=== PATIENT | female | born 1945 | race Caucasian/White ===

== ENCOUNTER 2017-04-07 15:29 | Inpatient (IN) | payer OTHER, MEDICARE ==
[2017-04-07] VITALS (8 sets, daily range): BP systolic 111–133; BP diastolic 49–72; PULSE 64–79; RESP 16–20; TEMP 98.6–99.9; O2SAT 95–98
[~2017-04-07] VITALS: Ht 162.6 cm; Wt 131.0 kg
[2017-04-07] MEDS: SODIUM CHLOR 0.9% 1000 ML INJ 1,000 ML IV SCH (00:15)
[~2017-04-07 15:29] MED LIST: ACET-929 PO; CITA20TA4 PO; DILT30TA PO; FENO54TA PO; HYDR25TA5 PO; LISI40TA PO; PERC5TAB12 PO
[2017-04-07 15:57] LABS: AUTOMATED NEUTROPHIL # 8.8 TH/MM3 (1.8-7.7); BASOPHIL # 0.1 TH/MM3 (0-0.2); BASOPHIL % 1.1 % (0.0-2.0); EOSINOPHIL # 0.3 TH/MM3 (0-0.4); EOSINOPHIL % 2.3 % (0.0-4.0); HEMATOCRIT 34.7 % (35.0-46.0); LYMPH % 13.8 % (9.0-44.0); LYMPHOCYTE # 1.7 TH/MM3 (1.0-4.8); MEAN CELL VOLUME 88.8 FL (80.0-100.0); MEAN CORPUSCULAR HEMOGLOBIN 29.9 PG (27.0-34.0); MEAN CORPUSCULAR HGB CONC 33.7 % (32.0-36.0); MONO % 10.9 % (0.0-8.0); NEUT % 71.9 % (16.0-70.0); PLATELET COUNT 224 TH/MM3 (150-450); RED BLOOD COUNT 3.91 MIL/MM3 (4.00-5.30); RED CELL DISTRIBUTION WIDTH 16.6 % (11.6-17.2); WHITE BLOOD COUNT 12.2 TH/MM3 (4.0-11.0)
[2017-04-07 16:01] LABS: HEMO FLAGS DIFF FINAL
[2017-04-07 16:05] LABS: CHLORIDE 104 MEQ/L (98-107); POTASSIUM 4.4 MEQ/L (3.5-5.1); SODIUM (NA) 137 MEQ/L (136-145)
[2017-04-07 16:08] LABS: ANION GAP 8 MEQ/L (5-15); BICARBONATE 24.9 MEQ/L (21.0-32.0)
[2017-04-07 16:09] LABS: BLOOD UREA NITROGEN 34 MG/DL (7-18)
[2017-04-07 16:12] LABS: GLOMERULAR FILTRATION RATE 37 ML/MIN (>89)
[2017-04-07] MEDS ORDERED: SODIUM CHLORID 0.9% 500 ML INJ 500 ML IV ONE (16:15)
[2017-04-07] MEDS ORDERED: MORPHINE SULFATE 4 MG/ML INJ IV PUSH ONE ×2 (16:15→18:30)
--- NOTE | 2017-04-07 16:16 | RADRPT ---
EXAM DATE/TIME: 04/07/2017 15:52 [facility] COMPARISON: No previous studies available for comparison. INDICATIONS : Chest pain. MEDICAL HISTORY : Cardiovascular disease. SURGICAL HISTORY : None. ENCOUNTER: Initial ACUITY: 4 - 6 days PAIN SCORE: 4/10 LOCATION: Right chest FINDINGS: The lungs are clear. The heart is minimally enlarged. The pulmonary vascularity is normal. There is n o evidence for infiltrate or failure. The portion of the bony skeleton visualized is unremarkable. CONCLUSION: Compensated cardiomegaly otherwise negative Jett Valle MD FACR on April 07, 2017 at 16:13 Board Certified Radiologist. This report was verified electronically.
[2017-04-07 16:17] LABS: CREATINE KINASE 25 U/L (26-192)
--- NOTE | 2017-04-07 16:17 | PD ---
HPI Chief Complaint: Chest Pain Time Seen by Provider: 15:53 Travel History International Travel<30 days: No Contact w/Intl Traveler<30days: No Traveled to known affect area: No History of Present Illness HPI This is a 71-year-old female who was recently diagnosed with large B-cell lymphoma who has her first appointment with Dr. Brown next week who presents to the emergency department with 5 days of right sided chest pain and right upper quadrant pain that radiates to the back. She feels a sharp stabbing pain that goes straight through her right side. She says it's worse with movement and worse when she lays down. She denies any associated fevers, chills, or vomiting. The pain has been constant. She says her lymphoma was biopsy confirmed. She is supposed to have a CT of her chest tomorrow. PFSH Past Medical History Arthritis: Yes (RA, OSTEOARTHRITIS) Atrial Fibrillation: Yes Autoimmune Disease: Yes (MS DIAGNOSIS 1979) Depression: Yes Cancer: Yes (SWEAT GLAND RIGHT EYELID) Cardiovascular Problems: Yes (AFIB) High Cholesterol: Yes Chemotherapy: No Chest Pain: No Diabetes: No Diminished Hearing: No Endocrine: No Gastrointestinal Disorders: No Glaucoma: No Genitourinary: No Hepatitis: No Hiatal Hernia: No Hypertension: Yes Musculoskeletal: Yes (MS) Neurologic: No Psychiatric: No Reproductive: No Respiratory: No Integumentary: No Immunizations Current: Yes Radiation Therapy: No Thyroid Disease: No Influenza Vaccination: No ?: Not Menopausal: Yes Ovarian Cysts: Yes (SURGERY X 5) Past Surgical History Abdominal Surgery: Yes AICD: No Appendectomy: Yes Ear Surgery: No Eye Surgery: Yes Gynecologic Surgery: Yes (cysts on ovaries and utereus) Hysterectomy: Yes Joint Replacement: No Oral Surgery: Yes (teeth removal) Pacemaker: No Thoracic Surgery: No Tonsillectomy: Yes (AND ADENOIDS) Other Surgery: Yes (BLADDER SLING, RIGHT BREAST MILK DUCT REMOVED) Social History Alcohol Use: No Tobacco Use: No (FORMER) Substance Use: No Allergies-Medications (Allergen,Severity, Reaction): Coded Allergies: No Known Allergies (Verified , 04/07/17) Reported Meds & Prescriptions Reported Meds & Active Scripts Active Hydroxyzine HCl 25 Mg Tab 1-2 Tab PO QID PRN Oxycodone (Oxycodone HCl) 5 Mg Cap 1-2 Tab PO Q4HR Percocet (Oxycodone-Acetaminophen) 5-325 mg Tab 2 Tab PO Q6H PRN Reported Acetaminophen Pm Gelcap (Acetaminophen/Diphenhydramine) 1 Each Tablet 2 Cap PO HS Lisinopril 40 Mg Tab 40 Mg PO HS Citalopram (Citalopram Hydrobromide) 20 Mg Tab 20 Mg PO DAILY Hydrochlorothiazide 25 Mg Tab 25 Mg PO DAILY Fenofibrate 54 Mg Tab 54 Mg PO BID Diltiazem (Diltiazem HCl) 30 Mg Tab 30 Mg PO BID Review of Systems Except as stated in HPI: all other systems reviewed are Neg Physical Exam Narrative GENERAL: Uncomfortable appearing SKIN: Focused skin assessment warm and dry. HEAD: Atraumatic. Normocephalic. EYES: Pupils equal and round. No injection or drainage. ENT: Moist mucous membranes NECK: Trachea midline. CARDIOVASCULAR: Regular rate and rhythm. No murmur appreciated. RESPIRATORY: Clear to auscultation. Breath sounds equal bilaterally. GASTROINTESTINAL: Abdomen soft, tender to palpation in the right upper quadrant and epigastrium with no rebound or guarding. MUSCULOSKELETAL: No obvious deformities. NEUROLOGICAL: Awake and alert. No obvious cranial nerve deficits. Moving all extremities. PSYCHIATRIC: Tearful Data Data Last Documented VS Vital Signs Date Time Temp Pulse Resp B/P Pulse Ox O2 Delivery O2 Flow Rate FiO2 04/07/17 17:56 65 16 133/62 96 Room Air 04/07/17 15:35 99.9 Orders Electrocardiogram (04/07/17 15:41) Complete Blood Count With Diff (04/07/17 15:41) Basic Metabolic Panel (Bmp) (04/07/17 15:41) Ckmb (Isoenzyme) Profile (04/07/17 15:41) Troponin I (04/07/17 15:41) Chest, Single Ap (04/07/17 15:41) Iv Access Insert/Monitor (04/07/17 15:41) Ecg Monitoring (04/07/17 15:41) Oxygen Administration (04/07/17 15:41) Oximetry (04/07/17 15:41) Ct Pulmonary Angiogram (04/07/17 ) Ct Abd/Pel W Iv Contrast(Rout) (04/07/17 ) Hepatic Functional Panel (04/07/17 16:02) Morphine Inj (Morphine Inj) (04/07/17 16:15) Sodium Chlorid 0.9% 500 Ml Inj (Ns 500 M (04/07/17 16:15) Ed Poc Ultrasound (04/07/17 ) Sodium Chlor 0.9% 1000 Ml Inj (Ns 1000 M (04/07/17 17:30) Iodixanol 320 Inj (Rad Ct) (Visipaque 32 (04/07/17 17:23) Urinalysis - C+S If Indicated (04/07/17 18:28) Morphine Inj (Morphine Inj) (04/07/17 18:30) Hydroxyzine Hcl (Atarax) (04/07/17 18:45) Lipase (04/07/17 15:50) Admit Order (Ed Use Only) (04/07/17 19:16) Labs Laboratory Tests Test 04/07/17 04/07/17 15:50 18:30 White Blood Count 12.2 TH/MM3 Red Blood Count 3.91 MIL/MM3 Hemoglobin 11.7 GM/DL Hematocrit 34.7 % Mean Corpuscular Volume 88.8 FL Mean Corpuscular Hemoglobin 29.9 PG Mean Corpuscular Hemoglobin 33.7 % Concent Red Cell Distribution Width 16.6 % Platelet Count 224 TH/MM3 Mean Platelet Volume 8.2 FL Neutrophils (%) (Auto) 71.9 % Lymphocytes (%) (Auto) 13.8 % Monocytes (%) (Auto) 10.9 % Eosinophils (%) (Auto) 2.3 % Basophils (%) (Auto) 1.1 % Neutrophils # (Auto) 8.8 TH/MM3 Lymphocytes # (Auto) 1.7 TH/MM3 Monocytes # (Auto) 1.3 TH/MM3 Eosinophils # (Auto) 0.3 TH/MM3 Basophils # (Auto) 0.1 TH/MM3 CBC Comment DIFF FINAL Differential Comment Sodium Level 137 MEQ/L Potassium Level 4.4 MEQ/L Chloride Level 104 MEQ/L Carbon Dioxide Level 24.9 MEQ/L Anion Gap 8 MEQ/L Blood Urea Nitrogen 34 MG/DL Creatinine 1.40 MG/DL Estimat Glomerular Filtration 37 ML/MIN Rate Random Glucose 107 MG/DL Calcium Level 9.0 MG/DL Total Bilirubin 0.5 MG/DL Direct Bilirubin 0.1 MG/DL Indirect Bilirubin 0.4 MG/DL Aspartate Amino Transf 28 U/L (AST/SGOT) Alanine Aminotransferase 19 U/L (ALT/SGPT) Alkaline Phosphatase 96 U/L Total Creatine Kinase 25 U/L Troponin I LESS THAN 0.02 NG/ML Total Protein 6.8 GM/DL Albumin 3.2 GM/DL Lipase 110 U/L Urine Color YELLOW Urine Turbidity CLEAR Urine pH 6.0 Urine Specific [place] 1.035 Urine Protein NEG mg/dL Urine Glucose (UA) NEG mg/dL Urine Ketones NEG mg/dL Urine Occult Blood MOD Urine Nitrite NEG Urine Bilirubin NEG Urine Leukocyte Esterase NEG Urine RBC 0-3 /hpf Urine WBC 3-5 /hpf Urine Squamous Epithelial 6-8 /hpf Cells Microscopic Urinalysis Comment CULT NOT INDICATED MDM Medical Decision Making Medical Screen Exam Complete: Yes Emergency Medical Condition: Yes Interpretation(s) temperature 99.9, no tachycardia, normotensive Mild leukocytosis 71% neutrophils Renal insufficiency LFTs are normal Last 24 hours Impressions Chest X-Ray 04/07/17 1541 Signed Impressions: Service Date/Time: Friday, April 07, 2017 15:52 - CONCLUSION: Compensated cardiomegaly otherwise negative Jett Valle MD FACR CT Angiography 04/07/17 0000 Signed Impressions: Service Date/Time: Friday, April 07, 2017 16:48 - CONCLUSION: 1. No evidence of pulmonary emboli. 2. Large solid mass in the sonu hepatis which cannot be clearly from the pancreatic head and is characteristic of either malignant lymphadenopathy or pancreatic carcinoma. 3. Mediastinal and hilar soft tissue traversing of neoplastic process and lymphadenopathy. 4. Right-sided subdiaphragmatic 18 mm nodule characteristic of an enlarged lymph node. 5. Right lower lobe pulmonary nodules suspicious for early pulmonary metastases. Navneet Muñoz MD Abdomen/Pelvis CT 04/07/17 0000 Signed Impressions: Service Date/Time: Friday, April 07, 2017 16:48 - CONCLUSION: Malignant lymphadenopathy which has slightly progressed since prior study. Splenomegaly No acute abnormality noted. Navneet Muñoz MD Differential Diagnosis Lymphoma, cholecystitis, metastatic disease, cancer pain, pneumonia, pulmonary embolism Narrative Course This is a 71-year-old female with a diagnosis of large B-cell lymphoma who presents to the emergency department with increasing pain in her right upper quadrant and right chest. She was placed on a monitor and an IV was established. Labs demonstrate a mild leukocytosis. CT abdomen and pelvis demonstrates slightly progressed lymphoma with a large mass in the sonu hepatis which I suspect is causing her pain. Patient received 2 doses of pain but is very uncomfortable. I think she would benefit from observation and IV hydration with pain control. I'm not sure was causing her low-grade temperature and her leukocytosis. Her elevated white blood cell count may be in the setting of dehydration. It's also reasonable just to watch her and make sure she doesn't develop an infection. Procedures Procedure Narrative US guided IV was placed, 20 guage in the left antecubital fossa Diagnosis Primary Impression: Abdominal mass Qualified Code: R19.01 - Right upper quadrant abdominal mass Patient Instructions: General Instructions Additional Instructions: If you develop severe or worsening abdominal pain, fever>100.4, persistent vomiting or inability to eat or drink return to the emergency department immediately. Follow up with your primary care physician in 1-2 days for a check-up. Med/Other Pt SpecificInfo: Prescription(s) given Scripts Hydroxyzine HCl 25 Mg Tab1-2 Tab PO QID PRN (ITCHING) #15 TAB Ref 0 Prov:Luh Dunlap MD 04/07/17 Oxycodone 5 Mg Cap1-2 Tab PO Q4HR #20 CAP Ref 0 Prov:Luh Dunlap MD 04/07/17 Luh Dunlap MD Apr 07, 2017 16:17
[2017-04-07 16:54] LABS: INDIRECT BILIRUBIN 0.4 MG/DL (0.0-0.8); TOTAL BILIRUBIN ADULT 0.5 MG/DL (0.2-1.0)
[2017-04-07] MEDS ORDERED: IODIXANOL 320 MG/ML 10 ML VIAL (for Rad CT) IV ONE (17:23)
[2017-04-07] MEDS ORDERED: SODIUM CHLOR 0.9% 1000 ML INJ 1,000 ML IV ONE (17:30)
--- NOTE | 2017-04-07 18:00 | RADRPT ---
EXAM DATE/TIME: 04/07/2017 16:48 [facility] COMPARISON: No previous studies available for comparison. INDICATIONS : Right chest pain. Evaluate for embolism. IV CONTRAST: 50 cc Visipaque (iodixanol) IV ; Cumulative dose for multiple exams. RADIATION DOSE: 24.18 CTDIvol (mGy) MEDICAL HISTORY : Hypertension. Recent diagnosis of large B cell lymphoma SURGICAL HISTORY : Appendectomy. Hysterectomy.Bladder sling ENCOUNTER: Initial ACUITY: 4 - 6 days PAIN SCALE: 6/10 LOCATION: Right chest TECHNIQUE: Volumetric scanning of the chest was performed using a pulmonary embolism protocol MIP images were re constructed. Using automated exposure control and adjustment of the mA and/or kV according to patien t size, radiation dose was kept as low as reasonably achievable to obtain optimal diagnostic quality images. DICOM format image data is available electronically for review and comparison. Follow-up recommendations for incidentally detected pulmonary nodules are based at a minimum on nodul e size and patient risk factors according to Fleischner Society Guidelines. FINDINGS: PULMONARY ARTERIES: No filling defects are seen in the pulmonary arteries through the segmental level. LUNGS: 2 pulmonary nodules are identified in the right lower lobe within the posterior costophrenic sulcus. The nodules measure 1.5 and 1.3 cm in size. There is no evidence of consolidating airspace disease. PLEURAE: There is no pleural thickening or pleural effusion. MEDIASTINUM: Abnormal bandlike soft tissue is identified along the posterior wall of the left atrium extending int o the right hilum and azygos esophageal groove. It cannot be clearly from the esophagus. Mi ld adenopathy is noted in the left hilar region. MUSCULOSKELETAL: Within normal limits for patient age. MISCELLANEOUS: A large soft tissue mass is identified within the sonu hepatis measuring 7.4 x 7.3 cm in size. It ab uts and cannot be completely from the pancreatic head. Additional nodular soft tissue densi ties are seen along the celiac axis and in the right side diaphragmatic region characteristic of maura opathy. CONCLUSION: 1. No evidence of pulmonary emboli. 2. Large solid mass in the sonu hepatis which cannot be clearly from the pancreatic head a nd is characteristic of either malignant lymphadenopathy or pancreatic carcinoma. 3. Mediastinal and hilar soft tissue traversing of neoplastic process and lymphadenopathy. 4. Right-sided subdiaphragmatic 18 mm nodule characteristic of an enlarged lymph node. 5. Right lower lobe pulmonary nodules suspicious for early pulmonary metastases. Navneet Muñoz MD on April 07, 2017 at 17:45 Board Certified Radiologist. This report was verified electronically.
--- NOTE | 2017-04-07 18:13 | RADRPT ---
EXAM DATE/TIME: 04/07/2017 16:48 [facility] COMPARISON: CT ABDOMEN & PELVIS W CONTRAST, February 23, 2017, 13:56. INDICATIONS : Right upper quadrant pain. IV CONTRAST: 50 cc Visipaque (iodixanol) IV ; Cumulative dose for multiple exams. ORAL CONTRAST: No oral contrast ingested. RADIATION DOSE: 22.02 CTDIvol (mGy) MEDICAL HISTORY : Hypertension. Recent diagnosis of large B cell lymphoma SURGICAL HISTORY : Appendectomy. Hysterectomy.Bladder sling ENCOUNTER: Initial ACUITY: 4 - 6 days PAIN SCALE: 5/10 LOCATION: Right upper quadrant TECHNIQUE: Volumetric scanning of the abdomen and pelvis was performed. Using automated exposure control and adjustment of the mA and/or kV according to patient size, radiation dose was kept as low as reasonably achievable to obtain optimal diagnostic quality images. DICOM format image data is av ailable electronically for review and comparison. FINDINGS: Large felicitas mass in the sonu hepatis and associated celiac, mesenteric and retroperitoneal lymphaden opathy are again noted and measure slightly larger. The sonu hepatis mass has increased in diameter from 8 cm to 8.7 cm. The liver is stable without evidence of space-occupying lesions. The spleen remains moderately enlarged. The kidneys and intestinal tract are unremarkable. There is no evidence of hydronephrosis. CONCLUSION: Malignant lymphadenopathy which has slightly progressed since prior study. Splenomegaly No acute abnormality noted. Navneet Muñoz MD on April 07, 2017 at 18:04 Board Certified Radiologist. This report was verified electronically.
[2017-04-07] MEDS ORDERED: HYDR-3133 PO (18:28)
[2017-04-07] MEDS ORDERED: OXYC1CAP PO (18:28)
[2017-04-07 18:39] LABS: GLUCOSE,URINE NEG (NEG); KETONE, URINE NEG (NEG); NITRITE,URINE NEG (NEG)
[2017-04-07] MEDS ORDERED: hydrOXYzine HCL 25 MG TAB PO ONE (18:45)
[2017-04-07 18:55] LABS: BLOOD, URINE MOD (NEG); URINE COLOR YELLOW (YELLW/STRAW)
[2017-04-07 18:58] LABS: COMMENT (UR) CULT NOT INDICATED; CULTURE IF INDICATED CULT NOT INDICATED; RBC, URINE 0-3 /hpf (0-3)
[2017-04-07] MEDS ORDERED: SODIUM CHLORIDE 0.9% FLUSH 10 ML FLUSH IV FLUSH PRN (20:00)
[2017-04-07] MEDS ORDERED: NALOXONE HCL 0.4 MG/ML AMP IV PRN (20:00)
[2017-04-07] MEDS: SODIUM CHLORIDE 0.9% FLUSH 10 ML FLUSH IV FLUSH SCH (21:00)
[2017-04-08] VITALS: BP 115/53; PULSE 60; RESP 20; TEMP 98.1; O2SAT 96
[2017-04-08 04:00] VITALS: BP 114/57; PULSE 63; RESP 20; TEMP 97; O2SAT 96
[2017-04-08 06:01] LABS: HEMATOCRIT 33.4 % (35.0-46.0); MEAN CELL VOLUME 90.2 FL (80.0-100.0); MEAN CORPUSCULAR HEMOGLOBIN 29.5 PG (27.0-34.0); MEAN CORPUSCULAR HGB CONC 32.6 % (32.0-36.0); PLATELET COUNT 188 TH/MM3 (150-450); RED BLOOD COUNT 3.71 MIL/MM3 (4.00-5.30); RED CELL DISTRIBUTION WIDTH 17.1 % (11.6-17.2); WHITE BLOOD COUNT 8.5 TH/MM3 (4.0-11.0)
[2017-04-08 06:14] LABS: POTASSIUM 4.2 MEQ/L (3.5-5.1)
[2017-04-08 06:20] LABS: BICARBONATE 26.5 MEQ/L (21.0-32.0)
[2017-04-08 06:23] LABS: HEMO FLAGS AUTO DIFF
[2017-04-08] MEDS: SODIUM CHLORIDE 0.9% FLUSH 10 ML FLUSH IV FLUSH SCH ×2 (07:33→21:16)
[2017-04-08 07:35] LABS: EOSINOPHILS 3 % (0-4); NEUTROPHIL # MANUAL DIFF 5.4 TH/MM3 (1.8-7.7); PLATELET ESTIMATE SMEAR NORMAL (NORMAL); PLATELET MORPHOLOGY NORMAL (NORMAL); POLYS (SEG NEUTROPHILS) 64 % (16-70); SCAN/DIFF FINAL DIFF MANUAL; WBC DIFF SAMPLE 100
[2017-04-08] MEDS: SODIUM CHLOR 0.9% 1000 ML INJ 1,000 ML IV SCH (07:58)
[2017-04-08 08:00] VITALS: BP 100/38; PULSE 60; RESP 18; TEMP 98.4; O2SAT 96
[2017-04-08] MEDS ORDERED: oxyCODONE/ACETAMINOPHEN 5 MG/325 MG TAB PO PRN (08:00)
[2017-04-08] MEDS ORDERED: MORPHINE SULFATE 4 MG/ML INJ IV PRN (08:00)
[2017-04-08] MEDS ORDERED: NALOXONE HCL 0.4 MG/ML AMP IV PRN (08:00)
[2017-04-08] MEDS: oxyCODONE/ACETAMINOPHEN 10 MG/325 MG TAB PO PRN ×2 (08:01→21:15)
--- NOTE | 2017-04-08 11:09 | HHI.HP ---
[facility] Service [facility] Primary Care Physician Davonte Rodas MD Admission Diagnosis lymphoma, pain Diagnoses: (1) Intractable pain Diagnosis: Principal (2) Large B-cell lymphoma (3) Right-sided chest wall pain Diagnosis: Principal (4) Mesenteric lymphadenopathy (5) Lymphadenopathy, retroperitoneal Travel History International Travel<30 Days: No Contact w/Intl Traveler <30 Da: No Traveled to Known Affected Are: No History of Present Illness This is a pleasant 71 year-old female who was recently diagnosed with large B cell lymphoma and has a large felicitas mass in the sonu hepatis with associated celiac mesenteric and retroperitoneal lymphadenopathy. She underwent biopsy of the sonu hepatis node mass on 03/12/17 which was positive for large B-cell lymphoma. She has an appointment to establish with Dr. Brown next Friday. Beginning one week ago she has had intermittent severe right sided chest pain which she describes as pulling in nature. It is exacerbated by movement or bending over. She has been taking oxycodone at home for the pain however it was uncontrolled and she was in tears yesterday due to the pain and so she presented to the ER. She received 4 mg of morphine IV which much controlled pain. This morning she took a Percocet and pain is currently 5 out of 10. The patient requests to see Dr. Brown. The patient complains of night sweats. She denies fevers or chills. Denies constipation. Denies shortness of breath. In the emergency department a CTA of the chest was negative for pulmonary embolism. Troponin was not elevated. EKG showed normal sinus rhythm. Abdominal CT scan showed enlargement of the sonu hepatis node mass from 8-8.7 cm. the patient had a cardiac catheterization in 2014 which showed no obstructive coronary artery disease. She is followed by Dr. De Guzman for paroxysmal atrial fibrillation; per the patient she had one episode of atrial fibrillation 5 years ago while hospitalized and has had no recurrence. She takes aspirin daily. Review of Systems Constitutional: COMPLAINS OF: Night Sweats, DENIES: Fatigue, Fever, Chills Eyes: DENIES: Eye pain, Vision loss Ears, nose, mouth, throat: DENIES: Hoarseness, Odynophagia Respiratory: DENIES: Cough, Shortness of breath Cardiovascular: COMPLAINS OF: Chest pain, DENIES: Palpitations, Dyspnea on Exertion, Lower Extremity Edema Gastrointestinal: DENIES: Abdominal pain, Constipation Genitourinary: DENIES: Hematuria, Dysuria Musculoskeletal: DENIES: Muscle aches, Stiffness Integumentary: DENIES: Pruritus, Rash Hematologic/lymphatic: DENIES: Lymphadenopathy Neurologic: DENIES: Abnormal gait, Headache Psychiatric: DENIES: Anxiety, Confusion Past Family Social History Past Medical History Atrial fibrillation Depression Hyperlipidemia Morbid obesity Large B-cell lymphoma with retroperitoneal, mesenteric lymphadenopathy and a large felicitas mass of the sonu hepatis History of multiple sclerosis not currently treated Reported Medications Allergies Coded Allergies Type Severity Reaction Last Updated Verified No Known Allergies 04/07/17 Yes Active Scripts Medications Dose Route/Sig Days Date Category Hydroxyzine HCl 25 Mg Tab 1-2 Tab PO QID PRN 04/07/17 Rx Oxycodone (Oxycodone HCl) 5 Mg Cap 1-2 Tab PO Q4HR 04/07/17 Rx Acetaminophen Pm Gelcap (Acetaminophen/Diphenhydramine) 1 Each Tablet 2 Cap PO HS 03/13/17 Reported Lisinopril 40 Mg Tab 40 Mg PO HS 03/12/17 Reported Citalopram (Citalopram Hydrobromide) 20 Mg Tab 20 Mg PO DAILY 03/12/17 Reported Hydrochlorothiazide 25 Mg Tab 25 Mg PO DAILY 03/12/17 Reported Fenofibrate 54 Mg Tab 54 Mg PO BID 03/12/17 Reported Diltiazem (Diltiazem HCl) 30 Mg Tab 30 Mg PO BID 03/12/17 Reported Percocet (Oxycodone-Acetaminophen) 5-325 mg Tab 2 Tab PO Q6H PRN 02/23/17 Rx Allergies: Coded Allergies: No Known Allergies (Verified , 04/07/17) Family History Negative for lymphoma Social History No alcohol tobacco or drug use. Lives with her . Physical Exam Vital Signs Vital Signs Date Time Temp Pulse Resp B/P Pulse Ox O2 Delivery O2 Flow Rate FiO2 04/08/17 08:00 98.4 60 18 100/38 96 04/08/17 04:00 97.0 63 20 114/57 96 04/08/17 00:00 98.1 60 20 115/53 96 04/07/17 23:00 68 04/07/17 20:50 98.8 64 20 121/72 96 04/07/17 20:21 79 18 111/53 98 Room Air 04/07/17 19:32 18 04/07/17 19:25 98.6 66 18 124/49 95 Room Air 04/07/17 19:19 95 Room Air 04/07/17 17:56 65 16 133/62 96 Room Air 04/07/17 17:23 72 18 133/62 97 Room Air 04/07/17 16:39 18 04/07/17 15:46 75 18 114/58 97 Room Air 04/07/17 15:43 96 Room Air 04/07/17 15:43 76 04/07/17 15:35 99.9 76 18 113/53 97 Physical Exam GENERAL: Well-nourished, well-developed pleasant morbidly obese female patient. SKIN: Warm and dry. HEAD: Normocephalic. EYES: No scleral icterus. No injection or drainage. NECK: Supple, trachea midline. No JVD or lymphadenopathy. CARDIOVASCULAR: Regular rate and rhythm without murmurs, gallops, or rubs. Tender to palpation over the right parasternal chest. RESPIRATORY: Breath sounds equal and clear to auscultation bilaterally. No accessory muscle use. GASTROINTESTINAL: Bowel sounds normoactive. Abdomen soft, non-tender, nondistended. EXTREMITIES: No cyanosis, or edema. NEUROLOGICAL: Awake, alert, and oriented x 3. Non-focal. Lymph: No axillary, inguinal or neck lymphadenopathy. Laboratory Laboratory Tests Test 04/07/17 04/07/17 04/08/17 15:50 18:30 05:20 White Blood Count 12.2 8.5 Red Blood Count 3.91 3.71 Hemoglobin 11.7 10.9 Hematocrit 34.7 33.4 Mean Corpuscular Volume 88.8 90.2 Mean Corpuscular Hemoglobin 29.9 29.5 Mean Corpuscular Hemoglobin 33.7 32.6 Concent Red Cell Distribution Width 16.6 17.1 Platelet Count 224 188 Mean Platelet Volume 8.2 8.1 Neutrophils (%) (Auto) 71.9 Lymphocytes (%) (Auto) 13.8 Monocytes (%) (Auto) 10.9 Eosinophils (%) (Auto) 2.3 Basophils (%) (Auto) 1.1 Neutrophils # (Auto) 8.8 Lymphocytes # (Auto) 1.7 Monocytes # (Auto) 1.3 Eosinophils # (Auto) 0.3 Basophils # (Auto) 0.1 CBC Comment DIFF FINAL AUTO DIFF Differential Comment FINAL DIFF MANUAL Sodium Level 137 141 Potassium Level 4.4 4.2 Chloride Level 104 107 Carbon Dioxide Level 24.9 26.5 Anion Gap 8 8 Blood Urea Nitrogen 34 26 Creatinine 1.40 0.77 Estimat Glomerular Filtration 37 74 Rate Random Glucose 107 78 Calcium Level 9.0 8.6 Total Bilirubin 0.5 Direct Bilirubin 0.1 Indirect Bilirubin 0.4 Aspartate Amino Transf 28 (AST/SGOT) Alanine Aminotransferase 19 (ALT/SGPT) Alkaline Phosphatase 96 Total Creatine Kinase 25 Troponin I LESS THAN 0.02 Total Protein 6.8 Albumin 3.2 Lipase 110 Urine Color YELLOW Urine Turbidity CLEAR Urine pH 6.0 Urine Specific [place] 1.035 Urine Protein NEG Urine Glucose (UA) NEG Urine Ketones NEG Urine Occult Blood MOD Urine Nitrite NEG Urine Bilirubin NEG Urine Leukocyte Esterase NEG Urine RBC 0-3 Urine WBC 3-5 Urine Squamous Epithelial 6-8 Cells Microscopic Urinalysis Comment CULT NOT INDICATED Differential Total Cells 100 Counted Neutrophils % (Manual) 64 Lymphocytes % 19 Monocytes % 14 Eosinophils % 3 Neutrophils # (Manual) 5.4 Platelet Estimate NORMAL Platelet Morphology Comment NORMAL Result Diagram: 04/08/17 0520 04/08/17 0520 Imaging Last Impressions Chest X-Ray 04/07/17 1541 Signed Impressions: Service Date/Time: Friday, April 07, 2017 15:52 - CONCLUSION: Compensated cardiomegaly otherwise negative Jett Valle MD FACR CT Angiography 04/07/17 0000 Signed Impressions: Service Date/Time: Friday, April 07, 2017 16:48 - CONCLUSION: 1. No evidence of pulmonary emboli. 2. Large solid mass in the sonu hepatis which cannot be clearly from the pancreatic head and is characteristic of either malignant lymphadenopathy or pancreatic carcinoma. 3. Mediastinal and hilar soft tissue traversing of neoplastic process and lymphadenopathy. 4. Right-sided subdiaphragmatic 18 mm nodule characteristic of an enlarged lymph node. 5. Right lower lobe pulmonary nodules suspicious for early pulmonary metastases. Navneet Muñoz MD Abdomen/Pelvis CT 04/07/17 0000 Signed Impressions: Service Date/Time: Friday, April 07, 2017 16:48 - CONCLUSION: Malignant lymphadenopathy which has slightly progressed since prior study. Splenomegaly No acute abnormality noted. Navneet Muñoz MD Assessment and Plan Assessment and Plan -Intractable right sided chest pain possibly secondary to enlarging felicitas mass of the sonu hepatis secondary to large B-cell lymphoma - pain was uncontrolled by oxycodone 10 mg at home. Pain is now improved. Continue morphine IV with Percocet for breakthrough pain. Consult hematology per patient request. -Mild leukocytosis, resolved. No evidence of infection. -Hypertension. Hold lisinopril as blood pressure is normotensive. Continue hydrochlorothiazide and diltiazem. -Paroxysmal atrial fibrillation, currently sinus rhythm. Resume diltiazem and resume aspirin. -Morbid obesity -Hyperlipidemia continue fenofibrate. -DVT prophylaxis - SCDs. Janette Healy MD Apr 08, 2017 11:09
[2017-04-08 12:00] VITALS: BP 108/65; PULSE 87; RESP 18; TEMP 97.9; O2SAT 97
[2017-04-08] MEDS: DILTIAZEM HCL 30 MG TAB PO SCH ×2 (12:00→21:15)
[2017-04-08] MEDS: CITALOPRAM HYDROBROMIDE 20 MG TAB PO SCH (12:20)
[2017-04-08] MEDS: ASPIRIN EC 81 MG TABEC PO SCH (12:21)
[2017-04-08] MEDS: MORPHINE SULFATE 4 MG/ML INJ IV PRN ×2 (12:21→22:22)
--- NOTE | 2017-04-08 15:47 | EKG ---
Date Performed: 04/07/2017 Time Performed: 15:37:45 PTAGE: 71 years EKG: Sinus rhythm NONSPECIFIC ST & T-WAVE ABNORMALITY BORDERLINE ECG INTERPRETATION BASED ON A DEFAULT AGE OF 40 YEARS PREVIOUS TRACING : 06/29/2015 07.30 DOCTOR: Dia Alonso Interpretating Date/Time 04/08/2017 15:42:18
[2017-04-08 16:00] VITALS: BP 123/57; PULSE 77; RESP 18; TEMP 98.7; O2SAT 95
[2017-04-08 20:00] VITALS: BP 120/62; PULSE 94; PULSE 96; RESP 20; TEMP 100.4; O2SAT 94
[2017-04-08] MEDS: FENOFIBRATE 48 MG TAB PO SCH (21:15)
--- NOTE | 2017-04-08 22:19 | MB ---
cc: JANETTE PÉREZ MD, RUBY ANNE E. M.D. DATE OF CONSULTATION 04/08/[address] Janette Pérez CHIEF COMPLAINT Dr. Pérez requests a consultation for Mrs. Solares regarding newly diagnosed large cell lymphoma. HISTORY OF PRESENT ILLNESS Mrs. Solares is a well-known patient to Dr. Rodas with history of atrial fibrillation, depression, hyperlipidemia, morbid obesity and multiple sclerosis not currently treated. She presented with weight loss of over 35 pounds several months ago. She noted some increasing night sweats. She had severe abdominal pain that prompted her to be evaluated in the emergency room on 02/23/2017. The CT scan of the abdomen and pelvis shows adenopathy sonu hepatis with enlargement of the spleen, nodularity right base possible lymph node in the right hilum. These findings are concerning for lymphoma on March 12, 2017. CT-guided biopsy of the abdominal mass was performed. The final pathology showed a large cell lymphoma from the needle biopsy B-cell phenotype. The lymphoma was BCL1, CD 10, CD 23 negative. It is CD 20 reactive. Neoplasm was suggestive of center origin. Ms. Solares has an appointment pending at [facility] with me on April 14. Unfortunately, her symptoms progress. She came into the emergency room with what was described as chest pain. It is actually in her upper abdomen. She says it is worse with movement and worse when she lays down, sharp, stabbing close to her right side. She was admitted for pain control. Her initial labs show mild renal insufficiency which corrected during her admission. Liver function was normal. Albumin is decreased. CBC is significant for mild normocytic anemia, platelet count and white blood cell count is normal. Hematology/Oncology is consulted for treatment of her lymphoma. So far, her pain symptoms are alleviated but they still persist. PAST MEDICAL HISTORY 1. Obesity, 2. Atrial fibrillation, 3. Depression, 4. Hyperlipidemia, 5. History of multiple sclerosis 6. Large cell lymphoma. FAMILY HISTORY Significant for brother with Hodgkin's disease in his 60s. SOCIAL HISTORY She denies any tobacco, alcohol or illicit drug use. She is , lives with her . PHYSICAL EXAMINATION VITAL SIGNS: Temperature 98.7, heart rate 77, respiratory rate 18, blood pressure 123/57, saturation 95%. GENERAL: Ms. Solares is a well-developed, well-nourished morbidly obese pleasant woman in no acute distress. HEENT: Pupils are round, reactive to light and accommodation. Oropharynx is clear. NECK: Supple. LUNGS: Clear to auscultation. CARDIOVASCULAR: Rate-controlled rhythm. ABDOMEN: Large and benign. LOWER EXTREMITIES: No edema. No adenopathy appreciated. SKIN: Significant for erythematous umbilicated pustules/papules. They are distributed over chest, abdomen, both thighs and arms. IMAGING STUDIES CT angiogram from 04/07/2017 shows no evidence of pulmonary emboli. There is a large solid mass in the sonu hepatis not from a pancreatic head mass. There is mediastinal hilar soft tissue traversing. There is a right-sided sub-diaphragmatic 18 mm nodule characteristic of an enlarged lymph node. There is right lower lobe pulmonary nodule. CT scan of the abdomen and pelvis showed malignant lymphadenopathy. Sonu hepatis mass is increased in size from 8 cm to 8.7 cm as compared to the scan in January of approximately six weeks ago. ASSESSMENT/PLAN Mrs. Solares is a 71-year-old woman with multiple medical problems. She us newly diagnosed with the non-Hodgkin's lymphoma, large cell type. Her lymphoma is CD 20 positive. She is pending a consultation with oncologist on outpatient basis. She was admitted for abdominal pain associated with her lymphoma. I had a lengthy discussion with and Mrs. Solares her diagnosis of lymphoma. We discussed that lymphoma has different diseases. She has a large cell type which requires systemic therapy. She has evidence of progression in comparing the CT scan from February 23 to current. Furthermore, she has progression of symptoms with worsening abdominal pain. We discussed treatment for lymphoma to include systemic chemotherapy. We are trying to decide the risk and benefit of proceeding with chemotherapy on an inpatient basis. She has significant amount of symptoms and shortness of breath associated with it. On the other hand, she would like to be able to go home. We discussed completing a staging evaluation with bone marrow biopsy. I will obtain an echo to determine her baseline ejection fraction. She tells me that a cardiac catheterization by Dr. Karimi shows no coronary artery disease. No specific therapy is required for the rash. It looks like milluscum. They appear to be resolving on their own. She has intermittent fevers. She has sweats. For this reason, chemotherapy treatment would the ideal. We discussed administration of chemotherapy through a port which she was desirable of. We will refer her to interventional radiology for port placement after her bone marrow biopsy. We will assess in the morning to see if she is able to go home safely on pain medication. We discussed a trial of Decadron to go home. The advantage of going home and coming back for her chemotherapy as outpatient establishment of her treatment and establishing her subsequent cycles of chemotherapy. Furthermore, we would be able to stage her appropriately with a baseline CT PET scan evaluation that cannot be done in the hospital. Her questions were answered to her satisfaction. manager flight is consulted to assist in coordinating the above. MD ANDIE Wayne/ /6:34 PM /9:49 PM
[2017-04-09] VITALS (10 sets, daily range): BP systolic 105–151; BP diastolic 46–71; PULSE 85–89; RESP 16–20; TEMP 97.1–98.7; O2SAT 92–97
[2017-04-09 06:21] LABS: APTT (PATIENT) 22.7 SEC (24.3-30.1)
[2017-04-09] MEDS: DILTIAZEM HCL 30 MG TAB PO SCH (09:00)
[2017-04-09] MEDS ORDERED: HYDROCHLOROTHIAZIDE 25 MG TAB PO SCH (09:00)
[2017-04-09] MEDS: ASPIRIN EC 81 MG TABEC PO SCH (09:00)
[2017-04-09] MEDS: FENOFIBRATE 48 MG TAB PO SCH (09:05)
[2017-04-09] MEDS: CITALOPRAM HYDROBROMIDE 20 MG TAB PO SCH (09:05)
[2017-04-09] MEDS: oxyCODONE/ACETAMINOPHEN 10 MG/325 MG TAB PO PRN ×2 (09:05→16:18)
[2017-04-09] MEDS: SODIUM CHLORIDE 0.9% FLUSH 10 ML FLUSH IV FLUSH SCH (09:05)
[2017-04-09] MEDS ORDERED: MIDAZOLAM HCL 2 MG/2 ML VIAL IV ONE (11:30)
[2017-04-09] MEDS ORDERED: VANCOMYCIN INJ 1,000 MG in SODIUM CHLOR 0.9% 250 ML INJ 250 ML IV SCH (12:15)
[2017-04-09] MEDS ORDERED: ceFAZolin 2 GM PREMIX 50 ML IV SCH (12:15)
[2017-04-09] MEDS ORDERED: LIDOCAINE 1%/EPINEPHrine 1:100,000 SOLN 30 ML VIAL OTHER ONE (12:28)
--- NOTE | 2017-04-09 12:34 | RADRPT ---
EXAM DATE/TIME: 04/09/2017 11:25 [facility] COMPARISON: No previous studies available for comparison. INDICATIONS : Bone marrow biopsy. Lymphoma. SEDATION TIME: 25 minutes BIOPSY SITE: Left ilium MEDICATION(S): 1.) 4 mg midazolam (Versed) IV 2.) 200 mcg fentanyl (Sublimaze) IV DEVICE(S): 1.) 11 gauge Bone marrow biopsy needle MEDICAL HISTORY : Cardiovascular disease. Lymphoma. Multiple sclerosis. Hypertension. SURGICAL HISTORY : Appendectomy. Hysterectomy. Bladder sling. ENCOUNTER: Initial ACUITY: 1 day PAIN SCORE: 0/10 LOCATION: Left ilium A total of one core specimen(s) were obtained and sent to the laboratory for pathologic evaluation. PROCEDURE: 1. CT guided bone core biopsy and marrow biopsy. 2. Conscious sedation with continuous EKG and oximetry monitoring. 3. EKG and oximetry remained stable throughout the procedure. Prior to the procedure informed consent was obtained. Any appropriate prior imaging studies were rev iewed. Using automated exposure control and adjustment of the mA and/or kV according to patient size , radiation dose was kept as low as reasonably achievable to obtain optimal diagnostic quality images . DICOM format image data is available electronically for review and comparison. The site was prepped in a sterile fashion. Full sterile technique was used, including cap, mask, vicente rile gloves and gown and a large sterile sheet. Hand hygiene and 2% chlorhexidine and/or betadine/al cohol prep was utilized per protocol for cutaneous antisepsis. The skin and subcutaneous tissues wer e infiltrated with local anesthetic solution. With CT guidance the previously identified target was localized. Biopsy was performed using the presc ribed needle as above. Following biopsy marrow aspiration was performed with repeat puncture. Adequa te hemostasis was obtained with compression at the puncture site. Follow-up CT scan reveals no hemorrhage. Conscious sedation was performed with the prescribed dosages and duration as above in the presence of an independent trained radiology nurse to assist in the monitoring of the patient. EKG and oximetry remained stable throughout the procedure. The patient tolerated the procedure well and there were no complications. The patient was sent to Radiology Outpatient Unit in stable condition. CONCLUSION: 1. Uncomplicated CT guided bone marrow aspirate. 2. Uncomplicated CT guided bone marrow biopsy. Ravindra Galvan MD on April 09, 2017 at 12:31 Board Certified Radiologist. This report was verified electronically.
[2017-04-09] MEDS ORDERED: LIDOCAINE 1%/EPINEPHrine 1:100,000 SOLN 30 ML VIAL I-DERMAL ONE (13:46)
[2017-04-09] MEDS ORDERED: MIDAZOLAM HCL 5 MG/5 ML VIAL IV ONE (13:50)
[2017-04-09] MEDS ORDERED: fentaNYL CITRATE 250 MCG/5 ML AMP IV ONE (13:50)
--- NOTE | 2017-04-09 14:13 | PD.RAD ---
Post Procedure Progress Note Pre Procedure Diagnosis: (1) Large B-cell lymphoma Post Procedure Diagnosis: (1) Large B-cell lymphoma Procedure Date: Apr 09, 2017 Supervising Radiologist: Ravindra Galvan Proceduralist/Assist: Des Torres RT(R) Anesthesia: Local, Conscious Sedation Plan of Activity Patient to Unit: PACU Patient Condition: Good See PACS Report for procedural detail/treatment Central Venous Access Device Procedure 1 Right Internal Jugular Infusaport Placement single lumen Vietnamese: 8 Ravindra Galvan MD Apr 09, 2017 14:13
[2017-04-09] MEDS ORDERED: SODIUM CHLORIDE 0.9% FLUSH 10 ML FLUSH IVF PRN (14:15)
--- NOTE | 2017-04-09 14:15 | PD.RAD ---
Post CT Procedure Prog Note Pre Procedure Diagnosis: (1) Large B-cell lymphoma Post Procedure Diagnosis: (1) Large B-cell lymphoma Procedure Date: Apr 09, 2017 Supervising Radiologist: Ravindra Galvan Anesthesia: Local, Conscious Sedation Plan of Activity Patient to Unit: PACU Patient Condition: Good See PACS Report for procedural detail/treatment Biopsy Side: Left Biopsy Procedure: Bone Marrow Site: iliac crest Specimen: Core Biopsy Additional Detail: and marrow aspirate Ravindra Galvan MD Apr 09, 2017 14:15
--- NOTE | 2017-04-09 16:10 | HHI.DCPOC ---
Discharge Care Plan Diagnosis: (1) Lymphadenopathy, retroperitoneal (2) Intractable pain Goals to Promote Your Health * To prevent worsening of your condition and complications * To maintain your health at the optimal level Directions to Meet Your Goals Take your medications as prescribed Follow your dietary instruction Follow activity as directed Keep your appointments as scheduled Take your immunizations and boosters as scheduled If your symptoms worsen call your PCP, if no PCP go to Urgent Care Center or Emergency Room Smoking is Dangerous to Your Health. Avoid second hand smoke Call the 24-hour hour crisis hotline for domestic abuse at Teena Pederson MD Apr 09, 2017 16:10
[2017-04-09] MEDS ORDERED: OXYC1TAB63 PO (16:11)
--- NOTE | 2017-04-09 16:17 | HHI.DS ---
cc: Brenda Brown MD Discharge Summary Admission Date Apr 08, 2017 at 10:51 Discharge Date: Apr 09, 2017 Admitting Diagnosis lymphoma, pain (1) Intractable pain ICD Code: R52 Diagnosis: Principal (2) Large B-cell lymphoma ICD Code: C85.10 (3) Right-sided chest wall pain ICD Code: R07.89 Diagnosis: Principal (4) Mesenteric lymphadenopathy ICD Code: R59.0 (5) Lymphadenopathy, retroperitoneal ICD Code: R59.0 Procedures Bone marrow Bx Port placement Brief History - From Admission This is a pleasant 71 year-old female who was recently diagnosed with large B cell lymphoma and has a large felicitas mass in the sonu hepatis with associated celiac mesenteric and retroperitoneal lymphadenopathy. She underwent biopsy of the sonu hepatis node mass on 03/12/17 which was positive for large B-cell lymphoma. She has an appointment to establish with Dr. Brown next Friday. Beginning one week ago she has had intermittent severe right sided chest pain which she describes as pulling in nature. It is exacerbated by movement or bending over. She has been taking oxycodone at home for the pain however it was uncontrolled and she was in tears yesterday due to the pain and so she presented to the ER. She received 4 mg of morphine IV which much controlled pain. This morning she took a Percocet and pain is currently 5 out of 10. The patient requests to see Dr. Brown. The patient complains of night sweats. She denies fevers or chills. Denies constipation. Denies shortness of breath. In the emergency department a CTA of the chest was negative for pulmonary embolism. Troponin was not elevated. EKG showed normal sinus rhythm. Abdominal CT scan showed enlargement of the sonu hepatis node mass from 8-8.7 cm. the patient had a cardiac catheterization in 2014 which showed no obstructive coronary artery disease. She is followed by Dr. De Guzman for paroxysmal atrial fibrillation; per the patient she had one episode of atrial fibrillation 5 years ago while hospitalized and has had no recurrence. She takes aspirin daily. CBC/BMP: 04/08/17 0520 04/08/17 0520 Significant Findings Laboratory Tests Test 04/07/17 04/07/17 04/08/17 04/09/17 15:50 18:30 05:20 05:27 White Blood Count 12.2 TH/MM3 (4.0-11.0) Red Blood Count 3.91 MIL/MM3 3.71 MIL/MM3 (4.00-5.30) (4.00-5.30) Hematocrit 34.7 % 33.4 % (35.0-46.0) (35.0-46.0) Neutrophils (%) (Auto) 71.9 % (16.0-70.0) Monocytes (%) (Auto) 10.9 % (0.0-8.0) Neutrophils # (Auto) 8.8 TH/MM3 (1.8-7.7) Monocytes # (Auto) 1.3 TH/MM3 (0-0.9) Blood Urea Nitrogen 34 MG/DL (7-18) 26 MG/DL (7-18) Creatinine 1.40 MG/DL (0.50-1.00) Estimat Glomerular Filtration 37 ML/MIN (>89) 74 ML/MIN (>89) Rate Random Glucose 107 MG/DL (74-106) Total Creatine Kinase 25 U/L (26-192) Troponin I LESS THAN 0.02 NG/ML (0.02-0.05) Albumin 3.2 GM/DL (3.4-5.0) Urine Occult Blood MOD (NEG) Urine Squamous Epithelial 6-8 /hpf (0-5) Cells Hemoglobin 10.9 GM/DL (11.6-15.3) Monocytes % 14 % (0-8) Activated Partial 22.7 SEC Thromboplast Time (24.3-30.1) Lactate Dehydrogenase 294 U/L (84-246) C-Reactive Protein 2.51 MG/DL (0.00-0.30) Imaging Last Impressions Bone Biopsy CT 04/09/17 0000 Signed Impressions: Service Date/Time: Sunday, April 09, 2017 11:25 - CONCLUSION: 1. Uncomplicated CT guided bone marrow aspirate. 2. Uncomplicated CT guided bone marrow biopsy. Ravindra Galvan MD Chest X-Ray 04/07/17 1541 Signed Impressions: Service Date/Time: Friday, April 07, 2017 15:52 - CONCLUSION: Compensated cardiomegaly otherwise negative Jett Valle MD FACR CT Angiography 04/07/17 0000 Signed Impressions: Service Date/Time: Friday, April 07, 2017 16:48 - CONCLUSION: 1. No evidence of pulmonary emboli. 2. Large solid mass in the sonu hepatis which cannot be clearly from the pancreatic head and is characteristic of either malignant lymphadenopathy or pancreatic carcinoma. 3. Mediastinal and hilar soft tissue traversing of neoplastic process and lymphadenopathy. 4. Right-sided subdiaphragmatic 18 mm nodule characteristic of an enlarged lymph node. 5. Right lower lobe pulmonary nodules suspicious for early pulmonary metastases. Navneet Muñoz MD Abdomen/Pelvis CT 04/07/17 0000 Signed Impressions: Service Date/Time: Friday, April 07, 2017 16:48 - CONCLUSION: Malignant lymphadenopathy which has slightly progressed since prior study. Splenomegaly No acute abnormality noted. Navneet Muñoz MD PE at Discharge Right sided port GENERAL: This is a well-nourished, well-developed patient, in no apparent distress. CARDIOVASCULAR: Regular rate and rhythm without murmurs, gallops, or rubs. RESPIRATORY: Clear to auscultation. Breath sounds equal bilaterally. No wheezes , rales, or rhonchi. GASTROINTESTINAL: Abdomen soft, non-tender, nondistended. Normal active bowel sounds MUSCULOSKELETAL: Extremities without clubbing, cyanosis, or edema. NEURO: Alert & Oriented x4 to person, place, time, situation. Moves all ext x4 Pt update on day of discharge patient seen in follow up for abdominal pain related to lymphoma Doing well after procedures dc plans discussed with patient Hospital Course Patient is a 71 female with Intractable right sided chest pain due top large B- cell lymphoma . The pain morphine IV with Percocet for breakthrough pain. Hematology was consulted and BM Bx asnd Port was completed. patient was discharged home for follow up as an out patient her paroxysmal atrial fibrillation, was controlled with diltiazem and aspirin continued Pt Condition on Discharge: Good Discharge Disposition: Discharge Home Discharge Time: <= 30 minutes Discharge Instructions DIET: Follow Instructions for: As Tolerated, No Restrictions Activities you can perform: Regular-No Restrictions Follow up Referrals: Oncology with [facility] New Medications: Oxycodone-Acetaminophen (Oxycodone-Acetaminophen) 5-325 mg Tab 1 TAB PO Q6H PRN PAIN 3-6 #30 TAB Continued Medications: Citalopram (Citalopram) 20 Mg Tab 20 MG PO DAILY Control Depression #30 Ref 0 TAB Diltiazem (Diltiazem) 30 Mg Tab 30 MG PO BID Angina #120 Ref 0 TAB Fenofibrate (Fenofibrate) 54 Mg Tab 54 MG PO BID #30 Ref 0 TAB Hydrochlorothiazide (Hydrochlorothiazide) 25 Mg Tab 25 MG PO DAILY #30 Ref 0 TAB Hydroxyzine HCl (Hydroxyzine HCl) 25 Mg Tab 1-2 TAB PO QID PRN ITCHING #15 Ref 0 TAB Lisinopril (Lisinopril) 40 Mg Tab 40 MG PO HS Blood Pressure Management #30 Ref 0 TAB Discontinued Medications: Acetaminophen/Diphenhydramine (Acetaminophen Pm Gelcap) 1 Each Tablet 2 CAP PO HS Oxycodone (Oxycodone) 5 Mg Cap 1-2 TAB PO Q4HR PAIN #20 Ref 0 CAP Oxycodone-Acetaminophen (Percocet) 5-325 mg Tab 2 TAB PO Q6H PRN PAIN SCALE 6 TO 10 #20 Ref 0 TAB Teena Pederson MD Apr 09, 2017 16:17
--- NOTE | 2017-04-09 18:02 | PD.ONC.PN ---
Subjective Subjective Remarks c/o R/S and back pain Objective Data Date Time Temp Pulse Resp B/P Pulse Ox O2 Delivery O2 Flow Rate FiO2 04/09/17 16:00 97.1 87 18 133/71 95 04/09/17 15:55 98.1 86 16 144/66 94 04/09/17 15:27 86 16 146/69 94 04/09/17 14:57 86 16 151/57 92 04/09/17 14:57 88 16 138/71 93 04/09/17 14:40 88 16 126/47 93 04/09/17 14:27 98.2 87 16 122/56 94 04/09/17 14:25 98.2 87 16 122/46 94 04/09/17 08:00 98.7 85 18 105/47 93 04/09/17 04:00 98.6 86 20 109/54 92 04/09/17 00:26 97.8 89 20 122/64 97 04/08/17 22:25 20 04/08/17 22:15 20 04/08/17 20:00 100.4 94 20 120/62 94 04/08/17 20:00 96 04/09/17 04/09/17 04/09/17 06:59 14:59 22:59 Intake Total 420 ml 500 ml Balance 420 ml 500 ml Result Diagram: 04/08/1751904/08/17 0520 Laboratory Results Laboratory Tests Test 04/09/17 05:27 Prothrombin Time 11.0 SEC Prothromb Time International 1.0 RATIO Ratio Activated Partial 22.7 SEC Thromboplast Time Lactate Dehydrogenase 294 U/L C-Reactive Protein 2.51 MG/DL Hepatitis A IgM Antibody NEGATIVE Hepatitis B Surface Antigen NEGATIVE Hepatitis B Core IgM Antibody NEGATIVE Hepatitis C Antibody NEGATIVE HIV (1&2) Antibody NEGATIVE Imaging Studies Last 24 hours Impressions Bone Biopsy CT 04/09/17 0000 Signed Impressions: Service Date/Time: Sunday, April 09, 2017 11:25 - CONCLUSION: 1. Uncomplicated CT guided bone marrow aspirate. 2. Uncomplicated CT guided bone marrow biopsy. Ravindra Galvan MD Administered Medications Medications (Trade) Dose Ordered Sig/Magalys Route PRN Reason Start Time Stop Time Status Last Admin Dose Admin Sodium Chloride (NS Flush) 2 ml BID IV FLUSH 04/07/17 21:00 8/9/17 09:05 Oxycodone/ Acetaminophen (Percocet 10-325 Mg) 1 tab Q6H PRN PO PAIN 7-10 04/08/17 08:00 04/09/17 16:18 Morphine Sulfate (Morphine Inj) 2 mg Q4H PRN IV BREAKTHROUGH PAIN 04/08/17 12:00 04/08/17 22:22 Aspirin (Ecotrin Ec) 81 mg DAILY PO 04/08/17 12:00 04/08/17 12:21 Citalopram Hydrobromide (CeleXA) 20 mg DAILY PO 04/08/17 12:00 04/09/17 09:05 Diltiazem HCl (Cardizem) 30 mg BID PO 04/08/17 12:00 04/08/17 21:15 Fenofibrate (Tricor) 48 mg BID PO 04/08/17 21:00 04/09/17 09:05 Objective Remarks GENERAL: Well-nourished, well-developed patient. SKIN: Warm and dry. HEAD: Normocephalic. EYES: No scleral icterus. No injection or drainage. NECK: Supple, trachea midline. No JVD or lymphadenopathy. LYMPHATIC: No adenopathy. CARDIOVASCULAR: Regular rate and rhythm without murmurs. RESPIRATORY: Breath sounds equal bilaterally. No accessory muscle use. GASTROINTESTINAL: Abdomen soft, non-tender, nondistended. EXTREMITIES: No cyanosis, or edema. MUSCULOSKELETAL: Adequate muscle tone. NEUROLOGICAL: No obvious focal deficit. Awake, alert, and oriented x3. PSYCHIATRIC: Appropriate mood and affect; insight and judgment normal. Assessment/Plan Problem List: (1) Large B-cell lymphoma Status: Acute Plan: d/w pt and regarding path = DLBC NHL she had ECHO, BM Bx and port today Per she is schedule for PET scan on friday at 10 am. Pt is schedule to see Dr Brown on friday bioanalyst for R-CHOP chemo Kimber incharge nurse at [facility] notified. Ok to d/c from oncology standpoint. Take allopurionol d/w RN. The exam, history, and the medical decision-making described in the above note were completed with the assistance of the mid-level provider. I reviewed and agree with the findings presented. I attest that I had a [id number] encounter with the patient on the same day, and personally performed and documented my assessment and findings in the medical record. Yoav Lyons MD Apr 09, 2017 18:02
--- NOTE | 2017-04-09 18:04 | ECHRPT ---
Indication: PRE CHEMO, HX ATRIAL FIB CONCLUSIONS Normal left ventricular size. Wall thickness is normal. The left ventricular systolic function is hyperdynamic with an estimated ejection fraction in the ra nge of 55- 60%. No regional wall motion abnormalities are present. Doppler parameters are consistent with impaired left ventricular relaxtion (grade 1 diastolic dysfun ction). The left atrial size is mildly dilated. The right atrial size is mildly dilated. Trace mitral valve regurgitation. Aortic valve sclerosis is present. Trace aortic valve regurgitation. There is trace tricuspid valve regurgitation. BP: 109 / 54 HR: 83 Rhythm: MEASUREMENTS (Male / Female) Normal Values Technical Quality: 2D ECHO LV Diastolic Diameter PLAX 5.0 cm 4.2 - 5.9 / 3.9 - 5.3 cm LV Systolic Diameter PLAX 3.4 cm IVS Diastolic Thickness 0.9 cm 0.6 - 1.0 / 0.6 - 0.9 cm LVPW Diastolic Thickness 0.9 cm 0.6 - 1.0 / 0.6 - 0.9 cm LV Relative Wall Thickness 0.3 LVOT Diameter 1.5 cm Aortic Root Diameter 2.4 cm LA Systolic Diameter LX 2.9 cm 3.0 - 4.0 / 2.7 - 3.8 cm DOPPLER AV Peak Velocity 197.0 cm/s AV Peak Gradient 15.5 mmHg AV Mean Gradient 9.0 mmHg AV Velocity Time Integral 38.9 cm LVOT Peak Velocity 100.0 cm/s LVOT Peak Gradient 4.0 mmHg LVOT Velocity Time Integral 19.2 cm LVOT Cardiac Index 1122.6 cm/minm AV Area Cont Eq vti 0.9 cm AV Area Cont Eq pk 0.9 cm Mitral E Point Velocity 53.8 cm/s Mitral A Point Velocity 75.0 cm/s Mitral E to A Ratio 0.7 LV E' Lateral Velocity 10.6 cm/s Mitral E to LV E' Lateral Ratio 5.1 LV E' Septal Velocity 6.8 cm/s Mitral E to LV E' Septal Ratio 7.9 TR Peak Velocity 178.0 cm/s TR Peak Gradient 12.7 mmHg PV Peak Velocity 110.0 cm/s PV Peak Gradient 4.8 mmHg FINDINGS LEFT VENTRICLE Normal left ventricular size. Wall thickness is normal. The left ventricular systolic function is hyperdynamic with an estimated ejection fraction in the ra nge of 55- 60%. No regional wall motion abnormalities are present. Doppler parameters are consistent with impaired left ventricular relaxtion (grade 1 diastolic dysfun ction). RIGHT VENTRICLE Normal right ventricular size and systolic function. LEFT ATRIUM The left atrial size is mildly dilated. RIGHT ATRIUM The right atrial size is mildly dilated. ATRIAL SEPTUM The interatrial septum not well visualized. AORTA The aortic root and proximal ascending aorta are normal in size on limited imaging. MITRAL VALVE Structurally normal mitral valve. Trace mitral valve regurgitation. AORTIC VALVE Aortic valve sclerosis is present. Trace aortic valve regurgitation. No aortic valve stenosis. TRICUSPID VALVE Structurally normal tricuspid valve. There is trace tricuspid valve regurgitation. Normal estimated pulmonary pressures. PULMONARY VALVE The pulmonary valve is not well visualized. VESSELS The inferior vena cava is normal in size. PERICARDIUM Possible pericardial fat pad. Markell Weaver MD, FACC (Electronically Signed) Final Date:09 April 2017 18:02
--- NOTE | 2017-04-10 14:05 | RADRPT ---
EXAM DATE/TIME: 04/09/2017 12:29 [place] COMPARISON: No previous studies available for comparison. INDICATIONS : Patient with large cell lymphoma in need of port placement for chemotherapy. MEDICAL HISTORY : Atrial fibrillation Depression Hyperlipidemia Morbid obesity Large B-cell lymphoma with retroperitoneal, mesenteric lymphadenopathy and a large felicitas mass of the sonu hepatis Multiple sclerosis SURGICAL HISTORY : Bone biopsy ENCOUNTER: Initial ACUITY: 1 week PAIN SCORE: 0/10 FLUORO TIME: 1.4 minutes IMAGE SERIES: 1 SEDATION TIME: 30 minutes ACCESS: Right internal jugular vein SEDATION: 1.) 3 mg midazolam (Versed) IV 2.) 150 mcg fentanyl (Sublimaze) IV Prophylactic antibiotics were administered with appropriate pre-procedure timing. Vancomycin within 2 hours of procedure, Ancef (or alternative) within 1 hour of procedure. DEVICE: 1. 8 [place]ian single lumen Angiodynamics Smart port PROCEDURE : 1. Continuous pulse oximetry and EKG monitoring. 2. Intravenous conscious sedation. 3. Ultrasound guidance for venous access. 4. Fluoroscopic guided implantable central venous port placement. The patient was placed supine. The neck was prepped in sterile fashion. Full sterile technique was u sed, including cap, mask, sterile gloves and gown, and a large sterile sheet. Hand hygiene and 2% ch lorhexidine Betadine was utilized per protocol for cutaneous antisepsis with appropriate dry time for site. The skin and subcutaneous tissues were infiltrated with local anesthetic solution. Under direct ultrasound guidance, central venous access was accomplished in the targeted vessel. The ultrasound images depicting access guidance were stored and saved to PACS for permanent record. A s ubcutaneous pocket was created using blunt dissection. The port was introduced to the pocket. The c atheter tubing was fed through a subcutaneous tunnel to the venotomy site. The catheter tubing was c ut to a suitable length and then was introduced through a valved Peel-Away sheath and positioned with catheter tubing tip at the cavo-atrial junction level. The pocket incision was closed with subcutic ular Vicryl suture. Steri-Strips were applied. The port was flushed and locked with heparin solutio n per protocol. Sterile dressing was applied to the site. The patient tolerated the procedure well. Conscious sedation was performed with the prescribed dosages and duration as above in the presence of an independent trained radiology nurse to assist in the monitoring of the patient. EKG and oximetry remained stable throughout the procedure. The patient tolerated the procedure well and there were no complications. The patient was sent to post anesthesia recovery in stable condition. CONCLUSION: Uncomplicated ultrasound and fluoroscopic guided implanted central venous port catheter placement as described in detail above. An 8 Maldivian Power port was placed. Ravindra Galvan MD on April 10, 2017 at 14:03 Board Certified Radiologist. This report was verified electronically.
== END 2017-04-09 17:30 | disposition home or self-care (01) | DRG 948 ==
LOC: PHED 15:29 → PHEDA 19:17 → PH3B 20:43 → MERGE 04-08 10:51 → OBSVTOIN 04-08 10:51
PROVIDERS: ADMIT Family Medicine; ATTEND Hospitalist
PROC: 07DR3ZX Extraction of Iliac Bone Marrow, Percutaneous Approach, Diagnostic (ICD-10-PCS; principal; 2017-04-09)
DX: G89.3 Neoplasm related pain (acute) (chronic) (principal); C48.1 Malignant neoplasm of specified parts of peritoneum; C25.9 Malignant neoplasm of pancreas, unspecified; C83.33 Diffuse large B-cell lymphoma, intra-abdominal lymph nodes; I48.0 Paroxysmal atrial fibrillation; G35 Multiple sclerosis; E78.5 Hyperlipidemia, unspecified; I10 Essential (primary) hypertension; N28.9 Disorder of kidney and ureter, unspecified; Z68.42 Body mass index [BMI] 45.0-49.9, adult; E66.01 Morbid (severe) obesity due to excess calories; R59.1 Generalized enlarged lymph nodes; R07.89 Other chest pain; Z79.82 Long term (current) use of aspirin
CPT/HCPCS: 38221; 71010; 71275; 74177; 77012; 80048; 80074; 80076; 81001; 82550; 83615; 83690; 84484; 85007; 85025; 85027; 85610; 85730; 86140; 86703; 88184; 88185; 88237; 88264; 88280; 88305; 88311; 88313; 88377; 93005; 93306; 96361; 96365; 96375; 96376; 99152; G0364; G0378; G8987-GP; G8988-GP; J0690; J1642; J2250; J2270; J3010; J3370; J7030; J7040; J7050; Q9967

== ENCOUNTER 2017-04-15 12:01 | Inpatient (IN) | payer OTHER, MEDICARE ==
[~2017-04-15] VITALS: Ht 163.8 cm; Wt 137.2 kg
[2017-04-15] VITALS (7 sets, daily range): BP systolic 103–122; BP diastolic 52–57; PULSE 60–75; RESP 23–26; TEMP 98.1–98.2; O2SAT 99–100
[~2017-04-15 12:01] MED LIST changes: -ACET-929 PO; +HYDR-3133 PO; +OXYC1TAB63 PO; -PERC5TAB12 PO
[2017-04-15] MEDS ORDERED: TERBUTALINE INJ 1 MG/ML AMP SQ PRN (13:45)
[2017-04-15] MEDS ORDERED: NOREPINEPHRINE-DEXTROSE DRIP 250 ML IV SCH (13:45)
[2017-04-15] MEDS ORDERED: SENNOSIDES 8.6 MG TAB PO PRN (14:15)
[2017-04-15] MEDS ORDERED: BISACODYL 10 MG SUPP RECTAL PRN (14:15)
[2017-04-15] MEDS ORDERED: SODIUM CHLORIDE 0.9% FLUSH 10 ML FLUSH IV FLUSH PRN ×2 (14:15→14:45)
[2017-04-15] MEDS ORDERED: MAGNESIUM HYDROXIDE SUSP 30 ML CUP PO PRN (14:15)
[2017-04-15] MEDS ORDERED: ACETAMINOPHEN 325 MG TAB PO PRN (14:15)
[2017-04-15] MEDS ORDERED: ONDANSETRON HCL 4 MG/2 ML VIAL IVP PRN (14:15)
[2017-04-15] MEDS ORDERED: LACTULOSE SYRUP 20 GM/30 ML CUP PO PRN (14:15)
[2017-04-15] MEDS ORDERED: NALOXONE HCL 0.4 MG/ML AMP IV PRN (14:15)
--- NOTE | 2017-04-15 14:38 | PD.CONS ---
[facility] Service Critical Care Medicine Consult Requested By Dr. Brown Reason for Consult Hypotension status post Rituximab Primary Care Physician Unknown History of Present Illness 71-year-old female. Date of admission 04/15/2017. Date of consultation 04/15/2017. Past medical history includes not hospitalist for stage IV/large cell B cell, depression, elevated BMI, MS diagnosed in 1979, hypertension, dyslipidemia, atrial fibrillation currently normal sinus rhythm, multiple pulmonary nodules. Recent echocardiogram 04/09/17 revealed EF of 55-60% . Grade 1 diastolic dysfunction. Bilateral atrial enlargement. Cardiac catheterization 2014 revealed LAD 40% stenosis otherwise negative. Patient was recently admitted 04/09/17 with lymph node pain and/or sonu hepatis. This was treated with oxycodone as an outpatient. She had a port placed 04/10 . Yesterday, patient refused first infusion/chemotherapy for large B-cell lymphoma. Today, patient was receiving Rituximab when approximately 17 cc in 2 infusion patient became acutely hypotensive/asymptomatic in 80s. Infusion was started patient received 2 L normal saline. Laboratories revealed hemoglobin 8.9, platelets of 87, creatinine 1.2 and elevated LDH 291. CRP around 2. Troponin 0.02. Albumin 2.2. Denies any chest pain, shortness of breath, abdominal pain, recent sick contacts. Review of Systems Constitutional: COMPLAINS OF: Fatigue, DENIES: Fever, Weight gain, Weight loss Endocrine: DENIES: Polydipsia, Polyuria Eyes: DENIES: Blurred vision, Vision loss Ears, nose, mouth, throat: DENIES: Hearing loss Respiratory: COMPLAINS OF: Shortness of breath, DENIES: Sputum production Cardiovascular: DENIES: Chest pain, Palpitations Gastrointestinal: COMPLAINS OF: Abdominal pain, DENIES: Diarrhea, Nausea, Vomiting Genitourinary: DENIES: Urinary frequency Musculoskeletal: DENIES: Joint pain, Back pain Integumentary: COMPLAINS OF: Abnormal pigmentation, DENIES: Pruritus, Rash Hematologic/lymphatic: DENIES: Bruising Immunologic/allergic: DENIES: Eczema Neurologic: DENIES: Abnormal gait, Headache Psychiatric: COMPLAINS OF: Depression, DENIES: Anxiety, Confusion Past Family Social History Allergies: Coded Allergies: No Known Allergies (Verified , 04/09/17) Past Medical History Large B-cell lymphoma/NHL stage IV MS BMI greater than 50 Hypertension Dyslipidemia History of atrial fibrillation fibrillation currently normal sinus rhythm Multiple pulmonary nodules/lymph nodules Depression Past Surgical History Ovarian cyst 5 T&A Hysterectomy Bilateral carpal tunnel release Bladder sling Fifth toe neuroma Dentures Reported Medications Fenofibrate 54 mg by mouth twice a day Senna/docusate sodium 1 tablet by mouth twice a day Citalopram 20 mg by mouth daily Lisinopril 40 mg by mouth daily Diltiazem 30 mg by mouth twice a day Hydrochlorothiazide 25 mg by mouth daily Acetaminophen/oxycodone 5/25 one tablet every 6 hours when necessary pain Active Ordered Medications Reviewed in EMR Family History Brother and half sister with non-Hodgkin's lymphoma. Brother at age 60. Social History Quit tobacco 42 years ago. Rare alcohol social use. Denies IV drug use. Physical Exam Physical Exam GENERAL: SKIN: Warm and dry. HEAD: Atraumatic. Normocephalic. EYES: Pupils equal and round. No scleral icterus. No injection or drainage. ENT: No nasal bleeding or discharge. Mucous membranes pink and moist. NECK: Trachea midline. No JVD. CARDIOVASCULAR: Regular rate and rhythm. RESPIRATORY: No accessory muscle use. Clear to auscultation. Breath sounds equal bilaterally. GASTROINTESTINAL: Abdomen soft, non-tender, nondistended. Hepatic and splenic margins not palpable. MUSCULOSKELETAL: Extremities without clubbing, cyanosis, or edema. No obvious deformities. NEUROLOGICAL: Awake and alert. No obvious cranial nerve deficits. Motor grossly within normal limits. Five out of 5 muscle strength in the arms and legs. Normal speech. PSYCHIATRIC: Appropriate mood and affect; insight and judgment normal. Assessment and Plan Assessment and Plan Neuro/Psych: Depression NOS History of MS diagnosed in 1979 Continues citalopram 20 mg by mouth daily/home medication. Acetaminophen for fever [place]/morphine for pain management CV: Asymptomatic hypotension History dyslipidemia A straight atrial fibrillation currently normal sinus rhythm Straight hypertension Echocardiogram 04/09/17 revealed EF 55-60%. Grade 1 diastolic dysfunction. Bilateral atrial enlargement. Heart catheterization 2014 revealed essentially normal EF. LAD proximal to 45% stenosis otherwise unremarkable. Holding antihypertensive including lisinopril 40 mg by mouth daily, diltiazem 30 mg by mouth twice a day and hydrochlorothiazide 25 mg by mouth daily light of hypotension Holding fenofibrate 54 mill grams by mouth twice a day in light of dyslipidemia Patient did receive Rituxan which can cause hypotension. Received 2 L normal saline in route. Supportive care with vasopressors/norepinephrine to maintain MAP greater than 65. Initial troponin 0.02. EKG revealsST elevation Resp: History of right lower lobe pulmonary nodules Nasal cannula to maintain saturations greater than equal to 92% IS while awake Follow-up on chest x-ray GI: Hypoalbuminemia Advance diet as tolerated Pantoprazole for GI prophylaxis Senna/docusate sodium twice a day for bowel regimen : Perez catheter currently not indicated Endo: Sliding-scale insulin if indicated to maintain euglycemia Check TSH/cortisol in light of hypotension Renal: Acute kidney injury Creatinine currently 1.2. Accurate I's and O's Monitor urine output Currently NS @ 200 cc an hour. Follow BMP in a.m. Heme: Large B-cell lymphoma Normocytic anemia Thrombocytopenia Status post Rituxan today. Follow up on uric acid rule out tumor lysis syndrome ID: Monitor for infection Blood cultures 2, UA, influenza all pending FEN: Replace electrolytes as clinically indicated MSK: BMI greater than 50 Weight loss encouraged PT evaluate and treat Access - Utilize right Port-A-Cath/peripheral IVs Prophylaxis - GI - pantoprazole - DVT - SCD/heparin subcutaneous Level III consult Code Status Full code Discussed Condition With Patient. ISC RN. Care plan discussed and all questions answered. Discussed with Dr. Brown on the phone. Fredis Anguiano MD Apr 15, 2017 14:38
[2017-04-15] MEDS ORDERED: MISCELLANEOUS NURSING INFORMATION XX SCH (14:45)
[2017-04-15] MEDS ORDERED: CHLORHEXIDINE GLUCONATE 2 % 1 PACK (2 CLOTHS) TOP PRN (14:45)
[2017-04-15] MEDS ORDERED: ONDANSETRON HCL 4 MG/2 ML VIAL IV PRN (14:45)
[2017-04-15] MEDS ORDERED: MORPHINE SULFATE 4 MG/ML INJ IV PRN (14:45)
[2017-04-15] MEDS ORDERED: RESP: IPRATROPIUM 0.5 MG/2.5 ML NEB INH PRN (14:45)
[2017-04-15] MEDS: SODIUM CHLOR 0.9% 1000 ML INJ 1,000 ML IV SCH ×3 (15:30→23:42)
[2017-04-15] MEDS: HEPARIN SODIUM - SQ 10,000 UNITS/ML VIAL SQ SCH (15:31)
[2017-04-15 16:15] LABS: BLOOD, URINE MOD (NEG); COMMENT (UR) CULT NOT INDICATED; CULTURE IF INDICATED CULT NOT INDICATED; GLUCOSE,URINE NEG (NEG); HYALINE CAST, URINE 36 /lpf (RARE); KETONE, URINE NEG (NEG); MUCUS URINE FEW /lpf (OCC); NITRITE,URINE NEG (NEG); PH, URINE 5.5 (5.0-8.5); SQUAMOUS EPITHELIAL CELL URINE 3 /hpf (0-5); URINE COLOR YELLOW (YELLW/STRAW)
--- NOTE | 2017-04-15 16:16 | HHI.HP ---
[facility] Admission Diagnosis Diagnoses: Chief Complaint: low blood pressure, sent from [facility] Travel History International Travel<30 Days: No Contact w/Intl Traveler <30 Da: No Traveled to Known Affected Are: No History of Present Illness This a pleasant 71-year-old white female who was recently diagnosed with large B -cell lymphoma has a large felicitas mass in the sonu hepatis with associated celiac, mesenteric and retroperitoneal lymphadenopathy. Patient's oncologist is Dr. Brown. Patient presented to the emergency room as a direct admit for hypotension. She was started on CHOP chemotherapy on 04/14/2017. Today she was in the process of receiving Rituxan, she had approximately 17 cc's of infusion when her blood pressure dropped to 90s over 30s. Her initial blood pressure was 132/64. She received 500 cc normal saline bolus. Patient was emergently transferred to the main hospital with consultation to critical care services for hemodynamic instability. Patient is now being seen in room 1301. She is currently on levophed drip at 2 mics. She is currently on normal saline at 200 hour. Patient was asymptomatic. Patient has significant past medical history of hypertension, dyslipidemia, A. fib, pulmonary nodules, MS not on any treatment. She's had prior echocardiogram on 04/09/2017 with EF of 55-60%, grade 1 diastolic dysfunction. She denies any shortness of breath, no dizziness. She does have residual pain under the left breast, she had a recent admission on 04/09/2017 with lymph node pain and/or sonu hepatis. At this time, patient is resting comfortably. She has no complaints. No recent fever, no chills. Indicates she has been somewhat weak since diagnosis and has been using a cane. Dr. Brown requested admission to hospitalist services for hypotension, possible tumor lysis syndrome, and chemotherapy related toxicity. Patient is admitted for further evaluation and treatment. Review of Systems Constitutional: COMPLAINS OF: Fatigue, DENIES: Diaphoretic episodes, Fever, Weight gain, Weight loss, Chills, Dizziness, Change in appetite, Night Sweats Endocrine: DENIES: Abnorml menstrual pattern, Heat/cold intolerance, Polydipsia , Polyuria, Polyphagia Eyes: DENIES: Blurred vision, Diplopia, Eye inflammation, Eye pain, Vision loss , Photosensitivity, Double Vision Ears, nose, mouth, throat: DENIES: Tinnitus, Hearing loss, Vertigo, Nasal discharge, Oral lesions, Throat pain, Hoarseness, Ear Pain, Running Nose, Epistaxis, Sinus Pain, Toothache, Odynophagia Respiratory: DENIES: Apneas, Cough, Snoring, Wheezing, Hemoptysis, Sputum production, Shortness of breath Cardiovascular: COMPLAINS OF: Chest pain (under left breast ), DENIES: Palpitations, Syncope, Dyspnea on Exertion, PND, Lower Extremity Edema, Orthopnea, Claudication Gastrointestinal: COMPLAINS OF: Constipation, DENIES: Abdominal pain, Black stools, Bloody stools, Diarrhea, Nausea, Vomiting, Difficulty Swallowing, Anorexia Genitourinary: DENIES: Abnormal vaginal bleeding, Dysmenorrhea, Dyspareunia, Sexual dysfunction, Urinary frequency, Urinary incontinence, Urgency, Hematuria , Dysuria, Nocturia, Vaginal discharge Musculoskeletal: DENIES: Joint pain, Muscle aches, Stiffness, Joint Swelling, Back pain, Neck pain Integumentary: DENIES: Abnormal pigmentation, Pruritus, Rash, Nail changes, Breast masses, Breast skin changes, Nipple discharge Hematologic/lymphatic: DENIES: Bruising, Lymphadenopathy Immunologic/allergic: DENIES: Eczema, Urticaria Neurologic: DENIES: Abnormal gait, Headache, Localized weakness, Paresthesias, Seizures, Speech Problems, Tremor, Poor Balance Psychiatric: COMPLAINS OF: Depression, DENIES: Anxiety, Confusion, Mood changes, Hallucinations, Agitation, Suicidal Ideation, Homicidal Ideation, Delusions Past Family Social History Past Medical History Large B-cell lymphoma/NHL stage IV MS, treats with vitamins, has not seen a neurologist in many years. BMI greater than 50 Hypertension Dyslipidemia History of atrial fibrillation fibrillation currently normal sinus rhythm Multiple pulmonary nodules/lymph nodules Depression Past Surgical History Ovarian cyst 5 T&A Hysterectomy Bilateral carpal tunnel release Bladder sling Fifth toe neuroma Dentures Reported Medications Reported Meds & Active Scripts Active Oxycodone-Acetaminophen 5-325 mg Tab 1 Tab PO Q6H PRN Hydroxyzine HCl 25 Mg Tab 1-2 Tab PO QID PRN Reported Lisinopril 40 Mg Tab 40 Mg PO HS Citalopram (Citalopram Hydrobromide) 20 Mg Tab 20 Mg PO DAILY Hydrochlorothiazide 25 Mg Tab 25 Mg PO DAILY Fenofibrate 54 Mg Tab 54 Mg PO BID Diltiazem (Diltiazem HCl) 30 Mg Tab 30 Mg PO BID Allergies: Coded Allergies: No Known Allergies (Verified , 04/09/17) Active Ordered Medications Inpatient Medications Acetaminophen (Tylenol) 650 mg Q4H PRN PO TEMP > 100.4; Start 04/15/17 at 14:15 Acetaminophen/ Hydrocodone Bitart ([place] 5-325 Mg) 1 tab Q4H PRN PO PAIN SCALE 1 TO 5; Start 04/15/17 at 14:45 Bisacodyl (Dulcolax Supp) 10 mg DAILY PRN RECTAL SEVERE CONSITIPATION; Start at 14:15 Chlorhexidine Gluconate (Chlorhexidine 2% Cloth) 3 pack UNSCH PRN TOP HYGIENIC CARE; Start 04/15/17 at 14:45 Citalopram Hydrobromide (CeleXA) 20 mg DAILY PO ; Start 04/16/17 at 09:00 Fenofibrate 48 mg 48 mg BID PO ; Start 04/15/17 at 21:00 Heparin Sodium (Porcine) (Heparin Inj) 5,000 units Q12H SQ Last administered on 04/15/17t 15:31; Start 04/15/17 at 15:00 Ipratropium Cascade (Atrovent Neb) 0.5 mg Q2HR NEB PRN INH WHEEZING; Start at 14:45 Lactulose 30 ml 30 ml DAILY PRN PO SEVERE CONSITIPATION; Start 04/15/17 at 14: 15 Magnesium Hydroxide (Milk Of Magnesia Liq) 30 ml Q12H PRN PO MILD - MODERATE CONSTIPATION; Start 04/15/17 at 14:15 Miscellaneous Information 1 [id number] XX ; Start 04/15/17 at 14:45 Morphine Sulfate (Morphine Inj) 2 mg Q2H PRN IV PAIN SCALE 6 TO 10; Start 04/15 at 14:45 Naloxone HCl (Narcan Inj) 0.4 mg UNSCH PRN IV SEE LABEL COMMENTS; Start at 14:15 Norepinephrine Bitartrate (Levophed-Dextrose Drip) 250 ml @ 0 mls/hr TITRATE IV ; Start 04/15/17 at 13:45 Ondansetron HCl (Zofran Inj) 4 mg Q6H PRN IVP NAUSEA OR VOMITING; Start at 14:15 Oxycodone/ Acetaminophen (Percocet 5-325 Mg) 1 tab Q6H PRN PO PAIN 3-6; Start 04/15/17 at 14:00 Pantoprazole Sodium (Protonix) 40 mg DAILY PO ; Start 04/16/17 at 09:00 Senna/Docusate Sodium (Daniela-Colace) 1 tab BID PO ; Start 04/15/17 at 21:00 Sennosides (Senokot) 17.2 mg Q12H PRN PO MODERATE - SEVERE CONSTIPATION; Start 04/15/17 at 14:15 Sodium Chloride (NS 1000 ml Inj) 1,000 ml @ 200 mls/hr Q5H IV Last administered on 04/15/17t 15:30; Start 04/15/17 at 14:00 Sodium Chloride (NS Flush) 2 ml BID IV FLUSH ; Start 04/15/17 at 21:00 Terbutaline Sulfate (Brethine Inj) 1 mg UNSCH PRN SQ For Extravasation; Start 04/15/17 at 13:45 Family History Brother and half sister with non-Hodgkin's lymphoma. Brother at age 60. Social History Lives with Quit tobacco 42 years ago. Rare alcohol social use. Denies IV drug use. Uses cane for ambulation Physical Exam Vital Signs Vital Signs Date Time Temp Pulse Resp B/P Pulse Ox O2 Delivery O2 Flow Rate FiO2 04/15/17 14:00 70 04/15/17 13:20 63 04/15/17 13:20 Room Air Physical Exam GENERAL: This is a well-nourished, obese female, in no apparent distress. SKIN: No rashes, ecchymoses or lesions. Cool and dry. HEAD: Atraumatic. Normocephalic. No temporal or scalp tenderness. EYES: Pupils equal round and reactive. Extraocular motions intact. No scleral icterus. No injection or drainage. ENT: Nose without bleeding, purulent drainage or septal hematoma. Throat without erythema, tonsillar hypertrophy or exudate. Uvula midline. Airway patent. NECK: Trachea midline. No JVD or lymphadenopathy. Supple, nontender, no meningeal signs. CARDIOVASCULAR: Irregular rate and rhythm without murmurs, gallops, or rubs. RESPIRATORY: Clear to auscultation. Breath sounds equal bilaterally. No wheezes , rales, or rhonchi. Tender to palpation under the left breast. No erythema noted. GASTROINTESTINAL: Abdomen soft, non-tender, nondistended. No hepato-splenomegaly , or palpable masses. No guarding. MUSCULOSKELETAL: Extremities without clubbing, cyanosis, or edema. No joint tenderness, effusion, or edema noted. No calf tenderness. Negative Homans sign bilaterally. NEUROLOGICAL: Awake, alert oriented 3. No focal deficit. Laboratory Date/Time Procedure Status Source Growth 04/15/17 14:58 Influenza Types A,B Antigen (TOLU) Received Nasal Washing Pending Assessment and Plan Problem List: (1) Large B-cell lymphoma (2) Hypotension due to medication (3) Anemia (4) Thrombocytopenia (5) Lymphadenopathy, retroperitoneal (6) Right-sided chest wall pain (7) Atrial fibrillation (8) Hx of multiple sclerosis Assessment and Plan Admit to Dr. Maravilla 71-year-old female with recent diagnosis of large B-cell lymphoma, has been started on CHOP. Today, patient received Rituxan, became hypotensive, asymptomatic. Hypotension Possible chemotherapy-related toxicity Possible tumor lysis syndrome Critical care has been consulted, patient currently Levophed drip to keep MAP greater than 65 Continue normal saline at 200 hour Oncology is also following patient Laboratory workup currently pending, uric acid and lactic acid -Hold antihypertensive agent Patient to remain in the intensive care unit for now Right chest wall pain secondary to lymphadenopathy Continue with pain management History hypertension, currently hypotensive Hold antihypertensive agents Anemia, normocytic -Monitor CBC Thrombocytopenia Monitor CBC Monitor for bleeding A. fib, stable -Hold Cardizem at this time due to low blood pressure History of MS, patient currently takes vitamins to treat Has not seen a neurologist in many years Endorses some weakness since diagnosis of lymphoma Physical therapy for evaluation and treatment when blood pressure is stable Heparin for DVT prophylaxis Repeat labs in the morning Condition guarded Plan of care has been discussed with the patient, attending and registered nurse. Further management of the patient will be dependent on the hospital course This patient was seen by myself and Dr. Maravilla, this H&P is written on his behalf Physician Certification 2 Midnight Certification Type: Admission for Inpatient Services Order for Inpatient Services The services are ordered in accordance with Medicare regulations or non- Medicare payer requirements, as applicable. In the case of services not specified as inpatient-only, they are appropriately provided as inpatient services in accordance with the 2-midnight benchmark. Estimated LOS (days): 2 2 days is the estimated time the patient will need to remain in the hospital, assuming treatment plan goals are met and no additional complications. Post-Hospital Plan: Not yet determined Problem Qualifiers (1) Anemia: Qualified Code: D64.9 - Anemia, unspecified type (2) Atrial fibrillation: Qualified Code: I48.91 - Atrial fibrillation, unspecified type Catarina Vaz Apr 15, 2017 16:15
[2017-04-15 16:29] LABS: URIC ACID 8.5 MG/DL (2.6-6.0)
[2017-04-15 17:48] LABS: LACTIC ACID GHOST NOT REPORTABLE
--- NOTE | 2017-04-15 20:29 | MB ---
cc: GIOVANNA HAYES,MELISSA Borja M.D. DATE OF CONSULTATION 04/15/17 DATE OF [address] Rafa Hayes CHIEF COMPLAINT Dr. Hayes requested consultation for Mrs. Solares with newly diagnosed large cell lymphoma, stage IV. HISTORY OF PRESENT ILLNESS Mrs. Solares is a 71-year-old woman well-known patient to Dr. Rodas with history of atrial fibrillation, depression, hyperlipidemia, morbid obesity, multiple sclerosis not currently treated. She presented with weight loss, night sweats and abdominal pain. She was diagnosed with stage IV B-cell large cell lymphoma. Staging evaluation including CT PET scan shows disease on both sides of the diaphragm. Bone marrow biopsy from 04/09/2017 shows bone marrow involvement. She was treated with CHOP chemotherapy on Friday. She tolerated treatment well. She presented to the oncology clinic for day two rituxan, CD20 antibody complementary therapy for her B-cell lymphoma. Her initial blood pressure was 138 systolic in clinic. She received 15 cc of rituximab which is a monoclonal antibody to CD20. Her blood pressure dropped to systolic of 88. Her rituxan was stopped promptly. She was given a bolus of normal saline 500 cc without any response. She denies any chest pain. She was feeling well, reclined in her recliner. She denies any abdominal pain. She tolerated first dose chemotherapy well. She denies any urinary complaints. LABORATORY DATA Laboratory evaluation shows a white blood cell count of 10.3, hemoglobin 8.8, platelet count 87,000, BUN is 38, creatinine 1.2, LDH was 281. These parameters were unlikely representing acute tumor lysis syndrome. In light of her persistent hypotension she was transferred to the ICU emergently via [facility]. Admitting physician was coordinated through Dr. Maravilla. Dr. Hayes was called regarding the patient. Mrs. Solares reports a previous history of hypertensive episode after CAT scan. Her hypotension, however, resolved promptly. She denies taking blood pressure medication by mistake. She was fairly asymptomatic with the hypotension, however, is a dramatic change compared to her pre-treatment blood pressure. She denies any fevers, chills or night sweats. She actually feels better after her chemotherapy. She received her prednisone 110 milligrams and took it last night. Hematology/Oncology is consulted for her non-Hodgkin's lymphoma. PAST MEDICAL HISTORY Obesity, atrial fibrillation, depression, hyperlipidemia, multiple sclerosis, large cell lymphoma. FAMILY HISTORY Brother had Hodgkin's disease in his 60s. SOCIAL HISTORY Denies any tobacco, alcohol or illicit drug use. She is , lives with her . PHYSICAL EXAMINATION VITAL SIGNS: Temperature 98.2, heart rate 75, respiratory rate 23, blood pressure 103/52, saturation 100%. She was started on Levophed. HEENT: Her pupils are round, reactive to light and accommodation. Oropharynx is clear. NECK: Supple. LUNGS: Clear. CARDIOVASCULAR: Exam reveals s rate-controlled rhythm. ABDOMEN: Abdomen is large and benign. No organomegaly is appreciated, large abdomen. EXTREMITIES: Large lower extremity. Good pulses. NEUROLOGICAL: Exam is nonfocal. LABORATORY DATA As described above, hemoglobin 8.8, platelet count 87,000, BUN of 38, creatinine 1.2. ASSESSMENT/PLAN Mrs. Solares is a 71-year-old woman with multiple medical problems described above. She is diagnosed with stage IV non-Hodgkin's lymphoma large cell type. She had abrupt decrease in her blood pressure temporally related to starting rituximab therapy. Lengthy discussion with Mrs. Solares, the risk and benefit of her chemotherapy regimen. She is showing no signs of tumor lysis syndrome. I am concerned however about her hypotension. She has a lot of disease in the abdomen as well as in the mediastinum. She has bone marrow involvement. We discussed evaluation of her hypotension. In the meantime I plan to continue her chemotherapy regimen with her prednisone 110 milligrams for the next 4 days. The abrupt decrease in her hemoglobin from 10.9 to 8.8 and the decrease in blood pressure was concerning for bleeding. She however denies any symptoms. She is obese and therefore did not elicit any physical examination of that. I plan to repeat H&H in the evening, if are lower would suggest a bleeding event as the etiology of her hypotension. She seems to have not responded to IV fluid bolus. The hypotensive episode that she developed after CAT scan resolved spontaneously. This episode is not resolving at all. We will monitor for tumor lysis. She was supposed to be on allopurinol. Her uric acid is elevated at 8.5. We will continue her allopurinol. GI prophylaxis is offered. She reports not taking any blood pressure medication. She will need to continue on her chemotherapy regimen with the prednisone. We will resume the prednisone pending on the repeat H&H this evening. Her questions were answered to her satisfaction. ICU support coordinated by Dr. Hayes. She is admitted to Dr. Maravilla. MD ANDIE Wayne/[place] /7:47 PM /8:05 PM
[2017-04-15] MEDS: FENOFIBRATE 48 MG TAB PO SCH (20:41)
[2017-04-15] MEDS: DOCUSATE SODIUM 50 MG/SENNA 8.6 MG TAB PO SCH (20:41)
[2017-04-15] MEDS: SODIUM CHLORIDE 0.9% FLUSH 10 ML FLUSH IV FLUSH SCH (20:41)
[2017-04-15] MEDS ORDERED: SODIUM CHLORIDE 0.9% FLUSH 10 ML FLUSH IV FLUSH SCH (21:00)
[2017-04-15] MEDS: ACETAMINOPHEN/HYDROcodone 325 MG/5 MG TAB PO PRN (21:40)
[2017-04-15 22:49] LABS: AUTOMATED NEUTROPHIL # 13.6 TH/MM3 (1.8-7.7); BASOPHIL % 0.2 % (0.0-2.0); HEMATOCRIT 27.3 % (35.0-46.0); HEMO FLAGS DIFF FINAL; LYMPH % 3.2 % (9.0-44.0); LYMPHOCYTE # 0.5 TH/MM3 (1.0-4.8); MEAN CELL VOLUME 90.3 FL (80.0-100.0); MEAN CORPUSCULAR HEMOGLOBIN 30.2 PG (27.0-34.0); MEAN CORPUSCULAR HGB CONC 33.5 % (32.0-36.0); MONO % 7.5 % (0.0-8.0); NEUT % 89.1 % (16.0-70.0); PLATELET COUNT 108 TH/MM3 (150-450); RED BLOOD COUNT 3.02 MIL/MM3 (4.00-5.30); WHITE BLOOD COUNT 15.3 TH/MM3 (4.0-11.0)
[2017-04-15 23:01] LABS: APTT (PATIENT) 23.8 SEC (24.3-30.1); PROTHROMBIN TIME - PATIENT 11.3 SEC (9.8-11.6)
[2017-04-15] MEDS ORDERED: PILL SPLITTER OTHER PRN (23:45)
[2017-04-16] VITALS (13 sets, daily range): BP systolic 97–118; BP diastolic 52–79; PULSE 58–74; RESP 15–25; TEMP 97.9–98.5; O2SAT 93–99
--- NOTE | 2017-04-16 00:32 | EKG ---
Date Performed: 04/15/2017 Time Performed: 16:46:02 PTAGE: 71 years EKG: Sinus rhythm WITH FREQUENT SUPRAVENTRICULAR PREMATURE COMPLEXES NONSPECIFIC T-WAVE ABNORMALITY PROLONGED QT INTER VIOLA ABNORMAL ECG NO PREVIOUS TRACING DOCTOR: Andrea Mendes Interpretating Date/Time 04/16/2017 00:30:54
[2017-04-16] MEDS: HEPARIN SODIUM - SQ 10,000 UNITS/ML VIAL SQ SCH ×2 (02:02→15:52)
[2017-04-16] MEDS: CHLORHEXIDINE GLUCONATE 2 % 1 PACK (2 CLOTHS) TOP SCH (04:02)
[2017-04-16 04:46] LABS: AUTOMATED NEUTROPHIL # 12.8 TH/MM3 (1.8-7.7); BASOPHIL % 0.1 % (0.0-2.0); HEMATOCRIT 28.5 % (35.0-46.0); HEMO FLAGS DIFF FINAL; LYMPH % 3.7 % (9.0-44.0); LYMPHOCYTE # 0.5 TH/MM3 (1.0-4.8); MEAN CELL VOLUME 90.7 FL (80.0-100.0); MEAN CORPUSCULAR HEMOGLOBIN 30.9 PG (27.0-34.0); MONO % 7.4 % (0.0-8.0); NEUT % 88.8 % (16.0-70.0); PLATELET COUNT 117 TH/MM3 (150-450); RED BLOOD COUNT 3.14 MIL/MM3 (4.00-5.30); RED CELL DISTRIBUTION WIDTH 17.5 % (11.6-17.2); WHITE BLOOD COUNT 14.5 TH/MM3 (4.0-11.0)
[2017-04-16 05:06] LABS: APTT (PATIENT) 23.6 SEC (24.3-30.1); PROTHROMBIN TIME - PATIENT 11.1 SEC (9.8-11.6)
[2017-04-16] MEDS: SODIUM CHLOR 0.9% 1000 ML INJ 1,000 ML IV SCH ×3 (05:13→18:32)
--- NOTE | 2017-04-16 05:13 | RADRPT ---
EXAM DATE/TIME: 04/16/2017 03:04 [facility] COMPARISON: No previous studies available for comparison. INDICATIONS : Shortness of breath. MEDICAL HISTORY : None. SURGICAL HISTORY : Infusaport. ENCOUNTER: Initial ACUITY: 2 days PAIN SCORE: Non-responsive. LOCATION: Bilateral chest FINDINGS: [id number] catheter tip projects over the distal superior vena cava. No evidence of pneumothorax. The heart is mildly enlarged. No focal areas of consolidation seen. Both hemidiaphragms well deli neated. CONCLUSION: No consolidative infiltrates seen. No evidence pneumothorax. Patricio Herrera MD on April 16, 2017 at 5:11 Board Certified Radiologist. This report was verified electronically.
[2017-04-16 05:15] LABS: ANION GAP 5 MEQ/L (5-15); AST (GOT) 19 U/L (15-37); BICARBONATE 25.5 MEQ/L (21.0-32.0); BLOOD UREA NITROGEN 33 MG/DL (7-18); CHLORIDE 106 MEQ/L (98-107); GLOMERULAR FILTRATION RATE 67 ML/MIN (>89); MAGNESIUM 2.6 MG/DL (1.5-2.5); POTASSIUM 4.3 MEQ/L (3.5-5.1); SODIUM (NA) 136 MEQ/L (136-145)
[2017-04-16 05:16] LABS: ALT (GPT) 19 U/L (10-53)
[2017-04-16 05:20] LABS: ALKALINE PHOSPHATASE 94 U/L (45-117); TOTAL BILIRUBIN ADULT 0.5 MG/DL (0.2-1.0)
[2017-04-16 05:21] LABS: CREATINE KINASE 13 U/L (26-192)
[2017-04-16] MEDS: ACETAMINOPHEN/HYDROcodone 325 MG/5 MG TAB PO PRN ×2 (07:09→18:32)
[2017-04-16] MEDS: SODIUM CHLORIDE 0.9% FLUSH 10 ML FLUSH IV FLUSH SCH ×2 (08:06→20:00)
[2017-04-16] MEDS: DOCUSATE SODIUM 50 MG/SENNA 8.6 MG TAB PO SCH ×2 (09:00→20:00)
[2017-04-16] MEDS: predniSONE 20 MG TAB PO SCH (09:56)
[2017-04-16] MEDS: FENOFIBRATE 48 MG TAB PO SCH ×2 (09:56→20:00)
[2017-04-16] MEDS: CITALOPRAM HYDROBROMIDE 20 MG TAB PO SCH (09:56)
[2017-04-16] MEDS: PANTOPRAZOLE SOD 40 MG DELAYED RELEASE TAB PO SCH (09:56)
[2017-04-16] MEDS: oxyCODONE/ACETAMINOPHEN 5 MG/325 MG TAB PO PRN ×2 (09:56→22:24)
--- NOTE | 2017-04-16 11:30 | HHI.PR ---
Subjective Remarks Remains with asymptomatic hypotension, blood pressure drops when she is out of bed On levofed at 2 mics Normal saline at 200 hour No tachycardia No chest pain or Shortness of breath Has mild to moderate pain between shoulder blades Appetite fair Anxious to go home Objective Objective Results - Vital Signs Date Time Temp Pulse Resp B/P Pulse Ox O2 Delivery O2 Flow Rate FiO2 04/16/17 10:21 95 21 04/16/17 06:00 58 04/16/17 04:00 97.9 67 15 103/52 94 04/16/17 04:00 67 04/16/17 02:00 60 04/16/17 00:00 98.0 62 18 118/56 93 04/16/17 00:00 62 04/15/17 22:00 66 04/15/17 20:21 99 21 04/15/17 20:00 98.1 68 26 122/57 99 04/15/17 20:00 68 04/15/17 19:00 96 Room Air 04/15/17 18:00 61 04/15/17 16:00 75 04/15/17 16:00 98.2 60 23 103/52 100 04/15/17 14:00 70 04/15/17 13:20 63 04/15/17 13:20 Room Air I/O 04/15/17 04/15/17 04/15/17 04/16/17 04/16/17 04/16/17 07:00 15:00 23:00 07:00 15:00 23:00 Intake Total 2029 ml 1770 ml Balance 2029 ml 1770 ml Intake Oral 480 ml IV Total 1549 ml 1770 ml # Voids 4 5 # Bowel Movements 0 0 0 Result Diagram: 04/16/17 0415 04/16/17 0415 Other Results Laboratory Tests Test 04/15/17 04/15/17 04/15/17 04/16/17 14:58 20:05 22:21 04:15 Urine Color YELLOW Urine Turbidity CLOUDY Urine pH 5.5 Urine Specific [place] 1.027 Urine Protein NEG Urine Glucose (UA) NEG Urine Ketones NEG Urine Occult Blood MOD Urine Nitrite NEG Urine Bilirubin NEG Urine Urobilinogen 2.0 Urine Leukocyte Esterase TRACE Urine RBC 2 Urine WBC 4 Urine Squamous Epithelial 3 Cells Urine Amorphous Sediment RARE Urine Hyaline Casts 36 Urine Mucus FEW Microscopic Urinalysis Comment CULT NOT INDICATED Urine Eosinophils NONE SEEN Urine Random Creatinine 173.0 Urine Random Sodium 20 Nasal Screen MRSA (PCR) MRSA NOT DETECTED Lactic Acid Level 2.2 1.9 1.7 Uric Acid 8.5 Thyroid Stimulating Hormone 0.357 3rd Gen Random Cortisol 38.1 9.9 White Blood Count 15.3 14.5 Red Blood Count 3.02 3.14 Hemoglobin 9.1 9.7 Hematocrit 27.3 28.5 Mean Corpuscular Volume 90.3 90.7 Mean Corpuscular Hemoglobin 30.2 30.9 Mean Corpuscular Hemoglobin 33.5 34.0 Concent Red Cell Distribution Width 17.0 17.5 Platelet Count 108 117 Mean Platelet Volume 8.5 8.1 Neutrophils (%) (Auto) 89.1 88.8 Lymphocytes (%) (Auto) 3.2 3.7 Monocytes (%) (Auto) 7.5 7.4 Eosinophils (%) (Auto) 0.0 0.0 Basophils (%) (Auto) 0.2 0.1 Neutrophils # (Auto) 13.6 12.8 Lymphocytes # (Auto) 0.5 0.5 Monocytes # (Auto) 1.1 1.1 Eosinophils # (Auto) 0.0 0.0 Basophils # (Auto) 0.0 0.0 CBC Comment DIFF FINAL DIFF FINAL Differential Comment Prothrombin Time 11.3 11.1 Prothromb Time International 1.0 1.0 Ratio Activated Partial 23.8 23.6 Thromboplast Time Fibrinogen 392 Sodium Level 136 Potassium Level 4.3 Chloride Level 106 Carbon Dioxide Level 25.5 Anion Gap 5 Blood Urea Nitrogen 33 Creatinine 0.84 Estimat Glomerular Filtration 67 Rate Random Glucose 146 Calcium Level 8.1 Phosphorus Level 3.1 Magnesium Level 2.6 Total Bilirubin 0.5 Aspartate Amino Transf 19 (AST/SGOT) Alanine Aminotransferase 19 (ALT/SGPT) Alkaline Phosphatase 94 Total Creatine Kinase 13 Troponin I LESS THAN 0.02 Total Protein 5.4 Albumin 2.3 Date/Time Procedure Status Source Growth 04/15/17 19:22 Aerobic Blood Culture - Preliminary Resulted Blood Peripheral NO GROWTH IN 1 DAY 04/15/17 19:22 Anaerobic Blood Culture - Preliminary Resulted Blood Peripheral NO GROWTH IN 1 DAY 04/15/17 14:58 Influenza Types A,B Antigen (TOLU) - Final Complete Nasal Washing NEGATIVE FOR FLU A AND B ANTIGEN.... ROS General: Weakness, Other (pain between shoulder blades), No: Fatigue HEENT: No: Sore Throat, Dysphagia Cardiac: No: Chest Pain, Edema, Palpitations Pulmonary: No: Cough, SOB, Wheezing GI: No: Abdominal Pain, BM, Diarrhea, N/V /REGULATOR PIN INSERTER: No: Dysuria, Urgency Neuro/MS: No: Lightheaded, Confusion Psych: Anxiety, No: Depression Skin: No: Itching, Rash Physical Exam Physical Exam GENERAL: This is a well-nourished, obese female, in no apparent distress. SKIN: No rashes, ecchymoses or lesions. Cool and dry. HEAD: Atraumatic. Normocephalic. No temporal or scalp tenderness. EYES: Pupils equal round and reactive. Extraocular motions intact. No scleral icterus. No injection or drainage. ENT: Nose without bleeding, purulent drainage or septal hematoma. Throat without erythema, tonsillar hypertrophy or exudate. Uvula midline. Airway patent. NECK: Trachea midline. No JVD or lymphadenopathy. Supple, nontender, no meningeal signs. CARDIOVASCULAR: Irregular rate and rhythm without murmurs, gallops, or rubs. RESPIRATORY: Clear to auscultation. Breath sounds equal bilaterally. No wheezes , rales, or rhonchi. Tender to palpation under the left breast. No erythema noted. GASTROINTESTINAL: Abdomen soft, non-tender, nondistended. No hepato-splenomegaly , or palpable masses. No guarding. MUSCULOSKELETAL: Extremities without clubbing, cyanosis, or edema. No joint tenderness, effusion, or edema noted. No calf tenderness. Negative Homans sign bilaterally. NEUROLOGICAL: Awake, alert oriented 3. No focal deficit. A/P Diagnosis: (1) Large B-cell lymphoma (2) Hypotension due to medication (3) Anemia (4) Thrombocytopenia (5) Lymphadenopathy, retroperitoneal (6) Right-sided chest wall pain (7) Atrial fibrillation (8) Hx of multiple sclerosis Assessment and Plan 71-year-old female with recent diagnosis of large B-cell lymphoma, has been started on CHOP. Today, patient received Rituxan, became hypotensive, asymptomatic. Hypotension Possible chemotherapy-related toxicity Possible tumor lysis syndrome Appreciate CCM input, patient remains on Levophed drip to keep MAP greater than 65 -Decrease normal saline 75 an hour Oncology is also following patient -Hold antihypertensive agent -Unclear as to the etiology for patient's low blood pressure, random cortisol level low and of normal. Possible adrenal insufficiency. -Echocardiogram pending Large B-cell lymphoma Dr. Dr. Brown following Patient has been started on prednisone 110 mg by mouth daily Right chest wall pain secondary to lymphadenopathy Continue with pain management History hypertension, currently hypotensive Hold antihypertensive agents Anemia, normocytic -Monitor CBC Thrombocytopenia Monitor CBC Monitor for bleeding A. fib, stable -Hold Cardizem at this time due to low blood pressure History of MS, patient currently takes vitamins to treat Has not seen a neurologist in many years Endorses some weakness since diagnosis of lymphoma Physical therapy for evaluation and treatment when blood pressure is stable Heparin for DVT prophylaxis Condition guarded Labs in the morning D/W RN D/W Dr. Maravilla D/W pt This patient was seen by myself and Dr. Maravilla, this note is written on his behalf Problem Qualifiers (1) Anemia: Qualified Code: D64.9 - Anemia, unspecified type (2) Atrial fibrillation: Qualified Code: I48.91 - Atrial fibrillation, unspecified type Catarina Vaz Apr 16, 2017 11:30
--- NOTE | 2017-04-16 12:26 | HHI.CCPN ---
Subjective Remarks/Hospital Course 71-year-old female. Date of admission 04/15/2017. Date of consultation 04/15/2017. Past medical history includes not hospitalist for stage IV/large cell B cell, depression, elevated BMI, MS diagnosed in 1979, hypertension, dyslipidemia, atrial fibrillation currently normal sinus rhythm, multiple pulmonary nodules. Recent echocardiogram 04/09/17 revealed EF of 55-60% . Grade 1 diastolic dysfunction. Bilateral atrial enlargement. Cardiac catheterization 2014 revealed LAD 40% stenosis otherwise negative. Patient was recently admitted 04/09/17 with lymph node pain and/or sonu hepatis. This was treated with oxycodone as an outpatient. She had a port placed 04/10 . Yesterday, patient refused first infusion/chemotherapy for large B-cell lymphoma. Today, patient was receiving Rituximab when approximately 17 cc in 2 infusion patient became acutely hypotensive/asymptomatic in 80s. Infusion was started patient received 2 L normal saline. Laboratories revealed hemoglobin 8.9, platelets of 87, creatinine 1.2 and elevated LDH 291. CRP around 2. Troponin 0.02. Albumin 2.2. 04/16: Breathing comfortably. Well perfused. Objective Vital Signs Date Time Temp Pulse Resp B/P Pulse Ox O2 Delivery O2 Flow Rate FiO2 04/16/17 12:00 98.5 62 20 118/55 98 04/16/17 10:21 21 04/16/17 07:00 Room Air Intake and Output 04/15/17 04/15/17 04/16/17 08:00 16:00 00:00 Intake Total 2029 ml Balance 2029 ml Result Diagram: 04/16/17 0415 04/16/17 0415 Other Results Microbiology Date/Time Procedure Status Source Growth 04/15/17 14:58 Influenza Types A,B Antigen (TOLU) - Final Complete Nasal Washing NEGATIVE FOR FLU A AND B ANTIGEN.... Objective Remarks GENERAL: SKIN: Warm and dry. HEAD: Atraumatic. Normocephalic. EYES: Pupils equal and round. No scleral icterus. No injection or drainage. ENT: No nasal bleeding or discharge. Mucous membranes pink and moist. NECK: Trachea midline. No JVD. CARDIOVASCULAR: Regular rate and rhythm. RESPIRATORY: No accessory muscle use. Clear to auscultation. Breath sounds equal bilaterally. GASTROINTESTINAL: Abdomen soft, non-tender, nondistended. Hepatic and splenic margins not palpable. MUSCULOSKELETAL: Extremities without clubbing, cyanosis, or edema. No obvious deformities. NEUROLOGICAL: Awake and alert. No obvious cranial nerve deficits. Motor grossly within normal limits. Five out of 5 muscle strength in the arms and legs. Normal speech. PSYCHIATRIC: Appropriate mood and affect; insight and judgment normal. A/P Assessment and Plan Neuro/Psych: Depression NOS History of MS diagnosed in 1979 Continues citalopram 20 mg by mouth daily/home medication. Acetaminophen for fever [place]/morphine for pain management CV: Asymptomatic hypotension History dyslipidemia A straight atrial fibrillation currently normal sinus rhythm Straight hypertension Echocardiogram 04/09/17 revealed EF 55-60%. Grade 1 diastolic dysfunction. Bilateral atrial enlargement. Heart catheterization 2014 revealed essentially normal EF. LAD proximal to 45% stenosis otherwise unremarkable. Holding antihypertensive including lisinopril 40 mg by mouth daily, diltiazem 30 mg by mouth twice a day and hydrochlorothiazide 25 mg by mouth daily light of hypotension Holding fenofibrate 54 mill grams by mouth twice a day in light of dyslipidemia Patient did receive Rituxan which can cause hypotension. Received 2 L normal saline in route. Supportive care with vasopressors/norepinephrine to maintain MAP greater than 65. Initial troponin 0.02. EKG reveals ST elevation Resp: History of right lower lobe pulmonary nodules Nasal cannula to maintain saturations greater than equal to 92% IS while awake Follow-up on chest x-ray GI: Hypoalbuminemia Advance diet as tolerated Pantoprazole for GI prophylaxis Senna/docusate sodium twice a day for bowel regimen : Perez catheter currently not indicated Endo: Sliding-scale insulin if indicated to maintain euglycemia Check TSH/cortisol in light of hypotension Renal: Acute kidney injury Creatinine currently 1.2. Accurate I's and O's Monitor urine output Currently NS @ 200 cc an hour. Follow BMP in a.m. Heme: Large B-cell lymphoma Normocytic anemia Thrombocytopenia Status post Rituxan today. Follow up on uric acid rule out tumor lysis syndrome ID: Monitor for infection Blood cultures 2, UA, influenza all pending FEN: Replace electrolytes as clinically indicated MSK: BMI greater than 50 Weight loss encouraged PT evaluate and treat Access - Utilize right Port-A-Cath/peripheral IVs Prophylaxis - GI - pantoprazole - DVT - SCD/heparin subcutaneous Overall impression: Stable respiratory and hemodynamic function. Scooter Galvan MD Apr 16, 2017 12:26
--- NOTE | 2017-04-16 16:46 | PD.ONC.PN ---
Subjective Subjective Remarks Afebrile overnight Patient sitting up in chair at bedside in no distress Asking to go home Per RN, her vasopressors have been off since 12 PM. Objective Data Date Time Temp Pulse Resp B/P Pulse Ox O2 Delivery O2 Flow Rate FiO2 04/16/17 16:00 98.1 68 24 97/53 96 04/16/17 16:00 68 04/16/17 14:00 67 04/16/17 12:00 98.5 62 20 118/55 98 04/16/17 12:00 62 04/16/17 10:21 95 21 04/16/17 10:00 74 04/16/17 08:00 64 04/16/17 08:00 98.3 64 20 99/58 99 04/16/17 07:00 99 Room Air 04/16/17 06:00 58 04/16/17 04:00 97.9 67 15 103/52 94 04/16/17 04:00 67 04/16/17 02:00 60 04/16/17 00:00 98.0 62 18 118/56 93 04/16/17 00:00 62 04/15/17 22:00 66 04/15/17 20:21 99 21 04/15/17 20:00 98.1 68 26 122/57 99 04/15/17 20:00 68 04/15/17 19:00 96 Room Air 04/15/17 18:00 61 04/16/17 04/16/17 04/16/17 07:00 15:00 23:00 Intake Total 1770 ml 2094 ml Balance 1770 ml 2094 ml Result Diagram: 04/16/17 0415 04/16/17 0415 Laboratory Results Laboratory Tests Test 04/15/17 04/15/17 04/16/17 20:05 22:21 04:15 Lactic Acid Level 1.9 mmol/L 1.7 mmol/L White Blood Count 15.3 TH/MM3 14.5 TH/MM3 Red Blood Count 3.02 MIL/MM3 3.14 MIL/MM3 Hemoglobin 9.1 GM/DL 9.7 GM/DL Hematocrit 27.3 % 28.5 % Mean Corpuscular Volume 90.3 FL 90.7 FL Mean Corpuscular Hemoglobin 30.2 PG 30.9 PG Mean Corpuscular Hemoglobin 33.5 % 34.0 % Concent Red Cell Distribution Width 17.0 % 17.5 % Platelet Count 108 TH/MM3 117 TH/MM3 Mean Platelet Volume 8.5 FL 8.1 FL Neutrophils (%) (Auto) 89.1 % 88.8 % Lymphocytes (%) (Auto) 3.2 % 3.7 % Monocytes (%) (Auto) 7.5 % 7.4 % Eosinophils (%) (Auto) 0.0 % 0.0 % Basophils (%) (Auto) 0.2 % 0.1 % Neutrophils # (Auto) 13.6 TH/MM3 12.8 TH/MM3 Lymphocytes # (Auto) 0.5 TH/MM3 0.5 TH/MM3 Monocytes # (Auto) 1.1 TH/MM3 1.1 TH/MM3 Eosinophils # (Auto) 0.0 TH/MM3 0.0 TH/MM3 Basophils # (Auto) 0.0 TH/MM3 0.0 TH/MM3 CBC Comment DIFF FINAL DIFF FINAL Differential Comment Prothrombin Time 11.3 SEC 11.1 SEC Prothromb Time International 1.0 RATIO 1.0 RATIO Ratio Activated Partial 23.8 SEC 23.6 SEC Thromboplast Time Fibrinogen 392 mg/dL Sodium Level 136 MEQ/L Potassium Level 4.3 MEQ/L Chloride Level 106 MEQ/L Carbon Dioxide Level 25.5 MEQ/L Anion Gap 5 MEQ/L Blood Urea Nitrogen 33 MG/DL Creatinine 0.84 MG/DL Estimat Glomerular Filtration 67 ML/MIN Rate Random Glucose 146 MG/DL Calcium Level 8.1 MG/DL Phosphorus Level 3.1 MG/DL Magnesium Level 2.6 MG/DL Total Bilirubin 0.5 MG/DL Aspartate Amino Transf 19 U/L (AST/SGOT) Alanine Aminotransferase 19 U/L (ALT/SGPT) Alkaline Phosphatase 94 U/L Total Creatine Kinase 13 U/L Troponin I LESS THAN 0.02 NG/ML Total Protein 5.4 GM/DL Albumin 2.3 GM/DL Random Cortisol 9.9 MCG/DL Culture Results Microbiology Date/Time Procedure Status Source Growth 04/15/17 14:58 Influenza Types A,B Antigen (TOLU) - Final Complete Nasal Washing NEGATIVE FOR FLU A AND B ANTIGEN.... 04/15/17 19:15 Aerobic Blood Culture - Preliminary Resulted Blood Peripheral NO GROWTH IN 1 DAY 04/15/17 19:15 Anaerobic Blood Culture - Preliminary Resulted Blood Peripheral NO GROWTH IN 1 DAY 04/15/17 19:22 Aerobic Blood Culture - Preliminary Resulted Blood Peripheral NO GROWTH IN 1 DAY 04/15/17 19:22 Anaerobic Blood Culture - Preliminary Resulted Blood Peripheral NO GROWTH IN 1 DAY Imaging Studies Last 24 hours Impressions Chest X-Ray 04/16/17 0000 Signed Impressions: Service Date/Time: Sunday, April 16, 2017 03:04 - CONCLUSION: No consolidative infiltrates seen. No evidence pneumothorax. Patricio Herrera MD Administered Medications Medications (Trade) Dose Ordered Sig/Magalys Route PRN Reason Start Time Stop Time Status Last Admin Dose Admin Citalopram Hydrobromide (CeleXA) 20 mg DAILY PO 04/16/17 09:00 04/16/17 09:56 Oxycodone/ Acetaminophen (Percocet 5-325 Mg) 1 tab Q6H PRN PO PAIN 3-6 04/15/17 14:00 04/16/17 09:56 Fenofibrate (Tricor) 48 mg BID PO 04/15/17 21:00 04/16/17 09:56 Sodium Chloride (NS Flush) 2 ml BID IV FLUSH 04/15/17 21:00 04/16/17 08:06 Heparin Sodium (Porcine) (Heparin Inj) 5,000 units Q12H SQ 04/15/17 15:00 04/16/17 15:52 Senna/Docusate Sodium (Daniela-Colace) 1 tab BID PO 04/15/17 21:00 04/16/17 09:00 Magnesium Hydroxide (Milk Of Magnesia Liq) 30 ml Q12H PRN PO MILD - MODERATE CONSTIPATION 04/15/17 14:15 04/15/17 20:41 Lactulose 30 ml 30 ml DAILY PRN PO SEVERE CONSITIPATION 04/15/17 14:15 04/16/17 09:56 Sodium Chloride (NS 1000 ml Inj) 1,000 ml @ 75 mls/hr [id number] IV 04/15/17 14:00 04/16/17 09:56 Acetaminophen/ Hydrocodone Bitart ([place] 5-325 Mg) 1 tab Q4H PRN PO PAIN SCALE 1 TO 5 04/15/17 14:45 04/16/17 07:09 Pantoprazole Sodium (Protonix) 40 mg DAILY PO 04/16/17 09:00 04/16/17 09:56 Chlorhexidine Gluconate (Chlorhexidine 2% Cloth) 3 pack Taper DAILY@04 TOP 04/16/17 04:00 04/12/18 03:59 04/16/17 04:02 Prednisone (Deltasone) 110 mg DAILY PO 04/16/17 09:00 04/20/17 08:59 04/16/17 09:56 Objective Remarks GENERAL: Overweight older female sitting up in chair at bedside in no distress SKIN: Warm and dry. HEAD: Atraumatic. Normocephalic. EYES: Pupils equal and round. No scleral icterus. No injection or drainage. CARDIOVASCULAR: Regular rate and rhythm. RESPIRATORY: Clear anteriorly. Breathing unlabored. GASTROINTESTINAL: Abdomen soft, non-tender, nondistended. MUSCULOSKELETAL: Extremities without clubbing, cyanosis, or edema. No obvious deformities. NEUROLOGICAL: Moving all extremities. No obvious focal deficit. Assessment/Plan Problem List: (1) Hypotension due to medication Status: Acute Plan: -- Per RN, vasopressors have been off since 12 PM (2) Large B-cell lymphoma Status: Acute Plan: -- The patient was receiving Rituxan in the clinic on 04/15/17 and developed hypotension. -- She was admitted for closer observation Assessment 71-year-old woman with history of B-cell lymphoma admitted for hypotension from the chemotherapy infusion clinic Plan 1. If blood pressure remains stable overnight, and off vasopressors she can be transferred to the stepdown unit. 2. Continue allopurinol for prevention of tumor lysis syndrome 3. Monitor uric acid, electrolytes. Attending Statement The exam, history, and the medical decision-making described in the above note were completed with the assistance of the mid-level provider. I reviewed and agree with the findings presented. I attest that I had a [id number] encounter with the patient on the same day, and personally performed and documented my assessment and findings in the medical record. Pt seen and examined. Hgb stable, hypotension not due to bleeding. Hard to believe the degree of hypotension with 17cc Rituxan, most of that volume was in the tubing. Pt had no complaints when BP was checked per infusion protocol and infusion stopped due to hypotension. No other symptoms to suggest hypersensitivity reaction to Rituxan, no fevers, no rash. Pt feels well and described other event like this but her BP recovered. ECHO ordered. Stable hemodynamically. No sign of tumor lysis. Continue [facility] chemotherapy, complete prednisone. Liset Jara Apr 16, 2017 16:46 Brenda Brown MD Apr 16, 2017 16:51
[2017-04-16] MEDS: ALLOPURINOL 300 MG TAB PO SCH (18:32)
[2017-04-17] VITALS (13 sets, daily range): BP systolic 108–163; BP diastolic 53–71; PULSE 55–77; RESP 11–20; TEMP 97.6–98.3; O2SAT 93–98
[2017-04-17] MEDS: HEPARIN SODIUM - SQ 10,000 UNITS/ML VIAL SQ SCH ×2 (02:04→13:59)
[2017-04-17] MEDS: CHLORHEXIDINE GLUCONATE 2 % 1 PACK (2 CLOTHS) TOP SCH (03:45)
[2017-04-17 04:00] LABS: AUTOMATED NEUTROPHIL # 5.3 TH/MM3 (1.8-7.7); BASOPHIL % 0.1 % (0.0-2.0); EOSINOPHIL % 0.1 % (0.0-4.0); HEMATOCRIT 24.9 % (35.0-46.0); LYMPH % 5.7 % (9.0-44.0); LYMPHOCYTE # 0.3 TH/MM3 (1.0-4.8); MEAN CELL VOLUME 90.7 FL (80.0-100.0); MEAN CORPUSCULAR HEMOGLOBIN 30.5 PG (27.0-34.0); MEAN CORPUSCULAR HGB CONC 33.7 % (32.0-36.0); MONO % 3.2 % (0.0-8.0); NEUT % 90.9 % (16.0-70.0); PLATELET COUNT 99 TH/MM3 (150-450); RED BLOOD COUNT 2.74 MIL/MM3 (4.00-5.30); WHITE BLOOD COUNT 5.9 TH/MM3 (4.0-11.0)
[2017-04-17 04:04] LABS: HEMO FLAGS AUTO DIFF
[2017-04-17 04:15] LABS: BICARBONATE 27.1 MEQ/L (21.0-32.0); POTASSIUM 4.5 MEQ/L (3.5-5.1)
[2017-04-17 04:46] LABS: PLATELET ESTIMATE SMEAR LOW (NORMAL); PLATELET MORPHOLOGY NORMAL (NORMAL); SCAN/DIFF AUTO DIFF CONFIRMED
[2017-04-17] MEDS: MIDODRINE 5 MG TAB PO SCH ×4 (06:19→15:45)
[2017-04-17] MEDS: SODIUM CHLORIDE 0.9% FLUSH 10 ML FLUSH IV FLUSH SCH ×2 (07:30→20:02)
--- NOTE | 2017-04-17 07:30 | HHI.CCPN ---
Subjective Remarks/Hospital Course 71-year-old female. Date of admission 04/15/2017. Date of consultation 04/15/2017. Past medical history includes not hospitalist for stage IV/large cell B cell, depression, elevated BMI, MS diagnosed in 1979, hypertension, dyslipidemia, atrial fibrillation currently normal sinus rhythm, multiple pulmonary nodules. Recent echocardiogram 04/09/17 revealed EF of 55-60% . Grade 1 diastolic dysfunction. Bilateral atrial enlargement. Cardiac catheterization 2014 revealed LAD 40% stenosis otherwise negative. Patient was recently admitted 04/09/17 with lymph node pain and/or sonu hepatis. This was treated with oxycodone as an outpatient. She had a port placed 04/10 . Yesterday, patient refused first infusion/chemotherapy for large B-cell lymphoma. Today, patient was receiving Rituximab when approximately 17 cc in 2 infusion patient became acutely hypotensive/asymptomatic in 80s. Infusion was started patient received 2 L normal saline. Laboratories revealed hemoglobin 8.9, platelets of 87, creatinine 1.2 and elevated LDH 291. CRP around 2. Troponin 0.02. Albumin 2.2. 04/16: Breathing comfortably. Well perfused. 04/17: Warm, well perfused. Breathing comfortably. Transfer to . Objective Vital Signs Date Time Temp Pulse Resp B/P Pulse Ox O2 Delivery O2 Flow Rate FiO2 04/17/17 06:00 56 04/17/17 04:00 97.9 13 108/55 96 04/16/17 19:00 Room Air 04/16/17 10:21 21 Intake and Output 04/16/17 04/16/17 04/17/17 08:00 16:00 00:00 Intake Total 1770 ml 2094 ml 1079 ml Balance 1770 ml 2094 ml 1079 ml Result Diagram: 04/17/17 0340 04/17/17 0340 Other Results Microbiology Date/Time Procedure Status Source Growth 04/15/17 14:58 Influenza Types A,B Antigen (TOLU) - Final Complete Nasal Washing NEGATIVE FOR FLU A AND B ANTIGEN.... Objective Remarks GENERAL: SKIN: Warm and dry. HEAD: Atraumatic. Normocephalic. EYES: Pupils equal and round. No scleral icterus. No injection or drainage. ENT: No nasal bleeding or discharge. Mucous membranes pink and moist. NECK: Trachea midline. Airway widely patent. CARDIOVASCULAR: Regular rate and rhythm. No JVD RESPIRATORY: No accessory muscle use. Clear to auscultation. Breath sounds equal bilaterally. GASTROINTESTINAL: Abdomen soft, non-tender, nondistended. Hepatic and splenic margins not palpable. MUSCULOSKELETAL: Extremities without clubbing, cyanosis, or edema. No obvious deformities. NEUROLOGICAL: Awake and alert. No obvious cranial nerve deficits. Motor grossly within normal limits. Five out of 5 muscle strength in the arms and legs. Normal speech. PSYCHIATRIC: Appropriate mood and affect; insight and judgment normal. A/P Assessment and Plan Neuro/Psych: Depression NOS History of MS diagnosed in 1979 Continues citalopram 20 mg by mouth daily/home medication. Acetaminophen for fever [place]/morphine for pain management CV: Asymptomatic hypotension History dyslipidemia A straight atrial fibrillation currently normal sinus rhythm Straight hypertension Echocardiogram 04/09/17 revealed EF 55-60%. Grade 1 diastolic dysfunction. Bilateral atrial enlargement. Heart catheterization 2014 revealed essentially normal EF. LAD proximal to 45% stenosis otherwise unremarkable. Holding antihypertensive including lisinopril 40 mg by mouth daily, diltiazem 30 mg by mouth twice a day and hydrochlorothiazide 25 mg by mouth daily light of hypotension Holding fenofibrate 54 mill grams by mouth twice a day in light of dyslipidemia Patient did receive Rituxan which can cause hypotension. Received 2 L normal saline in route. Supportive care with vasopressors/norepinephrine to maintain MAP greater than 65. Initial troponin 0.02. EKG reveals ST elevation Resp: History of right lower lobe pulmonary nodules Nasal cannula to maintain saturations greater than equal to 92% IS while awake Follow-up on chest x-ray GI: Hypoalbuminemia Advance diet as tolerated Pantoprazole for GI prophylaxis Senna/docusate sodium twice a day for bowel regimen : Perez catheter currently not indicated Endo: Sliding-scale insulin if indicated to maintain euglycemia Check TSH/cortisol in light of hypotension Renal: Acute kidney injury Creatinine currently 1.2. Accurate I's and O's Monitor urine output Currently NS @ 200 cc an hour. Follow BMP in a.m. Heme: Large B-cell lymphoma Normocytic anemia Thrombocytopenia Status post Rituxan 2 days ago Follow up on uric acid rule out tumor lysis syndrome ID: Monitor for infection Blood cultures 2, UA, influenza all pending FEN: Replace electrolytes as clinically indicated MSK: BMI greater than 50 Weight loss encouraged PT evaluate and treat Access - Utilize right Port-A-Cath/peripheral IVs Prophylaxis - GI - pantoprazole - DVT - SCD/heparin subcutaneous Overall impression: Stable respiratory and hemodynamic function. Scooter Galvan MD Apr 17, 2017 07:30
[2017-04-17] MEDS: SODIUM CHLOR 0.9% 1000 ML INJ 1,000 ML IV SCH ×2 (08:25→21:56)
[2017-04-17] MEDS: PANTOPRAZOLE SOD 40 MG DELAYED RELEASE TAB PO SCH (09:30)
[2017-04-17] MEDS: DOCUSATE SODIUM 50 MG/SENNA 8.6 MG TAB PO SCH ×2 (09:30→20:02)
[2017-04-17] MEDS: CITALOPRAM HYDROBROMIDE 20 MG TAB PO SCH (09:30)
[2017-04-17] MEDS: FENOFIBRATE 48 MG TAB PO SCH ×2 (09:30→20:02)
[2017-04-17] MEDS: ALLOPURINOL 300 MG TAB PO SCH (09:30)
[2017-04-17] MEDS: predniSONE 20 MG TAB PO SCH (09:30)
[2017-04-17] MEDS: oxyCODONE/ACETAMINOPHEN 5 MG/325 MG TAB PO PRN ×2 (10:00→17:11)
--- NOTE | 2017-04-17 10:22 | HHI.PR ---
Subjective Remarks Alert Denies any acute pain or distress Resting in the bed but thinks indicated up in chair, Encourage by mouth fluids (Poppy Lynn) Objective Objective Results - Vital Signs Date Time Temp Pulse Resp B/P Pulse Ox O2 Delivery O2 Flow Rate FiO2 04/17/17 07:00 95 Room Air 04/17/17 06:00 56 04/17/17 04:00 56 04/17/17 04:00 97.9 56 13 108/55 96 04/17/17 02:00 62 04/17/17 00:00 97.6 62 15 109/53 93 04/17/17 00:00 62 04/16/17 22:00 70 04/16/17 20:00 64 04/16/17 20:00 98.1 64 25 109/79 95 04/16/17 19:32 18 04/16/17 19:00 96 Room Air 04/16/17 18:00 72 04/16/17 16:00 98.1 68 24 97/53 96 04/16/17 16:00 68 04/16/17 14:00 67 04/16/17 12:00 98.5 62 20 118/55 98 04/16/17 12:00 62 04/16/17 10:21 95 21 I/O 04/16/17 04/16/17 04/16/17 04/17/17 04/17/17 04/17/17 06:59 14:59 22:59 06:59 14:59 22:59 Intake Total 1770 ml 2094 ml 1079 ml 815 ml Balance 1770 ml 2094 ml 1079 ml 815 ml Intake Oral 480 ml 480 ml 240 ml IV Total 1770 ml 1614 ml 599 ml 575 ml # Voids 5 4 7 2 # Bowel Movements 0 0 2 0 (Poppy Lynn) Result Diagram: 04/17/17 0340 04/17/17 0340 ROS General: Fatigue, Weakness, Other (10 point ROS done positives noted) Neuro/MS: Other (no syncope no acute confusion this morning) (Poppy Lynn) Physical Exam Physical Exam PHYSICAL EXAMINATION GENERAL: This is a obese female who appears to be in no acute distress. She is alert and awake, answers questions appropriately HEAD: Normocephalic Facial features appear symmetric., Pale OROPHARYNGEAL: Oropharynx clear NECK: Supple. Trachea midline without deviation. CARDIAC: Regular rhythm, regular rate, S1 and S2 are heard. LUNGS: Mild diminished to auscultation bilaterally. No active wheeze, or rhonchi present ABDOMEN: Obese, Soft, nontender, Bowel sounds active EXTREMITIES: no edema. Extremities pale, warm NEUROLOGICAL: Patient mood and affect appropriate. No focal deficit SKIN:Warm and moist (Poppy Lynn) A/P Assessment and Plan (1) Large B-cell lymphoma (2) Hypotension due to medication (3) Anemia (4) Thrombocytopenia (5) Lymphadenopathy, retroperitoneal (6) Right-sided chest wall pain (7) Atrial fibrillation (8) Hx of multiple sclerosis Vital signs reviewed, currently BP maintained at 108/55, afebrile, heart rate 56 Labs reviewed, WBC count 5.9 marked decrease from yesterday's leukocytosis. Blood cultures no growth Anemia secondary to her chronic disease currently 8.4 Hypotension NS 75 an hour, denies any acute pain, dizziness, headaches , nausea or vomiting Oncology consult appreciate expert opinion in input, BP trends more controlled, encourage diet and by mouth fluids, states that she is drinking plenty Large B-cell lymphoma Dr. Brown following and monitoring her medical management prednisone 110 mg by mouth daily Right chest wall pain secondary to lymphadenopathy Denies any pain this morning, continue her medical management Thrombocytopenia No active bleeding noted, A. fib, stable, slow ventricular response Into new to monitor telemetry or continuous ECG monitoring Bradycardia, continue to hold Cardizem for now Weakness and debility, will continue physical therapy, patient getting up in chair this a.m. Encourage patient to give her time slowly between transition of bed to chair Heparin for DVT prophylaxis Discharge planning, monitored, possible transition out of the intensive care setting today or tomorrow D/W RN D/W Dr. Maravilla, seen on his behalf Discussed with patient (Poppy Lynn) Assessment and Plan seen, examined by myself, Dr Maravilla, today Discussed with patient, no longer on pressors, she will to go home, we'll wait for oncologist to come back tomorrow, possibly discharge home tomorrow Discussed with mid level provider The exam, history, and the medical decision-making described in the above note were completed with the assistance of the mid-level provider. I reviewed the findings presented. I attest that I had a [id number] encounter with the patient on the same day, and personally performed and documented my assessment and findings in the medical record. (Neyda Maravilla MD) Poppy Lynn Apr 17, 2017 10:22 Neyda Maravilla MD Apr 17, 2017 19:19
[2017-04-17] MEDS: ACETAMINOPHEN/HYDROcodone 325 MG/5 MG TAB PO PRN ×2 (13:59→20:02)
--- NOTE | 2017-04-17 15:11 | PD.ONC.PN ---
Subjective Subjective Remarks Patient sitting up on side of bed eating lunch Complaining of boredom being in the hospital Denies dizziness Objective Data Date Time Temp Pulse Resp B/P Pulse Ox O2 Delivery O2 Flow Rate FiO2 04/17/17 14:00 64 04/17/17 12:00 98.1 63 14 114/56 98 04/17/17 12:00 63 04/17/17 10:00 71 04/17/17 08:00 55 04/17/17 08:00 98.2 55 11 132/56 94 04/17/17 07:00 95 Room Air 04/17/17 06:00 56 04/17/17 04:00 56 04/17/17 04:00 97.9 56 13 108/55 96 04/17/17 02:00 62 04/17/17 00:00 97.6 62 15 109/53 93 04/17/17 00:00 62 04/16/17 22:00 70 04/16/17 20:00 64 04/16/17 20:00 98.1 64 25 109/79 95 04/16/17 19:32 18 04/16/17 19:00 96 Room Air 04/16/17 18:00 72 04/16/17 16:00 98.1 68 24 97/53 96 04/16/17 16:00 68 04/17/17 04/17/17 04/17/17 07:00 15:00 23:00 Intake Total 815 ml 723 ml Balance 815 ml 723 ml Result Diagram: 04/17/17 0340 04/17/17 0340 Laboratory Results Laboratory Tests Test 04/17/17 03:40 White Blood Count 5.9 TH/MM3 Red Blood Count 2.74 MIL/MM3 Hemoglobin 8.4 GM/DL Hematocrit 24.9 % Mean Corpuscular Volume 90.7 FL Mean Corpuscular Hemoglobin 30.5 PG Mean Corpuscular Hemoglobin 33.7 % Concent Red Cell Distribution Width 17.0 % Platelet Count 99 TH/MM3 Mean Platelet Volume 8.4 FL Neutrophils (%) (Auto) 90.9 % Lymphocytes (%) (Auto) 5.7 % Monocytes (%) (Auto) 3.2 % Eosinophils (%) (Auto) 0.1 % Basophils (%) (Auto) 0.1 % Neutrophils # (Auto) 5.3 TH/MM3 Lymphocytes # (Auto) 0.3 TH/MM3 Monocytes # (Auto) 0.2 TH/MM3 Eosinophils # (Auto) 0.0 TH/MM3 Basophils # (Auto) 0.0 TH/MM3 CBC Comment AUTO DIFF Differential Comment AUTO DIFF CONFIRMED Platelet Estimate LOW Platelet Morphology Comment NORMAL Red Cell Morphology Comment NORMAL Sodium Level 140 MEQ/L Potassium Level 4.5 MEQ/L Chloride Level 108 MEQ/L Carbon Dioxide Level 27.1 MEQ/L Anion Gap 5 MEQ/L Blood Urea Nitrogen 23 MG/DL Creatinine 0.66 MG/DL Estimat Glomerular Filtration 89 ML/MIN Rate Random Glucose 131 MG/DL Calcium Level 8.2 MG/DL Culture Results Microbiology Date/Time Procedure Status Source Growth 04/15/17 14:58 Influenza Types A,B Antigen (TOLU) - Final Complete Nasal Washing NEGATIVE FOR FLU A AND B ANTIGEN.... 04/15/17 19:15 Aerobic Blood Culture - Preliminary Resulted Blood Peripheral NO GROWTH IN 2 DAYS 04/15/17 19:15 Anaerobic Blood Culture - Preliminary Resulted Blood Peripheral NO GROWTH IN 2 DAYS 04/15/17 19:22 Aerobic Blood Culture - Preliminary Resulted Blood Peripheral NO GROWTH IN 2 DAYS 04/15/17 19:22 Anaerobic Blood Culture - Preliminary Resulted Blood Peripheral NO GROWTH IN 2 DAYS Administered Medications Medications (Trade) Dose Ordered Sig/Magalys Route PRN Reason Start Time Stop Time Status Last Admin Dose Admin Citalopram Hydrobromide (CeleXA) 20 mg DAILY PO 04/16/17 09:00 04/17/17 09:30 Oxycodone/ Acetaminophen (Percocet 5-325 Mg) 1 tab Q6H PRN PO PAIN 3-6 04/15/17 14:00 04/17/17 10:00 Fenofibrate (Tricor) 48 mg BID PO 04/15/17 21:00 04/17/17 09:30 Sodium Chloride (NS Flush) 2 ml BID IV FLUSH 04/15/17 21:00 04/17/17 07:30 Ondansetron HCl (Zofran Inj) 4 mg Q6H PRN IVP NAUSEA OR VOMITING 04/15/17 14:15 04/17/17 10:23 Heparin Sodium (Porcine) (Heparin Inj) 5,000 units Q12H SQ 04/15/17 15:00 04/17/17 13:59 Senna/Docusate Sodium (Daniela-Colace) 1 tab BID PO 04/15/17 21:00 04/17/17 09:30 Magnesium Hydroxide (Milk Of Magnvickie Liq) 30 ml Q12H PRN PO MILD - MODERATE CONSTIPATION 04/15/17 14:15 04/15/17 20:41 Lactulose 30 ml 30 ml DAILY PRN PO SEVERE CONSITIPATION 04/15/17 14:15 04/16/17 09:56 Sodium Chloride (NS 1000 ml Inj) 1,000 ml @ 75 mls/hr [id number] IV 04/15/17 14:00 04/17/17 08:25 Acetaminophen/ Hydrocodone Bitart ([place] 5-325 Mg) 1 tab Q4H PRN PO PAIN SCALE 1 TO 5 04/15/17 14:45 04/17/17 13:59 Pantoprazole Sodium (Protonix) 40 mg DAILY PO 04/16/17 09:00 04/17/17 09:30 Chlorhexidine Gluconate (Chlorhexidine 2% Cloth) 3 pack Taper DAILY@04 TOP 04/16/17 04:00 04/12/18 03:59 04/17/17 03:45 Prednisone (Deltasone) 110 mg DAILY PO 04/16/17 09:00 04/20/17 08:59 04/17/17 09:30 Allopurinol (Zyloprim) 300 mg DAILY PO 04/16/17 17:00 04/17/17 09:30 Midodrine (Proamatine) 5 mg TID@07,12,17 PO 04/17/17 07:00 04/17/17 11:36 Objective Remarks GENERAL: Overweight older female sitting up in chair at bedside in no distress SKIN: Warm and dry. HEAD: Atraumatic. Normocephalic. EYES: Pupils equal and round. No scleral icterus. No injection or drainage. CARDIOVASCULAR: Regular rate and rhythm. RESPIRATORY: Clear anteriorly. Breathing unlabored. GASTROINTESTINAL: Abdomen soft, non-tender, nondistended. MUSCULOSKELETAL: Extremities without clubbing, cyanosis, or edema. No obvious deformities. NEUROLOGICAL: Moving all extremities. No obvious focal deficit. Assessment/Plan Problem List: (1) Hypotension due to medication Status: Acute Plan: --Vasopressors off over 24 hours (2) Large B-cell lymphoma Status: Acute Plan: -- The patient was receiving Rituxan in the clinic on 04/15/17 and developed hypotension. -- She was admitted for closer observation Assessment 71-year-old woman with history of B-cell lymphoma admitted for hypotension from the chemotherapy infusion clinic Plan 1. Transfer out of ICU today 2. Continue allopurinol 3. Monitor blood pressure Attending Statement Patient feels better Wants to go home Patient is off of the pressers Home soon Liset Jara Apr 17, 2017 15:11 Yoav Lyons MD Apr 18, 2017 07:11
--- NOTE | 2017-04-17 16:01 | ECHRPT ---
Indication: HYPOTENSION POST ANTHRACYCLINE CONCLUSIONS Normal left ventricular size. Wall thickness is normal. The left ventricular systolic function is normal with an estimated ejection fraction in the range of 55-60%. Ssrbckab-sm-xwimox mitral valve regurgitation. There is trace tricuspid valve regurgitation. There is estimated mild pulmonary hypertension present ( 49 mmHg). BP: 103 / 52 HR: 67 Rhythm: Sinus MEASUREMENTS (Male / Female) Normal Values Technical Quality:Good 2D ECHO LV Diastolic Diameter PLAX 5.5 cm 4.2 - 5.9 / 3.9 - 5.3 cm LV Systolic Diameter PLAX 4.1 cm IVS Diastolic Thickness 1.2 cm 0.6 - 1.0 / 0.6 - 0.9 cm LVPW Diastolic Thickness 1.0 cm 0.6 - 1.0 / 0.6 - 0.9 cm LV Relative Wall Thickness 0.4 RV Internal Dim ED PLAX 2.3 cm LA Systolic Diameter LX 3.9 cm 3.0 - 4.0 / 2.7 - 3.8 cm M-MODE Aortic Root Diameter MM 3.2 cm AV Cusp Separation MM 1.7 cm DOPPLER MR Peak Velocity 532.0 cm/s MR Peak Gradient 113.2 mmHg Mitral E Point Velocity 68.1 cm/s Mitral A Point Velocity 72.6 cm/s Mitral E to A Ratio 0.9 TR Peak Velocity 312.0 cm/s TR Peak Gradient 38.9 mmHg FINDINGS LEFT VENTRICLE Normal left ventricular size. Wall thickness is normal. The left ventricular systolic function is normal with an estimated ejection fraction in the range of 55-60%. RIGHT VENTRICLE Normal right ventricular size and systolic function. LEFT ATRIUM The left atrial size is normal. RIGHT ATRIUM The right atrial size is normal. ATRIAL SEPTUM Normal atrial septal thickness without atrial level shunting by limited color doppler interrogation. AORTA The aortic root and proximal ascending aorta are normal in size on limited imaging. MITRAL VALVE Aasmscil-xj-wguaxf mitral valve regurgitation. AORTIC VALVE Trileaflet aortic valve. No aortic valve stenosis or regurgitation. TRICUSPID VALVE There is trace tricuspid valve regurgitation. There is estimated mild pulmonary hypertension present ( 49 mmHg). PULMONARY VALVE The pulmonary valve is not well visualized. VESSELS The inferior vena cava is normal in size. PERICARDIUM No pericardial effusion. Alberto Roldan MD (Electronically Signed) Final Date:17 April 2017 16:00
[2017-04-18] VITALS (8 sets, daily range): BP systolic 127–155; BP diastolic 59–67; PULSE 54–71; RESP 16–20; TEMP 96.6–98.9; O2SAT 95–100
[2017-04-18] MEDS: oxyCODONE/ACETAMINOPHEN 5 MG/325 MG TAB PO PRN ×3 (03:16→15:55)
[2017-04-18] MEDS: HEPARIN SODIUM - SQ 10,000 UNITS/ML VIAL SQ SCH ×2 (03:17→15:57)
[2017-04-18] MEDS: CHLORHEXIDINE GLUCONATE 2 % 1 PACK (2 CLOTHS) TOP SCH (03:21)
[2017-04-18] MEDS: predniSONE 20 MG TAB PO SCH (09:33)
[2017-04-18] MEDS: CITALOPRAM HYDROBROMIDE 20 MG TAB PO SCH (09:34)
[2017-04-18] MEDS: DOCUSATE SODIUM 50 MG/SENNA 8.6 MG TAB PO SCH (09:35)
[2017-04-18] MEDS: PANTOPRAZOLE SOD 40 MG DELAYED RELEASE TAB PO SCH (09:36)
[2017-04-18] MEDS: SODIUM CHLORIDE 0.9% FLUSH 10 ML FLUSH IV FLUSH SCH (09:36)
[2017-04-18] MEDS: ALLOPURINOL 300 MG TAB PO SCH (09:36)
--- NOTE | 2017-04-18 09:37 | PD.ONC.PN ---
Subjective Subjective Remarks Afebrile overnight. No overnight events. Objective Data Date Time Temp Pulse Resp B/P Pulse Ox O2 Delivery O2 Flow Rate FiO2 04/18/17 04:16 16 04/18/17 02:53 96.6 60 17 136/66 100 04/18/17 02:00 56 04/18/17 00:00 98.3 54 20 140/64 100 04/18/17 00:00 54 04/17/17 22:00 56 04/17/17 21:00 153/69 04/17/17 20:00 62 04/17/17 20:00 97.9 66 20 163/71 98 04/17/17 19:00 98 Room Air 04/17/17 18:00 63 04/17/17 16:00 77 04/17/17 16:00 98.3 58 14 117/55 98 04/17/17 14:00 64 04/17/17 12:00 98.1 63 14 114/56 98 04/17/17 12:00 63 04/17/17 10:00 71 04/18/17 04/18/17 04/18/17 07:00 15:00 23:00 Intake Total 320 ml Balance 320 ml Result Diagram: 04/17/17 0340 04/17/17 0340 Culture Results Microbiology Date/Time Procedure Status Source Growth 04/15/17 14:58 Influenza Types A,B Antigen (TOLU) - Final Complete Nasal Washing NEGATIVE FOR FLU A AND B ANTIGEN.... 04/15/17 19:15 Aerobic Blood Culture - Preliminary Resulted Blood Peripheral NO GROWTH IN 2 DAYS 04/15/17 19:15 Anaerobic Blood Culture - Preliminary Resulted Blood Peripheral NO GROWTH IN 2 DAYS 04/15/17 19:22 Aerobic Blood Culture - Preliminary Resulted Blood Peripheral NO GROWTH IN 2 DAYS 04/15/17 19:22 Anaerobic Blood Culture - Preliminary Resulted Blood Peripheral NO GROWTH IN 2 DAYS Administered Medications Medications (Trade) Dose Ordered Sig/Magalys Route PRN Reason Start Time Stop Time Status Last Admin Dose Admin Citalopram Hydrobromide (CeleXA) 20 mg DAILY PO 04/16/17 09:00 04/17/17 09:30 Oxycodone/ Acetaminophen (Percocet 5-325 Mg) 1 tab Q6H PRN PO PAIN 3-6 04/15/17 14:00 04/18/17 03:16 Fenofibrate (Tricor) 48 mg BID PO 04/15/17 21:00 04/17/17 20:02 Sodium Chloride (NS Flush) 2 ml BID IV FLUSH 04/15/17 21:00 04/17/17 20:02 Ondansetron HCl (Zofran Inj) 4 mg Q6H PRN IVP NAUSEA OR VOMITING 04/15/17 14:15 04/17/17 10:23 Heparin Sodium (Porcine) (Heparin Inj) 5,000 units Q12H SQ 04/15/17 15:00 04/18/17 03:17 Senna/Docusate Sodium (Daniela-Colace) 1 tab BID PO 04/15/17 21:00 04/17/17 20:02 Magnesium Hydroxide (Milk Of Magnvickie Liq) 30 ml Q12H PRN PO MILD - MODERATE CONSTIPATION 04/15/17 14:15 04/15/17 20:41 Lactulose 30 ml 30 ml DAILY PRN PO SEVERE CONSITIPATION 04/15/17 14:15 04/16/17 09:56 Sodium Chloride (NS 1000 ml Inj) 1,000 ml @ 75 mls/hr [id number] IV 04/15/17 14:00 04/17/17 21:56 Acetaminophen/ Hydrocodone Bitart ([place] 5-325 Mg) 1 tab Q4H PRN PO PAIN SCALE 1 TO 5 04/15/17 14:45 04/17/17 20:02 Pantoprazole Sodium (Protonix) 40 mg DAILY PO 04/16/17 09:00 04/17/17 09:30 Chlorhexidine Gluconate (Chlorhexidine 2% Cloth) 3 pack Taper DAILY@04 TOP 04/16/17 04:00 04/12/18 03:59 04/17/17 03:45 Prednisone (Deltasone) 110 mg DAILY PO 04/16/17 09:00 04/20/17 08:59 04/17/17 09:30 Allopurinol (Zyloprim) 300 mg DAILY PO 04/16/17 17:00 04/17/17 09:30 Midodrine (Proamatine) 5 mg TID@07,12,17 PO 04/17/17 07:00 04/17/17 15:45 Objective Remarks GENERAL: Elderly female, upright in room in [facility]. SKIN: Warm and dry. HEAD: Atraumatic. Normocephalic. EYES: No injection or drainage. CARDIOVASCULAR: Regular rate and rhythm. RESPIRATORY: anterior castelan clear. GASTROINTESTINAL: Abdomen soft, non-tender, nondistended. NEUROLOGICAL: awake and alert. Assessment/Plan Problem List: (1) Large B-cell lymphoma Status: Acute Plan: 04/18: clear for discharge. follow up in clinic. -- The patient was receiving Rituxan in the clinic on 04/15/17 and developed hypotension. -- She was admitted for closer observation (2) Hypotension due to medication Status: Acute Plan: --Vasopressors off over 24 hours Assessment 71-year-old woman with history of B-cell lymphoma admitted for hypotension from the chemotherapy infusion clinic Attending Statement feels better BP is up Ok to d/c The exam, history, and the medical decision-making described in the above note were completed with the assistance of the mid-level provider. I reviewed and agree with the findings presented. I attest that I had a [id number] encounter with the patient on the same day, and personally performed and documented my assessment and findings in the medical record. Yesenia Woods Apr 18, 2017 09:37 Yoav Lyons MD Apr 18, 2017 09:58
[2017-04-18] MEDS: MIDODRINE 5 MG TAB PO SCH ×3 (12:14→16:53)
[2017-04-18] MEDS: FENOFIBRATE 48 MG TAB PO SCH (12:14)
[2017-04-18] MEDS ORDERED: ALLO300 PO (15:53)
[2017-04-18] MEDS ORDERED: MIDO5TAB PO (15:53)
--- NOTE | 2017-04-18 16:10 | HHI.PR ---
Subjective Remarks Alert Denies any acute pain or distress up in chair and in rm, Encourage by mouth fluids (Poppy Lynn) Objective Objective Results - Vital Signs Date Time Temp Pulse Resp B/P Pulse Ox O2 Delivery O2 Flow Rate FiO2 04/18/17 12:16 16 04/18/17 12:12 71 04/18/17 12:00 98.9 69 18 127/59 95 04/18/17 09:35 Room Air 04/18/17 08:59 64 04/18/17 08:00 97.7 65 16 155/67 99 04/18/17 02:53 96.6 60 17 136/66 100 04/18/17 02:00 56 04/18/17 00:00 98.3 54 20 140/64 100 04/18/17 00:00 54 04/17/17 22:00 56 04/17/17 21:00 153/69 04/17/17 20:00 62 04/17/17 20:00 97.9 66 20 163/71 98 04/17/17 19:00 98 Room Air 04/17/17 18:00 63 I/O 04/17/17 04/17/17 04/17/17 04/18/17 04/18/17 04/18/17 06:59 14:59 22:59 06:59 14:59 22:59 Intake Total 815 ml 723 ml 590 ml 320 ml Balance 815 ml 723 ml 590 ml 320 ml Intake Oral 240 ml 240 ml IV Total 575 ml 483 ml 590 ml 320 ml # Voids 2 6 1 1 # Bowel Movements 0 0 (Poppy Lynn) Result Diagram: 04/17/17 0340 04/17/17 0340 ROS General: Other (10 point ROS done,.) (Poppy Lynn) Physical Exam Physical Exam PHYSICAL EXAMINATION GENERAL: This is a obese female who appears to be in no acute distress. She is alert and awake, HEAD: Normocephalic without any lesion or mass noted. Facial features appear symmetric. OROPHARYNGEAL: Oropharynx without erythema or edema. NECK: Supple. No nuchal rigidity or lymphadenopathy. Trachea midline without deviation. CARDIAC: Regular rhythm, regular rate, S1 and S2 are heard. LUNGS: Clear to auscultation bilaterally. ABDOMEN: obese, Soft, nontender, no organomegaly or masses. Bowel sounds are heard in all four quadrants. No rebound. No guarding. EXTREMITIES: no edema. Pulses equal bilateral. NEUROLOGICAL: Patient mood and affect appropriate. No focal deficit SKIN:Warm and moist (Poppy Lynn) A/P Assessment and Plan (1) Large B-cell lymphoma (2) Hypotension due to medication (3) Anemia (4) Thrombocytopenia (5) Lymphadenopathy, retroperitoneal (6) Right-sided chest wall pain (7) Atrial fibrillation (8) Hx of multiple sclerosis Vital signs reviewed, normal trends Labs reviewed, Blood cultures no growth Anemia, leukocytosis resolved. Hypotension NS 75 an hour, denies any acute pain, dizziness, headaches , nausea or vomiting Oncology consult appreciate expert opinion in input, BP trends more controlled, encourage diet and by mouth fluids Pt. now on Zyloprim Large B-cell lymphoma Dr. Brown following and monitoring her medical management prednisone 110 mg by mouth daily Right chest wall pain secondary to lymphadenopathy Denies any pain this morning, continue her medical management Thrombocytopenia No active bleeding noted, A. fib, stable, slow ventricular response Into new to monitor telemetry or continuous ECG monitoring Bradycardia, continue to hold Cardizem for now Maintained on Midodrine Weakness and debility, will continue physical therapy, patient getting up in chair this a.m., and up in rm. Encouraged safety Heparin for DVT prophylaxis Discharge planning, stable, ok for dc per oncology D/W RN D/W Dr. Maravilla, seen on his behalf Discussed with patient (Poppy Lynn) Assessment and Plan Above reviewed and agreed by myself, Dr Maravilla, today Discharge home on midodrine milligrams 3 times a day Follow-up with endocrinology to rule out adrenal insufficiency Discussed with mid level provider 40 minutes (Neyda Maravilla MD) Poppy Lynn Apr 18, 2017 16:10 Neyda Maravilla MD Apr 18, 2017 18:43
--- NOTE | 2017-05-21 10:10 | HHI.DS ---
Discharge Summary Admission Date Apr 15, 2017 at 13:25 Discharge Date: Apr 18, 2017 Admitting Diagnosis (1) Large B-cell lymphoma ICD Codes: C85.10 - Unspecified B-cell lymphoma, unspecified site Status: Acute (2) Hypotension due to medication ICD Codes: I95.2 - Hypotension due to drugs Status: Acute (3) Anemia ICD Codes: D64.9 - Anemia, unspecified Status: Acute (4) Thrombocytopenia ICD Codes: D69.6 - Thrombocytopenia, unspecified Status: Acute (5) Lymphadenopathy, retroperitoneal ICD Codes: R59.0 - Localized enlarged lymph nodes Status: Acute (6) Right-sided chest wall pain ICD Codes: R07.89 - Other chest pain Status: Acute (7) Atrial fibrillation ICD Codes: I48.91 - Unspecified atrial fibrillation Status: Acute (8) Hx of multiple sclerosis ICD Codes: Z86.69 - Personal history of other diseases of the nervous system and sense organs Status: Acute Brief History This a pleasant 71-year-old white female who was recently diagnosed with large B -cell lymphoma has a large felicitas mass in the sonu hepatis with associated celiac, mesenteric and retroperitoneal lymphadenopathy. Patient's oncologist is Dr. Brown. Patient presented to the emergency room as a direct admit for hypotension. She was started on CHOP chemotherapy on 04/14/2017. Today she was in the process of receiving Rituxan, she had approximately 17 cc's of infusion when her blood pressure dropped to 90s over 30s. Her initial blood pressure was 132/64. She received 500 cc normal saline bolus. Patient was emergently transferred to the main hospital with consultation to critical care services for hemodynamic instability. Patient is now being seen in room 1301. She is currently on levophed drip at 2 mics. She is currently on normal saline at 200 hour. Patient was asymptomatic. Patient has significant past medical history of hypertension, dyslipidemia, A. fib, pulmonary nodules, MS not on any treatment. She's had prior echocardiogram on 04/09/2017 with EF of 55-60%, grade 1 diastolic dysfunction. She denies any shortness of breath, no dizziness. She does have residual pain under the left breast, she had a recent admission on 04/09/2017 with lymph node pain and/or sonu hepatis. At this time, patient is resting comfortably. She has no complaints. No recent fever, no chills. Indicates she has been somewhat weak since diagnosis and has been using a cane. Dr. Brown requested admission to hospitalist services for hypotension, possible tumor lysis syndrome, and chemotherapy related toxicity. Patient is admitted for further evaluation and treatment. Imaging Last Impressions Chest X-Ray 04/16/17 0000 Signed Impressions: Service Date/Time: Friday, April 16, 2017 03:04 - CONCLUSION: No consolidative infiltrates seen. No evidence pneumothorax. Patricio Herrera MD Hospital Course This a pleasant 71-year-old white female who was recently diagnosed with large B -cell lymphoma has a large felicitas mass in the sonu hepatis with associated celiac, mesenteric and retroperitoneal lymphadenopathy. Patient's oncologist is Dr. Brown. Patient presented to the emergency room as a direct admit for hypotension. She was started on CHOP chemotherapy on 04/14/2017. Today she was in the process of receiving Rituxan, she had approximately 17 cc's of infusion when her blood pressure dropped to 90s over 30s. Her initial blood pressure was 132/64. She received 500 cc normal saline bolus. Patient was emergently transferred to the main hospital with consultation to critical care services for hemodynamic instability. Patient is now being seen in room 1301. She is currently on levophed drip at 2 mics. She is currently on normal saline at 200 hour. Patient was asymptomatic. Patient has significant past medical history of hypertension, dyslipidemia, A. fib, pulmonary nodules, MS not on any treatment. She's had prior echocardiogram on 04/09/2017 with EF of 55-60%, grade 1 diastolic dysfunction. She denies any shortness of breath, no dizziness. She does have residual pain under the left breast, she had a recent admission on 04/09/2017 with lymph node pain and/or sonu hepatis. At this time, patient is resting comfortably. She has no complaints. No recent fever, no chills. Indicates she has been somewhat weak since diagnosis and has been using a cane. Dr. Brown requested admission to hospitalist services for hypotension, possible tumor lysis syndrome, and chemotherapy related toxicity. Patient was admitted for further evaluation and treatment. (1) Large B-cell lymphoma (2) Hypotension due to medication (3) Anemia (4) Thrombocytopenia (5) Lymphadenopathy, retroperitoneal (6) Right-sided chest wall pain (7) Atrial fibrillation (8) Hx of multiple sclerosis During the course of the hospitalization, the following took place: 71-year-old female with recent diagnosis of large B-cell lymphoma, has been started on CHOP. Today, patient received Rituxan, became hypotensive, asymptomatic. Hypotension Possible chemotherapy-related toxicity Possible tumor lysis syndrome Appreciate CCM input, patient required Levophed drip to keep MAP greater than 65 -Was fluid resuscitated Oncology was also following patient -Held antihypertensive agent -Unclear as to the etiology for patient's low blood pressure, random cortisol level low end of normal. Possible adrenal insufficiency. -Echocardiogram ok -started on Midodrine -Blood pressure stabilized, she was weaned off vasopressors. Large B-cell lymphoma DrRod Brown following Patient was started on prednisone 110 mg by mouth daily Right chest wall pain secondary to lymphadenopathy Continued with pain management History hypertension, was hypotensive Held antihypertensive agents Anemia, normocytic -Monitor CBC -remained stable Thrombocytopenia Monitored CBC Monitored for bleeding A. fib, stable -Held Cardizem at this time due to low blood pressure History of MS, patient currently takes vitamins to treat Has not seen a neurologist in many years Endorses some weakness since diagnosis of lymphoma Physical therapy for evaluation and treatment when blood pressure was stable Heparin for DVT prophylaxis Patient was initially admitted to ICU, boxing inspector was consulted. Her blood pressure stabilized, was on vasopressors. Started on midodrine. Physical therapy was consulted to assist with mobility Patient was cleared for discharge by oncology Patient was discharged home in stable condition Pt Condition on Discharge: Stable Discharge Disposition: Discharge Home Discharge Instructions DIET: Follow Instructions for: Heart Healthy Diet Activities you can perform: Regular-No Restrictions Continued Medications: Citalopram (Citalopram) 20 Mg Tab 20 MG PO DAILY for Control Depression, #30 TAB 0 Refills Discontinued Medications: Diltiazem (Diltiazem) 30 Mg Tab 30 MG PO BID for Angina, #120 TAB 0 Refills Hydrochlorothiazide (Hydrochlorothiazide) 25 Mg Tab 25 MG PO DAILY, #30 TAB 0 Refills Hydroxyzine HCl (Hydroxyzine HCl) 25 Mg Tab 1-2 TAB PO QID PRN for ITCHING, #15 TAB 0 Refills Lisinopril (Lisinopril) 40 Mg Tab 40 MG PO HS for Blood Pressure Management, #30 TAB 0 Refills Oxycodone-Acetaminophen (Oxycodone-Acetaminophen) 5-325 mg Tab 1 TAB PO Q6H PRN for PAIN 3-6, #30 TAB Catarina Vaz May 21, 2017 10:10
== END 2017-04-18 17:25 | disposition home or self-care (01) | DRG 312 ==
LOC: N03A 13:25 → HOCB 04-18 02:28
PROVIDERS: ADMIT Specialist; ATTEND Specialist
DX: I95.2 Hypotension due to drugs (principal); N17.9 Acute kidney failure, unspecified; C83.30 Diffuse large B-cell lymphoma, unspecified site; D69.6 Thrombocytopenia, unspecified; I50.30 Unspecified diastolic (congestive) heart failure; Z68.43 Body mass index [BMI] 50.0-59.9, adult; G35 Multiple sclerosis; I48.91 Unspecified atrial fibrillation; F32.9 Major depressive disorder, single episode, unspecified; I10 Essential (primary) hypertension; E78.5 Hyperlipidemia, unspecified; T45.1X5A Adverse effect of antineoplastic and immunosuppressive drugs, initial encounter; D64.9 Anemia, unspecified; R91.8 Other nonspecific abnormal finding of lung field; Z79.899 Other long term (current) drug therapy; Z87.891 Personal history of nicotine dependence; Y92.530 Ambulatory surgery center as the place of occurrence of the external cause; R59.1 Generalized enlarged lymph nodes; Z90.710 Acquired absence of both cervix and uterus; Z80.7 Family history of other malignant neoplasms of lymphoid, hematopoietic and related tissues; E66.01 Morbid (severe) obesity due to excess calories
CPT/HCPCS: 71010; 80048; 80053; 81001; 82533; 82550; 82570; 83605; 83615; 83735; 84100; 84300; 84443; 84484; 84550; 85025; 85384; 85610; 85730; 87040; 87205; 87641; 87804; 93005; 93306; 94150; 96367; 96375; 96411; 96413; 96415; 99215; G0463; J1100; J1626; J1642; J1644; J2405; J7030; J7040; J7050; J7512; J9000; J9070; J9310; J9370; Q0163

== ENCOUNTER 2017-04-25 13:16 | Inpatient (IN) | payer OTHER, MEDICARE ==
[2017-04-25] VITALS (9 sets, daily range): BP systolic 105–131; BP diastolic 52–60; PULSE 80–93; RESP 16–22; TEMP 98.3–100.8; O2SAT 95–100
[~2017-04-25] VITALS: Ht 162.6 cm; Wt 128.9 kg
[~2017-04-25 13:16] MED LIST changes: +ALLO300 PO; -DILT30TA PO; -HYDR-3133 PO; -HYDR25TA5 PO; -LISI40TA PO; +MIDO5TAB PO; -OXYC1TAB63 PO
[2017-04-25] MEDS ORDERED: IOHEXOL 350 MG/ML 10 ML VIAL (for RAD DIAG) IVCONTRAST ONE (13:17)
[2017-04-25] MEDS ORDERED: MORPHINE SULFATE 4 MG/ML INJ IV PUSH ONE (14:30)
[2017-04-25] MEDS ORDERED: ONDANSETRON HCL 4 MG/2 ML VIAL IV PUSH ONE (14:30)
--- NOTE | 2017-04-25 14:49 | PD ---
HPI Chief Complaint: Chest Pain Time Seen by Provider: 14:20 Travel History International Travel<30 days: No Contact w/Intl Traveler<30days: No Traveled to known affect area: No History of Present Illness HPI 71-year-old female that presents to the ED for evaluation of chest pain. Per patient she's had this left sided chest pain since today. She denies any history of heart disease other than A. fib but she does have significant history including lymphoma with metastases to the lungs as well as to the abdomen. Patient last received chemotherapy 2 weeks ago. Patient had blood work done here in the that show atrophy needed. She denies any fevers chills or sweats. She was seen by ambulance and was given nitroglycerin and aspirin with some resolution of her pain. She follows with Dr. De Guzman for cardiology. She denies any shortness of breath. She states that her chest pain currently is 4 out of 10. No fevers chills or sweats. She states that he feels sharp and does not radiate. She usually takes an aspirin but she did not took one today until she was given by ambulance. She denies any abdominal pain. No urinary or bowel movement issues. Patient follows with Dr. Brown for oncology. PFSH Past Medical History Arthritis: Yes (RA, OSTEOARTHRITIS) Atrial Fibrillation: Yes Autoimmune Disease: Yes (MS DIAGNOSIS 1979) Anxiety: No Depression: Yes Heart Rhythm Problems: Yes Cancer: Yes (SWEAT GLAND RIGHT EYELID) Cardiovascular Problems: Yes (AFIB) High Cholesterol: Yes Chemotherapy: No Chest Pain: Yes (on admit) Congestive Heart Failure: No Diabetes: No Diminished Hearing: No Endocrine: No Gastrointestinal Disorders: No Glaucoma: No Genitourinary: No Hepatitis: No Hiatal Hernia: No Hypertension: Yes Immune Disorder: Yes (RA) Musculoskeletal: Yes (MS) Neurologic: No Psychiatric: No Reproductive: No Respiratory: No Integumentary: No Immunizations Current: Yes Radiation Therapy: No Thyroid Disease: No ?: Menopausal: Yes Ovarian Cysts: Yes (SURGERY X 5) Past Surgical History Abdominal Surgery: Yes AICD: No Appendectomy: Yes Cardiac Surgery: No Ear Surgery: No Endocrine Surgery: No Eye Surgery: Yes Gynecologic Surgery: Yes (cysts on ovaries and utereus) Hysterectomy: Yes Joint Replacement: No Oral Surgery: Yes (teeth removal) Pacemaker: No Thoracic Surgery: No Tonsillectomy: Yes (AND ADENOIDS) Other Surgery: Yes (BLADDER SLING, RIGHT BREAST MILK DUCT REMOVED) Social History Alcohol Use: No Tobacco Use: No (FORMER) Substance Use: No Allergies-Medications (Allergen,Severity, Reaction): Coded Allergies: No Known Allergies (Verified , 04/09/17) Reported Meds & Prescriptions Reported Meds & Active Scripts Active Reported Levothyroxine (Levothyroxine Sodium) 300 Mcg Tab 300 Mcg PO DAILY Lisinopril 40 Mg Tab 40 Mg PO DAILY Diltiazem (Diltiazem HCl) 30 Mg Tab 30 Mg PO BID Citalopram (Citalopram Hydrobromide) 20 Mg Tab 20 Mg PO DAILY Review of Systems Except as stated in HPI: all other systems reviewed are Neg Physical Exam Narrative GENERAL: SKIN: Warm and dry. HEAD: Atraumatic. Normocephalic. EYES: Pupils equal and round. No scleral icterus. No injection or drainage. ENT: No nasal bleeding or discharge. Mucous membranes pink and moist. Tongue is midline. No uvula deviation. NECK: Trachea midline. No JVD. CARDIOVASCULAR: Regular rate and rhythm. No murmurs, S3, S4. Chest pain not reproducible with touch. RESPIRATORY: No accessory muscle use. Clear to auscultation. Breath sounds equal bilaterally. GASTROINTESTINAL: Abdomen soft, non-tender, nondistended. Hepatic and splenic margins not palpable. MUSCULOSKELETAL: Extremities without clubbing, cyanosis, or edema. No obvious deformities. Full range of motion of the upper and lower extremities with no deformities. 2+ pulses bilaterally. NEUROLOGICAL: Awake and alert. No obvious cranial nerve deficits. Motor grossly within normal limits. Five out of 5 muscle strength in the arms and legs. Normal speech. PSYCHIATRIC: Appropriate mood and affect; insight and judgment normal. Data Data Last Documented VS Vital Signs Date Time Temp Pulse Resp B/P (MAP) Pulse Ox O2 Delivery O2 Flow Rate FiO2 04/25/17 15:34 93 20 100 Room Air 2.00 04/25/17 15:34 98.3 128/59 (82) Orders Orders Electrocardiogram (04/25/17 14:26) Complete Blood Count With Diff (04/25/17 14:26) Comprehensive Metabolic Panel (04/25/17 14:26) Ckmb (Isoenzyme) Profile (04/25/17 14:26) Troponin I (04/25/17 14:26) Prothrombin Time / Inr (Pt) (04/25/17 14:26) Act Partial Throm Time (Ptt) (04/25/17 14:26) Lipase (04/25/17 14:26) Magnesium (Mg) (04/25/17 14:26) Chest, Single Ap (04/25/17 14:26) Iv Access Insert/Monitor (04/25/17 14:26) Ecg Monitoring (04/25/17 14:26) Oximetry (04/25/17 14:26) Ct Pulmonary Angiogram (04/25/17 ) Morphine Inj (Morphine Inj) (04/25/17 14:30) Ondansetron Inj (Zofran Inj) (04/25/17 14:30) Isolation 08,20 (04/25/17 16:01) Equip, Isolation Cart (04/25/17 16:01) Red Blood Cells (Rbc) (04/25/17 16:36) Blood Product Administration .UPON TRANSFUSION (04/25/17 16:36) Sodium Chlor 0.9% 250 Ml Inj (Ns 250 Ml (04/25/17 16:45) Iohexol 350 Inj (Omnipaque 350 Inj) (04/25/17 13:17) Admit Order (Ed Use Only) (04/25/17 17:58) Labs Laboratory Tests Test 04/25/17 15:00 White Blood Count 1.4 TH/MM3 Red Blood Count 2.63 MIL/MM3 Hemoglobin 7.8 GM/DL Hematocrit 23.2 % Mean Corpuscular Volume 88.2 FL Mean Corpuscular Hemoglobin 29.7 PG Mean Corpuscular Hemoglobin Concent 33.7 % Red Cell Distribution Width 16.2 % Platelet Count 218 TH/MM3 Mean Platelet Volume 7.7 FL Neutrophils (%) (Auto) 38.3 % Lymphocytes (%) (Auto) 15.2 % Monocytes (%) (Auto) 43.3 % Eosinophils (%) (Auto) 0.6 % Basophils (%) (Auto) 2.6 % Neutrophils # (Auto) 0.5 TH/MM3 Lymphocytes # (Auto) 0.2 TH/MM3 Monocytes # (Auto) 0.6 TH/MM3 Eosinophils # (Auto) 0.0 TH/MM3 Basophils # (Auto) 0.0 TH/MM3 CBC Comment AUTO DIFF Differential Total Cells Counted 100 Neutrophils % (Manual) 28 % Band Neutrophils % 5 % Lymphocytes % 55 % Monocytes % 1 % Eosinophils % 1 % Neutrophils # (Manual) 0.5 TH/MM3 Metamyelocytes 1 % Myelocytes 1 % Promyelocytes 4 % Nucleated Red Blood Cells 3 /100 WBC Differential Comment FINAL DIFF MANUAL Blastocytes 4 % Platelet Morphology Comment ENLARGED Prothrombin Time 11.8 SEC Prothromb Time International Ratio 1.1 RATIO Activated Partial Thromboplast Time 34.6 SEC Blood Urea Nitrogen 9 MG/DL Creatinine 0.71 MG/DL Random Glucose 73 MG/DL Total Protein 6.1 GM/DL Albumin 2.5 GM/DL Calcium Level 8.5 MG/DL Magnesium Level 1.9 MG/DL Alkaline Phosphatase 63 U/L Aspartate Amino Transf (AST/SGOT) 14 U/L Alanine Aminotransferase (ALT/SGPT) 15 U/L Total Bilirubin 0.7 MG/DL Sodium Level 137 MEQ/L Potassium Level 3.3 MEQ/L Chloride Level 103 MEQ/L Carbon Dioxide Level 24.6 MEQ/L Anion Gap 9 MEQ/L Estimat Glomerular Filtration Rate 81 ML/MIN Total Creatine Kinase 42 U/L Troponin I LESS THAN 0.02 NG/ML Lipase 60 U/L MDM Medical Decision Making Medical Screen Exam Complete: Yes Emergency Medical Condition: Yes Medical Record Reviewed: Yes Interpretation(s) CBC & BMP Diagram 04/25/17 15:00 Total Protein 6.1 L, Albumin 2.5 L, Calcium Level 8.5, Magnesium Level 1.9, Alkaline Phosphatase 63, Aspartate Amino Transf (AST/SGOT) 14 L, Alanine Aminotransferase (ALT/SGPT) 15, Total Bilirubin 0.7 EKG shows sinus rhythm with no sign of acute ischemia or arrhythmia read by me and attending. Last Impressions Chest X-Ray 04/25/17 1426 Signed Impressions: Service Date/Time: Tuesday, April 25, 2017 14:33 - CONCLUSION: 1. Mild cardiomegaly. Patricio Motta Jr., MD CT Angiography 04/25/17 0000 Signed Impressions: Service Date/Time: Tuesday, April 25, 2017 16:23 - CONCLUSION: 1. No PE is identified. 2. Abnormal diffuse and somewhat patchy groundglass attenuation bilaterally. Etiology is nonspecific. Some considerations include edema, infectious, or inflammatory processes. 3. The right lower lobe pulmonary nodules and sonu hepatis mass have decreased in size, as above. 4. Mild splenic. Ravindra Seymour MD Differential Diagnosis Chest pain versus a typical chest pain versus PE versus ACS versus normal exam Narrative Course 71-year-old female that presents to the ED for evaluation of chest pain. Patient was properly examined and was found to have signs and symptoms of unclear etiology. Definite concerning for ACS. Patient had improvement of symptoms after aspirin and nitroglycerin. She denies any history of heart disease other than A. fib. She does have non-Hodgkin's lymphoma and takes chemotherapy. She does have metastases to the lung. She denies ever having pain like this before. Definite concerning for ACS versus PE versus chronic pain. This time I recommend labs and imaging. She is irregular with this plan. Patient was given aspirin nitroglycerin by even back. She will be given morphine. Labs and imaging were done and showed no sign of acute disease. Patient still has some chest discomfort. Case was discussed with Dr. Brown who was made aware of the neutropenia as well as the anemia and she recommends 1 dose of normal RBCs as well as for patient to continue taking her Levaquin. Patient will be admitted to the hospital for chest pain rule out. Case discussed with Dr. Salazar who agrees to admission. Diagnosis Primary Impression: Chest pain in adult Additional Impressions: Neutropenia Qualified Codes: D70.9 - Neutropenia, unspecified Anemia Qualified Codes: D64.9 - Anemia, unspecified Admitting Information Admitting Physician Requests: Guy Bolivar Apr 25, 2017 14:49
[2017-04-25 15:10] LABS: BASOPHIL % 2.6 % (0.0-2.0); EOSINOPHIL % 0.6 % (0.0-4.0); HEMATOCRIT 23.2 % (35.0-46.0); LYMPH % 15.2 % (9.0-44.0); LYMPHOCYTE # 0.2 TH/MM3 (1.0-4.8); MEAN CELL VOLUME 88.2 FL (80.0-100.0); MEAN CORPUSCULAR HEMOGLOBIN 29.7 PG (27.0-34.0); MEAN CORPUSCULAR HGB CONC 33.7 % (32.0-36.0); MONO % 43.3 % (0.0-8.0); NEUT % 38.3 % (16.0-70.0); PLATELET COUNT 218 TH/MM3 (150-450); RED BLOOD COUNT 2.63 MIL/MM3 (4.00-5.30); RED CELL DISTRIBUTION WIDTH 16.2 % (11.6-17.2); WHITE BLOOD COUNT 1.4 TH/MM3 (4.0-11.0)
--- NOTE | 2017-04-25 15:10 | RADRPT ---
EXAM DATE/TIME: 04/25/2017 14:33 [facility] COMPARISON: CHEST SINGLE AP, April 16, 2017, 3:04. INDICATIONS : Short of breath. MEDICAL HISTORY : atrial fibrillation, Non Hogekin's lymphoma getting chemotherapy SURGICAL HISTORY : None. ENCOUNTER: Initial ACUITY: 1 day PAIN SCORE: 0/10 LOCATION: Bilateral chest FINDINGS: A single view of the chest demonstrates the lungs to be symmetrically aerated without evidence of mas s, infiltrate or effusion. Mild cardiomegaly. Power port overlies the right chest. Osseous structure s are intact. CONCLUSION: 1. Mild cardiomegaly. Patricio Motta Jr., MD on April 25, 2017 at 15:08 Board Certified Radiologist. This report was verified electronically.
[2017-04-25 15:17] LABS: HEMO FLAGS AUTO DIFF
[2017-04-25 15:28] LABS: APTT (PATIENT) 34.6 SEC (24.3-30.1); INTERNATIONAL NORMALIZED RATIO 1.1 RATIO; PROTHROMBIN TIME - PATIENT 11.8 SEC (9.8-11.6)
[2017-04-25 15:34] LABS: ALT (GPT) 15 U/L (10-53); ANION GAP 9 MEQ/L (5-15); AST (GOT) 14 U/L (15-37); BICARBONATE 24.6 MEQ/L (21.0-32.0); BLOOD UREA NITROGEN 9 MG/DL (7-18); CHLORIDE 103 MEQ/L (98-107); GLOMERULAR FILTRATION RATE 81 ML/MIN (>89); MAGNESIUM 1.9 MG/DL (1.5-2.5); POTASSIUM 3.3 MEQ/L (3.5-5.1); SODIUM (NA) 137 MEQ/L (136-145)
[2017-04-25 15:38] LABS: ALKALINE PHOSPHATASE 63 U/L (45-117); TOTAL BILIRUBIN ADULT 0.7 MG/DL (0.2-1.0)
[2017-04-25 15:44] LABS: CREATINE KINASE 42 U/L (26-192)
[2017-04-25] MEDS ORDERED: LISI40TA PO (15:46)
[2017-04-25] MEDS ORDERED: DILT30TA PO (15:46)
[2017-04-25] MEDS ORDERED: LEVO-171 PO (15:46)
[2017-04-25 16:13] LABS: BANDS 5 % (0-6); BLASTS 4 % (0-0); CORRECTED NUCLEATED RBC 3 /100 WBC (0-0); EOSINOPHILS 1 % (0-4); METAMYELOCYTES 1 % (0-1); MYELOCYTES 1 % (0-0); NEUTROPHIL # MANUAL DIFF 0.5 TH/MM3 (1.8-7.7); POLYS (SEG NEUTROPHILS) 28 % (16-70); PROMYELOCYTES 4 % (0-0); SCAN/DIFF FINAL DIFF MANUAL; WBC DIFF SAMPLE 100
[2017-04-25 16:14] LABS: PLATELET MORPHOLOGY ENLARGED (NORMAL)
[2017-04-25 16:20] LABS: AUTOMATED NEUTROPHIL # 0.5 TH/MM3 (1.8-7.7)
[2017-04-25] MEDS ORDERED: SODIUM CHLOR 0.9% 250 ML INJ 250 ML IV ONE (16:45)
--- NOTE | 2017-04-25 17:13 | RADRPT ---
EXAM DATE/TIME: 04/25/2017 16:23 [facility] COMPARISON: CT PULMONARY ANGIOGRAM, April 07, 2017, 16:48. INDICATIONS : Patient with chest pain, evaluate for embolus. IV CONTRAST: 50 cc Omnipaque 350 (iohexol) IV RADIATION DOSE: 24.31 CTDIvol (mGy) MEDICAL HISTORY : Cardiovascular disease. Hypertension. A-fib, MS, non-Hodgkins Lymphoma SURGICAL HISTORY : Appendectomy. Hysterectomy. ENCOUNTER: Initial ACUITY: 1 day PAIN SCALE: 5/10 LOCATION: Bilateral chest TECHNIQUE: Volumetric scanning of the chest was performed using a pulmonary embolism protocol MIP images were re constructed. Using automated exposure control and adjustment of the mA and/or kV according to patien t size, radiation dose was kept as low as reasonably achievable to obtain optimal diagnostic quality images. DICOM format image data is available electronically for review and comparison. Follow-up recommendations for detected pulmonary nodules are based at a minimum on nodule size and pa tient risk factors according to Fleischner Society Guidelines. FINDINGS: PULMONARY ARTERIES: No filling defects are seen in the pulmonary arteries through the segmental level. LUNGS: There is relatively diffuse and mild patchy groundglass opacity bilaterally. The 2 nodules in the rig ht lower lobe have decreased in size currently measuring 9 mm and 11 mm compared to 11 mm and 13 mm p reviously, respectively. No new nodule is seen. No pneumothorax. PLEURAE: There is no pleural thickening or pleural effusion. MEDIASTINUM: Heart and great vessels demonstrate no acute finding. There is coronary artery calcification. The rig ht chest wall Nsblas-t-Cbry is present. Left hilar lymphadenopathy is stable. No other lymphadenopath y is present. MUSCULOSKELETAL: There are degenerative changes of the thoracic spine. MISCELLANEOUS: The sonu hepatis region mass has decreased in size measuring approximately 3.7 x 2.7 cm currently co mpared to 7.5 x 4.5 cm previously. Spleen measures 14.1 cm in length. CONCLUSION: 1. No PE is identified. 2. Abnormal diffuse and somewhat patchy groundglass attenuation bilaterally. Etiology is nonspecific. Some considerations include edema, infectious, or inflammatory processes. 3. The right lower lobe pulmonary nodules and sonu hepatis mass have decreased in size, as above. 4. Mild splenic. Ravindra Seymour MD on April 25, 2017 at 17:05 Board Certified Radiologist. This report was verified electronically.
--- NOTE | 2017-04-25 18:56 | HHI.HP ---
HPI Service [facility] Primary Care Physician Davonte Rodas MD Admission Diagnosis chest pain, r/o ACS, neuthrophenia Diagnoses: Chief Complaint: Chest pain Travel History International Travel<30 Days: No Contact w/Intl Traveler <30 Da: No Traveled to Known Affected Are: No History of Present Illness Written by Tim Nolen PA-C, acting as scribe for Dr. Earlene Steele on 04/25/17 at 18:30. Mrs. 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 Mrs. Solares reported waking in her normal state of health and developed substernal chest pain that radiated "down my spine" at approximately 11:00 am. An unknown period of time passed before she called EMS. She was given nitroglycerine and an aspirin and her chest pain (which was reported to be 10/10 ) decreased. She was subsequently transported to [facility] for further evaluation and management of her condition. Upon interview, Mrs. Solares reported having substernal chest pain and rated it 2 /10. She reported she was short of breath upon exertion, but this has been of long standing duration. She denied nausea, vomiting, sweating, pain radiating to her neck or left shoulder/arm, or unusual weakness/fatigue. A 10 point ROS was conducted and, except as noted above was negative. Review of Systems Except as stated in HPI: all other systems reviewed are Neg Past Family Social History Past Medical History Atrial fibrillation (followed by Dr. De Guzman) b-cell lymphoma with retroperitoneal, mesenteric lymphadenopathy and a mass involving the sonu hepatis (followed by Dr. 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 Reported Medications Reported Meds & Active Scripts Active Reported Levothyroxine (Levothyroxine Sodium) 300 Mcg Tab 300 Mcg PO DAILY Lisinopril 40 Mg Tab 40 Mg PO DAILY Diltiazem (Diltiazem HCl) 30 Mg Tab 30 Mg PO BID Citalopram (Citalopram Hydrobromide) 20 Mg Tab 20 Mg PO DAILY Allergies: Coded Allergies: No Known Allergies (Verified , 04/09/17) Active Ordered Medications Current Medications Medications (Trade) Dose Ordered Sig/Magalys Route Start Time Stop Time Status Last Admin Sodium Chloride 250 ml @ 15 mls/hr ONCE ONCE IV 04/25/17 16:45 04/26/17 09:24 Family History Mother: Lung cancer Father: of heart attack Social History Denied alcohol use Nicotine use was denied. Illicit/recreational drug use was denied. Physical Exam Vital Signs Vital Signs Date Time Temp Pulse Resp B/P (MAP) Pulse Ox O2 Delivery O2 Flow Rate FiO2 04/25/17 18:23 99.7 92 16 116/56 100 04/25/17 15:34 93 20 100 Room Air 2.00 04/25/17 15:34 98.3 93 20 128/59 (82) 100 Room Air 2.00 04/25/17 15:15 98.3 86 20 128/59 (82) 100 2.00 04/25/17 13:49 99.7 93 22 129/56 (80) 100 Physical Exam GENERAL: This is a morbidly obese, well-developed patient, in no apparent distress. SKIN: No rashes, ecchymoses or lesions. Cool and dry. Port placed in upper right chest. HEAD: Atraumatic. Normocephalic. EYES: Pupils equal round and reactive. Extraocular motions intact. No scleral icterus. No injection or drainage. ENT: Nose without bleeding or purulent drainage. Airway patent. NECK: Trachea midline. No lymphadenopathy. CARDIOVASCULAR: Regular rate and rhythm without murmurs, gallops, or rubs. RESPIRATORY: Clear to auscultation. Breath sounds equal bilaterally. No wheezes , rales, or rhonchi. GASTROINTESTINAL: Abdomen soft/obese, non-tender, nondistended. No hepato- splenomegaly, or guarding. Bowel sounds could not be heard. MUSCULOSKELETAL: Extremities without clubbing, cyanosis, or edema. No joint tenderness, effusion, or edema noted. NEUROLOGICAL: Awake and alert. Cranial nerves II through XII intact. Motor and sensory grossly within normal limits. Five out of 5 muscle strength in all muscle groups. Speech was clear and fluent. Laboratory Laboratory Tests Test 04/25/17 15:00 White Blood Count 1.4 Red Blood Count 2.63 Hemoglobin 7.8 Hematocrit 23.2 Mean Corpuscular Volume 88.2 Mean Corpuscular Hemoglobin 29.7 Mean Corpuscular Hemoglobin Concent 33.7 Red Cell Distribution Width 16.2 Platelet Count 218 Mean Platelet Volume 7.7 Neutrophils (%) (Auto) 38.3 Lymphocytes (%) (Auto) 15.2 Monocytes (%) (Auto) 43.3 Eosinophils (%) (Auto) 0.6 Basophils (%) (Auto) 2.6 Neutrophils # (Auto) 0.5 Lymphocytes # (Auto) 0.2 Monocytes # (Auto) 0.6 Eosinophils # (Auto) 0.0 Basophils # (Auto) 0.0 CBC Comment AUTO DIFF Differential Total Cells Counted 100 Neutrophils % (Manual) 28 Band Neutrophils % 5 Lymphocytes % 55 Monocytes % 1 Eosinophils % 1 Neutrophils # (Manual) 0.5 Metamyelocytes 1 Myelocytes 1 Promyelocytes 4 Nucleated Red Blood Cells 3 Differential Comment FINAL DIFF MANUAL Blastocytes 4 Platelet Morphology Comment ENLARGED Prothrombin Time 11.8 Prothromb Time International Ratio 1.1 Activated Partial Thromboplast Time 34.6 Blood Urea Nitrogen 9 Creatinine 0.71 Random Glucose 73 Total Protein 6.1 Albumin 2.5 Calcium Level 8.5 Magnesium Level 1.9 Alkaline Phosphatase 63 Aspartate Amino Transf (AST/SGOT) 14 Alanine Aminotransferase (ALT/SGPT) 15 Total Bilirubin 0.7 Sodium Level 137 Potassium Level 3.3 Chloride Level 103 Carbon Dioxide Level 24.6 Anion Gap 9 Estimat Glomerular Filtration Rate 81 Total Creatine Kinase 42 Troponin I LESS THAN 0.02 Lipase 60 Result Diagram: 04/25/17 1500 04/25/17 1500 Imaging Last Impressions Chest X-Ray 04/25/17 1426 Signed Impressions: Service Date/Time: Tuesday, April 25, 2017 14:33 - CONCLUSION: 1. Mild cardiomegaly. Patricio Motta Jr., MD CT Angiography 04/25/17 0000 Signed Impressions: Service Date/Time: Tuesday, April 25, 2017 16:23 - CONCLUSION: 1. No PE is identified. 2. Abnormal diffuse and somewhat patchy groundglass attenuation bilaterally. Etiology is nonspecific. Some considerations include edema, infectious, or inflammatory processes. 3. The right lower lobe pulmonary nodules and sonu hepatis mass have decreased in size, as above. 4. Mild splenic. Ravindra Seymour MD Caprini VTE Risk Assessment Caprinalthea VTE Risk Assessment: Mod/High Risk (score >= 2) Caprini Risk Assessment Model Point Value = 1 Point Value = 2 Point Value = 3 Point Value = 5 Age 41-60 Minor surgery BMI > 25 kg/m2 Swollen legs Varicose veins or History of unexplained or recurrent spontaneous Oral contraceptives or hormone replacement Sepsis (< 1 month) Serious lung disease, including pneumonia (< 1 month) Abnormal pulmonary function Acute myocardial infarction Congestive heart failure (< 1 month) History of inflammatory bowel disease Medical patient at bed rest Age 61-74 Arthroscopic surgery Major open surgery (> 45 min) Laparoscopic surgery (> 45 min) Malignancy Confined to bed (> 72 hours) Immobilizing plaster cast Central venous access Age >= 75 History of VTE Family history of VTE Factor V Leiden Prothrombin [id number] Lupus anticoagulant Anticardiolipin antibodies Elevated serum homocysteine Heparin-induced thrombocytopenia Other congenital or acquired thrombophilia Stroke (< 1 month) Elective arthroplasty Hip, pelvis, or leg fracture Acute spinal cord injury (< 1 month) Prophylaxis Regimen Total Risk Factor Score Risk Level Prophylaxis Regimen 0-1 Low Early ambulation 2 Moderate Order ONE of the following: *Sequential Compression Device (SCD) *Heparin 5000 units SQ BID 3-4 Higher Order ONE of the following medications: *Heparin 5000 units SQ TID *Enoxaparin/Lovenox 40 mg SQ daily (WT < 150 kg, CrCl > 30 mL/min) *Enoxaparin/Lovenox 30 mg SQ daily (WT < 150 kg, CrCl > 10-29 mL/min) *Enoxaparin/Lovenox 30 mg SQ BID (WT < 150 kg, CrCl > 30 mL/min) AND/OR *Sequential Compression Device (SCD) 5 or more Highest Order ONE of the following medications: *Heparin 5000 units SQ TID (Preferred with Epidurals) *Enoxaparin/Lovenox 40 mg SQ daily (WT < 150 kg, CrCl > 30 mL/min) *Enoxaparin/Lovenox 30 mg SQ daily (WT < 150 kg, CrCl > 10-29 mL/min) *Enoxaparin/Lovenox 30 mg SQ BID (WT < 150 kg, CrCl > 30 mL/min) AND *Sequential Compression Device (SCD) Assessment and Plan Assessment and Plan Mrs. 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 Mrs. Solares reported waking in her normal state of health and developed substernal chest pain that radiated "down my spine" at approximately 11:00 am. An unknown period of time passed before she called EMS. She was given nitroglycerine and an aspirin and her chest pain (which was reported to be 10/10 ) decreased. Chest pain -serial troponin enzymes -telemetry. -nitroglycerine and morphine for chest pain -labs in am -lipid panel -hemoglobin A1c Neutropenia isolation precautions, Monitor CBC, no Neupogen at this point Consul Dr. Brown Normocytic normochromic Anemia mostly due to recent chemotherapy -Transfuse 1 unit of prbc's per Dr. Brown Diet: Healthy heart DVT prophylaxis: Lovenox 30 mg sc daily/ SCD's. Discussed Condition With Pt and Ed staff. This note was transcribed by scribe [Tim Nolen. ]. I, Dr. Jacek Steele personally performed the history, physical exam, and medical decision making; and confirmed the accuracy of the information in the transcribed note. Patient seen and examined she has mid lower retrosternal pain radiating to the "down my spine", atypical, neutropenia and anemia, Dr. Brown has been consulted, she recommended 1 pack of RBC, no Neupogen but continue monitoring CBC, will continue cycling cardiac enzymes, nitroglycerin EKG with increased chest pain rule out ACS Authenticated by Dr. Jacek Steele on 04/25/17 at 18:35. Tim Nolen Jr. Apr 25, 2017 18:56 Jacek Steele MD Apr 25, 2017 19:16
[2017-04-25] MEDS ORDERED: NITROGLYCERIN 0.4 MG SL 25 TABS/BTL SL PRN (19:15)
[2017-04-25] MEDS ORDERED: SODIUM CHLORIDE 0.9% FLUSH 10 ML FLUSH IV FLUSH PRN (19:15)
[2017-04-25] MEDS: MORPHINE SULFATE 4 MG/ML INJ IV PRN (21:25)
[2017-04-25] MEDS: ENOXAPARIN SODIUM 30 MG/0.3 ML SYRINGE SQ SCH (21:46)
[2017-04-26] VITALS (10 sets, daily range): BP systolic 108–134; BP diastolic 49–71; PULSE 70–93; RESP 18–20; TEMP 97.2–102; O2SAT 88–100
[2017-04-26 00:15] LABS: HEMATOCRIT 24.7 % (35.0-46.0); MEAN CELL VOLUME 87.3 FL (80.0-100.0); MEAN CORPUSCULAR HEMOGLOBIN 29.6 PG (27.0-34.0); MEAN CORPUSCULAR HGB CONC 33.9 % (32.0-36.0); PLATELET COUNT 246 TH/MM3 (150-450); RED BLOOD COUNT 2.83 MIL/MM3 (4.00-5.30); RED CELL DISTRIBUTION WIDTH 15.9 % (11.6-17.2); WHITE BLOOD COUNT 2.7 TH/MM3 (4.0-11.0)
[2017-04-26 00:33] LABS: HEMO FLAGS AUTO DIFF
[2017-04-26] MEDS: CEFEPIME INJ 2,000 MG in SODIUM CHLORIDE 0.9% INJ 100 ML IV SCH ×4 (01:11→23:54)
[2017-04-26] MEDS: SODIUM CHLORIDE 0.9% FLUSH 10 ML FLUSH IV FLUSH SCH ×3 (01:11→20:00)
[2017-04-26 01:22] LABS: BANDS 20 % (0-6); BASOPHILS 1 % (0-2); BLASTS 1 % (0-0); CORRECTED NUCLEATED RBC 2 /100 WBC (0-0); METAMYELOCYTES 3 % (0-1); MYELOCYTES 1 % (0-0); NEUTROPHIL # MANUAL DIFF 1.3 TH/MM3 (1.8-7.7); POLYS (SEG NEUTROPHILS) 23 % (16-70); WBC DIFF SAMPLE 100
[2017-04-26 01:25] LABS: DOHLE BODIES PRESENT (NONE SEEN); PLATELET ESTIMATE SMEAR NORMAL (NORMAL); PLATELET MORPHOLOGY NORMAL (NORMAL); TOXIC GRANULATION 2+ (NORMAL)
[2017-04-26 01:26] LABS: OVALOCYTES 1+ (NORMAL); TOXIC VACUOLATION PRESENT (NONE SEEN)
[2017-04-26 01:28] LABS: SCAN/DIFF FINAL DIFF MANUAL
[2017-04-26 03:35] LABS: BLOOD, URINE MOD (NEG); GLUCOSE,URINE NEG (NEG); KETONE, URINE TRACE mg/dL (NEG); MUCUS URINE MOD /lpf (OCC); NITRITE,URINE NEG (NEG); PH, URINE 5.5 (5.0-8.5); SQUAMOUS EPITHELIAL CELL URINE 5 /hpf (0-5); URINE COLOR YELLOW (YELLW/STRAW)
[2017-04-26 06:05] LABS: HEMATOCRIT 25.6 % (35.0-46.0); MEAN CELL VOLUME 87.4 FL (80.0-100.0); MEAN CORPUSCULAR HEMOGLOBIN 30.4 PG (27.0-34.0); MEAN CORPUSCULAR HGB CONC 34.8 % (32.0-36.0); PLATELET COUNT 270 TH/MM3 (150-450); RED BLOOD COUNT 2.93 MIL/MM3 (4.00-5.30); RED CELL DISTRIBUTION WIDTH 16.2 % (11.6-17.2); WHITE BLOOD COUNT 4.2 TH/MM3 (4.0-11.0)
[2017-04-26 06:43] LABS: HEMO FLAGS AUTO DIFF
[2017-04-26 07:20] LABS: HDL CHOLESTEROL 17.5 MG/DL (40.0-60.0)
[2017-04-26 08:17] LABS: BANDS 22 % (0-6); BASOPHILS 2 % (0-2); BLASTS 1 % (0-0); CORRECTED NUCLEATED RBC 2 /100 WBC (0-0); METAMYELOCYTES 1 % (0-1); MYELOCYTES 1 % (0-0); NEUTROPHIL # MANUAL DIFF 2.9 TH/MM3 (1.8-7.7); POLYS (SEG NEUTROPHILS) 45 % (16-70); WBC DIFF SAMPLE 100
[2017-04-26 08:18] LABS: PLATELET ESTIMATE SMEAR NORMAL (NORMAL); PLATELET MORPHOLOGY NORMAL (NORMAL); POLYCHROMASIA 2.2 % (0.0-1.9); SCAN/DIFF FINAL DIFF MANUAL
[2017-04-26 08:19] LABS: DOHLE BODIES PRESENT (NONE SEEN); TOXIC GRANULATION 1+ (NORMAL)
[2017-04-26] MEDS: PANTOPRAZOLE SOD 40 MG DELAYED RELEASE TAB PO SCH (08:27)
[2017-04-26 12:34] LABS: BICARBONATE 22.7 MEQ/L (21.0-32.0); POTASSIUM 3.3 MEQ/L (3.5-5.1)
--- NOTE | 2017-04-26 13:32 | HHI.PR ---
Subjective Remarks Patient developed fever overnight 100.8, started on cefepime No nausea or vomiting no abdominal pain no diarrhea no cough or phlegm production Blood pressure started to drop possible sepsis Objective Vitals Vital Signs Date Time Temp Pulse Resp B/P (MAP) Pulse Ox O2 Delivery O2 Flow Rate FiO2 04/26/17 13:00 92 04/26/17 12:00 98.8 93 20 113/56 (75) 88 04/26/17 08:00 76 04/26/17 08:00 97.2 77 18 134/71 (92) 100 04/26/17 04:03 70 04/26/17 04:00 98.3 87 18 108/55 (72) 96 04/26/17 02:10 84 04/26/17 00:00 100.8 87 18 112/49 (70) 98 04/25/17 22:22 100.8 83 16 105/52 (69) 95 04/25/17 21:50 84 20 126/60 (82) 99 Nasal Cannula 2.00 04/25/17 20:15 99.3 80 20 131/58 (82) 98 Nasal Cannula 2.00 04/25/17 18:50 99.8 92 16 123/58 98 04/25/17 18:42 100.0 87 18 122/60 100 04/25/17 18:23 99.7 92 16 116/56 100 04/25/17 15:34 93 20 100 Room Air 2.00 04/25/17 15:34 98.3 93 20 128/59 (82) 100 Room Air 2.00 04/25/17 15:15 98.3 86 20 128/59 (82) 100 2.00 04/25/17 13:49 99.7 93 22 129/56 (80) 100 I/O 04/25/17 04/25/17 04/25/17 04/26/17 04/26/17 04/26/17 07:00 15:00 23:00 07:00 15:00 23:00 Intake Total 250 ml 100 ml Output Total 100 ml 550 ml Balance 250 ml -100 ml -450 ml Intake IV Total 100 ml Packed Cells 250 ml Output Urine Total 100 ml 550 ml Result Diagram: 04/26/17 0500 04/26/17 1150 Imaging Last Impressions Chest X-Ray 04/25/17 1426 Signed Impressions: Service Date/Time: Tuesday, April 25, 2017 14:33 - CONCLUSION: 1. Mild cardiomegaly. Patricio Motta Jr., MD CT Angiography 04/25/17 0000 Signed Impressions: Service Date/Time: Tuesday, April 25, 2017 16:23 - CONCLUSION: 1. No PE is identified. 2. Abnormal diffuse and somewhat patchy groundglass attenuation bilaterally. Etiology is nonspecific. Some considerations include edema, infectious, or inflammatory processes. 3. The right lower lobe pulmonary nodules and sonu hepatis mass have decreased in size, as above. 4. Mild splenic. Ravindra Seymour MD Objective Remarks GENERAL: This is a well-nourished, well-developed patient, in no apparent distress. SKIN: No rashes, warm and dry HEAD: Atraumatic. Normocephalic. EYES: Pupils equal round and reactive. Extraocular motions intact. No scleral icterus. ENT: Nose without bleeding, or drainage, Airway patent. NECK: Trachea midline. Supple CARDIOVASCULAR: Regular rate and rhythm without murmurs, gallops, or rubs. RESPIRATORY: Fair air entry bilaterally. No wheezes, rales, or rhonchi. GASTROINTESTINAL: Abdomen soft, non-tender, nondistended. Positive bowel sounds MUSCULOSKELETAL: Extremities without clubbing, cyanosis, or edema. Pedal pulses appreciated NEUROLOGICAL: Awake and alert. Moves all extremity. Normal speech.no focal neurological deficit A/P Assessment and Plan 04/26: Patient does look fever overnight with blood pressure trending down I suspicious of gaining of sepsis, started on cefepime, oncology eval pending, hypokalemia. Replace, cardiac enzyme negative unlikely ACS FLP showed HDL 17.5 , will need to start statin when patient improved A/P: Mrs. 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 Mrs. Solares reported waking in her normal state of health and developed substernal chest pain that radiated "down my spine" at approximately 11:00 am. An unknown period of time passed before she called EMS. She was given nitroglycerine and an aspirin and her chest pain (which was reported to be 10/10 ) decreased. Chest pain rule out ACS -serial troponin enzymes negative -telemetry. -nitroglycerine and morphine for chest pain -lipid panel reviewed by me low HDL 17.5, recommend starting statin when patient improved Neutropenic fever rule out sepsis with dropping blood pressure isolation precautions, Monitor CBC, no Neupogen at this point per oncology Consul Dr. Brown Cefepime started, monitor closely Normocytic normochromic Anemia mostly due to recent chemotherapy -Transfuse 1 unit of prbc's per Dr. Brown Diet: Healthy heart DVT prophylaxis: Lovenox 30 mg sc daily/ SCD's. Jacek Steele MD Apr 26, 2017 13:32
[2017-04-26] MEDS: ACETAMINOPHEN 500 MG CPLT PO PRN (17:24)
--- NOTE | 2017-04-26 18:23 | EKG ---
Date Performed: 04/25/2017 Time Performed: 21:36:34 PTAGE: 71 years EKG: Sinus rhythm NONSPECIFIC ST & T-WAVE ABNORMALITY ABNORMAL RHYTHM ECG PREVIOUS TRACING : 04/25/2017 15.05 Compared to prior tracing no significant change DOCTOR: Markell Weaver Interpretating Date/Time 04/26/2017 18:22:20
--- NOTE | 2017-04-26 18:29 | MB ---
cc: DIANA COLÓN MD DATE OF CONSULTATION 04/26/17 REASON FOR CONSULTATION 1. Large cell lymphoma 2. Recent neutropenia 3. Fever 4. Bone and chest discomfort. PATIENT PROFILE The patient is a 71-year-old female. She is . She has two children, both sons. She was born in [place], [place]. She has lived in [place] for 15 years. She stopped smoking more than 45 years ago and spoked only briefly. Alcohol intake is rare. She is retired. She had worked as an [employer]. HISTORY OF PRESENT ILLNESS The patient is a 71-year-old female who had a recent weight loss of 35 pounds with night sweats and abdominal pain. She was found to have intra-abdominal adenopathy. She had a CT-guided biopsy of an abdominal mass and this showed a large cell lymphoma. The patient was treated with R-CHOP chemotherapy receiving Cytoxan, vincristine, Adriamycin on 04/14 and Rituxan on 04/15. She has received only one injection of Neupogen which was administered yesterday. The following day, she developed pain in the chest and pain running down through the bones of the back. This brought her to the emergency room. She is now admitted. She also is febrile. She had severe neutropenia. On 04/23, she had a hemoglobin of 8.4, white count of 0.4, platelet count of 137,000, total neutrophil count was zero. On 04/26, today, hemoglobin 8.9, white count 4200 and platelets 270,000. The total neutrophil count is 2900. She has been started on cefepime. The pain that she had has resolved. PAST SURGICAL HISTORY 1. Cancer of the eyelid 1987 2. Bladder lift or sling 3. REYNA-BSO 4. Port placement 5. Removal of milk ducts right breast 6. Carpal tunnel syndrome surgery. PAST MEDICAL HISTORY 1. Atrial fibrillation 2. Morbid obesity. 3. Depression 4. Hyperlipidemia 5. Multiple sclerosis 6. 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 ALLERGIES No known allergies. FAMILY HISTORY Significant for brother with Hodgkin's disease. REVIEW OF SYSTEMS No change in vision or hearing. She has had some sharp pain in the chest area and pain running down the back over the past 24 hours. She has exertional shortness of breath which is not new. She has had mild abdominal discomfort. She had a slight amount of blood in her stool if she bears down hard when she is constipated. No dysuria or frequency. She had bone pain during the past 24 hours. PHYSICAL EXAMINATION VITAL SIGNS: Temperature is 102, respiratory rate 18, pulse 76, blood pressure 119/70, O2 sat 95%. obese and in no distress HEENT: Head is normocephalic. Sclerae and conjunctivae are normal. Oropharynx unremarkable. LYMPH: There is no cervical, supraclavicular, axillary or inguinal adenopathy. BREASTS: Without masses. She has a Power Port over the right chest. HEART: Regular rhythm. LUNGS: Clear. ABDOMEN: Without hepatosplenomegaly or masses. EXTREMITIES: Trace edema MUSCULOSKELETAL: No bone pain. NEUROLOGIC: No weakness. LABORATORY FINDINGS Currently hemoglobin 8.9, white count 4200, platelets 270,000 with total neutrophil count 2900. Lytes, BUN and creatinine notable for a potassium 3.3. Blood cultures have been drawn and are pending. ASSESSMENT AND PLAN 1. Large cell lymphoma status post R-CHOP. She will require additional treatment when she has recovered. 2. She had pain running down the bones of her back and pain in her chest area. I suspect that this is due to the single injection of the Neupogen as it occurred 24 hours later and her presentation of severe pain running down the back is suggestive of pain from Neupogen but not diagnostic. At this point, her counts are recovering and she does not need continued Neupogen. Her chemotherapy consisting of Cytoxan Adriamycin, vincristine and prednisone was administered on 04/14, 12 days ago, and I believe that she is turning the corner. 3. Fever, would recommend continuing the cefepime. Blood cultures have been drawn. Recommend continued daily CBC and platelet counts. 4. Dr Brown will be back Friday MD FAITH Hicks/ /5:53 PM /6:11 PM MTDD
--- NOTE | 2017-04-26 18:36 | EKG ---
Date Performed: 04/25/2017 Time Performed: 15:05:39 PTAGE: 71 years EKG: Sinus rhythm NONSPECIFIC ST & T-WAVE ABNORMALITY BORDERLINE ECG PREVIOUS TRACING : 04/15/2017 16.46 Compared to the previous tracing rate faster DOCTOR: Markell Weaver Interpretating Date/Time 04/26/2017 18:35:38
[2017-04-26] MEDS: ENOXAPARIN SODIUM 30 MG/0.3 ML SYRINGE SQ SCH (20:00)
[2017-04-27] VITALS (14 sets, daily range): BP systolic 91–119; BP diastolic 44–61; PULSE 76–94; RESP 16–20; TEMP 97.4–103; O2SAT 90–95
[2017-04-27] MEDS: MORPHINE SULFATE 4 MG/ML INJ IV PRN (03:22)
[2017-04-27] MEDS: LEVOTHYROXINE SODIUM 150 MCG TAB PO SCH (05:00)
[2017-04-27 06:18] LABS: AUTOMATED NEUTROPHIL # 5.9 TH/MM3 (1.8-7.7); BASOPHIL # 0.1 TH/MM3 (0-0.2); BASOPHIL % 0.7 % (0.0-2.0); EOSINOPHIL % 0.3 % (0.0-4.0); LYMPHOCYTE # 0.2 TH/MM3 (1.0-4.8); MEAN CORPUSCULAR HEMOGLOBIN 30.5 PG (27.0-34.0); MONO % 18.9 % (0.0-8.0); NEUT % 77.1 % (16.0-70.0); PLATELET COUNT 327 TH/MM3 (150-450); RED BLOOD COUNT 2.76 MIL/MM3 (4.00-5.30); RED CELL DISTRIBUTION WIDTH 16.6 % (11.6-17.2); WHITE BLOOD COUNT 7.7 TH/MM3 (4.0-11.0)
[2017-04-27 06:19] LABS: HEMO FLAGS AUTO DIFF
[2017-04-27 07:12] LABS: BANDS 33 % (0-6); BASOPHILS 1 % (0-2); CORRECTED NUCLEATED RBC 2 /100 WBC (0-0); METAMYELOCYTES 3 % (0-1); MYELOCYTES 2 % (0-0); NEUTROPHIL # MANUAL DIFF 5.8 TH/MM3 (1.8-7.7); POLYS (SEG NEUTROPHILS) 37 % (16-70); WBC DIFF SAMPLE 100
[2017-04-27 07:13] LABS: DOHLE BODIES PRESENT (NONE SEEN); TOXIC GRANULATION 1+ (NORMAL)
[2017-04-27 07:15] LABS: SCAN/DIFF FINAL DIFF MANUAL
[2017-04-27 07:40] LABS: BICARBONATE 23.9 MEQ/L (21.0-32.0)
[2017-04-27 07:48] LABS: POTASSIUM 2.9 MEQ/L (3.5-5.1)
[2017-04-27] MEDS: CEFEPIME INJ 2,000 MG in SODIUM CHLORIDE 0.9% INJ 100 ML IV SCH ×2 (09:13→19:30)
[2017-04-27] MEDS: PANTOPRAZOLE SOD 40 MG DELAYED RELEASE TAB PO SCH (09:13)
[2017-04-27] MEDS: CITALOPRAM HYDROBROMIDE 20 MG TAB PO SCH (09:13)
[2017-04-27] MEDS: SODIUM CHLORIDE 0.9% FLUSH 10 ML FLUSH IV FLUSH SCH ×2 (09:23→19:32)
--- NOTE | 2017-04-27 13:57 | HHI.PR ---
Subjective Remarks Patient resting in bed comfortably She does feel the fever and chills The only source of infection is the bone marrow biopsy cellulitis No chest pain no diarrhea no dysuria no nausea or vomiting Discussed with , she will be seeing the patient later Objective Vitals Vital Signs Date Time Temp Pulse Resp B/P (MAP) Pulse Ox O2 Delivery O2 Flow Rate FiO2 04/27/17 13:48 99.5 04/27/17 08:08 79 04/27/17 08:00 111/56 (74) 04/27/17 07:55 100.5 85 17 91/44 (60) 95 04/27/17 05:40 99.5 04/27/17 05:20 100.4 04/27/17 04:00 87 04/27/17 00:00 79 04/27/17 00:00 97.4 85 18 96/61 (73) 93 04/26/17 20:00 79 04/26/17 20:00 97.8 77 20 121/51 (74) 99 04/26/17 16:00 102.0 76 18 119/69 (86) 95 04/26/17 15:21 74 I/O 04/26/17 04/26/17 04/26/17 04/27/17 04/27/17 04/27/17 06:59 14:59 22:59 06:59 14:59 22:59 Intake Total 340 ml 320 ml 120 ml 100 ml Output Total 100 ml 550 ml 400 ml 650 ml Balance -100 ml -210 ml -80 ml -530 ml 100 ml Intake Oral 240 ml 320 ml 20 ml IV Total 100 ml 100 ml 100 ml Output Urine Total 100 ml 550 ml 400 ml 650 ml # Voids 1 Result Diagram: 04/27/17 0455 04/27/17 0455 Objective Remarks GENERAL: This is a well-nourished, well-developed patient, in no apparent distress. SKIN: No rashes, warm and dry HEAD: Atraumatic. Normocephalic. EYES: Pupils equal round and reactive. Extraocular motions intact. No scleral icterus. ENT: Nose without bleeding, or drainage, Airway patent. NECK: Trachea midline. Supple CARDIOVASCULAR: Regular rate and rhythm without murmurs, gallops, or rubs. RESPIRATORY: Fair air entry bilaterally. No wheezes, rales, or rhonchi. GASTROINTESTINAL: Abdomen soft, non-tender, nondistended. Positive bowel sounds MUSCULOSKELETAL: Extremities without clubbing, cyanosis, or edema. Pedal pulses appreciated NEUROLOGICAL: Awake and alert. Moves all extremity. Normal speech.no focal neurological deficit A/P Assessment and Plan 04/26: Patient does look fever overnight with blood pressure trending down I suspicious of gaining of sepsis, started on cefepime, oncology eval pending, hypokalemia. Replace, cardiac enzyme negative unlikely ACS.FLP showed HDL 17.5 , will need to start statin when patient improved 04/27: Still running fever 101, with blood pressure trending down suspicious for sepsis, discussed with I&D, will add Vanco, check lactic acid A/P: Mrs. 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 Mrs. Solares reported waking in her normal state of health and developed substernal chest pain that radiated "down my spine" at approximately 11:00 am. An unknown period of time passed before she called EMS. She was given nitroglycerine and an aspirin and her chest pain (which was reported to be 10/10 ) decreased. Chest pain rule out ACS -serial troponin enzymes negative -telemetry. -nitroglycerine and morphine for chest pain -lipid panel reviewed by me low HDL 17.5, recommend starting statin when patient improved Neutropenic fever rule out sepsis with dropping blood pressure isolation precautions, Monitor CBC, no Neupogen at this point per oncology Consul Dr. Brown Cefepime started, monitor closely Normocytic normochromic Anemia mostly due to recent chemotherapy -Transfuse 1 unit of prbc's per Dr. Brown Diet: Healthy heart DVT prophylaxis: Lovenox 30 mg sc daily/ SCD's. Jacek Steele MD Apr 27, 2017 13:57
[2017-04-27] MEDS ORDERED: POTASSIUM CHLOR 20 MEQ PREMIX 100 ML IV ONE (14:00)
[2017-04-27] MEDS ORDERED: VANCOMYCIN INJ 1,750 MG in SODIUM CHLORID 0.9% 500 ML INJ 500 ML IV ONE (14:00)
[2017-04-27] MEDS ORDERED: Vancomycin Consult Pharmacy 1 EA OTHER SCH (14:00)
[2017-04-27] MEDS: POTASSIUM CHLORIDE 10 MEQ CONTROLLED RELEASE TAB PO SCH ×2 (14:47→19:37)
[2017-04-27] MEDS: ACETAMINOPHEN 500 MG CPLT PO PRN (15:47)
[2017-04-27] MEDS ORDERED: VANCOMYCIN INJ 2,000 MG in SODIUM CHLORID 0.9% 500 ML INJ 500 ML IV SCH (16:00)
--- NOTE | 2017-04-27 17:01 | PD.ONC.PN ---
Subjective Subjective Remarks Pt spiked a temp of 103.1 this afternoon She reports that the pain is much improved No other acute complaints Objective Data Date Time Temp Pulse Resp B/P (MAP) Pulse Ox O2 Delivery O2 Flow Rate FiO2 04/27/17 16:32 101.2 04/27/17 15:56 88 04/27/17 15:30 103.0 90 20 105/51 (69) 90 04/27/17 13:48 99.5 04/27/17 12:29 94 04/27/17 11:30 101.2 94 20 94/58 (70) 90 04/27/17 08:08 79 04/27/17 08:00 111/56 (74) 04/27/17 07:55 100.5 85 17 91/44 (60) 95 04/27/17 05:40 99.5 04/27/17 05:20 100.4 04/27/17 04:00 87 04/27/17 00:00 79 04/27/17 00:00 97.4 85 18 96/61 (73) 93 04/26/17 20:00 79 04/26/17 20:00 97.8 77 20 121/51 (74) 99 04/27/17 04/27/17 04/27/17 07:00 15:00 23:00 Intake Total 120 ml 100 ml 100 ml Output Total 650 ml Balance -530 ml 100 ml 100 ml Result Diagram: 04/27/17 0455 04/27/17 0455 Laboratory Results Laboratory Tests Test 04/27/17 04:55 04/27/17 14:30 White Blood Count 7.7 TH/MM3 Red Blood Count 2.76 MIL/MM3 Hemoglobin 8.4 GM/DL Hematocrit 24.0 % Mean Corpuscular Volume 87.0 FL Mean Corpuscular Hemoglobin 30.5 PG Mean Corpuscular Hemoglobin Concent 35.0 % Red Cell Distribution Width 16.6 % Platelet Count 327 TH/MM3 Mean Platelet Volume 8.2 FL Neutrophils (%) (Auto) 77.1 % Lymphocytes (%) (Auto) 3.0 % Monocytes (%) (Auto) 18.9 % Eosinophils (%) (Auto) 0.3 % Basophils (%) (Auto) 0.7 % Neutrophils # (Auto) 5.9 TH/MM3 Lymphocytes # (Auto) 0.2 TH/MM3 Monocytes # (Auto) 1.5 TH/MM3 Eosinophils # (Auto) 0.0 TH/MM3 Basophils # (Auto) 0.1 TH/MM3 CBC Comment AUTO DIFF Differential Total Cells Counted 100 Neutrophils % (Manual) 37 % Band Neutrophils % 33 % Lymphocytes % 4 % Monocytes % 20 % Basophils % 1 % Neutrophils # (Manual) 5.8 TH/MM3 Metamyelocytes 3 % Myelocytes 2 % Nucleated Red Blood Cells 2 /100 WBC Differential Comment FINAL DIFF MANUAL Toxic Granulation 1+ Dohle Bodies PRESENT Polychromasia 2.0 % Ovalocytes Blood Urea Nitrogen 7 MG/DL Creatinine 0.62 MG/DL Random Glucose 116 MG/DL Calcium Level 8.2 MG/DL Sodium Level 138 MEQ/L Potassium Level 2.9 MEQ/L Chloride Level 104 MEQ/L Carbon Dioxide Level 23.9 MEQ/L Anion Gap 10 MEQ/L Estimat Glomerular Filtration Rate 95 ML/MIN Lactic Acid Level 2.7 mmol/L Culture Results Microbiology Date/Time Source Procedure Growth Status 04/25/17 23:40 Blood Peripheral Aerobic Blood Culture - Preliminary NO GROWTH IN 1 DAY Resulted 04/25/17 23:40 Blood Peripheral Anaerobic Blood Culture - Preliminary NO GROWTH IN 1 DAY Resulted 04/25/17 23:35 Blood Peripheral Aerobic Blood Culture - Preliminary NO GROWTH IN 1 DAY Resulted 04/25/17 23:35 Blood Peripheral Anaerobic Blood Culture - Preliminary NO GROWTH IN 1 DAY Resulted 04/26/17 03:00 Urine Clean Catch Urine Culture - Preliminary NO GROWTH IN 24 HOURS. Resulted 04/26/17 09:30 Wound Back Gram Stain - Final Resulted 04/26/17 09:30 Wound Back Wound Culture - Preliminary HEAVY GROWTH NORMAL SKIN DARIO AT 24HRS Resulted Administered Medications Medications (Trade) Dose Ordered Sig/Magalys Route PRN Reason Start Time Stop Time Status Last Admin Dose Admin Sodium Chloride (NS Flush) 2 ml BID IV FLUSH 04/25/17 21:00 04/27/17 09:23 Acetaminophen (Tylenol) 500 mg Q4H PRN PO HEADACHE/fever > 100.4 04/25/17 19:15 04/27/17 15:47 Morphine Sulfate (Morphine Inj) 2 mg Q5M PRN IV PAIN SCALE 6 TO 10 04/25/17 19:15 04/27/17 03:22 Pantoprazole Sodium (Protonix) 40 mg DAILY PO 04/26/17 09:00 04/27/17 09:13 Enoxaparin Sodium (Lovenox Inj) 30 mg Q24H SQ 04/25/17 21:00 04/26/17 20:00 Cefepime HCl 2000 mg/Sodium Chloride 100 ml @ 200 mls/hr Q8H IV 04/26/17 00:00 04/27/17 09:13 Citalopram Hydrobromide (CeleXA) 20 mg DAILY PO 04/27/17 09:00 04/27/17 09:13 Levothyroxine Sodium (Synthroid) 300 mcg DAILY@0600 PO 04/27/17 06:00 04/27/17 05:00 Potassium Chloride (KCl) 40 meq Q4H PO 04/27/17 14:00 04/27/17 18:01 04/27/17 14:47 Vancomycin HCl 2000 mg/Sodium Chloride 520 ml @ 257.5 mls/ hr Q24H IV 04/27/17 16:00 04/27/17 16:47 Objective Remarks GENERAL: Obese older female, resting in bed in no acute distress. SKIN: Warm and dry. L lower back with approx 1cm wound with granulation tissue. It does not appear infected. HEAD: Normocephalic. EYES: No injection or drainage. NECK: Supple, trachea midline. CARDIOVASCULAR: Regular rate and rhythm without murmurs. RESPIRATORY: Clear posteriorly. Breathing unlabored at rest. GASTROINTESTINAL: Abdomen obese. Non-tender. EXTREMITIES: No cyanosis, or edema. MUSCULOSKELETAL: Adequate muscle tone. NEUROLOGICAL: No obvious focal deficit. Awake, alert, and oriented x3. Assessment/Plan Plan 1. The pt continues to have high fevers, but would anticipate as such until antibiotics have been on board for 48 hours; blood cultures so far are negative. 2. Continue Cefepime and Vancomycin. 3. She has a small 1cm wound at her lower L back reportedly where the bone marrow biopsy was. It is pink with granulation tissue, and this is not likely a source of infection. Attending Statement The exam, history, and the medical decision-making described in the above note were completed with the assistance of the mid-level provider. I reviewed and agree with the findings presented. I attest that I had a [id number] encounter with the patient on the same day, and personally performed and documented my assessment and findings in the medical record. in spite of temperature she looks well. will continue antibiotics and am optimistic the fever will resolve over next 24 hours given normal white count. no need for further Neupogen. Liset Jara Apr 27, 2017 17:01 Jamil Mccormack MD Apr 27, 2017 17:05
[2017-04-27] MEDS: ENOXAPARIN SODIUM 30 MG/0.3 ML SYRINGE SQ SCH (19:36)
--- NOTE | 2017-04-27 21:30 | PD.ID.CON ---
History of Present Illness Service Infectious disease Consult Requested By Reason for Consult Evaluation and management of neutropenic fever Primary Care Physician Davonte Rodas MD Diagnoses: History of Present Illness Ms. Solares is a 71-year-old female with past medical history significant for diagnosis of large cell lymphoma diagnosed after she had weight loss of 35 pounds associated with night sweats and abdominal pain. She was found to have intra-abdominal adenopathy and a CT-guided biopsy of the abdominal mass showed a large cell lymphoma. The patient was treated with R- CHOP chemotherapy per review of Dr. Mccormack's note. She received a combination of Cytoxan, vincristine, Adriamycin on April 14 and Rituxan on April 15. She received only one injection of Neupogen which was administered the day prior to admission. The following day she developed pain in the chest as though someone was putting a large heavy weight on her chest. She also had pain running down the bones of the back. This is what brought her to the emergency room and patient got admitted. On admission she was febrile and had severe neutropenia. Due to neutropenic fever patient was admitted. Patient was started on empiric cefepime. She reports that she has been fairly okay but her fevers persist as high as 103 Fahrenheit this morning. Patient underwent workup for sepsis and all cultures are negative so far. Patient reports that she has seen her primary care physician for a ulcer at the site of her bone marrow biopsy which continued to drain so she had put the dressing over it. Patient reports that she hasn't been on any antibiotics but has been applying Neosporin ointment as prescribed to her by her primary care physician. ID consulted for management of neutropenic fever. Review of Systems Constitutional: COMPLAINS OF: Fever, DENIES: Diaphoretic episodes, Fatigue, Weight gain, Weight loss, Chills, Dizziness, Change in appetite, Night Sweats Endocrine: DENIES: Abnorml menstrual pattern, Heat/cold intolerance, Polydipsia , Polyuria, Polyphagia Eyes: DENIES: Blurred vision, Diplopia, Eye inflammation, Eye pain, Vision loss , Photosensitivity, Double Vision Ears, nose, mouth, throat: DENIES: Tinnitus, Hearing loss, Vertigo, Nasal discharge, Oral lesions, Throat pain, Hoarseness, Ear Pain, Running Nose, Epistaxis, Sinus Pain, Toothache, Odynophagia Respiratory: DENIES: Apneas, Cough, Snoring, Wheezing, Hemoptysis, Sputum production, Shortness of breath Cardiovascular: COMPLAINS OF: Chest pain (after Neupogen injection.) Gastrointestinal: DENIES: Abdominal pain, Black stools, Bloody stools, Constipation, Diarrhea, Nausea, Vomiting, Difficulty Swallowing, Anorexia Genitourinary: DENIES: Abnormal vaginal bleeding, Dysmenorrhea, Dyspareunia, Sexual dysfunction, Urinary frequency, Urinary incontinence, Urgency, Hematuria , Dysuria, Nocturia, Vaginal discharge Musculoskeletal: DENIES: Joint pain, Muscle aches, Stiffness, Joint Swelling, Back pain, Neck pain Integumentary: DENIES: Abnormal pigmentation, Pruritus, Rash, Nail changes, Breast masses, Breast skin changes, Nipple discharge Hematologic/lymphatic: DENIES: Bruising, Lymphadenopathy Immunologic/allergic: COMPLAINS OF: Urticaria (reports a diffuse rash associated with severe itching after Neupogen injection.), DENIES: Eczema Neurologic: DENIES: Abnormal gait, Headache, Localized weakness, Paresthesias, Seizures, Speech Problems, Tremor, Poor Balance Psychiatric: DENIES: Anxiety, Confusion, Mood changes, Depression, Hallucinations, Agitation, Suicidal Ideation, Homicidal Ideation, Delusions Except as stated in HPI: all other systems reviewed are Neg Past Family Social History Allergies: Coded Allergies: No Known Allergies (Verified , 04/09/17) Past Medical History Atrial fibrillation (followed by Dr. De Guzman) b-cell lymphoma with retroperitoneal, mesenteric lymphadenopathy and a mass involving the sonu hepatis (followed by Dr. 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 Reported Medications Reported Meds & Active Scripts Active Reported Levothyroxine (Levothyroxine Sodium) 300 Mcg Tab 300 Mcg PO DAILY Lisinopril 40 Mg Tab 40 Mg PO DAILY Diltiazem (Diltiazem HCl) 30 Mg Tab 30 Mg PO BID Citalopram (Citalopram Hydrobromide) 20 Mg Tab 20 Mg PO DAILY Active Ordered Medications Current Medications Medications (Trade) Dose Ordered Sig/Magalys Route Start Time Stop Time Status Last Admin (NS Flush) 2 ml BID IV FLUSH 04/25/17 21:00 04/27/17 19:32 (NS Flush) 2 ml UNSCH PRN IV FLUSH 04/25/17 19:15 (Nitrostat Sl) 0.4 mg Q5M PRN SL 04/25/17 19:15 (Tylenol) 500 mg Q4H PRN PO 04/25/17 19:15 04/27/17 15:47 (Morphine Inj) 2 mg Q5M PRN IV 04/25/17 19:15 04/27/17 03:22 (Protonix) 40 mg DAILY PO 04/26/17 09:00 04/27/17 09:13 (Lovenox Inj) 30 mg Q24H SQ 04/25/17 21:00 04/27/17 19:36 Cefepime HCl 2000 mg/Sodium Chloride 100 ml @ 200 mls/hr Q8H IV 04/26/17 00:00 04/27/17 19:30 (CeleXA) 20 mg DAILY PO 04/27/17 09:00 04/27/17 09:13 (Synthroid) 300 mcg DAILY@0600 PO 04/27/17 06:00 04/27/17 05:00 Pharmacy Profile Note 0 ml @ 0 mls/hr UNSCH OTHER 04/27/17 14:00 Vancomycin HCl 2000 mg/Sodium Chloride 520 ml @ 257.5 mls/ hr Q24H IV 04/27/17 16:00 04/27/17 16:47 Miscellaneous Information SPECIFIC LAB TO BE ... ONCE ONCE .XX 04/30/17 15:45 04/30/17 15:46 Family History Mother: Lung cancer Father: of heart attack Brother had Hodgkins lymphoma Social History She is . She has two children, both sons. She was born in [place], [place]. She has lived in [place] for 15 years. She stopped smoking more than 45 years ago and smoked very briefly. Alcohol intake is rare. She is retired. 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 Illicit/recreational drug use was denied. Physical Exam Vital Signs Vital Signs Date Time Temp Pulse Resp B/P (MAP) Pulse Ox O2 Delivery O2 Flow Rate FiO2 04/27/17 16:32 101.2 04/27/17 15:56 88 04/27/17 15:30 103.0 90 20 105/51 (69) 90 04/27/17 13:48 99.5 04/27/17 12:29 94 04/27/17 11:30 101.2 94 20 94/58 (70) 90 04/27/17 08:08 79 04/27/17 08:00 111/56 (74) 04/27/17 07:55 100.5 85 17 91/44 (60) 95 04/27/17 05:40 99.5 04/27/17 05:20 100.4 04/27/17 04:00 87 04/27/17 00:00 79 04/27/17 00:00 97.4 85 18 96/61 (73) 93 Physical Exam GENERAL: Morbidly obese, well-developed patient, in no apparent distress. SKIN: No rashes, ecchymoses or lesions. Cool and dry. HEAD: Atraumatic. Normocephalic. No temporal or scalp tenderness. EYES: Pupils equal round and reactive. Extraocular motions intact. No scleral icterus. No injection or drainage. ENT: Nose without bleeding, purulent drainage or septal hematoma. Throat without erythema, tonsillar hypertrophy or exudate. Uvula midline. Airway patent. NECK: Trachea midline. No JVD or lymphadenopathy. Supple, nontender, no meningeal signs. CARDIOVASCULAR: Regular rate and rhythm without murmurs, gallops, or rubs. RESPIRATORY: Clear to auscultation. Breath sounds equal bilaterally. No wheezes , rales, or rhonchi. GASTROINTESTINAL: Abdomen soft, non-tender, nondistended. No hepato-splenomegaly , or palpable masses. No guarding. MUSCULOSKELETAL: Extremities without clubbing, cyanosis, or edema. No joint tenderness, effusion, or edema noted. No calf tenderness. Negative Homans sign bilaterally. NEUROLOGICAL: Awake and alert. Grossly non focal Psych: cooperative IV line sites with no e.o infection. Laboratory Laboratory Tests Test 04/27/17 04:55 04/27/17 14:30 White Blood Count 7.7 Red Blood Count 2.76 Hemoglobin 8.4 Hematocrit 24.0 Mean Corpuscular Volume 87.0 Mean Corpuscular Hemoglobin 30.5 Mean Corpuscular Hemoglobin Concent 35.0 Red Cell Distribution Width 16.6 Platelet Count 327 Mean Platelet Volume 8.2 Neutrophils (%) (Auto) 77.1 Lymphocytes (%) (Auto) 3.0 Monocytes (%) (Auto) 18.9 Eosinophils (%) (Auto) 0.3 Basophils (%) (Auto) 0.7 Neutrophils # (Auto) 5.9 Lymphocytes # (Auto) 0.2 Monocytes # (Auto) 1.5 Eosinophils # (Auto) 0.0 Basophils # (Auto) 0.1 CBC Comment AUTO DIFF Differential Total Cells Counted 100 Neutrophils % (Manual) 37 Band Neutrophils % 33 Lymphocytes % 4 Monocytes % 20 Basophils % 1 Neutrophils # (Manual) 5.8 Metamyelocytes 3 Myelocytes 2 Nucleated Red Blood Cells 2 Differential Comment FINAL DIFF MANUAL Toxic Granulation 1+ Dohle Bodies PRESENT Polychromasia 2.0 Ovalocytes Blood Urea Nitrogen 7 Creatinine 0.62 Random Glucose 116 Calcium Level 8.2 Sodium Level 138 Potassium Level 2.9 Chloride Level 104 Carbon Dioxide Level 23.9 Anion Gap 10 Estimat Glomerular Filtration Rate 95 Lactic Acid Level 2.7 Date/Time Source Procedure Growth Status 04/25/17 23:40 Blood Peripheral Aerobic Blood Culture - Preliminary NO GROWTH IN 1 DAY Resulted 04/25/17 23:40 Blood Peripheral Anaerobic Blood Culture - Preliminary NO GROWTH IN 1 DAY Resulted 04/26/17 03:00 Urine Clean Catch Urine Culture - Preliminary NO GROWTH IN 24 HOURS. Resulted 04/26/17 09:30 Wound Back Gram Stain - Final Resulted 04/26/17 09:30 Wound Back Wound Culture - Preliminary HEAVY GROWTH NORMAL SKIN DARIO AT 24HRS Resulted Result Diagram: 04/27/17 0455 04/27/17 0455 Imaging Last Impressions Chest X-Ray 04/25/17 1426 Signed Impressions: Service Date/Time: Tuesday, April 25, 2017 14:33 - CONCLUSION: 1. Mild cardiomegaly. Patricio Motta Jr., MD CT Angiography 04/25/17 0000 Signed Impressions: Service Date/Time: Tuesday, April 25, 2017 16:23 - CONCLUSION: 1. No PE is identified. 2. Abnormal diffuse and somewhat patchy groundglass attenuation bilaterally. Etiology is nonspecific. Some considerations include edema, infectious, or inflammatory processes. 3. The right lower lobe pulmonary nodules and sonu hepatis mass have decreased in size, as above. 4. Mild splenic. Ravindra Seymour MD Assessment and Plan Assessment and Plan Neutropenic fever on presentation. Neutropenia resolved. Fevers persist. Persistent fevers: sources: BM biopsy site cellulitis. ? Drug fever at this point. Large cell Lymphoma: s/p R-CHOP Immune compromised. ? Pneumonia atypical present on admission. ? Neupogen allergy: rash, chest pain and fevers on presentation. Recs Continue cefepime IV (will ask Hemonc team if ok to stop Cefepime) as temps 103 suspicious of drug fever. Clinically patient doing well. If looks ok will likely stop all IV antibiotics and consider a short 5 day course of oral doxy on discharge or no antibiotics depending on follow up visit to assess wound. D.w patient she is eager to go home. Follow cultures Follow clinically. d/w pt and RN Idalmis Cabrera MD Apr 27, 2017 21:30
[2017-04-28] VITALS (8 sets, daily range): BP systolic 104–140; BP diastolic 52–62; PULSE 76–93; RESP 17–24; TEMP 97.6–101.6; O2SAT 91–97
[2017-04-28] MEDS: CEFEPIME INJ 2,000 MG in SODIUM CHLORIDE 0.9% INJ 100 ML IV SCH ×2 (00:20→08:18)
[2017-04-28] MEDS: MORPHINE SULFATE 4 MG/ML INJ IV PRN (00:27)
[2017-04-28] MEDS: LEVOTHYROXINE SODIUM 150 MCG TAB PO SCH (05:07)
[2017-04-28] MEDS: ACETAMINOPHEN 500 MG CPLT PO PRN ×2 (06:06→15:57)
[2017-04-28 06:09] LABS: HEMATOCRIT 24.1 % (35.0-46.0); MEAN CELL VOLUME 87.2 FL (80.0-100.0); MEAN CORPUSCULAR HEMOGLOBIN 30.1 PG (27.0-34.0); MEAN CORPUSCULAR HGB CONC 34.5 % (32.0-36.0); PLATELET COUNT 354 TH/MM3 (150-450); RED BLOOD COUNT 2.76 MIL/MM3 (4.00-5.30); RED CELL DISTRIBUTION WIDTH 16.5 % (11.6-17.2); WHITE BLOOD COUNT 6.8 TH/MM3 (4.0-11.0)
[2017-04-28 06:13] LABS: HEMO FLAGS AUTO DIFF
[2017-04-28] MEDS: PANTOPRAZOLE SOD 40 MG DELAYED RELEASE TAB PO SCH (08:18)
[2017-04-28] MEDS: CITALOPRAM HYDROBROMIDE 20 MG TAB PO SCH (08:18)
[2017-04-28] MEDS: SODIUM CHLORIDE 0.9% FLUSH 10 ML FLUSH IV FLUSH SCH ×2 (08:19→19:41)
[2017-04-28 09:28] LABS: BANDS 32 % (0-6); BLASTS 1 % (0-0); METAMYELOCYTES 1 % (0-1); MYELOCYTES 4 % (0-0); POLYS (SEG NEUTROPHILS) 36 % (16-70); WBC DIFF SAMPLE 100
[2017-04-28 09:29] LABS: PLATELET ESTIMATE SMEAR NORMAL (NORMAL); PLATELET MORPHOLOGY NORMAL (NORMAL); SCAN/DIFF FINAL DIFF MANUAL; TOXIC GRANULATION 2+ (NORMAL)
[2017-04-28] MEDS ORDERED: BISACODYL 10 MG SUPP RECTAL PRN (11:45)
--- NOTE | 2017-04-28 12:10 | HHI.PR ---
Subjective Remarks Patient still running fever she had 100.4 and 100.7 this morning She reported feeling the fever, no other sign of infection no cough no dysuria no diarrhea ID graciously saw the patient only source of infection could be the one marrow biopsy cellulitis, versus drug induced fever Objective Vitals Vital Signs Date Time Temp Pulse Resp B/P (MAP) Pulse Ox O2 Delivery O2 Flow Rate FiO2 04/28/17 08:01 91 Nasal Cannula 2.00 04/28/17 08:00 97.6 77 20 114/54 (74) 91 04/28/17 06:05 100.7 04/28/17 04:00 93 04/28/17 04:00 100.4 93 17 111/54 (73) 93 04/28/17 00:00 99.5 90 18 104/52 (69) 93 04/28/17 00:00 82 04/27/17 20:00 98.9 80 16 119/56 (77) 94 04/27/17 20:00 94 Nasal Cannula 2.00 04/27/17 20:00 76 04/27/17 16:32 101.2 04/27/17 15:56 88 04/27/17 15:30 103.0 90 20 105/51 (69) 90 04/27/17 13:48 99.5 04/27/17 12:29 94 I/O 04/27/17 04/27/17 04/27/17 04/28/17 04/28/17 04/28/17 07:00 15:00 23:00 07:00 15:00 23:00 Intake Total 120 ml 100 ml 620 ml 480 ml Output Total 650 ml 100 ml 1200 ml Balance -530 ml 100 ml 520 ml -720 ml Intake Oral 20 ml 480 ml IV Total 100 ml 100 ml 620 ml Output Urine Total 650 ml 100 ml 1200 ml Result Diagram: 04/28/17 0500 04/27/17 4093 Objective Remarks GENERAL: This is a well-nourished, well-developed patient, in no apparent distress. SKIN: No rashes, warm and dry HEAD: Atraumatic. Normocephalic. EYES: Pupils equal round and reactive. Extraocular motions intact. No scleral icterus. ENT: Nose without bleeding, or drainage, Airway patent. NECK: Trachea midline. Supple CARDIOVASCULAR: Regular rate and rhythm without murmurs, gallops, or rubs. RESPIRATORY: Fair air entry bilaterally. No wheezes, rales, or rhonchi. GASTROINTESTINAL: Abdomen soft, non-tender, nondistended. Positive bowel sounds MUSCULOSKELETAL: Extremities without clubbing, cyanosis, or edema. Pedal pulses appreciated NEUROLOGICAL: Awake and alert. Moves all extremity. Normal speech.no focal neurological deficit A/P Assessment and Plan 04/26: Patient does look fever overnight with blood pressure trending down I suspicious of gaining of sepsis, started on cefepime, oncology eval pending, hypokalemia. Replace, cardiac enzyme negative unlikely ACS.FLP showed HDL 17.5 , will need to start statin when patient improved 04/27: Still running fever 101, with blood pressure trending down suspicious for sepsis, discussed with I&D, will add Vanco, check lactic acid 04/28: Patient still running fever she had 100.4 and 100.7 this morning ID graciously saw the patient only source of infection could be the one marrow biopsy cellulitis, versus drug induced fever D/o , her recommendation as to discharge patient tomorrow and no more fever overnight with 7 days of doxycycline A/P: Mrs. 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 Mrs. Solares reported waking in her normal state of health and developed substernal chest pain that radiated "down my spine" at approximately 11:00 am. An unknown period of time passed before she called EMS. She was given nitroglycerine and an aspirin and her chest pain (which was reported to be 10/10 ) decreased. Chest pain rule out ACS -serial troponin enzymes negative -telemetry. -nitroglycerine and morphine for chest pain -lipid panel reviewed by me low HDL 17.5, recommend starting statin when patient improved Neutropenic fever rule out sepsis with dropping blood pressure isolation precautions, Monitor CBC, no Neupogen at this point per oncology Consul Dr. Brown Cefepime started, monitor closely Normocytic normochromic Anemia mostly due to recent chemotherapy -Transfuse 1 unit of prbc's per Dr. Brown Diet: Healthy heart DVT prophylaxis: Lovenox 30 mg sc daily/ SCD's. Jacek Steele MD Apr 28, 2017 12:10
[2017-04-28] MEDS: DOXYCYCLINE HYCLATE 100 MG CAP PO SCH ×2 (12:38→19:41)
[2017-04-28 14:38] LABS: BICARBONATE 24.3 MEQ/L (21.0-32.0); POTASSIUM 3.3 MEQ/L (3.5-5.1)
[2017-04-28] MEDS: MAGNESIUM HYDROXIDE SUSP 30 ML CUP PO PRN (15:56)
[2017-04-28] MEDS: DOCUSATE SODIUM 50 MG/SENNA 8.6 MG TAB PO PRN (15:57)
--- NOTE | 2017-04-28 16:06 | PD.WCN.NOT ---
Wound Consult Description: Received consult for bone marrow biopsy site ulcer with wound from Doctor Idalmis Cabrera Communicated with: RN Arredondo and call placed to Doctor Ivette attending physician for orders Recommendation: Please cleanse wound to L lower back with normal saline only and apply jan thick coverage of Santyl ointment just over wound bed and cover with dry cover dressing and change daily Additional Information: Patient seen on for evaluation of Bone marrow biopsy site to lower back. Patient positioned self to L side for wound assessment. Removed bordered gauze dressing in place to reveal wound to L lower back. Wound bed presents with ~70% yellow slough and ~30% pink tissue. Wound bed appears moist with scant serous drainage that is without odor. Periwound presents with mild erythema, but is without induration.Wound is not painful to patient.Cleansed wound with normal saline and applied skin prep to periwound before applying bordered gauze dressing. Patient tolerated wound assessment and dressing change well Patricia José [facility] Apr 28, 2017 16:06
--- NOTE | 2017-04-28 18:15 | PD.ONC.PN ---
Subjective Subjective Remarks I feel well but all of the sudden I will sweat! CP resolved. Objective Data Date Time Temp Pulse Resp B/P (MAP) Pulse Ox O2 Delivery O2 Flow Rate FiO2 04/28/17 16:00 101.6 82 24 140/62 (88) 94 04/28/17 12:00 98.3 81 20 108/54 (72) 97 04/28/17 08:01 91 Nasal Cannula 2.00 04/28/17 08:00 97.6 77 20 114/54 (74) 91 04/28/17 06:05 100.7 04/28/17 04:00 93 04/28/17 04:00 100.4 93 17 111/54 (73) 93 04/28/17 00:00 99.5 90 18 104/52 (69) 93 04/28/17 00:00 82 04/27/17 20:00 98.9 80 16 119/56 (77) 94 04/27/17 20:00 94 Nasal Cannula 2.00 04/27/17 20:00 76 04/28/17 04/28/17 04/28/17 07:00 15:00 23:00 Intake Total 480 ml 240 ml Output Total 1200 ml 600 ml Balance -720 ml -360 ml Result Diagram: 04/28/17 0500 04/28/17 1250 Laboratory Results Laboratory Tests Test 04/28/17 05:00 04/28/17 12:50 White Blood Count 6.8 TH/MM3 Red Blood Count 2.76 MIL/MM3 Hemoglobin 8.3 GM/DL Hematocrit 24.1 % Mean Corpuscular Volume 87.2 FL Mean Corpuscular Hemoglobin 30.1 PG Mean Corpuscular Hemoglobin Concent 34.5 % Red Cell Distribution Width 16.5 % Platelet Count 354 TH/MM3 Mean Platelet Volume 8.0 FL CBC Comment AUTO DIFF Differential Total Cells Counted 100 Neutrophils % (Manual) 36 % Band Neutrophils % 32 % Lymphocytes % 5 % Monocytes % 21 % Neutrophils # (Manual) 5.0 TH/MM3 Metamyelocytes 1 % Myelocytes 4 % Differential Comment FINAL DIFF MANUAL Blastocytes 1 % Toxic Granulation 2+ Platelet Estimate NORMAL Platelet Morphology Comment NORMAL Blood Urea Nitrogen 7 MG/DL Creatinine 0.45 MG/DL Random Glucose 119 MG/DL Calcium Level 8.0 MG/DL Sodium Level 139 MEQ/L Potassium Level 3.3 MEQ/L Chloride Level 107 MEQ/L Carbon Dioxide Level 24.3 MEQ/L Anion Gap 8 MEQ/L Estimat Glomerular Filtration Rate 138 ML/MIN Culture Results Microbiology Date/Time Source Procedure Growth Status 04/25/17 23:40 Blood Peripheral Aerobic Blood Culture - Preliminary NO GROWTH IN 2 DAYS Resulted 04/25/17 23:40 Blood Peripheral Anaerobic Blood Culture - Preliminary NO GROWTH IN 2 DAYS Resulted 04/25/17 23:35 Blood Peripheral Aerobic Blood Culture - Preliminary NO GROWTH IN 2 DAYS Resulted 04/25/17 23:35 Blood Peripheral Anaerobic Blood Culture - Preliminary NO GROWTH IN 2 DAYS Resulted 04/26/17 03:00 Urine Clean Catch Urine Culture - Final NO GROWTH IN 48 HOURS. Complete 04/26/17 09:30 Wound Back Gram Stain - Final Complete 04/26/17 09:30 Wound Back Wound Culture - Final HEAVY GROWTH NORMAL SKIN DARIO... Complete Administered Medications Medications (Trade) Dose Ordered Sig/Magalys Route PRN Reason Start Time Stop Time Status Last Admin Dose Admin Sodium Chloride (NS Flush) 2 ml BID IV FLUSH 04/25/17 21:00 04/28/17 08:19 Acetaminophen (Tylenol) 500 mg Q4H PRN PO HEADACHE/fever > 100.4 04/25/17 19:15 04/28/17 15:57 Morphine Sulfate (Morphine Inj) 2 mg Q5M PRN IV PAIN SCALE 6 TO 10 04/25/17 19:15 04/28/17 00:27 Pantoprazole Sodium (Protonix) 40 mg DAILY PO 04/26/17 09:00 04/28/17 08:18 Enoxaparin Sodium (Lovenox Inj) 30 mg Q24H SQ 04/25/17 21:00 04/27/17 19:36 Citalopram Hydrobromide (CeleXA) 20 mg DAILY PO 04/27/17 09:00 04/28/17 08:18 Levothyroxine Sodium (Synthroid) 300 mcg DAILY@0600 PO 04/27/17 06:00 04/28/17 05:07 Doxycycline Hyclate (Vibramycin) 100 mg BID PO 04/28/17 11:00 04/28/17 12:38 Magnesium Hydroxide (Milk Of Magnesia Liq) 30 ml Q6H PRN PO CONSTIPATION 04/28/17 11:45 04/28/17 15:56 Senna/Docusate Sodium (Daniela-Colace) 2 tab BID PRN PO CONSTIPATION 04/28/17 11:45 04/28/17 15:57 Objective Remarks GENERAL: Obese older female, resting in bed in no acute distress. SKIN: Warm and dry. L lower back with approx 1cm wound dressing in place, second round scab. HEAD: Normocephalic. EYES: No injection or drainage. NECK: Supple, trachea midline. CARDIOVASCULAR: Regular rate and rhythm without murmurs. RESPIRATORY: Clear posteriorly. Breathing unlabored at rest. GASTROINTESTINAL: Abdomen obese. Non-tender. EXTREMITIES: No cyanosis, or edema. MUSCULOSKELETAL: Adequate muscle tone. NEUROLOGICAL: No obvious focal deficit. Awake, alert, and oriented x3. Assessment/Plan Problem List: (1) Large B-cell lymphoma ICD Codes: C85.10 - Unspecified B-cell lymphoma, unspecified site Status: Acute Plan: Stage IV NHL, s/p CHOP, Rituxan was complicated by hypotension. Developed neutropenia, started on Neupogen complicated by Chest Pain. Now with fevers. ID following, no apparent source of fever except for being recently neutropenic. Abd pain from NHL improved. Follow fever curve. OK to DC Neupogen. Assessment 71 y/o woman with Stage IV NHL, BM involvement s/p C1 CHOP now with fevers. Plan 1. Cont follow BC and evaluate for possible source 2. Abx per ID 3. Would improving and dressed. 4. Stop GCSF. Brenda Brown MD Apr 28, 2017 18:15
[2017-04-28] MEDS: ENOXAPARIN SODIUM 30 MG/0.3 ML SYRINGE SQ SCH (19:41)
[2017-04-29] VITALS (10 sets, daily range): BP systolic 97–135; BP diastolic 46–63; PULSE 69–95; RESP 18–20; TEMP 97.2–102.5; O2SAT 91–95
[2017-04-29] MEDS: ACETAMINOPHEN 500 MG CPLT PO PRN ×3 (04:02→20:03)
[2017-04-29] MEDS: LEVOTHYROXINE SODIUM 150 MCG TAB PO SCH (05:45)
[2017-04-29 07:07] LABS: REVIEW FLAG FINAL
[2017-04-29 07:18] LABS: AUTOMATED NEUTROPHIL # 5.6 TH/MM3 (1.8-7.7); BASOPHIL # 0.1 TH/MM3 (0-0.2); EOSINOPHIL % 0.1 % (0.0-4.0); LYMPH % 3.5 % (9.0-44.0); LYMPHOCYTE # 0.3 TH/MM3 (1.0-4.8); MEAN CORPUSCULAR HEMOGLOBIN 30.1 PG (27.0-34.0); MEAN CORPUSCULAR HGB CONC 34.6 % (32.0-36.0); MONO % 18.2 % (0.0-8.0); NEUT % 77.2 % (16.0-70.0); PLATELET COUNT 358 TH/MM3 (150-450); RED BLOOD COUNT 2.76 MIL/MM3 (4.00-5.30); RED CELL DISTRIBUTION WIDTH 16.6 % (11.6-17.2); WHITE BLOOD COUNT 7.3 TH/MM3 (4.0-11.0)
[2017-04-29 07:37] LABS: BICARBONATE 26.3 MEQ/L (21.0-32.0); POTASSIUM 3.3 MEQ/L (3.5-5.1)
[2017-04-29 07:57] LABS: HEMO FLAGS AUTO DIFF
[2017-04-29 09:07] LABS: BANDS 13 % (0-6); METAMYELOCYTES 1 % (0-1); MYELOCYTES 3 % (0-0); NEUTROPHIL # MANUAL DIFF 6.1 TH/MM3 (1.8-7.7); PLATELET ESTIMATE SMEAR NORMAL (NORMAL); PLATELET MORPHOLOGY NORMAL (NORMAL); POLYS (SEG NEUTROPHILS) 66 % (16-70); SCAN/DIFF FINAL DIFF MANUAL; WBC DIFF SAMPLE 100
[2017-04-29 09:09] LABS: TOXIC GRANULATION 2+ (NORMAL)
[2017-04-29] MEDS: DOXYCYCLINE HYCLATE 100 MG CAP PO SCH ×2 (09:35→20:03)
[2017-04-29] MEDS: PANTOPRAZOLE SOD 40 MG DELAYED RELEASE TAB PO SCH (09:35)
[2017-04-29] MEDS: CITALOPRAM HYDROBROMIDE 20 MG TAB PO SCH (09:35)
[2017-04-29] MEDS: SODIUM CHLORIDE 0.9% FLUSH 10 ML FLUSH IV FLUSH SCH ×2 (09:37→20:03)
[2017-04-29] MEDS: MAGNESIUM HYDROXIDE SUSP 30 ML CUP PO PRN (09:40)
[2017-04-29] MEDS: DOCUSATE SODIUM 50 MG/SENNA 8.6 MG TAB PO PRN (09:41)
--- NOTE | 2017-04-29 11:11 | RADRPT ---
EXAM DATE/TIME: 04/29/2017 10:26 [facility] COMPARISON: No previous studies available for comparison. INDICATIONS : Bilateral leg swelling. MEDICAL HISTORY : Hypercholesterolemia. Hypertension. Atrial fibrillation. Arthritis. Non-hodgki n's lymphoma. chemotherapy. measles. SURGICAL HISTORY : Tonsillectomy.Appendectomy. Orthopedic surgery. Bladder sling. Breast surgery. Ovarian cyst removal. Toe surgery. ENCOUNTER: Initial ACUITY: 1 day PAIN SCORE: 0/10 LOCATION: Bilateral leg. TECHNIQUE: Venous ultrasound of the left and right leg was performed from the inguinal ligament t o the proximal calf. Real-time, color Doppler and spectral tracing, compression and augmentation cait hniques were used. FINDINGS: RIGHT LEG: There is normal compressibility of the deep venous system from the inguinal region to the proximal calf. No echogenic clot is seen in the lumen of the common femoral, femoral, popliteal, and posterior tibial veins. There is a normal response of the venous system to proximal and distal augmentation and respiration. Iliac vein open and patent with a 3.4 cm Ruiz's cyst posterior to the right knee in the popliteal fossa. LEFT LEG: There is normal compressibility of the deep venous system from the inguinal region to t he proximal calf. No echogenic clot is seen in the lumen of the common femoral, femoral, popliteal, and posterior tibial veins. There is a normal response of the venous system to proximal and distal a ugmentation and respiration. Iliac vein open and patent CONCLUSION: No evidence of DVT. Right popliteal fossa Ruiz's cyst. Al Peña MD on April 29, 2017 at 11:07 Board Certified Radiologist. This report was verified electronically.
--- NOTE | 2017-04-29 11:28 | HHI.PR ---
Subjective Remarks patient again had a fever of 102.3 at 4 AM this morning, also her oxygenation dropped to the 80s she denied chest pain, but she isn't short of breath, I will check lower extremity ultrasound rule out DVT will check d-dimer, rule out underlying PE which can cause fever. No nausea or vomiting Objective Vitals Vital Signs Date Time Temp Pulse Resp B/P (MAP) Pulse Ox O2 Delivery O2 Flow Rate FiO2 04/29/17 08:00 97.2 69 18 97/46 (63) 91 04/29/17 05:34 99.1 04/29/17 04:12 102.5 91 18 119/51 (73) 95 04/29/17 00:07 99.4 81 18 134/54 (80) 95 04/29/17 00:00 87 04/28/17 20:54 98.7 76 18 107/53 (71) 95 04/28/17 20:00 76 04/28/17 20:00 95 Nasal Cannula 2.00 04/28/17 16:00 101.6 82 24 140/62 (88) 94 04/28/17 12:00 98.3 81 20 108/54 (72) 97 I/O 04/28/17 04/28/17 04/28/17 04/29/17 04/29/17 04/29/17 06:59 14:59 22:59 06:59 14:59 22:59 Intake Total 480 ml 240 ml Output Total 1200 ml 200 ml 400 ml 1250 ml Balance -720 ml -200 ml -160 ml -1250 ml Intake Oral 480 ml 240 ml Output Urine Total 1200 ml 200 ml 400 ml 1250 ml # Voids 1 1 # Bowel Movements 0 Result Diagram: 04/29/1735 04/29/17 0535 Objective Remarks GENERAL: This is a well-nourished, well-developed patient, in no apparent distress. SKIN: No rashes, warm and dry HEAD: Atraumatic. Normocephalic. EYES: Pupils equal round and reactive. Extraocular motions intact. No scleral icterus. ENT: Nose without bleeding, or drainage, Airway patent. NECK: Trachea midline. Supple CARDIOVASCULAR: Regular rate and rhythm without murmurs, gallops, or rubs. RESPIRATORY: Fair air entry bilaterally. No wheezes, rales, or rhonchi. GASTROINTESTINAL: Abdomen soft, non-tender, nondistended. Positive bowel sounds MUSCULOSKELETAL: Extremities without clubbing, cyanosis, or edema. Pedal pulses appreciated NEUROLOGICAL: Awake and alert. Moves all extremity. Normal speech.no focal neurological deficit A/P Assessment and Plan 04/26: Patient does look fever overnight with blood pressure trending down I suspicious of gaining of sepsis, started on cefepime, oncology eval pending, hypokalemia. Replace, cardiac enzyme negative unlikely ACS.FLP showed HDL 17.5 , will need to start statin when patient improved 04/27: Still running fever 101, with blood pressure trending down suspicious for sepsis, discussed with I&D, will add Vanco, check lactic acid 04/28: Patient still running fever she had 100.4 and 100.7 this morning ID graciously saw the patient only source of infection could be the one marrow biopsy cellulitis, versus drug induced fever 04/29: Recurrent fever 102.3 at 4 AM, with hypoxia need to rule out underlying PE , check d-dimer, check lower extremity ultrasound, if negative then most likely drug fever Patient had a big bowel movement this morning, discussed with A/P: Mrs. 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 Mrs. Solares reported waking in her normal state of health and developed substernal chest pain that radiated "down my spine" at approximately 11:00 am. An unknown period of time passed before she called EMS. She was given nitroglycerine and an aspirin and her chest pain (which was reported to be 10/10 ) decreased. Chest pain rule out ACS -serial troponin enzymes negative -telemetry. -nitroglycerine and morphine for chest pain -lipid panel reviewed by me low HDL 17.5, recommend starting statin when patient improved Neutropenic fever rule out sepsis with dropping blood pressure isolation precautions, Monitor CBC, no Neupogen at this point per oncology Consul Dr. Brown Cefepime started, monitor closely Normocytic normochromic Anemia mostly due to recent chemotherapy -Transfuse 1 unit of prbc's per Dr. Brown Diet: Healthy heart DVT prophylaxis: Lovenox 30 mg sc daily/ SCD's. Jacek Steele MD Apr 29, 2017 11:28
--- NOTE | 2017-04-29 12:54 | HHI.IDPN ---
Subjective Subjective Remarks Ms. Solares is a 71-year-old female with past medical history significant for diagnosis of large cell lymphoma diagnosed after she had weight loss of 35 pounds associated with night sweats and abdominal pain. She was found to have intra-abdominal adenopathy and a CT-guided biopsy of the abdominal mass showed a large cell lymphoma. The patient was treated with R- CHOP chemotherapy per review of Dr. Mccormack's note. She received a combination of Cytoxan, vincristine, Adriamycin on April 14 and Rituxan on April 15. She received only one injection of Neupogen which was administered the day prior to admission. The following day she developed pain in the chest as though someone was putting a large heavy weight on her chest. She also had pain running down the bones of the back. This is what brought her to the emergency room and patient got admitted. On admission she was febrile and had severe neutropenia. Due to neutropenic fever patient was admitted. Patient was started on empiric cefepime. She reports that she has been fairly okay but her fevers persist as high as 103 Fahrenheit this morning. Patient underwent workup for sepsis and all cultures are negative so far. Patient reports that she has seen her primary care physician for a ulcer at the site of her bone marrow biopsy which continued to drain so she had put the dressing over it. Patient reports that she hasn't been on any antibiotics but has been applying Neosporin ointment as prescribed to her by her primary care physician. ID consulted for management of neutropenic fever. Overnight events reviewed with RN No rash No diarrhea RN reports Port is functioning for IV but cannot draw blood. RN also reports SOB with sats in 80s earlier today. Patient reports she smoked significantly in past. Fevers 102 F overnight. Antibiotics Doxy Lines Line sites with no e/o infection Past Medical History reviewed Allergies: Coded Allergies: No Known Allergies (Verified , 04/09/17) Objective . Vital Signs Date Time Temp Pulse Resp B/P (MAP) Pulse Ox O2 Delivery O2 Flow Rate FiO2 04/29/17 08:00 97.2 69 18 97/46 (63) 91 04/29/17 05:34 99.1 04/29/17 04:12 102.5 91 18 119/51 (73) 95 04/29/17 00:07 99.4 81 18 134/54 (80) 95 04/29/17 00:00 87 04/28/17 20:54 98.7 76 18 107/53 (71) 95 04/28/17 20:00 76 04/28/17 20:00 95 Nasal Cannula 2.00 04/28/17 16:00 101.6 82 24 140/62 (88) 94 04/29/17 04/29/17 04/30/17 14:59 22:59 06:59 Output Total 1250 ml Balance -1250 ml Output Urine Total 1250 ml . Laboratory Tests Test 04/28/17 05:00 04/29/17 05:35 White Blood Count 6.8 TH/MM3 7.3 TH/MM3 Red Blood Count 2.76 MIL/MM3 2.76 MIL/MM3 Hemoglobin 8.3 GM/DL 8.3 GM/DL Hematocrit 24.1 % 24.0 % Mean Corpuscular Volume 87.2 FL 87.0 FL Mean Corpuscular Hemoglobin 30.1 PG 30.1 PG Mean Corpuscular Hemoglobin Concent 34.5 % 34.6 % Red Cell Distribution Width 16.5 % 16.6 % Platelet Count 354 TH/MM3 358 TH/MM3 Mean Platelet Volume 8.0 FL 7.9 FL CBC Comment AUTO DIFF AUTO DIFF Differential Total Cells Counted 100 100 Neutrophils % (Manual) 36 % 66 % Band Neutrophils % 32 % 13 % Lymphocytes % 5 % 2 % Monocytes % 21 % 15 % Neutrophils # (Manual) 5.0 TH/MM3 6.1 TH/MM3 Metamyelocytes 1 % 1 % Myelocytes 4 % 3 % Differential Comment FINAL DIFF MANUAL FINAL DIFF MANUAL Blastocytes 1 % Toxic Granulation 2+ 2+ Platelet Estimate NORMAL NORMAL Platelet Morphology Comment NORMAL NORMAL Neutrophils (%) (Auto) 77.2 % Lymphocytes (%) (Auto) 3.5 % Monocytes (%) (Auto) 18.2 % Eosinophils (%) (Auto) 0.1 % Basophils (%) (Auto) 1.0 % Neutrophils # (Auto) 5.6 TH/MM3 Lymphocytes # (Auto) 0.3 TH/MM3 Monocytes # (Auto) 1.3 TH/MM3 Eosinophils # (Auto) 0.0 TH/MM3 Basophils # (Auto) 0.1 TH/MM3 Reticulocyte Count 5.0 % Absolute Reticulocyte Count 138.0 MIL/L Laboratory Tests Test 04/27/17 14:30 04/28/17 12:50 04/29/17 05:35 Lactic Acid Level 2.7 mmol/L Blood Urea Nitrogen 7 MG/DL 6 MG/DL Creatinine 0.45 MG/DL 0.52 MG/DL Random Glucose 119 MG/DL 95 MG/DL Calcium Level 8.0 MG/DL 8.4 MG/DL Sodium Level 139 MEQ/L 139 MEQ/L Potassium Level 3.3 MEQ/L 3.3 MEQ/L Chloride Level 107 MEQ/L 104 MEQ/L Carbon Dioxide Level 24.3 MEQ/L 26.3 MEQ/L Anion Gap 8 MEQ/L 9 MEQ/L Estimat Glomerular Filtration Rate 138 ML/MIN 117 ML/MIN Lactate Dehydrogenase 370 U/L Imaging Last Impressions Upper Extremity Ultrasound 04/29/17 0000 Signed Impressions: Service Date/Time: Saturday, April 29, 2017 13:12 - CONCLUSION: 1. No evidence of deep venous thrombosis. Bandar Vo MD Lower Extremity Ultrasound 04/29/17 0000 Signed Impressions: Service Date/Time: Saturday, April 29, 2017 10:26 - CONCLUSION: No evidence of DVT. Right popliteal fossa Ruiz's cyst. Al Peña MD Chest X-Ray 04/29/17 0000 Signed Impressions: Service Date/Time: Saturday, April 29, 2017 13:46 - CONCLUSION: Bilateral pulmonary infiltrates. Patricio Motta Jr., MD CT Angiography 04/25/17 0000 Signed Impressions: Service Date/Time: Tuesday, April 25, 2017 16:23 - CONCLUSION: 1. No PE is identified. 2. Abnormal diffuse and somewhat patchy groundglass attenuation bilaterally. Etiology is nonspecific. Some considerations include edema, infectious, or inflammatory processes. 3. The right lower lobe pulmonary nodules and sonu hepatis mass have decreased in size, as above. 4. Mild splenic. Raivndra Seymour MD Physical Exam GENERAL: Morbidly obese, well-developed patient, in no apparent distress. SKIN: No rashes, ecchymoses or lesions. Cool and dry. HEAD: Atraumatic. Normocephalic. No temporal or scalp tenderness. EYES: Pupils equal round and reactive. Extraocular motions intact. No scleral icterus. No injection or drainage. ENT: Nose without bleeding, purulent drainage or septal hematoma. Throat without erythema, tonsillar hypertrophy or exudate. Uvula midline. Airway patent. NECK: Trachea midline. Supple, nontender, no meningeal signs. CARDIOVASCULAR: RRR, No murmurs. RESPIRATORY: Decreased breath sounds bilaterally. Basilar crackles. GASTROINTESTINAL: Abdomen soft, non-tender, nondistended. MUSCULOSKELETAL: Extremities without clubbing, cyanosis, or edema. NEUROLOGICAL: Awake and alert. Grossly non focal Psych: cooperative IV line sites with no e.o infection. Assessment & Plan Remarks Neutropenic fever on presentation. Neutropenia resolved. Fevers persist. Persistent fevers: sources: BM biopsy site cellulitis. ? Drug fever at this point. Large cell Lymphoma: s/p R-CHOP Immune compromised. Pneumonia ? HCAP. Acute COPD exacerbation. ? Neupogen allergy: rash, chest pain and fevers on presentation. Recs Change in clinical condition. Short of breath, Sats decreased to 80s, Port blocked, persistent fevers. Doppler UE to r.o DVT of UE. CXR possible HCAP. Urine legionella Ag Urine Pneumococcal antigen Restart Cefepime IV (re:HCAP) Restart Vanco IV (Re: HCAP) Continue Doxy oral (Re: atypical PNA) d/w to start Nebulizations given patients history of smoking Follow cultures Follow clinically. d/w pt and RN d/w RN, , JENNIFER Jara. Addendum at 6:30 pm CXR reviewed and compared to prior: Significantly worsened bilateral infiltrates. d.w findings of CXR, US Doppler UE and ok to use Port TPA if necessary. Total time spent today in excess of 45 mins. Critical thinking and decision making. Idalmis Cabrera MD Apr 29, 2017 12:54
[2017-04-29] MEDS ORDERED: Vancomycin Consult Pharmacy 1 EA OTHER SCH (13:00)
--- NOTE | 2017-04-29 13:27 | PD.ONC.PN ---
Subjective Subjective Remarks Patient spiked fever of 102.5 overnight Patient has no acute complaints except chills Objective Data Date Time Temp Pulse Resp B/P (MAP) Pulse Ox O2 Delivery O2 Flow Rate FiO2 04/29/17 08:00 97.2 69 18 97/46 (63) 91 04/29/17 05:34 99.1 04/29/17 04:12 102.5 91 18 119/51 (73) 95 04/29/17 00:07 99.4 81 18 134/54 (80) 95 04/29/17 00:00 87 04/28/17 20:54 98.7 76 18 107/53 (71) 95 04/28/17 20:00 76 04/28/17 20:00 95 Nasal Cannula 2.00 04/28/17 16:00 101.6 82 24 140/62 (88) 94 04/29/17 04/29/17 04/29/17 06:59 14:59 22:59 Output Total 1250 ml Balance -1250 ml Result Diagram: 04/29/17 0535 04/29/17 0535 Laboratory Results Laboratory Tests Test 04/29/17 05:35 White Blood Count 7.3 TH/MM3 Red Blood Count 2.76 MIL/MM3 Hemoglobin 8.3 GM/DL Hematocrit 24.0 % Mean Corpuscular Volume 87.0 FL Mean Corpuscular Hemoglobin 30.1 PG Mean Corpuscular Hemoglobin Concent 34.6 % Red Cell Distribution Width 16.6 % Platelet Count 358 TH/MM3 Mean Platelet Volume 7.9 FL Neutrophils (%) (Auto) 77.2 % Lymphocytes (%) (Auto) 3.5 % Monocytes (%) (Auto) 18.2 % Eosinophils (%) (Auto) 0.1 % Basophils (%) (Auto) 1.0 % Neutrophils # (Auto) 5.6 TH/MM3 Lymphocytes # (Auto) 0.3 TH/MM3 Monocytes # (Auto) 1.3 TH/MM3 Eosinophils # (Auto) 0.0 TH/MM3 Basophils # (Auto) 0.1 TH/MM3 CBC Comment AUTO DIFF Differential Total Cells Counted 100 Neutrophils % (Manual) 66 % Band Neutrophils % 13 % Lymphocytes % 2 % Monocytes % 15 % Neutrophils # (Manual) 6.1 TH/MM3 Metamyelocytes 1 % Myelocytes 3 % Differential Comment FINAL DIFF MANUAL Toxic Granulation 2+ Platelet Estimate NORMAL Platelet Morphology Comment NORMAL Reticulocyte Count 5.0 % Absolute Reticulocyte Count 138.0 MIL/L Blood Urea Nitrogen 6 MG/DL Creatinine 0.52 MG/DL Random Glucose 95 MG/DL Calcium Level 8.4 MG/DL Lactate Dehydrogenase 370 U/L Sodium Level 139 MEQ/L Potassium Level 3.3 MEQ/L Chloride Level 104 MEQ/L Carbon Dioxide Level 26.3 MEQ/L Anion Gap 9 MEQ/L Estimat Glomerular Filtration Rate 117 ML/MIN Imaging Studies Last 24 hours Impressions Lower Extremity Ultrasound 04/29/17 0000 Signed Impressions: Service Date/Time: Saturday, April 29, 2017 10:26 - CONCLUSION: No evidence of DVT. Right popliteal fossa Ruiz's cyst. Al Peña MD Administered Medications Medications (Trade) Dose Ordered Sig/Magalys Route PRN Reason Start Time Stop Time Status Last Admin Dose Admin Sodium Chloride (NS Flush) 2 ml BID IV FLUSH 04/25/17 21:00 04/29/17 09:37 Acetaminophen (Tylenol) 500 mg Q4H PRN PO HEADACHE/fever > 100.4 04/25/17 19:15 04/29/17 04:02 Morphine Sulfate (Morphine Inj) 2 mg Q5M PRN IV PAIN SCALE 6 TO 10 04/25/17 19:15 04/28/17 00:27 Pantoprazole Sodium (Protonix) 40 mg DAILY PO 04/26/17 09:00 04/29/17 09:35 Enoxaparin Sodium (Lovenox Inj) 30 mg Q24H SQ 04/25/17 21:00 04/28/17 19:41 Citalopram Hydrobromide (CeleXA) 20 mg DAILY PO 04/27/17 09:00 04/29/17 09:35 Levothyroxine Sodium (Synthroid) 300 mcg DAILY@0600 PO 04/27/17 06:00 04/29/17 05:45 Doxycycline Hyclate (Vibramycin) 100 mg BID PO 04/28/17 11:00 04/29/17 09:35 Magnesium Hydroxide (Milk Of Magnesia Liq) 30 ml Q6H PRN PO CONSTIPATION 04/28/17 11:45 04/29/17 09:40 Senna/Docusate Sodium (Daniela-Colace) 2 tab BID PRN PO CONSTIPATION 04/28/17 11:45 04/29/17 09:41 Objective Remarks GENERAL: Obese older female, resting in bed in no acute distress. SKIN: Warm and dry. L lower back with approx 1cm wound dressing in place. Clean and dry. HEAD: Normocephalic. EYES: No injection or drainage. NECK: Supple, trachea midline. CARDIOVASCULAR: Regular rate and rhythm without murmurs. RESPIRATORY: Clear anteriorly. Breathing unlabored at rest. GASTROINTESTINAL: Abdomen obese. Non-tender. EXTREMITIES: No cyanosis, or edema. MUSCULOSKELETAL: Adequate muscle tone. NEUROLOGICAL: No obvious focal deficit. Awake, alert, and oriented x3. Assessment/Plan Problem List: (1) Large B-cell lymphoma ICD Codes: C85.10 - Unspecified B-cell lymphoma, unspecified site Status: Acute Plan: Stage IV NHL, s/p CHOP, Rituxan was complicated by hypotension. Now with fevers. Assessment 71 y/o woman with Stage IV NHL, BM involvement s/p C1 CHOP now with fevers. Plan 1. Blood cultures show no growth; however patient continues to have high fever 2. Obtain chest x-ray, new blood cultures per infectious disease 3. Would care has evaluated left lower back wound and provided recommendations 4. LDH slightly worsening. ?Tumor Fever if lymphoma progressing Discussed with Dr Deborah RN. Attending Statement The exam, history, and the medical decision-making described in the above note were completed with the assistance of the mid-level provider. I reviewed and agree with the findings presented. I attest that I had a [id number] encounter with the patient on the same day, and personally performed and documented my assessment and findings in the medical record. Pt seen and examined. No overt complaint but disappointed still having fevers. New cultures performed. Discussed w/ ID evaluation to r/o infectious cause. If negative, pt may need second cycle chemo in the hospital. Concerning LDH still elevated. Liset Jara Apr 29, 2017 13:27 Brenda Brown MD Apr 29, 2017 18:45
--- NOTE | 2017-04-29 13:52 | RADRPT ---
EXAM DATE/TIME: 04/29/2017 13:12 [facility] COMPARISON: No previous studies available for comparison. INDICATIONS : Right arm swelling. MEDICAL HISTORY : Hypercholesterolemia. Hypertension. Atrial fibrillation. Arthritis. Non-hodgkin's lymphoma. chemothe rapy. measles. SURGICAL HISTORY : Tonsillectomy. Appendectomy. Orthopedic surgery. Bladder sling. Breast surgery. Ovarian cyst remova l. Toe surgery. ENCOUNTER: Initial ACUITY: 1 day PAIN SCORE: 0/10 LOCATION: Right arm. FINDINGS: There is spontaneous flow documented in the brachial, basilic, cephalic, axillary, and subclavian vei ns. The vessels are compressible and augmentation response is documented. No filling defects are se en. The flow is phasic with respiration. Direction of flow in the jugular vein is caudal. CONCLUSION: 1. No evidence of deep venous thrombosis. Bandar Vo MD on April 29, 2017 at 13:50 Board Certified Radiologist. This report was verified electronically.
[2017-04-29] MEDS ORDERED: RESP: ALBUTEROL 2.5 MG/IPRATROPIUM 0.5 MG NEB (PRN) NEB (14:00)
--- NOTE | 2017-04-29 14:17 | RADRPT ---
EXAM DATE/TIME: 04/29/2017 13:46 [place] COMPARISON: CHEST SINGLE AP, April 25, 2017, 14:33. INDICATIONS : Pneumonia. MEDICAL HISTORY : Cardiovascular disease. Hypertension atrial fibrillation, non-Hodgekin's lymphoma SURGICAL HISTORY : None. ENCOUNTER: Initial ACUITY: 4 - 6 days PAIN SCORE: 0/10 LOCATION: Bilateral chest FINDINGS: A single portable frontal view of the chest shows patchy parenchymal infiltrates scattered throughout both lungs most pronounced within the lingula. No effusions. Heart is at the upper limits of normal in terms of size. Port-A-Cath overlies the right chest. Scoliotic curvature is mild. CONCLUSION: Bilateral pulmonary infiltrates. Patricio Motta Jr., MD on April 29, 2017 at 14:14 Board Certified Radiologist. This report was verified electronically.
[2017-04-29] MEDS: CEFEPIME INJ 2,000 MG in SODIUM CHLORIDE 0.9% INJ 100 ML IV SCH ×2 (14:33→22:54)
[2017-04-29] MEDS: VANCOMYCIN INJ 1,750 MG in SODIUM CHLORID 0.9% 500 ML INJ 500 ML IV SCH (15:55)
[2017-04-29] MEDS: RESP: ALBUTEROL 2.5 MG/IPRATROPIUM 0.5 MG NEB (SCH) NEB ×2 (16:05→20:16)
[2017-04-29] MEDS ORDERED: ALTEPLASE RECOMBINANT 2 MG VIAL INTRACATH ONE (18:30)
[2017-04-29] MEDS: ENOXAPARIN SODIUM 30 MG/0.3 ML SYRINGE SQ SCH (20:03)
[2017-04-30] VITALS (12 sets, daily range): BP systolic 103–136; BP diastolic 51–63; PULSE 77–93; RESP 18–20; TEMP 97.4–100.9; O2SAT 90–96
[2017-04-30] MEDS: VANCOMYCIN INJ 1,750 MG in SODIUM CHLORID 0.9% 500 ML INJ 500 ML IV SCH ×2 (03:41→15:00)
[2017-04-30] MEDS: LEVOTHYROXINE SODIUM 150 MCG TAB PO SCH (04:14)
[2017-04-30] MEDS: RESP: ALBUTEROL 2.5 MG/IPRATROPIUM 0.5 MG NEB (SCH) NEB ×4 (08:00→20:00)
[2017-04-30] MEDS: DOXYCYCLINE HYCLATE 100 MG CAP PO SCH ×2 (08:12→21:01)
[2017-04-30] MEDS: PANTOPRAZOLE SOD 40 MG DELAYED RELEASE TAB PO SCH (08:13)
[2017-04-30] MEDS: CITALOPRAM HYDROBROMIDE 20 MG TAB PO SCH (08:13)
[2017-04-30] MEDS: CEFEPIME INJ 2,000 MG in SODIUM CHLORIDE 0.9% INJ 100 ML IV SCH ×2 (08:14→17:27)
[2017-04-30] MEDS: SODIUM CHLORIDE 0.9% FLUSH 10 ML FLUSH IV FLUSH SCH ×2 (08:15→21:02)
[2017-04-30] MEDS ORDERED: Vancomycin Consult Pharmacy 1 EA OTHER SCH (08:30)
--- NOTE | 2017-04-30 08:53 | HHI.PR ---
Subjective Remarks Patient looked really tired and ill She vomited in front of me she was very nauseated, but then improved after vomited Chest x-ray revealed pneumonia yesterday patient back on iv antibiotic per ID Max fever 102.1 on 04/29 at 2000 Objective Vitals Vital Signs Date Time Temp Pulse Resp B/P (MAP) Pulse Ox O2 Delivery O2 Flow Rate FiO2 04/30/17 05:03 79 04/30/17 04:00 97.4 81 18 103/51 (68) 93 04/30/17 00:00 98.9 82 18 120/55 (76) 92 04/29/17 22:24 84 04/29/17 20:06 95 04/29/17 20:00 102.1 91 18 135/63 (87) 91 04/29/17 16:00 98.0 85 20 125/55 (78) 92 04/29/17 12:00 100.8 88 20 130/58 (82) 91 I/O 04/29/17 04/29/17 04/29/17 04/30/17 04/30/17 04/30/17 07:00 15:00 23:00 07:00 15:00 23:00 Intake Total 480 ml 240 ml Output Total 1250 ml Balance -770 ml 240 ml Intake Oral 480 ml 240 ml Output Urine Total 1250 ml # Voids 1 2 1 2 # Bowel Movements 2 1 1 Result Diagram: 04/29/17 0535 04/29/17 0535 Objective Remarks GENERAL: This is a well-nourished, well-developed patient, in no apparent distress. SKIN: No rashes, warm and dry HEAD: Atraumatic. Normocephalic. EYES: Pupils equal round and reactive. Extraocular motions intact. No scleral icterus. ENT: Nose without bleeding, or drainage, Airway patent. NECK: Trachea midline. Supple CARDIOVASCULAR: Regular rate and rhythm without murmurs, gallops, or rubs. RESPIRATORY: Fair air entry bilaterally. No wheezes, rales, or rhonchi. GASTROINTESTINAL: Abdomen soft, non-tender, nondistended. Positive bowel sounds MUSCULOSKELETAL: Extremities without clubbing, cyanosis, or edema. Pedal pulses appreciated NEUROLOGICAL: Awake and alert. Moves all extremity. Normal speech.no focal neurological deficit A/P Assessment and Plan 04/26: Patient does look fever overnight with blood pressure trending down I suspicious of gaining of sepsis, started on cefepime, oncology eval pending, hypokalemia. Replace, cardiac enzyme negative unlikely ACS.FLP showed HDL 17.5 , will need to start statin when patient improved 04/27: Still running fever 101, with blood pressure trending down suspicious for sepsis, discussed with I&D, will add Vanco, check lactic acid 04/28: Patient still running fever she had 100.4 and 100.7 this morning ID graciously saw the patient only source of infection could be the one marrow biopsy cellulitis, versus drug induced fever 04/29: Recurrent fever 102.3 at 4 AM, with hypoxia need to rule out underlying PE , check d-dimer, check lower extremity ultrasound, if negative then most likely drug fever Patient had a big bowel movement this morning, discussed with 04/30: This x-ray revealed bilateral pneumonia patient placed back on cefepime and vancomycin per ID, fever of 102.1 yesterday at night, continue monitoring closely, Zofran 4 nausea and vomiting A/P: Mrs. 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 Mrs. Solares reported waking in her normal state of health and developed substernal chest pain that radiated "down my spine" at approximately 11:00 am. An unknown period of time passed before she called EMS. She was given nitroglycerine and an aspirin and her chest pain (which was reported to be 10/10 ) decreased. Chest pain rule out ACS>> workup negative, low HDL 17.5, recommend starting statin when patient improved Bilateral pneumonia in immunocompromised patient on chemotherapy With fever and mild increase lactic acid, ID on board patient started back on cefepime and vancomycin Neutropenic fever with possible underlying sepsis due to above isolation precautions, Monitor CBC, no Neupogen at this point per oncology Appreciate oncology recommendation Normocytic normochromic Anemia mostly due to recent chemotherapy -Transfuse 1 unit of prbc's per Dr. Brown Diet: Healthy heart DVT prophylaxis: Lovenox 30 mg sc daily/ SCD's. Jacek Steele MD Apr 30, 2017 08:53
[2017-04-30] MEDS: ONDANSETRON HCL 4 MG/2 ML VIAL IV PUSH PRN ×2 (08:58→21:44)
[2017-04-30 09:29] LABS: AUTOMATED NEUTROPHIL # 6.7 TH/MM3 (1.8-7.7); BASOPHIL # 0.1 TH/MM3 (0-0.2); BASOPHIL % 1.2 % (0.0-2.0); EOSINOPHIL % 0.2 % (0.0-4.0); HEMATOCRIT 26.2 % (35.0-46.0); LYMPHOCYTE # 0.2 TH/MM3 (1.0-4.8); MEAN CELL VOLUME 87.1 FL (80.0-100.0); MEAN CORPUSCULAR HEMOGLOBIN 29.7 PG (27.0-34.0); MEAN CORPUSCULAR HGB CONC 34.1 % (32.0-36.0); MONO % 12.2 % (0.0-8.0); NEUT % 83.4 % (16.0-70.0); PLATELET COUNT 393 TH/MM3 (150-450); RED BLOOD COUNT 3.01 MIL/MM3 (4.00-5.30); RED CELL DISTRIBUTION WIDTH 16.9 % (11.6-17.2); WHITE BLOOD COUNT 8.1 TH/MM3 (4.0-11.0)
[2017-04-30 09:35] LABS: HEMO FLAGS AUTO DIFF
[2017-04-30 09:50] LABS: BICARBONATE 26.3 MEQ/L (21.0-32.0); MAGNESIUM 2.1 MG/DL (1.5-2.5); POTASSIUM 3.5 MEQ/L (3.5-5.1)
[2017-04-30] MEDS: ACETAMINOPHEN 500 MG CPLT PO PRN (10:21)
[2017-04-30 10:34] LABS: BANDS 6 % (0-6); METAMYELOCYTES 3 % (0-1); MYELOCYTES 2 % (0-0); NEUTROPHIL # MANUAL DIFF 7.8 TH/MM3 (1.8-7.7); POLYS (SEG NEUTROPHILS) 85 % (16-70); WBC DIFF SAMPLE 100
[2017-04-30 10:37] LABS: PLATELET ESTIMATE SMEAR NORMAL (NORMAL); PLATELET MORPHOLOGY NORMAL (NORMAL); SCAN/DIFF FINAL DIFF MANUAL; SPHEROCYTES 1+ (NORMAL)
--- NOTE | 2017-04-30 13:17 | PD.ONC.PN ---
Subjective Subjective Remarks Spiked another fever of 100.9 this am. Coughing up small amount of clear sputum. Objective Data Date Time Temp Pulse Resp B/P (MAP) Pulse Ox O2 Delivery O2 Flow Rate FiO2 04/30/17 09:00 92 4.00 04/30/17 08:00 100.9 89 20 136/63 (87) 92 04/30/17 05:03 79 04/30/17 04:00 97.4 81 18 103/51 (68) 93 04/30/17 00:00 98.9 82 18 120/55 (76) 92 04/29/17 22:24 84 04/29/17 20:06 95 04/29/17 20:00 102.1 91 18 135/63 (87) 91 04/29/17 16:00 98.0 85 20 125/55 (78) 92 Result Diagram: 04/30/17 0909 04/30/17 0909 Laboratory Results Laboratory Tests Test 04/30/17 09:09 White Blood Count 8.1 TH/MM3 Red Blood Count 3.01 MIL/MM3 Hemoglobin 8.9 GM/DL Hematocrit 26.2 % Mean Corpuscular Volume 87.1 FL Mean Corpuscular Hemoglobin 29.7 PG Mean Corpuscular Hemoglobin Concent 34.1 % Red Cell Distribution Width 16.9 % Platelet Count 393 TH/MM3 Mean Platelet Volume 7.4 FL Neutrophils (%) (Auto) 83.4 % Lymphocytes (%) (Auto) 3.0 % Monocytes (%) (Auto) 12.2 % Eosinophils (%) (Auto) 0.2 % Basophils (%) (Auto) 1.2 % Neutrophils # (Auto) 6.7 TH/MM3 Lymphocytes # (Auto) 0.2 TH/MM3 Monocytes # (Auto) 1.0 TH/MM3 Eosinophils # (Auto) 0.0 TH/MM3 Basophils # (Auto) 0.1 TH/MM3 CBC Comment AUTO DIFF Differential Total Cells Counted 100 Neutrophils % (Manual) 85 % Band Neutrophils % 6 % Lymphocytes % 2 % Monocytes % 2 % Neutrophils # (Manual) 7.8 TH/MM3 Metamyelocytes 3 % Myelocytes 2 % Differential Comment FINAL DIFF MANUAL Platelet Estimate NORMAL Platelet Morphology Comment NORMAL Polychromasia 2.0 % Spherocytes 1+ Blood Urea Nitrogen 8 MG/DL Creatinine 0.42 MG/DL Random Glucose 124 MG/DL Calcium Level 8.2 MG/DL Phosphorus Level 2.3 MG/DL Magnesium Level 2.1 MG/DL Sodium Level 139 MEQ/L Potassium Level 3.5 MEQ/L Chloride Level 104 MEQ/L Carbon Dioxide Level 26.3 MEQ/L Anion Gap 9 MEQ/L Estimat Glomerular Filtration Rate 149 ML/MIN Lactic Acid Level 2.2 mmol/L Culture Results Microbiology Date/Time Source Procedure Growth Status 04/29/17 16:25 Blood Peripheral Aerobic Blood Culture - Preliminary NO GROWTH IN 1 DAY Resulted 04/29/17 16:25 Blood Peripheral Anaerobic Blood Culture - Preliminary NO GROWTH IN 1 DAY Resulted 04/29/17 16:22 Blood Peripheral Aerobic Blood Culture - Preliminary NO GROWTH IN 1 DAY Resulted 04/29/17 16:22 Blood Peripheral Anaerobic Blood Culture - Preliminary NO GROWTH IN 1 DAY Resulted Administered Medications Medications (Trade) Dose Ordered Sig/Magalys Route PRN Reason Start Time Stop Time Status Last Admin Dose Admin Sodium Chloride (NS Flush) 2 ml BID IV FLUSH 04/25/17 21:00 04/30/17 08:15 Acetaminophen (Tylenol) 500 mg Q4H PRN PO HEADACHE/fever > 100.4 04/25/17 19:15 04/30/17 10:21 Morphine Sulfate (Morphine Inj) 2 mg Q5M PRN IV PAIN SCALE 6 TO 10 04/25/17 19:15 04/28/17 00:27 Pantoprazole Sodium (Protonix) 40 mg DAILY PO 04/26/17 09:00 04/30/17 08:13 Enoxaparin Sodium (Lovenox Inj) 30 mg Q24H SQ 04/25/17 21:00 04/29/17 20:03 Citalopram Hydrobromide (CeleXA) 20 mg DAILY PO 04/27/17 09:00 04/30/17 08:13 Levothyroxine Sodium (Synthroid) 300 mcg DAILY@0600 PO 04/27/17 06:00 04/30/17 04:14 Doxycycline Hyclate (Vibramycin) 100 mg BID PO 04/28/17 11:00 04/30/17 08:12 Magnesium Hydroxide (Milk Of Magnesia Liq) 30 ml Q6H PRN PO CONSTIPATION 04/28/17 11:45 04/29/17 09:40 Senna/Docusate Sodium (Daniela-Colace) 2 tab BID PRN PO CONSTIPATION 04/28/17 11:45 04/29/17 09:41 Albuterol/ Ipratropium (Duoneb Neb) 1 ampule QID NEB NEB 04/29/17 16:00 04/30/17 11:26 Vancomycin HCl 1750 mg/Sodium Chloride 517.5 ml @ 250 mls/hr Q12H IV 04/29/17 15:00 04/30/17 03:41 Cefepime HCl 2000 mg/Sodium Chloride 100 ml @ 200 mls/hr Q8H IV 04/30/17 08:00 04/30/17 08:14 Ondansetron HCl (Zofran Inj) 4 mg Q6HR PRN IV PUSH n/v 04/30/17 09:00 04/30/17 08:58 Objective Remarks GENERAL: Obese older female, resting in bed in no acute distress. SKIN: Warm and dry. L lower back with approx 1cm wound dressing in place. Clean and dry. HEAD: Normocephalic. EYES: No injection or drainage. NECK: Supple, trachea midline. CARDIOVASCULAR: Regular rate and rhythm without murmurs. RESPIRATORY: Clear anteriorly. Breathing unlabored at rest. GASTROINTESTINAL: Abdomen obese. Non-tender. EXTREMITIES: No cyanosis, or edema. MUSCULOSKELETAL: Adequate muscle tone. NEUROLOGICAL: No obvious focal deficit. Awake, alert, and oriented x3. Assessment/Plan Problem List: (1) Large B-cell lymphoma ICD Codes: C85.10 - Unspecified B-cell lymphoma, unspecified site Status: Acute Plan: Stage IV NHL, s/p CHOP, Rituxan was complicated by hypotension. Now with fevers. (2) Pneumonia ICD Codes: J18.9 - Pneumonia, unspecified organism Status: Acute Plan: -- CXR shows bilateral pulmonary infiltrates Assessment 71 y/o woman with Stage IV NHL, BM involvement s/p C1 CHOP now with fevers. Plan 1. CXR yesterday shows bilateral pulmonary infiltrates ?source of fevers 2. Continue IV Abx per ID 3. Blood cultures remain negative so far. 4. We may possibly give cycle #2 chemo while inpatient given worsening LDH. Attending Statement The exam, history, and the medical decision-making described in the above note were completed with the assistance of the mid-level provider. I reviewed and agree with the findings presented. I attest that I had a [id number] encounter with the patient on the same day, and personally performed and documented my assessment and findings in the medical record. Pt seen and examined. Still having fevers, feels symptom come on. Denies any abdominal symptoms. Abx per ID. Anticipate tx with chemo if cultures remain negative. Next cycle is due May 05. Liset Jara Apr 30, 2017 13:17 Brenda Brown MD Apr 30, 2017 20:39
[2017-04-30] MEDS ORDERED: PHARMACY ORDERED LAB ONE (15:45)
--- NOTE | 2017-04-30 18:44 | HHI.IDPN ---
Subjective Subjective Remarks Ms. Solares is a 71-year-old female with past medical history significant for diagnosis of large cell lymphoma diagnosed after she had weight loss of 35 pounds associated with night sweats and abdominal pain. She was found to have intra-abdominal adenopathy and a CT-guided biopsy of the abdominal mass showed a large cell lymphoma. The patient was treated with R- CHOP chemotherapy per review of Dr. Mccormack's note. She received a combination of Cytoxan, vincristine, Adriamycin on April 14 and Rituxan on April 15. She received only one injection of Neupogen which was administered the day prior to admission. The following day she developed pain in the chest as though someone was putting a large heavy weight on her chest. She also had pain running down the bones of the back. This is what brought her to the emergency room and patient got admitted. On admission she was febrile and had severe neutropenia. Due to neutropenic fever patient was admitted. Patient was started on empiric cefepime. She reports that she has been fairly okay but her fevers persist as high as 103 Fahrenheit this morning. Patient underwent workup for sepsis and all cultures are negative so far. Patient reports that she has seen her primary care physician for a ulcer at the site of her bone marrow biopsy which continued to drain so she had put the dressing over it. Patient reports that she hasn't been on any antibiotics but has been applying Neosporin ointment as prescribed to her by her primary care physician. ID consulted for management of neutropenic fever. Overnight events reviewed with RN No rash No diarrhea Fevers overnight. Defervesced. RN reports patient had 1 episode of vomiting. vanco IV bag still hanging: infusion not completed. vasquez RN. Antibiotics Doxy Cefepime IV Vanco IV Lines Line sites with no e/o infection Past Medical History reviewed Allergies: Coded Allergies: No Known Allergies (Verified , 04/09/17) Objective . Vital Signs Date Time Temp Pulse Resp B/P (MAP) Pulse Ox O2 Delivery O2 Flow Rate FiO2 04/30/17 17:49 92 Nasal Cannula 3.50 04/30/17 16:23 92 04/30/17 15:34 77 04/30/17 12:00 98.5 88 20 113/56 (75) 92 04/30/17 09:00 92 4.00 8/30/17 08:08 90 04/30/17 08:00 100.9 89 20 136/63 (87) 92 04/30/17 05:03 79 04/30/17 04:00 97.4 81 18 103/51 (68) 93 04/30/17 00:00 98.9 82 18 120/55 (76) 92 04/29/17 22:24 84 04/29/17 20:06 95 04/29/17 20:00 102.1 91 18 135/63 (87) 91 . Laboratory Tests Test 04/29/17 05:35 04/30/17 09:09 White Blood Count 7.3 TH/MM3 8.1 TH/MM3 Red Blood Count 2.76 MIL/MM3 3.01 MIL/MM3 Hemoglobin 8.3 GM/DL 8.9 GM/DL Hematocrit 24.0 % 26.2 % Mean Corpuscular Volume 87.0 FL 87.1 FL Mean Corpuscular Hemoglobin 30.1 PG 29.7 PG Mean Corpuscular Hemoglobin Concent 34.6 % 34.1 % Red Cell Distribution Width 16.6 % 16.9 % Platelet Count 358 TH/MM3 393 TH/MM3 Mean Platelet Volume 7.9 FL 7.4 FL Neutrophils (%) (Auto) 77.2 % 83.4 % Lymphocytes (%) (Auto) 3.5 % 3.0 % Monocytes (%) (Auto) 18.2 % 12.2 % Eosinophils (%) (Auto) 0.1 % 0.2 % Basophils (%) (Auto) 1.0 % 1.2 % Neutrophils # (Auto) 5.6 TH/MM3 6.7 TH/MM3 Lymphocytes # (Auto) 0.3 TH/MM3 0.2 TH/MM3 Monocytes # (Auto) 1.3 TH/MM3 1.0 TH/MM3 Eosinophils # (Auto) 0.0 TH/MM3 0.0 TH/MM3 Basophils # (Auto) 0.1 TH/MM3 0.1 TH/MM3 CBC Comment AUTO DIFF AUTO DIFF Differential Total Cells Counted 100 100 Neutrophils % (Manual) 66 % 85 % Band Neutrophils % 13 % 6 % Lymphocytes % 2 % 2 % Monocytes % 15 % 2 % Neutrophils # (Manual) 6.1 TH/MM3 7.8 TH/MM3 Metamyelocytes 1 % 3 % Myelocytes 3 % 2 % Differential Comment FINAL DIFF MANUAL FINAL DIFF MANUAL Toxic Granulation 2+ Platelet Estimate NORMAL NORMAL Platelet Morphology Comment NORMAL NORMAL Reticulocyte Count 5.0 % Absolute Reticulocyte Count 138.0 MIL/L Polychromasia 2.0 % Spherocytes 1+ Laboratory Tests Test 04/29/17 05:35 04/30/17 09:09 Blood Urea Nitrogen 6 MG/DL 8 MG/DL Creatinine 0.52 MG/DL 0.42 MG/DL Random Glucose 95 MG/DL 124 MG/DL Calcium Level 8.4 MG/DL 8.2 MG/DL Lactate Dehydrogenase 370 U/L Sodium Level 139 MEQ/L 139 MEQ/L Potassium Level 3.3 MEQ/L 3.5 MEQ/L Chloride Level 104 MEQ/L 104 MEQ/L Carbon Dioxide Level 26.3 MEQ/L 26.3 MEQ/L Anion Gap 9 MEQ/L 9 MEQ/L Estimat Glomerular Filtration Rate 117 ML/MIN 149 ML/MIN Phosphorus Level 2.3 MG/DL Magnesium Level 2.1 MG/DL Lactic Acid Level 2.2 mmol/L Microbiology Date/Time Source Procedure Growth Status 04/29/17 16:25 Blood Peripheral Aerobic Blood Culture - Preliminary NO GROWTH IN 1 DAY Resulted 04/29/17 16:25 Blood Peripheral Anaerobic Blood Culture - Preliminary NO GROWTH IN 1 DAY Resulted 04/29/17 16:22 Blood Peripheral Aerobic Blood Culture - Preliminary NO GROWTH IN 1 DAY Resulted 04/29/17 16:22 Blood Peripheral Anaerobic Blood Culture - Preliminary NO GROWTH IN 1 DAY Resulted Imaging Last Impressions Upper Extremity Ultrasound 04/29/17 0000 Signed Impressions: Service Date/Time: Saturday, April 29, 2017 13:12 - CONCLUSION: 1. No evidence of deep venous thrombosis. Bandar Vo MD Lower Extremity Ultrasound 04/29/17 0000 Signed Impressions: Service Date/Time: Saturday, April 29, 2017 10:26 - CONCLUSION: No evidence of DVT. Right popliteal fossa Ruiz's cyst. Al Peña MD Chest X-Ray 04/29/17 0000 Signed Impressions: Service Date/Time: Saturday, April 29, 2017 13:46 - CONCLUSION: Bilateral pulmonary infiltrates. Patricio Motta Jr., MD CT Angiography 04/25/17 0000 Signed Impressions: Service Date/Time: Tuesday, April 25, 2017 16:23 - CONCLUSION: 1. No PE is identified. 2. Abnormal diffuse and somewhat patchy groundglass attenuation bilaterally. Etiology is nonspecific. Some considerations include edema, infectious, or inflammatory processes. 3. The right lower lobe pulmonary nodules and sonu hepatis mass have decreased in size, as above. 4. Mild splenic. Ravindra Seymour MD Physical Exam GENERAL: Morbidly obese, well-developed patient, in no apparent distress. SKIN: No rashes, ecchymoses or lesions. Cool and dry. HEAD: Atraumatic. Normocephalic. No temporal or scalp tenderness. EYES: Pupils equal round and reactive. Extraocular motions intact. No scleral icterus. No injection or drainage. ENT: Nose without bleeding, purulent drainage or septal hematoma. Throat without erythema, tonsillar hypertrophy or exudate. Uvula midline. Airway patent. NECK: Trachea midline. Supple, nontender, no meningeal signs. CARDIOVASCULAR: RRR, No murmurs. RESPIRATORY: Decreased breath sounds bilaterally. Basilar crackles. GASTROINTESTINAL: Abdomen soft, non-tender, nondistended. MUSCULOSKELETAL: Extremities without clubbing, cyanosis, or edema. NEUROLOGICAL: Awake and alert. Grossly non focal Psych: cooperative IV line sites with no e.o infection. Assessment & Plan Remarks Neutropenic fever on presentation. Neutropenia resolved. Fevers persist. Large cell Lymphoma: s/p R-CHOP Immune compromised. Pneumonia ? HCAP. Acute COPD exacerbation. Past h/o smoking. Quit 40 yrs back. ? Neupogen allergy: rash, chest pain and fevers on presentation. Recs continue Cefepime IV (re:HCAP) Continue Vanco IV (Re: HCAP) Continue Doxy oral (Re: atypical PNA) Follow cultures Follow clinically. d/w pt and RN d/w Idalmis Rodriguez MD Apr 30, 2017 18:44
[2017-04-30] MEDS: ENOXAPARIN SODIUM 30 MG/0.3 ML SYRINGE SQ SCH (21:01)
[2017-04-30] MEDS ORDERED: diphenhydrAMINE HCL 50 MG CAP PO ONE (21:30)
[2017-05-01] VITALS (13 sets, daily range): BP systolic 113–128; BP diastolic 48–59; PULSE 70–119; RESP 18–23; TEMP 97–102.8; O2SAT 89–98
[2017-05-01] MEDS: ACETAMINOPHEN 500 MG CPLT PO PRN ×2 (00:41→16:34)
[2017-05-01] MEDS: CEFEPIME INJ 2,000 MG in SODIUM CHLORIDE 0.9% INJ 100 ML IV SCH ×4 (00:41→23:37)
[2017-05-01] MEDS ORDERED: PHARMACY ORDERED LAB ONE (02:45)
[2017-05-01] MEDS: VANCOMYCIN INJ 1,750 MG in SODIUM CHLORID 0.9% 500 ML INJ 500 ML IV SCH (03:49)
[2017-05-01 04:08] LABS: BASOPHIL # 0.1 TH/MM3 (0-0.2); BASOPHIL % 0.9 % (0.0-2.0); EOSINOPHIL % 0.4 % (0.0-4.0); HEMATOCRIT 23.8 % (35.0-46.0); LYMPHOCYTE # 0.4 TH/MM3 (1.0-4.8); MEAN CELL VOLUME 86.9 FL (80.0-100.0); MEAN CORPUSCULAR HGB CONC 33.4 % (32.0-36.0); MONO % 11.4 % (0.0-8.0); NEUT % 82.3 % (16.0-70.0); PLATELET COUNT 366 TH/MM3 (150-450); RED BLOOD COUNT 2.74 MIL/MM3 (4.00-5.30); WHITE BLOOD COUNT 7.3 TH/MM3 (4.0-11.0)
[2017-05-01 04:09] LABS: HEMO FLAGS AUTO DIFF
[2017-05-01 04:35] LABS: BICARBONATE 27.2 MEQ/L (21.0-32.0); POTASSIUM 3.5 MEQ/L (3.5-5.1)
[2017-05-01 05:45] LABS: BANDS 4 % (0-6); BASOPHILS 1 % (0-2); CORRECTED NUCLEATED RBC 1 /100 WBC (0-0); METAMYELOCYTES 2 % (0-1); MYELOCYTES 1 % (0-0); NEUTROPHIL # MANUAL DIFF 6.1 TH/MM3 (1.8-7.7); POLYS (SEG NEUTROPHILS) 77 % (16-70); SCAN/DIFF FINAL DIFF MANUAL; WBC DIFF SAMPLE 100
[2017-05-01] MEDS: LEVOTHYROXINE SODIUM 150 MCG TAB PO SCH (05:45)
[2017-05-01 05:46] LABS: PLATELET ESTIMATE SMEAR NORMAL (NORMAL); PLATELET MORPHOLOGY NORMAL (NORMAL); TOXIC GRANULATION 2+ (NORMAL)
[2017-05-01 05:47] LABS: ACANTHOCYTES OCC (NORMAL); OVALOCYTES 1+ (NORMAL); SPHEROCYTES OCC (NORMAL)
[2017-05-01] MEDS: RESP: ALBUTEROL 2.5 MG/IPRATROPIUM 0.5 MG NEB (SCH) NEB ×4 (08:01→19:59)
[2017-05-01] MEDS: PANTOPRAZOLE SOD 40 MG DELAYED RELEASE TAB PO SCH (09:43)
[2017-05-01] MEDS: CITALOPRAM HYDROBROMIDE 20 MG TAB PO SCH (09:43)
[2017-05-01] MEDS: SODIUM CHLORIDE 0.9% FLUSH 10 ML FLUSH IV FLUSH SCH ×2 (09:44→21:00)
[2017-05-01] MEDS: DOXYCYCLINE HYCLATE 100 MG CAP PO SCH ×2 (09:44→20:35)
[2017-05-01] MEDS: COLLAGENASE OINT 30 GM TUBE TOPICAL SCH (09:44)
--- NOTE | 2017-05-01 10:17 | PD.ONC.PN ---
Subjective Subjective Remarks Patient with low-grade fevers She has been using her incentive spirometer No acute complaints Objective Data Date Time Temp Pulse Resp B/P (MAP) Pulse Ox O2 Delivery O2 Flow Rate FiO2 05/01/17 08:00 97.0 78 22 128/59 (82) 91 05/01/17 07:42 91 05/01/17 04:00 98.2 83 18 122/57 (78) 92 05/01/17 00:00 100.3 98 20 113/52 (72) 90 04/30/17 20:16 96 Nasal Cannula 2.00 04/30/17 20:00 100.4 89 18 129/55 (79) 90 04/30/17 17:49 92 Nasal Cannula 3.50 04/30/17 16:23 92 04/30/17 16:00 99.0 93 20 114/57 (76) 91 04/30/17 15:34 77 04/30/17 12:00 98.5 88 20 113/56 (75) 92 05/01/17 05/01/17 05/01/17 06:59 14:59 22:59 Intake Total 240 ml Balance 240 ml Result Diagram: 05/01/17 0340 05/01/17 0340 Laboratory Results Laboratory Tests Test 04/30/17 13:28 05/01/17 03:40 D-Dimer Quantitative (PE/DVT) 2.01 MG/L FEU White Blood Count 7.3 TH/MM3 Red Blood Count 2.74 MIL/MM3 Hemoglobin 7.9 GM/DL Hematocrit 23.8 % Mean Corpuscular Volume 86.9 FL Mean Corpuscular Hemoglobin 29.0 PG Mean Corpuscular Hemoglobin Concent 33.4 % Red Cell Distribution Width 17.0 % Platelet Count 366 TH/MM3 Mean Platelet Volume 7.2 FL Neutrophils (%) (Auto) 82.3 % Lymphocytes (%) (Auto) 5.0 % Monocytes (%) (Auto) 11.4 % Eosinophils (%) (Auto) 0.4 % Basophils (%) (Auto) 0.9 % Neutrophils # (Auto) 6.0 TH/MM3 Lymphocytes # (Auto) 0.4 TH/MM3 Monocytes # (Auto) 0.8 TH/MM3 Eosinophils # (Auto) 0.0 TH/MM3 Basophils # (Auto) 0.1 TH/MM3 CBC Comment AUTO DIFF Differential Total Cells Counted 100 Neutrophils % (Manual) 77 % Band Neutrophils % 4 % Lymphocytes % 3 % Monocytes % 12 % Basophils % 1 % Neutrophils # (Manual) 6.1 TH/MM3 Metamyelocytes 2 % Myelocytes 1 % Nucleated Red Blood Cells 1 /100 WBC Differential Comment FINAL DIFF MANUAL Toxic Granulation 2+ Platelet Estimate NORMAL Platelet Morphology Comment NORMAL Polychromasia 3.0 % Basophilic Stippling FAINT Spherocytes OCC Ovalocytes 1+ Acanthocytes OCC Blood Urea Nitrogen 8 MG/DL Creatinine 0.42 MG/DL Random Glucose 95 MG/DL Calcium Level 8.1 MG/DL Sodium Level 140 MEQ/L Potassium Level 3.5 MEQ/L Chloride Level 105 MEQ/L Carbon Dioxide Level 27.2 MEQ/L Anion Gap 8 MEQ/L Estimat Glomerular Filtration Rate 149 ML/MIN Vancomycin Level Trough 12.6 MCG/ML Culture Results Microbiology Date/Time Source Procedure Growth Status 04/29/17 16:25 Blood Peripheral Aerobic Blood Culture - Preliminary NO GROWTH IN 1 DAY Resulted 04/29/17 16:25 Blood Peripheral Anaerobic Blood Culture - Preliminary NO GROWTH IN 1 DAY Resulted 04/29/17 16:22 Blood Peripheral Aerobic Blood Culture - Preliminary NO GROWTH IN 1 DAY Resulted 04/29/17 16:22 Blood Peripheral Anaerobic Blood Culture - Preliminary NO GROWTH IN 1 DAY Resulted Administered Medications Medications (Trade) Dose Ordered Sig/Magalys Route PRN Reason Start Time Stop Time Status Last Admin Dose Admin Sodium Chloride (NS Flush) 2 ml BID IV FLUSH 04/25/17 21:00 05/01/17 09:44 Acetaminophen (Tylenol) 500 mg Q4H PRN PO HEADACHE/fever > 100.4 04/25/17 19:15 05/01/17 00:41 Morphine Sulfate (Morphine Inj) 2 mg Q5M PRN IV PAIN SCALE 6 TO 10 04/25/17 19:15 04/28/17 00:27 Pantoprazole Sodium (Protonix) 40 mg DAILY PO 04/26/17 09:00 05/01/17 09:43 Enoxaparin Sodium (Lovenox Inj) 30 mg Q24H SQ 04/25/17 21:00 04/30/17 21:01 Citalopram Hydrobromide (CeleXA) 20 mg DAILY PO 04/27/17 09:00 05/01/17 09:43 Levothyroxine Sodium (Synthroid) 300 mcg DAILY@0600 PO 04/27/17 06:00 05/01/17 05:45 Doxycycline Hyclate (Vibramycin) 100 mg BID PO 04/28/17 11:00 05/01/17 09:44 Magnesium Hydroxide (Milk Of Jacquie Linaomi) 30 ml Q6H PRN PO CONSTIPATION 04/28/17 11:45 04/29/17 09:40 Senna/Docusate Sodium (Daniela-Colace) 2 tab BID PRN PO CONSTIPATION 04/28/17 11:45 04/29/17 09:41 Albuterol/ Ipratropium (Duoneb Neb) 1 ampule QID NEB NEB 04/29/17 16:00 05/01/17 08:01 Cefepime HCl 2000 mg/Sodium Chloride 100 ml @ 200 mls/hr Q8H IV 04/30/17 08:00 05/01/17 07:55 Ondansetron HCl (Zofran Inj) 4 mg Q6HR PRN IV PUSH n/v 04/30/17 09:00 04/30/17 21:44 Collagenase (Santyl Oint) 1 applic DAILY TOPICAL 05/01/17 09:00 05/01/17 09:44 Objective Remarks GENERAL: Obese older female, resting in bed eating breakfast SKIN: Warm and dry. L lower back with approx 1cm wound dressing in place. Clean and dry. HEAD: Normocephalic. EYES: No injection or drainage. NECK: Supple, trachea midline. CARDIOVASCULAR: Regular rate and rhythm without murmurs. RESPIRATORY: A few left-sided crackles. Patient on 5 L nasal cannula. GASTROINTESTINAL: Abdomen obese. Non-tender. EXTREMITIES: No cyanosis, or edema. MUSCULOSKELETAL: Adequate muscle tone. NEUROLOGICAL: No obvious focal deficit. Awake, alert, and oriented x3. Assessment/Plan Problem List: (1) Large B-cell lymphoma ICD Codes: C85.10 - Unspecified B-cell lymphoma, unspecified site Status: Acute Plan: Stage IV NHL, s/p CHOP, Rituxan was complicated by hypotension. Now with fevers. (2) Pneumonia ICD Codes: J18.9 - Pneumonia, unspecified organism Status: Acute Plan: -- CXR shows bilateral pulmonary infiltrates Assessment 71 y/o woman with Stage IV NHL, BM involvement s/p C1 CHOP now with fevers. Plan 1. All blood cultures remained negative 2. Patient is due for cycle #2 of CHOP chemotherapy on May 05 3. Continue antibiotics per infectious disease 4. Supportive care Attending Statement The exam, history, and the medical decision-making described in the above note were completed with the assistance of the mid-level provider. I reviewed and agree with the findings presented. I attest that I had a [id number] encounter with the patient on the same day, and personally performed and documented my assessment and findings in the medical record. Still fevers, cultures day 2 negative. Cont Abx for pneumonia. c/o SOB symptoms needed more O2, suggestive of pneumonia abx continue however. Follow. Liset Jara May 01, 2017 10:17 Brenda Brown MD May 01, 2017 15:12
--- NOTE | 2017-05-01 10:50 | HHI.PR ---
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, possible keeping cycle 2 of chemotherapy while in the hospital Objective Vitals Vital Signs Date Time Temp Pulse Resp B/P (MAP) Pulse Ox O2 Delivery O2 Flow Rate FiO2 05/01/17 08:00 97.0 78 22 128/59 (82) 91 05/01/17 07:42 91 05/01/17 04:00 98.2 83 18 122/57 (78) 92 05/01/17 00:00 100.3 98 20 113/52 (72) 90 04/30/17 20:16 96 Nasal Cannula 2.00 04/30/17 20:00 100.4 89 18 129/55 (79) 90 04/30/17 17:49 92 Nasal Cannula 3.50 04/30/17 16:23 92 04/30/17 16:00 99.0 93 20 114/57 (76) 91 04/30/17 15:34 77 04/30/17 12:00 98.5 88 20 113/56 (75) 92 I/O 04/30/17 04/30/17 04/30/17 05/01/17 05/01/17 05/01/17 07:00 15:00 23:00 07:00 15:00 23:00 Intake Total 1200 ml 240 ml Output Total 200 ml Balance 1000 ml 240 ml Intake Oral 1200 ml 240 ml Output Urine Total 200 ml # Voids 2 2 2 # Bowel Movements 1 Result Diagram: 05/01/17 0340 05/01/17 034 Objective Remarks - - GENERAL: This is a well-nourished, well-developed patient, in no apparent distress. SKIN: No rashes, warm and dry HEAD: Atraumatic. Normocephalic. EYES: Pupils equal round and reactive. Extraocular motions intact. No scleral icterus. ENT: Nose without bleeding, or drainage, Airway patent. NECK: Trachea midline. Supple CARDIOVASCULAR: Regular rate and rhythm without murmurs, gallops, or rubs. RESPIRATORY: Fair air entry bilaterally. Bibasilar crackles GASTROINTESTINAL: Abdomen soft, non-tender, nondistended. Positive bowel sounds MUSCULOSKELETAL: Extremities without clubbing, cyanosis, or edema. Pedal pulses appreciated NEUROLOGICAL: Awake and alert. Moves all extremity. Normal speech.no focal neurological deficit A/P Assessment and Plan A/P: Mrs. 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 Mrs. Solares reported waking in her normal state of health and developed substernal chest pain that radiated "down my spine" at approximately 11:00 am. An unknown period of time passed before she called EMS. She was given nitroglycerine and an aspirin and her chest pain (which was reported to be 10/10 ) decreased. Bilateral pneumonia in immunocompromised patient on chemotherapy(HCAP) Fever improved,, appreciate ID follow up continue on cefepime and vancomycin , doxycycline for atypical coverage Culture negative Neutropenic fever with possible underlying sepsis due to above, neutropenia resolved Monitor CBC, no Neupogen at this point per oncology Oncology following, possible giving second dose of chemotherapy while in the hospital Chest pain rule out ACS>> workup negative, low HDL 17.5, recommend starting statin when patient improved Normocytic normochromic Anemia mostly due to recent chemotherapy -Transfuse 1 unit of prbc's per Dr. Brown Diet: Healthy heart DVT prophylaxis: Lovenox 30 mg sc daily/ SCD's. Jacek Steele MD May 01, 2017 10:50
--- NOTE | 2017-05-01 16:20 | HHI.IDPN ---
Subjective Subjective Remarks Ms. Solares is a 71-year-old female with past medical history significant for diagnosis of large cell lymphoma diagnosed after she had weight loss of 35 pounds associated with night sweats and abdominal pain. She was found to have intra-abdominal adenopathy and a CT-guided biopsy of the abdominal mass showed a large cell lymphoma. The patient was treated with R- CHOP chemotherapy per review of Dr. Mccormack's note. She received a combination of Cytoxan, vincristine, Adriamycin on April 14 and Rituxan on April 15. She received only one injection of Neupogen which was administered the day prior to admission. The following day she developed pain in the chest as though someone was putting a large heavy weight on her chest. She also had pain running down the bones of the back. This is what brought her to the emergency room and patient got admitted. On admission she was febrile and had severe neutropenia. Due to neutropenic fever patient was admitted. Patient was started on empiric cefepime. She reports that she has been fairly okay but her fevers persist as high as 103 Fahrenheit this morning. Patient underwent workup for sepsis and all cultures are negative so far. Patient reports that she has seen her primary care physician for a ulcer at the site of her bone marrow biopsy which continued to drain so she had put the dressing over it. Patient reports that she hasn't been on any antibiotics but has been applying Neosporin ointment as prescribed to her by her primary care physician. ID consulted for management of neutropenic fever. Overnight events reviewed with RN No rash No diarrhea Fevers overnight low grade. Antibiotics Doxy Cefepime IV Vanco IV Lines Line sites with no e/o infection Past Medical History reviewed Allergies: Coded Allergies: No Known Allergies (Verified , 04/09/17) Objective . Vital Signs Date Time Temp Pulse Resp B/P (MAP) Pulse Ox O2 Delivery O2 Flow Rate FiO2 05/01/17 12:59 100.0 102 23 116/56 (76) 90 05/01/17 11:13 92 Nasal Cannula 6.00 05/01/17 08:00 97.0 78 22 128/59 (82) 91 05/01/17 07:46 70 05/01/17 07:42 91 05/01/17 04:00 98.2 83 18 122/57 (78) 92 05/01/17 00:00 100.3 98 20 113/52 (72) 90 04/30/17 20:16 96 Nasal Cannula 2.00 04/30/17 20:00 100.4 89 18 129/55 (79) 90 04/30/17 17:49 92 Nasal Cannula 3.50 04/30/17 16:23 92 05/01/17 05/01/17 05/02/17 14:59 22:59 06:59 Intake Total 240 ml Balance 240 ml Intake Oral 240 ml # Voids 4 . Laboratory Tests Test 04/30/17 09:09 05/01/17 03:40 White Blood Count 8.1 TH/MM3 7.3 TH/MM3 Red Blood Count 3.01 MIL/MM3 2.74 MIL/MM3 Hemoglobin 8.9 GM/DL 7.9 GM/DL Hematocrit 26.2 % 23.8 % Mean Corpuscular Volume 87.1 FL 86.9 FL Mean Corpuscular Hemoglobin 29.7 PG 29.0 PG Mean Corpuscular Hemoglobin Concent 34.1 % 33.4 % Red Cell Distribution Width 16.9 % 17.0 % Platelet Count 393 TH/MM3 366 TH/MM3 Mean Platelet Volume 7.4 FL 7.2 FL Neutrophils (%) (Auto) 83.4 % 82.3 % Lymphocytes (%) (Auto) 3.0 % 5.0 % Monocytes (%) (Auto) 12.2 % 11.4 % Eosinophils (%) (Auto) 0.2 % 0.4 % Basophils (%) (Auto) 1.2 % 0.9 % Neutrophils # (Auto) 6.7 TH/MM3 6.0 TH/MM3 Lymphocytes # (Auto) 0.2 TH/MM3 0.4 TH/MM3 Monocytes # (Auto) 1.0 TH/MM3 0.8 TH/MM3 Eosinophils # (Auto) 0.0 TH/MM3 0.0 TH/MM3 Basophils # (Auto) 0.1 TH/MM3 0.1 TH/MM3 CBC Comment AUTO DIFF AUTO DIFF Differential Total Cells Counted 100 100 Neutrophils % (Manual) 85 % 77 % Band Neutrophils % 6 % 4 % Lymphocytes % 2 % 3 % Monocytes % 2 % 12 % Neutrophils # (Manual) 7.8 TH/MM3 6.1 TH/MM3 Metamyelocytes 3 % 2 % Myelocytes 2 % 1 % Differential Comment FINAL DIFF MANUAL FINAL DIFF MANUAL Platelet Estimate NORMAL NORMAL Platelet Morphology Comment NORMAL NORMAL Polychromasia 2.0 % 3.0 % Spherocytes 1+ OCC Basophils % 1 % Nucleated Red Blood Cells 1 /100 WBC Toxic Granulation 2+ Basophilic Stippling FAINT Ovalocytes 1+ Acanthocytes OCC Laboratory Tests Test 04/30/17 09:09 05/01/17 03:40 Blood Urea Nitrogen 8 MG/DL 8 MG/DL Creatinine 0.42 MG/DL 0.42 MG/DL Random Glucose 124 MG/DL 95 MG/DL Calcium Level 8.2 MG/DL 8.1 MG/DL Phosphorus Level 2.3 MG/DL Magnesium Level 2.1 MG/DL Sodium Level 139 MEQ/L 140 MEQ/L Potassium Level 3.5 MEQ/L 3.5 MEQ/L Chloride Level 104 MEQ/L 105 MEQ/L Carbon Dioxide Level 26.3 MEQ/L 27.2 MEQ/L Anion Gap 9 MEQ/L 8 MEQ/L Estimat Glomerular Filtration Rate 149 ML/MIN 149 ML/MIN Lactic Acid Level 2.2 mmol/L Microbiology Date/Time Source Procedure Growth Status 04/29/17 16:25 Blood Peripheral Aerobic Blood Culture - Preliminary NO GROWTH IN 2 DAYS Resulted 04/29/17 16:25 Blood Peripheral Anaerobic Blood Culture - Preliminary NO GROWTH IN 2 DAYS Resulted 04/29/17 16:22 Blood Peripheral Aerobic Blood Culture - Preliminary NO GROWTH IN 2 DAYS Resulted 04/29/17 16:22 Blood Peripheral Anaerobic Blood Culture - Preliminary NO GROWTH IN 2 DAYS Resulted Imaging Last Impressions Upper Extremity Ultrasound 04/29/17 0000 Signed Impressions: Service Date/Time: Saturday, April 29, 2017 13:12 - CONCLUSION: 1. No evidence of deep venous thrombosis. Bandar Vo MD Lower Extremity Ultrasound 04/29/17 0000 Signed Impressions: Service Date/Time: Saturday, April 29, 2017 10:26 - CONCLUSION: No evidence of DVT. Right popliteal fossa Ruiz's cyst. Al Peña MD Chest X-Ray 04/29/17 0000 Signed Impressions: Service Date/Time: Saturday, April 29, 2017 13:46 - CONCLUSION: Bilateral pulmonary infiltrates. Patricio Motta Jr., MD CT Angiography 04/25/17 0000 Signed Impressions: Service Date/Time: Tuesday, April 25, 2017 16:23 - CONCLUSION: 1. No PE is identified. 2. Abnormal diffuse and somewhat patchy groundglass attenuation bilaterally. Etiology is nonspecific. Some considerations include edema, infectious, or inflammatory processes. 3. The right lower lobe pulmonary nodules and sonu hepatis mass have decreased in size, as above. 4. Mild splenic. Ravindra Seymour MD Physical Exam GENERAL: Morbidly obese, well-developed patient, in no apparent distress. SKIN: No rashes, ecchymoses or lesions. Cool and dry. HEAD: Atraumatic. Normocephalic. No temporal or scalp tenderness. EYES: Pupils equal round and reactive. Extraocular motions intact. No scleral icterus. No injection or drainage. ENT: Nose without bleeding, purulent drainage or septal hematoma. Throat without erythema, tonsillar hypertrophy or exudate. Uvula midline. Airway patent. NECK: Trachea midline. Supple, nontender, no meningeal signs. CARDIOVASCULAR: RRR, No murmurs. RESPIRATORY: Decreased breath sounds bilaterally. Basilar crackles. GASTROINTESTINAL: Abdomen soft, non-tender, nondistended. MUSCULOSKELETAL: Extremities without clubbing, cyanosis, or edema. NEUROLOGICAL: Awake and alert. Grossly non focal Psych: cooperative IV line sites with no e.o infection. Assessment & Plan Remarks Neutropenic fever on presentation. Neutropenia resolved. Fevers persist. Large cell Lymphoma: s/p R-CHOP Immune compromised. Pneumonia ? HCAP. Acute COPD exacerbation. Past h/o smoking. Quit 40 yrs back. ? Neupogen allergy: rash, chest pain and fevers on presentation. Recs continue Cefepime IV (re:HCAP) Continue Vanco IV (Re: HCAP) Continue Doxy oral (Re: atypical PNA) Follow cultures Follow clinically. d/w pt and RN d/w RN Idalmis Cabrera MD May 01, 2017 16:20
[2017-05-01] MEDS: VANCOMYCIN INJ 2,000 MG in SODIUM CHLORID 0.9% 500 ML INJ 500 ML IV SCH (18:03)
[2017-05-01] MEDS: MORPHINE SULFATE 4 MG/ML INJ IV PRN ×2 (18:24→23:41)
[2017-05-01 19:15] LABS: BLOOD GAS BASE EXCESS 0.5 mmol/L (-2-2); BLOOD GAS CARBOXYHEMOGLOBIN 2.3 % (0-4); BLOOD GAS HCO3 24 mmol/L (22-26); BLOOD GAS METHEMOGLOBIN 0.9 % (0-2); BLOOD GAS O2 HGB SATURATION 93 % (90-100); BLOOD GAS OXYGEN CONTENT 13.6 Vol % (12.0-20.0); BLOOD GAS PCO2 37 mmHg (38-42); BLOOD GAS PO2 80 mmHg (61-120); BLOOD GAS TOTAL HGB 10.3 G/DL (12.0-16.0); CRITICAL VALUE NO; DRAW SITE RT RADIAL; LITER FLOW 10 L/M; NUMBER OF ARTERIAL PUNCTURES 1; OXYGEN DEVICE SIMPLE MASK; TEMP CORR TO 98.6
[2017-05-01 19:16] LABS: STAT NO; ULNAR PULSE PRESENT
[2017-05-01] MEDS: ONDANSETRON HCL 4 MG/2 ML VIAL IV PUSH PRN (20:35)
[2017-05-01] MEDS: ENOXAPARIN SODIUM 30 MG/0.3 ML SYRINGE SQ SCH (20:36)
[2017-05-01] MEDS: methylPREDNISolone SOD SUCC 40 MG/1 ML VIAL IV PUSH SCH ×2 (20:40→23:37)
[2017-05-02] VITALS (10 sets, daily range): BP systolic 108–144; BP diastolic 58–72; PULSE 74–103; RESP 16–20; TEMP 97–98.2; O2SAT 92–98
[2017-05-02] MEDS: MORPHINE SULFATE 4 MG/ML INJ IV PRN ×5 (02:34→20:54)
[2017-05-02] MEDS: methylPREDNISolone SOD SUCC 40 MG/1 ML VIAL IV PUSH SCH ×4 (04:53→23:44)
[2017-05-02] MEDS: LEVOTHYROXINE SODIUM 150 MCG TAB PO SCH (04:56)
[2017-05-02] MEDS: VANCOMYCIN INJ 2,000 MG in SODIUM CHLORID 0.9% 500 ML INJ 500 ML IV SCH (04:58)
[2017-05-02 05:58] LABS: AUTOMATED NEUTROPHIL # 6.6 TH/MM3 (1.8-7.7); BASOPHIL % 0.6 % (0.0-2.0); HEMO FLAGS DIFF FINAL; LYMPH % 3.4 % (9.0-44.0); LYMPHOCYTE # 0.2 TH/MM3 (1.0-4.8); MEAN CELL VOLUME 87.4 FL (80.0-100.0); MEAN CORPUSCULAR HEMOGLOBIN 30.2 PG (27.0-34.0); MEAN CORPUSCULAR HGB CONC 34.5 % (32.0-36.0); MONO % 2.2 % (0.0-8.0); NEUT % 93.8 % (16.0-70.0); PLATELET COUNT 352 TH/MM3 (150-450); RED BLOOD COUNT 2.87 MIL/MM3 (4.00-5.30); RED CELL DISTRIBUTION WIDTH 17.1 % (11.6-17.2)
--- NOTE | 2017-05-02 06:54 | MB ---
cc: DIMA GERONIMO DATE OF CONSULTATION 05/01/2017 REQUESTING PHYSICIAN Idalmis Cabrera MD REASON FOR CONSULTATION Pulmonary management. HISTORY OF PRESENT ILLNESS Ms. Solares is a pleasant 71-year-old female with history of large cell lymphoma. She had a CT-guided biopsy of an abdominal mass and she has received chemotherapy and she developed neutropenia. The patient was admitted with neutropenic fever. She is getting more short of breath. Currently she is on 10 liters oxygen mask. She has mild shortness breath, has wheezing. No fevers, no night sweats, no chest pain, no nausea or vomiting. PAST MEDICAL HISTORY Significant for - 1. History of large cell lymphoma. 2. Obstructive sleep apnea. 3. History of atrial fibrillation. 4. Hypertension. 5. Hyperlipidemia. 6. Multiple sclerosis. MEDICATIONS She is currently taking - 1. Vancomycin IV. 1. Cefepime 2 grams q. 8 hours. 2. Albuterol/Atrovent nebulization treatment. 3. Levothyroxine 300 mcg a day. 4. Citalopram 20 mg a day. 5. Doxycycline 100 mg twice a day. 6. Lovenox 30 mg q.24 hours. ALLERGIES No known drug allergies. SOCIAL HISTORY She has a remote history of smoking. No alcohol abuse. 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 FAMILY HISTORY She is . She has two children. REVIEW OF SYSTEMS Normally she is up, around and active. She has lost 35 pounds in weight. No DVT or pulmonary embolism. No seizure, stroke or epilepsy. PHYSICAL EXAMINATION GENERAL: An elderly female, mild to moderately short of breath. VITAL SIGNS: Blood pressure is 123/48, heart rate 104, respirations 23. Temperature 102.8. HEENT EXAMINATION: Pupils are equal and react to light. Oral mucosa, nasal mucosa normal. NECK: Supple. JVP not raised. CHEST: She has end-expiratory rhonchi. CV: S1 and S2 normal. ABDOMEN: Benign. EXTREMITIES: No edema. 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 No focal deficit. LABORATORY EVALUATION WBC count 7.3, hemoglobin 7.9, hematocrit 23.8, MCH 86, platelet count 366. Sodium 140, potassium 3.5, chloride 105, CO2 27, BUN 8, creatinine 0.48. INR 1.1. IMAGING STUDIES Her CTA of the chest shows no pulmonary embolism. She has patchy ground glass attenuation bilaterally and right lower lobe pulmonary nodule. IMPRESSION 1. Shortness of breath with patchy ground glass infiltrate, possible inflammatory or infectious process. 2. Neutropenic fever. 3. Lymphoma. 4. Obstructive sleep apnea. 5. Hypertension. 6. History of multiple sclerosis. PLAN I discussed with the patient. We will continue antibiotic per ID recommendation. Aerosol treatments, albuterol, Atrovent. I will start her on IV Solu-Medrol, put her on continuous pulse ox and use BiPAP. I will also check her blood gas. I discussed with Dr. Jamil Mccormack is not likely for lymphoma to present like this. Further treatment will depend on her course in the hospital. Thank you, Dr. Cabrera, for this consult. Dima Geronimo MD ADA/SSB /6:28 PM /6:30 AM PIO
[2017-05-02] MEDS: RESP: ALBUTEROL 2.5 MG/IPRATROPIUM 0.5 MG NEB (SCH) NEB ×4 (08:09→22:18)
[2017-05-02] MEDS: CEFEPIME INJ 2,000 MG in SODIUM CHLORIDE 0.9% INJ 100 ML IV SCH ×3 (08:36→23:44)
[2017-05-02] MEDS: DOXYCYCLINE HYCLATE 100 MG CAP PO SCH ×3 (08:37→21:00)
[2017-05-02] MEDS: CITALOPRAM HYDROBROMIDE 20 MG TAB PO SCH (08:37)
[2017-05-02] MEDS: PANTOPRAZOLE SOD 40 MG DELAYED RELEASE TAB PO SCH (08:37)
[2017-05-02] MEDS: SODIUM CHLORIDE 0.9% FLUSH 10 ML FLUSH IV FLUSH SCH ×2 (08:38→20:53)
--- NOTE | 2017-05-02 12:21 | PD.ONC.PN ---
Subjective Subjective Remarks Tmax 102.8 yesterday afternoon. Still feeling short of breath. Feels better on CPAP--brought machine from home. Objective Data Date Time Temp Pulse Resp B/P (MAP) Pulse Ox O2 Delivery O2 Flow Rate FiO2 05/02/17 11:41 93 CPAP 10.00 05/02/17 08:00 97.0 90 20 137/68 (91) 93 05/02/17 05:00 97.3 78 16 144/72 (96) 93 05/02/17 00:20 90 05/02/17 00:00 97.7 94 18 121/58 (79) 93 05/01/17 22:25 Simple Mask 10.00 05/01/17 20:40 20 05/01/17 20:03 94 Simple Mask 10.00 05/01/17 20:00 98.4 100 20 122/55 (77) 91 05/01/17 18:30 98 05/01/17 16:59 102.8 104 23 123/48 (73) 89 05/01/17 16:30 92 Simple Mask 10.00 05/01/17 13:18 119 05/01/17 12:59 100.0 102 23 116/56 (76) 90 05/02/17 05/02/17 05/02/17 07:00 15:00 23:00 Intake Total 580 ml Balance 580 ml Result Diagram: 05/02/17 0455 05/01/17 0340 Laboratory Results Laboratory Tests Test 05/01/17 19:00 05/02/17 04:55 Blood Gas Puncture Site RT RADIAL Blood Gas Patient Temperature 98.6 Blood Gas HCO3 24 mmol/L Blood Gas Base Excess 0.5 mmol/L Blood Gas Oxygen Saturation 93 % Arterial Blood pH 7.43 Arterial Blood Partial Pressure CO2 37 mmHg Arterial Blood Partial Pressure O2 80 mmHg Arterial Blood Oxygen Content 13.6 Vol % Arterial Blood Carboxyhemoglobin 2.3 % Arterial Blood Methemoglobin 0.9 % Blood Gas Hemoglobin 10.3 G/DL Oxygen Delivery Device SIMPLE MASK Blood Gas Liter Flow 10 L/M White Blood Count 7.0 TH/MM3 Red Blood Count 2.87 MIL/MM3 Hemoglobin 8.6 GM/DL Hematocrit 25.0 % Mean Corpuscular Volume 87.4 FL Mean Corpuscular Hemoglobin 30.2 PG Mean Corpuscular Hemoglobin Concent 34.5 % Red Cell Distribution Width 17.1 % Platelet Count 352 TH/MM3 Mean Platelet Volume 7.5 FL Neutrophils (%) (Auto) 93.8 % Lymphocytes (%) (Auto) 3.4 % Monocytes (%) (Auto) 2.2 % Eosinophils (%) (Auto) 0.0 % Basophils (%) (Auto) 0.6 % Neutrophils # (Auto) 6.6 TH/MM3 Lymphocytes # (Auto) 0.2 TH/MM3 Monocytes # (Auto) 0.2 TH/MM3 Eosinophils # (Auto) 0.0 TH/MM3 Basophils # (Auto) 0.0 TH/MM3 CBC Comment DIFF FINAL Differential Comment Culture Results Microbiology Date/Time Source Procedure Growth Status 04/29/17 16:25 Blood Peripheral Aerobic Blood Culture - Preliminary NO GROWTH IN 3 DAYS Resulted 04/29/17 16:25 Blood Peripheral Anaerobic Blood Culture - Preliminary NO GROWTH IN 3 DAYS Resulted 04/29/17 16:22 Blood Peripheral Aerobic Blood Culture - Preliminary NO GROWTH IN 3 DAYS Resulted 04/29/17 16:22 Blood Peripheral Anaerobic Blood Culture - Preliminary NO GROWTH IN 3 DAYS Resulted Administered Medications Medications (Trade) Dose Ordered Sig/Magalys Route PRN Reason Start Time Stop Time Status Last Admin Dose Admin Sodium Chloride (NS Flush) 2 ml BID IV FLUSH 04/25/17 21:00 05/02/17 08:38 Acetaminophen (Tylenol) 500 mg Q4H PRN PO HEADACHE/fever > 100.4 04/25/17 19:15 05/01/17 16:34 Morphine Sulfate (Morphine Inj) 2 mg Q5M PRN IV PAIN SCALE 6 TO 10 04/25/17 19:15 05/02/17 08:36 Pantoprazole Sodium (Protonix) 40 mg DAILY PO 04/26/17 09:00 05/02/17 08:37 Enoxaparin Sodium (Lovenox Inj) 30 mg Q24H SQ 04/25/17 21:00 05/01/17 20:36 Citalopram Hydrobromide (CeleXA) 20 mg DAILY PO 04/27/17 09:00 05/02/17 08:37 Levothyroxine Sodium (Synthroid) 300 mcg DAILY@0600 PO 04/27/17 06:00 05/02/17 04:56 Doxycycline Hyclate (Vibramycin) 100 mg BID PO 04/28/17 11:00 05/02/17 08:37 Magnesium Hydroxide (Milk Of Jacquie Keen) 30 ml Q6H PRN PO CONSTIPATION 04/28/17 11:45 04/29/17 09:40 Senna/Docusate Sodium (Daniela-Colace) 2 tab BID PRN PO CONSTIPATION 04/28/17 11:45 04/29/17 09:41 Albuterol/ Ipratropium (Duoneb Neb) 1 ampule QID NEB NEB 04/29/17 16:00 05/02/17 11:38 Cefepime HCl 2000 mg/Sodium Chloride 100 ml @ 200 mls/hr Q8H IV 04/30/17 08:00 05/02/17 08:36 Ondansetron HCl (Zofran Inj) 4 mg Q6HR PRN IV PUSH n/v 04/30/17 09:00 05/01/17 20:35 Collagenase (Santyl Oint) 1 applic DAILY TOPICAL 05/01/17 09:00 05/01/17 09:44 Vancomycin HCl 2000 mg/Sodium Chloride 520 ml @ 250 mls/hr Q12H IV 05/01/17 16:00 05/02/17 04:58 Methylprednisolone Sodium Succinate (SoluMEDROL INJ) 40 mg Q6HR IV PUSH 05/01/17 18:45 05/02/17 04:53 Objective Remarks GENERAL: Pleasant obese female lying in bed with CPAP in place SKIN: Warm and dry. HEAD: Normocephalic. EYES: No injection or drainage. NECK: Supple, trachea midline. CARDIOVASCULAR: Regular rate and rhythm RESPIRATORY: diminished at bases, scattered rhonchi GASTROINTESTINAL: Abdomen soft, non-tender, nondistended. EXTREMITIES: No cyanosis NEUROLOGICAL: No obvious focal deficit. Awake, alert, and oriented x3. Assessment/Plan Problem List: (1) Large B-cell lymphoma ICD Codes: C85.10 - Unspecified B-cell lymphoma, unspecified site Status: Acute Plan: --Stage IV NHL, s/p R-CHOP, 8.15, was complicated by hypotension. --due for cycle #2 of CHOP chemotherapy on May 05 (2) Pneumonia ICD Codes: J18.9 - Pneumonia, unspecified organism Status: Acute Plan: -- CXR shows bilateral pulmonary infiltrates --on Cefepime, Vanco and Doxycycline. --BC no growth Assessment 71 y/o woman with Stage IV NHL, BM involvement s/p C1 CHOP, 8.15, now with fevers. h/o Atrial fibrillation Morbid obesity. Depression Hyperlipidemia Multiple sclerosis 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 Plan 1. continue steroids and IV antibiotics 2. monitor CBC 3. continue supportive care Attending Statement The exam, history, and the medical decision-making described in the above note were completed with the assistance of the mid-level provider. I reviewed and agree with the findings presented. I attest that I had a [id number] encounter with the patient on the same day, and personally performed and documented my assessment and findings in the medical record. Pt seen and examined. Feel better with CPAP, Bx site better. Discussed continue chemo schedule for Friday05/05/17. This would give opportunity to check cultures for 5 days. Chemo written, CAP BSA 2.0 pt with BMI 48.1 ECHO 04/09 pre chemo and ECHO 04/17 post chemo show normal EF 55-60% Pulmonary addressing the COPD. Noted no fevers while on steroids. Yesenia Woods May 02, 2017 12:21 Brenda Brown MD May 02, 2017 19:32
--- NOTE | 2017-05-02 13:06 | HHI.IDPN ---
Subjective Subjective Remarks Ms. Solares is a 71-year-old female with past medical history significant for diagnosis of large cell lymphoma diagnosed after she had weight loss of 35 pounds associated with night sweats and abdominal pain. She was found to have intra-abdominal adenopathy and a CT-guided biopsy of the abdominal mass showed a large cell lymphoma. The patient was treated with R- CHOP chemotherapy per review of Dr. Mccormack's note. She received a combination of Cytoxan, vincristine, Adriamycin on April 14 and Rituxan on April 15. She received only one injection of Neupogen which was administered the day prior to admission. The following day she developed pain in the chest as though someone was putting a large heavy weight on her chest. She also had pain running down the bones of the back. This is what brought her to the emergency room and patient got admitted. On admission she was febrile and had severe neutropenia. Due to neutropenic fever patient was admitted. Patient was started on empiric cefepime. She reports that she has been fairly okay but her fevers persist as high as 103 Fahrenheit this morning. Patient underwent workup for sepsis and all cultures are negative so far. Patient reports that she has seen her primary care physician for a ulcer at the site of her bone marrow biopsy which continued to drain so she had put the dressing over it. Patient reports that she hasn't been on any antibiotics but has been applying Neosporin ointment as prescribed to her by her primary care physician. ID consulted for management of neutropenic fever. Overnight events reviewed with RN No rash No diarrhea Fevers overnight Tmax 102.8F s.b Pulm started on Steroids. On CPAP. Antibiotics Doxy Cefepime IV Vanco IV Lines Line sites with no e/o infection Past Medical History reviewed Allergies: Coded Allergies: No Known Allergies (Verified , 04/09/17) Objective . Vital Signs Date Time Temp Pulse Resp B/P (MAP) Pulse Ox O2 Delivery O2 Flow Rate FiO2 05/02/17 11:41 93 CPAP 10.00 05/02/17 08:00 97.0 90 20 137/68 (91) 93 05/02/17 05:00 97.3 78 16 144/72 (96) 93 05/02/17 00:20 90 05/02/17 00:00 97.7 94 18 121/58 (79) 93 05/01/17 22:25 Simple Mask 10.00 05/01/17 20:40 20 05/01/17 20:03 94 Simple Mask 10.00 05/01/17 20:00 98.4 100 20 122/55 (77) 91 05/01/17 18:30 98 05/01/17 16:59 102.8 104 23 123/48 (73) 89 05/01/17 16:30 92 Simple Mask 10.00 05/01/17 13:18 119 . Laboratory Tests Test 05/01/17 03:40 05/02/17 04:55 White Blood Count 7.3 TH/MM3 7.0 TH/MM3 Red Blood Count 2.74 MIL/MM3 2.87 MIL/MM3 Hemoglobin 7.9 GM/DL 8.6 GM/DL Hematocrit 23.8 % 25.0 % Mean Corpuscular Volume 86.9 FL 87.4 FL Mean Corpuscular Hemoglobin 29.0 PG 30.2 PG Mean Corpuscular Hemoglobin Concent 33.4 % 34.5 % Red Cell Distribution Width 17.0 % 17.1 % Platelet Count 366 TH/MM3 352 TH/MM3 Mean Platelet Volume 7.2 FL 7.5 FL Neutrophils (%) (Auto) 82.3 % 93.8 % Lymphocytes (%) (Auto) 5.0 % 3.4 % Monocytes (%) (Auto) 11.4 % 2.2 % Eosinophils (%) (Auto) 0.4 % 0.0 % Basophils (%) (Auto) 0.9 % 0.6 % Neutrophils # (Auto) 6.0 TH/MM3 6.6 TH/MM3 Lymphocytes # (Auto) 0.4 TH/MM3 0.2 TH/MM3 Monocytes # (Auto) 0.8 TH/MM3 0.2 TH/MM3 Eosinophils # (Auto) 0.0 TH/MM3 0.0 TH/MM3 Basophils # (Auto) 0.1 TH/MM3 0.0 TH/MM3 CBC Comment AUTO DIFF DIFF FINAL Differential Total Cells Counted 100 Neutrophils % (Manual) 77 % Band Neutrophils % 4 % Lymphocytes % 3 % Monocytes % 12 % Basophils % 1 % Neutrophils # (Manual) 6.1 TH/MM3 Metamyelocytes 2 % Myelocytes 1 % Nucleated Red Blood Cells 1 /100 WBC Differential Comment FINAL DIFF MANUAL Toxic Granulation 2+ Platelet Estimate NORMAL Platelet Morphology Comment NORMAL Polychromasia 3.0 % Basophilic Stippling FAINT Spherocytes OCC Ovalocytes 1+ Acanthocytes OCC Laboratory Tests Test 05/01/17 03:40 Blood Urea Nitrogen 8 MG/DL Creatinine 0.42 MG/DL Random Glucose 95 MG/DL Calcium Level 8.1 MG/DL Sodium Level 140 MEQ/L Potassium Level 3.5 MEQ/L Chloride Level 105 MEQ/L Carbon Dioxide Level 27.2 MEQ/L Anion Gap 8 MEQ/L Estimat Glomerular Filtration Rate 149 ML/MIN Microbiology Date/Time Source Procedure Growth Status 04/29/17 16:25 Blood Peripheral Aerobic Blood Culture - Preliminary NO GROWTH IN 3 DAYS Resulted 04/29/17 16:25 Blood Peripheral Anaerobic Blood Culture - Preliminary NO GROWTH IN 3 DAYS Resulted 04/29/17 16:22 Blood Peripheral Aerobic Blood Culture - Preliminary NO GROWTH IN 3 DAYS Resulted 04/29/17 16:22 Blood Peripheral Anaerobic Blood Culture - Preliminary NO GROWTH IN 3 DAYS Resulted Imaging Last Impressions Upper Extremity Ultrasound 04/29/17 0000 Signed Impressions: Service Date/Time: Saturday, April 29, 2017 13:12 - CONCLUSION: 1. No evidence of deep venous thrombosis. Bandar Vo MD Lower Extremity Ultrasound 04/29/17 0000 Signed Impressions: Service Date/Time: Saturday, April 29, 2017 10:26 - CONCLUSION: No evidence of DVT. Right popliteal fossa Ruiz's cyst. Al Peña MD Chest X-Ray 04/29/17 0000 Signed Impressions: Service Date/Time: Saturday, April 29, 2017 13:46 - CONCLUSION: Bilateral pulmonary infiltrates. Patricio Motta Jr., MD CT Angiography 04/25/17 0000 Signed Impressions: Service Date/Time: Tuesday, April 25, 2017 16:23 - CONCLUSION: 1. No PE is identified. 2. Abnormal diffuse and somewhat patchy groundglass attenuation bilaterally. Etiology is nonspecific. Some considerations include edema, infectious, or inflammatory processes. 3. The right lower lobe pulmonary nodules and sonu hepatis mass have decreased in size, as above. 4. Mild splenic. Ravindra Seymour MD Physical Exam GENERAL: Morbidly obese, well-developed patient, in no apparent distress. SKIN: No rashes, ecchymoses or lesions. Cool and dry. HEAD: Atraumatic. Normocephalic. No temporal or scalp tenderness. EYES: Pupils equal round and reactive. Extraocular motions intact. No scleral icterus. No injection or drainage. ENT: Nose without bleeding, purulent drainage or septal hematoma. Throat without erythema, tonsillar hypertrophy or exudate. Uvula midline. Airway patent. NECK: Trachea midline. Supple, nontender, no meningeal signs. CARDIOVASCULAR: RRR, No murmurs. RESPIRATORY: Decreased breath sounds bilaterally. Basilar crackles. GASTROINTESTINAL: Abdomen soft, non-tender, nondistended. MUSCULOSKELETAL: Extremities without clubbing, cyanosis, or edema. NEUROLOGICAL: Awake and alert. Grossly non focal Psych: cooperative IV line sites with no e.o infection. Assessment & Plan Remarks Neutropenic fever on presentation. Neutropenia resolved. Fevers persist. Large cell Lymphoma: s/p R-CHOP Immune compromised. Pneumonia ? HCAP. Acute COPD exacerbation. Past h/o smoking. Quit 40 yrs back. ? Neupogen allergy: rash, chest pain and fevers on presentation. Recs continue Cefepime IV (re:HCAP) DC Vanco IV (Re: HCAP) Observe off MRSA coverage. Persistent fevers ? Drug fever. Continue Doxy oral (Re: atypical PNA) Follow cultures Follow clinically. d/w pt to cover for me this weekend. Idalmis Cabrera MD May 02, 2017 13:06
--- NOTE | 2017-05-02 13:56 | RADRPT ---
EXAM DATE/TIME: 05/02/2017 13:19 [facility] COMPARISON: CHEST SINGLE AP, April 29, 2017, 13:46. INDICATIONS : Pneumonia. MEDICAL HISTORY : Cardiovascular disease. Hypertension A-fib, MS, non-Hodgkins lymphoma. SURGICAL HISTORY : Appendectomy. Hysterectomy. ENCOUNTER: Subsequent ACUITY: 1 week PAIN SCORE: 0/10 LOCATION: Bilateral chest FINDINGS: The support is in good position. There is mild interstitial edema with consolidative changes develop ing in the left base with air bronchograms. The heart remains minimally enlarged. CONCLUSION: Increasing consolidation left base with air bronchograms. Jett Valle MD FACR on May 02, 2017 at 13:54 Board Certified Radiologist. This report was verified electronically.
[2017-05-02] MEDS ORDERED: PHARMACY ORDERED LAB ONE (15:45)
--- NOTE | 2017-05-02 16:58 | HHI.PR ---
Subjective Remarks Patient in bed she has her C Pap on Awake alert, she sounded frustrated, complained of left shoulder pain but no other C/o Objective Vitals Vital Signs Date Time Temp Pulse Resp B/P (MAP) Pulse Ox O2 Delivery O2 Flow Rate FiO2 05/02/17 16:00 97.2 80 20 129/61 (83) 96 05/02/17 12:00 97.6 101 20 144/69 (94) 98 05/02/17 11:41 93 CPAP 10.00 05/02/17 08:00 97.0 90 20 137/68 (91) 93 05/02/17 05:00 97.3 78 16 144/72 (96) 93 05/02/17 00:20 90 05/02/17 00:00 97.7 94 18 121/58 (79) 93 05/01/17 22:25 Simple Mask 10.00 05/01/17 20:40 20 05/01/17 20:03 94 Simple Mask 10.00 05/01/17 20:00 98.4 100 20 122/55 (77) 91 05/01/17 18:30 98 05/01/17 16:59 102.8 104 23 123/48 (73) 89 I/O 05/01/17 05/01/17 05/01/17 05/02/17 05/02/17 05/02/17 07:00 15:00 23:00 07:00 15:00 23:00 Intake Total 240 ml 240 ml 760 ml 580 ml Balance 240 ml 240 ml 760 ml 580 ml Intake Oral 240 ml 240 ml 240 ml 480 ml IV Total 520 ml 100 ml # Voids 2 4 3 4 Result Diagram: 05/02/17 0455 05/01/17 0340 Objective Remarks - - GENERAL: This is a well-nourished, well-developed patient, in no apparent distress. SKIN: No rashes, warm and dry HEAD: Atraumatic. Normocephalic. EYES: Pupils equal round and reactive. Extraocular motions intact. No scleral icterus. ENT: Nose without bleeding, or drainage, Airway patent. NECK: Trachea midline. Supple CARDIOVASCULAR: Regular rate and rhythm without murmurs, gallops, or rubs. RESPIRATORY: Fair air entry bilaterally. GASTROINTESTINAL: Abdomen soft, non-tender, nondistended. Positive bowel sounds MUSCULOSKELETAL: Extremities without clubbing, cyanosis, or edema. Pedal pulses appreciated NEUROLOGICAL: Awake and alert. Moves all extremity. Normal speech.no focal neurological deficit A/P Assessment and Plan 05/02: Bone marrow biopsy positive reviewed by me, pulmonary consulted appreciated their input, NAVI Rubio per ID continue cefepime add Doxey, monitor CBC A/P: Mrs. 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 Mrs. Solares reported waking in her normal state of health and developed substernal chest pain that radiated "down my spine" at approximately 11:00 am. An unknown period of time passed before she called EMS. She was given nitroglycerine and an aspirin and her chest pain (which was reported to be 10/10 ) decreased. Bilateral pneumonia in immunocompromised patient on chemotherapy(HCAP) Fever improved,, appreciate ID follow up continue on cefepime and vancomycin , doxycycline for atypical coverage Culture negative Neutropenic fever with possible underlying sepsis due to above, neutropenia resolved Monitor CBC, no Neupogen at this point per oncology Oncology following, possible giving second dose of chemotherapy while in the hospital Chest pain rule out ACS>> workup negative, low HDL 17.5, D/W patient to start statin when she improves Normocytic normochromic Anemia mostly due to recent chemotherapy -Status post Transfuse 1 unit of prbc's per Dr. Brown Diet: Healthy heart DVT prophylaxis: Lovenox 30 mg sc daily/ SCD's. Jacek Steele MD May 02, 2017 16:58
[2017-05-02] MEDS: COLLAGENASE OINT 30 GM TUBE TOPICAL SCH (17:35)
--- NOTE | 2017-05-02 18:09 | HHI.PR ---
Subjective Remarks 71 YOWF with lymphoma, Lung Infilt, neutropenic Fever On BIPAP CXR lung infilt with air bronchogram Still requiring 10 lit 02 Objective Vital Signs Vital Signs Date Time Temp Pulse Resp B/P (MAP) Pulse Ox O2 Delivery O2 Flow Rate FiO2 05/02/17 17:47 98 CPAP 10.00 05/02/17 16:00 97.2 80 20 129/61 (83) 96 05/02/17 12:00 97.6 101 20 144/69 (94) 98 05/02/17 11:41 93 CPAP 10.00 05/02/17 08:00 97.0 90 20 137/68 (91) 93 05/02/17 05:00 97.3 78 16 144/72 (96) 93 05/02/17 00:20 90 05/02/17 00:00 97.7 94 18 121/58 (79) 93 05/01/17 22:25 Simple Mask 10.00 05/01/17 20:40 20 05/01/17 20:03 94 Simple Mask 10.00 05/01/17 20:00 98.4 100 20 122/55 (77) 91 05/01/17 18:30 98 I/O 05/01/17 05/01/17 05/01/17 05/02/17 05/02/17 05/02/17 07:00 15:00 23:00 07:00 15:00 23:00 Intake Total 240 ml 240 ml 760 ml 580 ml Balance 240 ml 240 ml 760 ml 580 ml Intake Oral 240 ml 240 ml 240 ml 480 ml IV Total 520 ml 100 ml # Voids 2 4 3 4 Result Diagram: 05/02/17 0455 05/01/17 0340 Objective Remarks GENERAL: Elderly female mild sob SKIN: Warm and dry. HEAD: Normocephalic. EYES: No scleral icterus. No injection or drainage. NECK: Supple, trachea midline. No JVD or lymphadenopathy. CARDIOVASCULAR: Regular rate and rhythm without murmurs, gallops, or rubs. RESPIRATORY: Breath sounds equal bilaterally. No accessory muscle use. GASTROINTESTINAL: Abdomen soft, non-tender, nondistended. MUSCULOSKELETAL: No cyanosis, or edema. BACK: Nontender without obvious deformity. No CVA tenderness. A/P Assessment and Plan Resp inuff KISHOR Pneumonia COPD Pneumonia PLAN: Cont CPAP Supplement 02 IV Solumedrol Abx pe riD covering over weekend Dima Clifford MD May 02, 2017 18:08
[2017-05-02] MEDS: ENOXAPARIN SODIUM 30 MG/0.3 ML SYRINGE SQ SCH (20:53)
[2017-05-02] MEDS: ONDANSETRON HCL 4 MG/2 ML VIAL IV PUSH PRN (20:54)
[2017-05-02] MEDS: MAGNESIUM HYDROXIDE SUSP 30 ML CUP PO PRN (20:55)
[2017-05-03] VITALS (10 sets, daily range): BP systolic 119–162; BP diastolic 58–91; PULSE 68–103; RESP 17–22; TEMP 96.4–97.9; O2SAT 92–97
[2017-05-03] MEDS: LEVOTHYROXINE SODIUM 150 MCG TAB PO SCH (05:07)
[2017-05-03] MEDS: methylPREDNISolone SOD SUCC 40 MG/1 ML VIAL IV PUSH SCH ×3 (05:08→17:59)
[2017-05-03] MEDS: CEFEPIME INJ 2,000 MG in SODIUM CHLORIDE 0.9% INJ 100 ML IV SCH ×2 (08:00→17:59)
[2017-05-03 08:09] LABS: AUTOMATED NEUTROPHIL # 12.9 TH/MM3 (1.8-7.7); BASOPHIL % 0.1 % (0.0-2.0); HEMATOCRIT 26.8 % (35.0-46.0); HEMO FLAGS DIFF FINAL; LYMPH % 2.2 % (9.0-44.0); LYMPHOCYTE # 0.3 TH/MM3 (1.0-4.8); MEAN CELL VOLUME 87.4 FL (80.0-100.0); MEAN CORPUSCULAR HEMOGLOBIN 28.8 PG (27.0-34.0); MEAN CORPUSCULAR HGB CONC 32.9 % (32.0-36.0); MONO % 2.9 % (0.0-8.0); NEUT % 94.8 % (16.0-70.0); PLATELET COUNT 421 TH/MM3 (150-450); RED BLOOD COUNT 3.07 MIL/MM3 (4.00-5.30); RED CELL DISTRIBUTION WIDTH 17.1 % (11.6-17.2); WHITE BLOOD COUNT 13.6 TH/MM3 (4.0-11.0)
[2017-05-03] MEDS: RESP: ALBUTEROL 2.5 MG/IPRATROPIUM 0.5 MG NEB (SCH) NEB ×3 (08:15→15:52)
[2017-05-03 08:50] LABS: BICARBONATE 28.6 MEQ/L (21.0-32.0); POTASSIUM 4.2 MEQ/L (3.5-5.1)
[2017-05-03] MEDS: DOXYCYCLINE HYCLATE 100 MG CAP PO SCH ×2 (09:00→21:00)
[2017-05-03] MEDS: CITALOPRAM HYDROBROMIDE 20 MG TAB PO SCH (09:00)
[2017-05-03] MEDS: PANTOPRAZOLE SOD 40 MG DELAYED RELEASE TAB PO SCH (09:00)
--- NOTE | 2017-05-03 10:40 | PD.ONC.PN ---
Subjective Subjective Remarks Afebrile overnight. Breathing better today. hoping to go home soon. Objective Data Date Time Temp Pulse Resp B/P (MAP) Pulse Ox O2 Delivery O2 Flow Rate FiO2 05/03/17 08:46 96.4 78 20 128/58 (81) 97 05/03/17 08:15 94 Nasal Cannula 6.00 05/03/17 04:00 68 05/03/17 04:00 97.1 83 18 162/75 (104) 94 05/03/17 00:00 96.6 97 18 145/68 (93) 95 05/03/17 00:00 79 05/02/17 22:19 92 CPAP 10.00 50 05/02/17 20:00 98.2 103 18 108/72 (84) 97 05/02/17 20:00 74 05/02/17 17:47 98 CPAP 10.00 05/02/17 16:00 97.2 80 20 129/61 (83) 96 05/02/17 12:00 97.6 101 20 144/69 (94) 98 05/02/17 11:41 93 CPAP 10.00 Result Diagram: 05/03/17 0750 05/03/17 0750 Laboratory Results Laboratory Tests Test 05/03/17 07:50 White Blood Count 13.6 TH/MM3 Red Blood Count 3.07 MIL/MM3 Hemoglobin 8.8 GM/DL Hematocrit 26.8 % Mean Corpuscular Volume 87.4 FL Mean Corpuscular Hemoglobin 28.8 PG Mean Corpuscular Hemoglobin Concent 32.9 % Red Cell Distribution Width 17.1 % Platelet Count 421 TH/MM3 Mean Platelet Volume 7.0 FL Neutrophils (%) (Auto) 94.8 % Lymphocytes (%) (Auto) 2.2 % Monocytes (%) (Auto) 2.9 % Eosinophils (%) (Auto) 0.0 % Basophils (%) (Auto) 0.1 % Neutrophils # (Auto) 12.9 TH/MM3 Lymphocytes # (Auto) 0.3 TH/MM3 Monocytes # (Auto) 0.4 TH/MM3 Eosinophils # (Auto) 0.0 TH/MM3 Basophils # (Auto) 0.0 TH/MM3 CBC Comment DIFF FINAL Differential Comment Blood Urea Nitrogen 12 MG/DL Creatinine 0.42 MG/DL Random Glucose 155 MG/DL Calcium Level 9.3 MG/DL Sodium Level 141 MEQ/L Potassium Level 4.2 MEQ/L Chloride Level 106 MEQ/L Carbon Dioxide Level 28.6 MEQ/L Anion Gap 6 MEQ/L Estimat Glomerular Filtration Rate 149 ML/MIN Administered Medications Medications (Trade) Dose Ordered Sig/Magalys Route PRN Reason Start Time Stop Time Status Last Admin Dose Admin Sodium Chloride (NS Flush) 2 ml BID IV FLUSH 04/25/17 21:00 05/02/17 20:53 Acetaminophen (Tylenol) 500 mg Q4H PRN PO HEADACHE/fever > 100.4 04/25/17 19:15 05/01/17 16:34 Morphine Sulfate (Morphine Inj) 2 mg Q5M PRN IV PAIN SCALE 6 TO 10 04/25/17 19:15 05/02/17 20:54 Pantoprazole Sodium (Protonix) 40 mg DAILY PO 04/26/17 09:00 05/02/17 08:37 Enoxaparin Sodium (Lovenox Inj) 30 mg Q24H SQ 04/25/17 21:00 05/02/17 20:53 Citalopram Hydrobromide (CeleXA) 20 mg DAILY PO 04/27/17 09:00 05/02/17 08:37 Levothyroxine Sodium (Synthroid) 300 mcg DAILY@0600 PO 04/27/17 06:00 05/03/17 05:07 Doxycycline Hyclate (Vibramycin) 100 mg BID PO 04/28/17 11:00 05/02/17 08:37 Magnesium Hydroxide (Milk Of Magnesia Liq) 30 ml Q6H PRN PO CONSTIPATION 04/28/17 11:45 05/02/17 20:55 Senna/Docusate Sodium (Daniela-Colace) 2 tab BID PRN PO CONSTIPATION 04/28/17 11:45 04/29/17 09:41 Albuterol/ Ipratropium (Duoneb Neb) 1 ampule QID NEB NEB 04/29/17 16:00 05/03/17 08:15 Cefepime HCl 2000 mg/Sodium Chloride 100 ml @ 200 mls/hr Q8H IV 04/30/17 08:00 05/02/17 23:44 Ondansetron HCl (Zofran Inj) 4 mg Q6HR PRN IV PUSH n/v 04/30/17 09:00 05/02/17 20:54 Collagenase (Santyl Oint) 1 applic DAILY TOPICAL 05/01/17 09:00 05/02/17 17:35 Methylprednisolone Sodium Succinate (SoluMEDROL INJ) 40 mg Q6HR IV PUSH 05/01/17 18:45 05/03/17 05:08 Objective Remarks GENERAL: Pleasant obese female upright in bed on 6L O2 via NC SKIN: Warm and dry. HEAD: Normocephalic. EYES: No injection or drainage. NECK: Supple, trachea midline. CARDIOVASCULAR: Regular rate and rhythm RESPIRATORY: crackles at bases. anterior castelan clear GASTROINTESTINAL: Abdomen soft, non-tender, nondistended. EXTREMITIES: No cyanosis NEUROLOGICAL: awake and alert, normal speech. moving all extremities. Assessment/Plan Problem List: (1) Large B-cell lymphoma ICD Codes: C85.10 - Unspecified B-cell lymphoma, unspecified site Status: Acute Plan: --Stage IV NHL, s/p R-CHOP, 8.15, was complicated by hypotension. --due for cycle #2 of CHOP chemotherapy on May 05--> we plan to give inpatient if patient still in hospital. (2) Pneumonia ICD Codes: J18.9 - Pneumonia, unspecified organism Status: Acute Plan: -- CXR shows bilateral pulmonary infiltrates --on Cefepime, Vanco and Doxycycline. --BC no growth Assessment 71 y/o woman with Stage IV NHL, BM involvement s/p C1 CHOP, 8.15, now with fevers. h/o Atrial fibrillation Morbid obesity. Depression Hyperlipidemia Multiple sclerosis 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 Plan 1. plan for chemotherapy Friday 2. monitor CBC, CMP 3. continue IV abx, steroids. Attending Statement The exam, history, and the medical decision-making described in the above note were completed with the assistance of the mid-level provider. I reviewed and agree with the findings presented. I attest that I had a [id number] encounter with the patient on the same day, and personally performed and documented my assessment and findings in the medical record. Patient seen and examined, vital signs, medications, labs as well as pathology reviewed. Microbiology and inbound sales consultant reports reviewed. Patient with non-Hodgkin lymphoma status post CHOP chemotherapy. Now with fevers, no definite infectious etiology identified; suspect tumor fever. Plan to re-dose with systemic chemotherapy once her cultures remain negative for 5 days. Coye,Yesenia Penny PA May 03, 2017 10:40 Lisandro Dela Cruz MD May 03, 2017 15:09
[2017-05-03] MEDS ORDERED: ALTEPLASE RECOMBINANT 2 MG VIAL INTRACATH ONE (10:45)
[2017-05-03] MEDS: MORPHINE SULFATE 4 MG/ML INJ IV PRN ×2 (11:53→18:11)
--- NOTE | 2017-05-03 13:42 | HHI.PR ---
Subjective Remarks This is a follow up on 71 years old female with history of large B-cell lymphoma on chemotherapy admitted to the hospital due to chest pain and then she was found to have a neutropenia and fever develop, later on neutropenia improved however the fever persist, ID consulted, full workup is being done found to have pneumonia, now on 6 L oxygen, she has a history of COPD, pulmonary consulted, oncologist on board as well she is planning on resuming chemotherapy while patient in the hospital Objective Vitals Vital Signs Date Time Temp Pulse Resp B/P (MAP) Pulse Ox O2 Delivery O2 Flow Rate FiO2 05/03/17 12:21 94 Nasal Cannula 5.00 05/03/17 12:16 97.5 91 22 158/91 (113) 96 05/03/17 08:46 96.4 78 20 128/58 (81) 97 05/03/17 08:15 94 Nasal Cannula 6.00 05/03/17 08:00 Nasal Cannula 6.00 05/03/17 04:00 68 05/03/17 04:00 97.1 83 18 162/75 (104) 94 05/03/17 00:00 96.6 97 18 145/68 (93) 95 05/03/17 00:00 79 05/02/17 22:19 92 CPAP 10.00 50 05/02/17 20:00 98.2 103 18 108/72 (84) 97 05/02/17 20:00 74 05/02/17 17:47 98 CPAP 10.00 05/02/17 16:00 97.2 80 20 129/61 (83) 96 I/O 05/02/17 05/02/17 05/02/17 05/03/17 05/03/17 05/03/17 06:59 14:59 22:59 06:59 14:59 22:59 Intake Total 580 ml Balance 580 ml Intake Oral 480 ml IV Total 100 ml # Voids 4 1 1 Result Diagram: 05/03/17 0750 05/03/17 0750 Objective Remarks - - GENERAL: This is a well-nourished, well-developed patient, in no apparent distress. SKIN: No rashes, warm and dry HEAD: Atraumatic. Normocephalic. EYES: Pupils equal round and reactive. Extraocular motions intact. No scleral icterus. ENT: Nose without bleeding, or drainage, Airway patent. NECK: Trachea midline. Supple CARDIOVASCULAR: Regular rate and rhythm without murmurs, gallops, or rubs. RESPIRATORY: Fair air entry bilaterally. GASTROINTESTINAL: Abdomen soft, non-tender, nondistended. Positive bowel sounds MUSCULOSKELETAL: Extremities without clubbing, cyanosis, or edema. Pedal pulses appreciated NEUROLOGICAL: Awake and alert. Moves all extremity. Normal speech.no focal neurological deficit A/P Assessment and Plan A/P: Mrs. 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 Mrs. Solares reported waking in her normal state of health and developed substernal chest pain that radiated "down my spine" at approximately 11:00 am. An unknown period of time passed before she called EMS. She was given nitroglycerine and an aspirin and her chest pain (which was reported to be 10/10 ) decreased. Bilateral pneumonia in immunocompromised patient on chemotherapy(HCAP) Hypoxia patient on 6 L nasal cannula Recent ABG showed hypercapnia Fever improved,, appreciate ID follow up continue on cefepime and vancomycin , doxycycline for atypical coverage Culture negative Bone marrow biopsy positive reviewed by me, pulmonary consulted appreciated their input, DC Vanco per ID continue cefepime add Doxey, monitor CBC Neutropenic fever with possible underlying sepsis due to above, neutropenia resolved but fever persist after, now improved Monitor CBC, no Neupogen at this point per oncology Oncology following, possible giving second dose of chemotherapy while in the hospital Chest pain rule out ACS>> workup negative, low HDL 17.5, D/W patient to start statin when she improves Normocytic normochromic Anemia mostly due to recent chemotherapy -Status post Transfuse 1 unit of prbc's per Dr. Brown Diet: Healthy heart DVT prophylaxis: Lovenox 30 mg sc daily/ SCD's. Jacek Steele MD May 03, 2017 13:42
[2017-05-03] MEDS: SODIUM CHLORIDE 0.9% FLUSH 10 ML FLUSH IV FLUSH SCH ×2 (17:59→21:18)
[2017-05-03] MEDS: ONDANSETRON HCL 4 MG/2 ML VIAL IV PUSH PRN (18:00)
[2017-05-03] MEDS: COLLAGENASE OINT 30 GM TUBE TOPICAL SCH (18:18)
[2017-05-03] MEDS: ENOXAPARIN SODIUM 30 MG/0.3 ML SYRINGE SQ SCH (21:18)
[2017-05-04] VITALS (10 sets, daily range): BP systolic 118–180; BP diastolic 61–84; PULSE 60–92; RESP 18–21; TEMP 96.7–98.1; O2SAT 94–97
[2017-05-04] MEDS: methylPREDNISolone SOD SUCC 40 MG/1 ML VIAL IV PUSH SCH ×5 (00:19→23:08)
[2017-05-04] MEDS: CEFEPIME INJ 2,000 MG in SODIUM CHLORIDE 0.9% INJ 100 ML IV SCH ×4 (00:19→23:08)
[2017-05-04] MEDS: MORPHINE SULFATE 4 MG/ML INJ IV PRN (00:25)
--- NOTE | 2017-05-04 05:44 | RADRPT ---
EXAM DATE/TIME: 05/04/2017 04:36 [facility] COMPARISON: CHEST SINGLE AP, May 02, 2017, 13:19. INDICATIONS : Evaluate infiltrate MEDICAL HISTORY : Cardiovascular disease. Hypertension A-fib, MS, non-Hodgkins lymphoma. SURGICAL HISTORY : Appendectomy. Hysterectomy. ENCOUNTER: Subsequent ACUITY: 1 week PAIN SCORE: 7/10 LOCATION: Bilateral chest FINDINGS: A single view of the chest demonstrates right [id number] in superior vena cava. Cardiomegaly. Hazy airspace disease in the lungs, left greater than right is stable to slightly increased from Septembe r 1. Probable small effusions. No pneumothorax. CONCLUSION: 1. Slight increase in hazy airspace disease in the lungs since March 01, left greater than right. Cardi omegaly. Probable small effusions. Natalio Hogan MD on May 04, 2017 at 5:41 Board Certified Radiologist. This report was verified electronically.
[2017-05-04] MEDS: LEVOTHYROXINE SODIUM 150 MCG TAB PO SCH (06:18)
[2017-05-04] MEDS: CITALOPRAM HYDROBROMIDE 20 MG TAB PO SCH (08:05)
[2017-05-04] MEDS: PANTOPRAZOLE SOD 40 MG DELAYED RELEASE TAB PO SCH (08:05)
[2017-05-04] MEDS: DOXYCYCLINE HYCLATE 100 MG CAP PO SCH ×2 (08:06→21:00)
[2017-05-04] MEDS: SODIUM CHLORIDE 0.9% FLUSH 10 ML FLUSH IV FLUSH SCH ×2 (08:07→21:28)
[2017-05-04] MEDS ORDERED: GRANISETRON HCL 1 MG/ML VIAL IV ONE (08:30)
--- NOTE | 2017-05-04 09:02 | HHI.PR ---
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 labs PT and OT Objective Vitals Vital Signs Date Time Temp Pulse Resp B/P (MAP) Pulse Ox O2 Delivery O2 Flow Rate FiO2 05/04/17 08:45 96.9 64 20 136/61 (86) 96 05/04/17 08:23 Nasal Cannula 5.00 05/04/17 04:00 60 05/04/17 00:00 98.1 92 18 118/69 (85) 96 05/04/17 00:00 64 05/03/17 22:48 94 HOME CPAP 5.00 05/03/17 21:20 Nasal Cannula 5.00 50 05/03/17 20:00 97.7 98 17 141/65 (90) 93 05/03/17 20:00 103 05/03/17 16:28 97.9 100 20 119/75 (90) 93 05/03/17 12:21 94 Nasal Cannula 5.00 05/03/17 12:16 97.5 91 22 158/91 (113) 96 I/O 05/03/17 05/03/17 05/03/17 05/04/17 05/04/17 05/04/17 07:00 15:00 23:00 07:00 15:00 23:00 Intake Total 1080 ml Balance 1080 ml Intake Oral 1080 ml # Voids 1 5 1 1 Result Diagram: 05/03/17 0750 05/03/17 0750 Other Results Laboratory Tests Test 05/01/17 19:00 05/02/17 04:55 05/03/17 07:50 Blood Gas Puncture Site RT RADIAL Blood Gas Patient Temperature 98.6 Blood Gas HCO3 24 mmol/L Blood Gas Base Excess 0.5 mmol/L Blood Gas Oxygen Saturation 93 % Arterial Blood pH 7.43 Arterial Blood Partial Pressure CO2 37 mmHg Arterial Blood Partial Pressure O2 80 mmHg Arterial Blood Oxygen Content 13.6 Vol % Arterial Blood Carboxyhemoglobin 2.3 % Arterial Blood Methemoglobin 0.9 % Blood Gas Hemoglobin 10.3 G/DL Oxygen Delivery Device SIMPLE MASK Blood Gas Liter Flow 10 L/M White Blood Count 7.0 TH/MM3 13.6 TH/MM3 Red Blood Count 2.87 MIL/MM3 3.07 MIL/MM3 Hemoglobin 8.6 GM/DL 8.8 GM/DL Hematocrit 25.0 % 26.8 % Mean Corpuscular Volume 87.4 FL 87.4 FL Mean Corpuscular Hemoglobin 30.2 PG 28.8 PG Mean Corpuscular Hemoglobin Concent 34.5 % 32.9 % Red Cell Distribution Width 17.1 % 17.1 % Platelet Count 352 TH/MM3 421 TH/MM3 Mean Platelet Volume 7.5 FL 7.0 FL Neutrophils (%) (Auto) 93.8 % 94.8 % Lymphocytes (%) (Auto) 3.4 % 2.2 % Monocytes (%) (Auto) 2.2 % 2.9 % Eosinophils (%) (Auto) 0.0 % 0.0 % Basophils (%) (Auto) 0.6 % 0.1 % Neutrophils # (Auto) 6.6 TH/MM3 12.9 TH/MM3 Lymphocytes # (Auto) 0.2 TH/MM3 0.3 TH/MM3 Monocytes # (Auto) 0.2 TH/MM3 0.4 TH/MM3 Eosinophils # (Auto) 0.0 TH/MM3 0.0 TH/MM3 Basophils # (Auto) 0.0 TH/MM3 0.0 TH/MM3 CBC Comment DIFF FINAL DIFF FINAL Differential Comment Blood Urea Nitrogen 12 MG/DL Creatinine 0.42 MG/DL Random Glucose 155 MG/DL Calcium Level 9.3 MG/DL Sodium Level 141 MEQ/L Potassium Level 4.2 MEQ/L Chloride Level 106 MEQ/L Carbon Dioxide Level 28.6 MEQ/L Anion Gap 6 MEQ/L Estimat Glomerular Filtration Rate 149 ML/MIN Imaging Last Impressions Chest X-Ray 05/04/17 0600 Signed Impressions: Service Date/Time: Thursday, May 04, 2017 04:36 - CONCLUSION: 1. Slight increase in hazy airspace disease in the lungs since March 01, left greater than right. Cardiomegaly. Probable small effusions. Natalio Hogan MD Upper Extremity Ultrasound 04/29/17 0000 Signed Impressions: Service Date/Time: Saturday, April 29, 2017 13:12 - CONCLUSION: 1. No evidence of deep venous thrombosis. Bandar Vo MD Lower Extremity Ultrasound 04/29/17 0000 Signed Impressions: Service Date/Time: Saturday, April 29, 2017 10:26 - CONCLUSION: No evidence of DVT. Right popliteal fossa Ruiz's cyst. Al Peña MD CT Angiography 04/25/17 0000 Signed Impressions: Service Date/Time: Tuesday, April 25, 2017 16:23 - CONCLUSION: 1. No PE is identified. 2. Abnormal diffuse and somewhat patchy groundglass attenuation bilaterally. Etiology is nonspecific. Some considerations include edema, infectious, or inflammatory processes. 3. The right lower lobe pulmonary nodules and sonu hepatis mass have decreased in size, as above. 4. Mild splenic. Ravindra Seymour MD Objective Remarks GENERAL: Alert oriented talkative and cooperative in some pain SKIN: Warm and dry. HEAD: Atraumatic. Normocephalic. EYES: Pupils equal and round. No scleral icterus. No injection or drainage. Extraocular muscles intact ENT: No nasal bleeding or discharge. Mucous membranes pink and moist. Tongue is midline NECK: Trachea midline. No JVD. Neck is supple CARDIOVASCULAR: Regular rate and rhythm. S1-S2 no S3 or S4 no heave or thrill or rub or gallop RESPIRATORY: No accessory muscle use. Clear to auscultation. Breath sounds equal bilaterally. Diminished breath sounds bilaterally GASTROINTESTINAL: Abdomen soft, non-tender, nondistended. Hepatic and splenic margins not palpable. Obese MUSCULOSKELETAL: Extremities without clubbing, cyanosis, or edema. No obvious deformities. NEUROLOGICAL: Awake and alert. No obvious cranial nerve deficits. Motor grossly within normal limits. Five out of 5 muscle strength in the arms and legs. Normal speech. PSYCHIATRIC: Appropriate mood and affect; insight and judgment normal. Medications and IVs Microbiology Date/Time Source Procedure Growth Status 04/29/17 16:25 Blood Peripheral Aerobic Blood Culture - Preliminary NO GROWTH IN 4 DAYS Resulted 04/29/17 16:25 Blood Peripheral Anaerobic Blood Culture - Preliminary NO GROWTH IN 4 DAYS Resulted 04/26/17 03:00 Urine Clean Catch Urine Culture - Final NO GROWTH IN 48 HOURS. Complete 04/26/17 09:30 Wound Back Gram Stain - Final Complete 04/26/17 09:30 Wound Back Wound Culture - Final HEAVY GROWTH NORMAL SKIN DARIO... Complete A/P Assessment and Plan Mrs. 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 Mrs. Solares reported waking in her normal state of health and developed substernal chest pain that radiated "down my spine" at approximately 11:00 am. An unknown period of time passed before she called EMS. She was given nitroglycerine and an aspirin and her chest pain (which was reported to be 10/10 ) decreased. Bilateral pneumonia in immunocompromised patient on chemotherapy(HCAP) Hypoxia patient on 6 L nasal cannula Recent ABG showed hypercapnia Fever improved,, appreciate ID follow up continue on cefepime and vancomycin , doxycycline for atypical coverage Culture negative Bone marrow biopsy positive reviewed by me, pulmonary consulted appreciated their input, DC Vanco per ID continue cefepime add Doxey, monitor CBC Neutropenic fever with possible underlying sepsis due to above, neutropenia resolved but fever persist after, now improved Monitor CBC, no Neupogen at this point per oncology Oncology following, possible giving second dose of chemotherapy while in the hospital Chest pain rule out ACS>> workup negative, low HDL 17.5, D/W patient to start statin when she improves Normocytic normochromic Anemia mostly due to recent chemotherapy -Status post Transfuse 1 unit of prbc's per Dr. Brown Diet: Healthy heart DVT prophylaxis: Lovenox 30 mg sc daily/ SCD's. CHEMO DURING THIS HOSPITALIZATION [facility] AND PT Jett Glez DO May 04, 2017 09:02
[2017-05-04] MEDS ORDERED: oxyCODONE/ACETAMINOPHEN 5 MG/325 MG TAB PO PRN (09:15)
--- NOTE | 2017-05-04 10:09 | PD.ONC.PN ---
Subjective Subjective Remarks Afebrile overnight. patient resting in bed in nad. Feels breathing is improved. Objective Data Date Time Temp Pulse Resp B/P (MAP) Pulse Ox O2 Delivery O2 Flow Rate FiO2 05/04/17 09:45 94 Nasal Cannula 5.00 05/04/17 08:45 96.9 64 20 136/61 (86) 96 05/04/17 08:23 Nasal Cannula 5.00 05/04/17 04:00 60 05/04/17 00:00 98.1 92 18 118/69 (85) 96 05/04/17 00:00 64 05/03/17 22:48 94 HOME CPAP 5.00 05/03/17 21:20 Nasal Cannula 5.00 50 05/03/17 20:00 97.7 98 17 141/65 (90) 93 05/03/17 20:00 103 05/03/17 16:28 97.9 100 20 119/75 (90) 93 05/03/17 12:21 94 Nasal Cannula 5.00 05/03/17 12:16 97.5 91 22 158/91 (113) 96 Result Diagram: 05/03/17 0750 05/03/17 0750 Imaging Studies Last 24 hours Impressions Chest X-Ray 05/04/17 0600 Signed Impressions: Service Date/Time: Thursday, May 04, 2017 04:36 - CONCLUSION: 1. Slight increase in hazy airspace disease in the lungs since March 01, left greater than right. Cardiomegaly. Probable small effusions. Natalio Hogan MD Administered Medications Medications (Trade) Dose Ordered Sig/Magalys Route PRN Reason Start Time Stop Time Status Last Admin Dose Admin Sodium Chloride (NS Flush) 2 ml BID IV FLUSH 04/25/17 21:00 05/04/17 08:07 Acetaminophen (Tylenol) 500 mg Q4H PRN PO HEADACHE/fever > 100.4 04/25/17 19:15 05/01/17 16:34 Pantoprazole Sodium (Protonix) 40 mg DAILY PO 04/26/17 09:00 05/04/17 08:05 Enoxaparin Sodium (Lovenox Inj) 30 mg Q24H SQ 04/25/17 21:00 05/03/17 21:18 Citalopram Hydrobromide (CeleXA) 20 mg DAILY PO 04/27/17 09:00 05/04/17 08:05 Levothyroxine Sodium (Synthroid) 300 mcg DAILY@0600 PO 04/27/17 06:00 05/04/17 06:18 Doxycycline Hyclate (Vibramycin) 100 mg BID PO 04/28/17 11:00 05/02/17 08:37 Magnesium Hydroxide (Milk Of Magnvickie Liq) 30 ml Q6H PRN PO CONSTIPATION 04/28/17 11:45 05/02/17 20:55 Senna/Docusate Sodium (Daniela-Colace) 2 tab BID PRN PO CONSTIPATION 04/28/17 11:45 04/29/17 09:41 Cefepime HCl 2000 mg/Sodium Chloride 100 ml @ 200 mls/hr Q8H IV 04/30/17 08:00 05/04/17 08:06 Ondansetron HCl (Zofran Inj) 4 mg Q6HR PRN IV PUSH n/v 04/30/17 09:00 05/03/17 18:00 Collagenase (Santyl Oint) 1 applic DAILY TOPICAL 05/01/17 09:00 05/03/17 18:18 Methylprednisolone Sodium Succinate (SoluMEDROL INJ) 40 mg Q6HR IV PUSH 05/01/17 18:45 05/04/17 06:18 Objective Remarks GENERAL: Pleasant female sitting up in bed. On 6L O2 via NC SKIN: Warm and dry. HEAD: Normocephalic. EYES: No injection or drainage. NECK: Supple, trachea midline. CARDIOVASCULAR: Regular rate and rhythm RESPIRATORY: fine crackles at bases, L>R, anterior castelan clear. GASTROINTESTINAL: Abdomen soft, non-tender, nondistended. EXTREMITIES: No cyanosis NEUROLOGICAL: aox3. no obvious focal deficit. normal speech. Assessment/Plan Problem List: (1) Large B-cell lymphoma ICD Codes: C85.10 - Unspecified B-cell lymphoma, unspecified site Status: Acute Plan: --Stage IV NHL, s/p R-CHOP, 8.15, was complicated by hypotension. --due for cycle #2 of CHOP chemotherapy on May 05 (2) Pneumonia ICD Codes: J18.9 - Pneumonia, unspecified organism Status: Acute Plan: -- CXR shows bilateral pulmonary infiltrates --on Cefepime, Vanco and Doxycycline. --BC no growth Assessment 71 y/o woman with Stage IV NHL, BM involvement s/p C1 CHOP, 8.15, now with fevers. h/o Atrial fibrillation Morbid obesity. Depression Hyperlipidemia Multiple sclerosis 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 Plan 1. plan for CHOP chemotherapy on Friday 2. check CBC, CMP 3. continue IV abx, steroids. Yesenia Woods May 04, 2017 10:09
[2017-05-04] MEDS: MAGNESIUM HYDROXIDE SUSP 30 ML CUP PO PRN (10:24)
[2017-05-04] MEDS: ONDANSETRON HCL 4 MG/2 ML VIAL IV PUSH PRN (10:24)
[2017-05-04 15:31] LABS: AUTOMATED NEUTROPHIL # 14.9 TH/MM3 (1.8-7.7); BASOPHIL % 0.1 % (0.0-2.0); LYMPHOCYTE # 0.3 TH/MM3 (1.0-4.8); MEAN CELL VOLUME 88.7 FL (80.0-100.0); MEAN CORPUSCULAR HEMOGLOBIN 28.8 PG (27.0-34.0); MEAN CORPUSCULAR HGB CONC 32.5 % (32.0-36.0); MONO % 3.1 % (0.0-8.0); NEUT % 94.8 % (16.0-70.0); PLATELET COUNT 416 TH/MM3 (150-450); RED BLOOD COUNT 3.05 MIL/MM3 (4.00-5.30); RED CELL DISTRIBUTION WIDTH 17.7 % (11.6-17.2); WHITE BLOOD COUNT 15.7 TH/MM3 (4.0-11.0)
[2017-05-04 15:37] LABS: HEMO FLAGS AUTO DIFF
[2017-05-04 15:52] LABS: ALT (GPT) 19 U/L (10-53); ANION GAP 6 MEQ/L (5-15); AST (GOT) 22 U/L (15-37); BICARBONATE 30.2 MEQ/L (21.0-32.0); BLOOD UREA NITROGEN 16 MG/DL (7-18); CHLORIDE 104 MEQ/L (98-107); GLOMERULAR FILTRATION RATE 90 ML/MIN (>89); POTASSIUM 4.1 MEQ/L (3.5-5.1); SODIUM (NA) 140 MEQ/L (136-145)
[2017-05-04 15:54] LABS: ALKALINE PHOSPHATASE 80 U/L (45-117); TOTAL BILIRUBIN ADULT 0.4 MG/DL (0.2-1.0)
[2017-05-04] MEDS: oxyCODONE/ACETAMINOPHEN 10 MG/325 MG TAB PO PRN ×2 (16:32→23:09)
[2017-05-04] MEDS: COLLAGENASE OINT 30 GM TUBE TOPICAL SCH (16:33)
[2017-05-04 16:47] LABS: NEUTROPHIL # MANUAL DIFF 15.5 TH/MM3 (1.8-7.7); POLYS (SEG NEUTROPHILS) 99 % (16-70); WBC DIFF SAMPLE 100
[2017-05-04 16:48] LABS: OVALOCYTES 1+ (NORMAL); PLATELET ESTIMATE SMEAR HIGH (NORMAL); PLATELET MORPHOLOGY NORMAL (NORMAL); SCAN/DIFF FINAL DIFF MANUAL
[2017-05-04] MEDS: ENOXAPARIN SODIUM 30 MG/0.3 ML SYRINGE SQ SCH (21:24)
[2017-05-04] MEDS ORDERED: FLUCONAZOLE 100 MG TAB PO ONE (21:45)
[2017-05-04] MEDS ORDERED: CLOTRIMAZOLE 1% VAG CREAM 45 GM TUBE VAGINAL PRN (21:45)
[2017-05-05] VITALS (25 sets, daily range): BP systolic 109–160; BP diastolic 60–90; PULSE 54–135; RESP 6–29; TEMP 96.4–98.8; O2SAT 88–99
[2017-05-05] MEDS: methylPREDNISolone SOD SUCC 40 MG/1 ML VIAL IV PUSH SCH ×3 (05:17→17:26)
[2017-05-05] MEDS: LEVOTHYROXINE SODIUM 150 MCG TAB PO SCH (05:17)
[2017-05-05] MEDS: oxyCODONE/ACETAMINOPHEN 10 MG/325 MG TAB PO PRN ×2 (05:18→17:27)
[2017-05-05 05:41] LABS: BASOPHIL % 0.1 % (0.0-2.0); HEMATOCRIT 24.6 % (35.0-46.0); HEMO FLAGS DIFF FINAL; LYMPH % 3.2 % (9.0-44.0); LYMPHOCYTE # 0.3 TH/MM3 (1.0-4.8); MEAN CELL VOLUME 88.4 FL (80.0-100.0); MEAN CORPUSCULAR HEMOGLOBIN 28.9 PG (27.0-34.0); MEAN CORPUSCULAR HGB CONC 32.7 % (32.0-36.0); MONO % 3.2 % (0.0-8.0); NEUT % 93.5 % (16.0-70.0); PLATELET COUNT 312 TH/MM3 (150-450); RED BLOOD COUNT 2.79 MIL/MM3 (4.00-5.30); RED CELL DISTRIBUTION WIDTH 17.2 % (11.6-17.2); WHITE BLOOD COUNT 9.6 TH/MM3 (4.0-11.0)
[2017-05-05 06:04] LABS: ANION GAP 5 MEQ/L (5-15); AST (GOT) 20 U/L (15-37); BICARBONATE 30.6 MEQ/L (21.0-32.0); BLOOD UREA NITROGEN 18 MG/DL (7-18); CHLORIDE 103 MEQ/L (98-107); GLOMERULAR FILTRATION RATE 119 ML/MIN (>89); MAGNESIUM 2.6 MG/DL (1.5-2.5); POTASSIUM 4.5 MEQ/L (3.5-5.1); SODIUM (NA) 139 MEQ/L (136-145)
[2017-05-05 06:15] LABS: ALKALINE PHOSPHATASE 70 U/L (45-117); ALT (GPT) 18 U/L (10-53); TOTAL BILIRUBIN ADULT 0.4 MG/DL (0.2-1.0)
[2017-05-05] MEDS: PANTOPRAZOLE SOD 40 MG DELAYED RELEASE TAB PO SCH (08:06)
[2017-05-05] MEDS: predniSONE 50 MG TAB PO SCH (08:06)
[2017-05-05] MEDS: CITALOPRAM HYDROBROMIDE 20 MG TAB PO SCH (08:06)
[2017-05-05] MEDS: CEFEPIME INJ 2,000 MG in SODIUM CHLORIDE 0.9% INJ 100 ML IV SCH ×2 (08:06→17:25)
[2017-05-05] MEDS: MAGNESIUM HYDROXIDE SUSP 30 ML CUP PO PRN (08:14)
[2017-05-05] MEDS ORDERED: DEXAMETHASONE INJ 20 MG in SODIUM CHLORIDE 0.9% INJ 50 ML IV ONE (08:30)
[2017-05-05] MEDS ORDERED: vinCRIStine INJ 2 MG in SODIUM CHLORIDE 0.9% INJ 50 ML IV ONE (09:00)
[2017-05-05] MEDS: DOXYCYCLINE HYCLATE 100 MG CAP PO SCH ×2 (09:00→20:05)
[2017-05-05] MEDS: COLLAGENASE OINT 30 GM TUBE TOPICAL SCH (09:00)
[2017-05-05] MEDS ORDERED: SODIUM CHLORID 0.9% IV ONE (09:00)
[2017-05-05] MEDS ORDERED: CYCLOPHOSPHAMIDE IV ONE (09:00)
[2017-05-05] MEDS ORDERED: DOXORUBICIN IV PUSH ONE (09:00)
[2017-05-05] MEDS ORDERED: DOXOrubicin HCL 10 MG/5 ML INJ IV ONE (09:00)
--- NOTE | 2017-05-05 09:56 | HHI.PR ---
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 labs PT and OT 05-05 FOR CHOP CHEMO TODAY NO CURRENT COMPLAINTS NO PAIN NO SOB NO NAUSEA OR VOMITING AT THIS TIME DW PATIENT AND RN AND Objective Vitals Vital Signs Date Time Temp Pulse Resp B/P (MAP) Pulse Ox O2 Delivery O2 Flow Rate FiO2 05/05/17 08:58 96.4 72 22 140/63 (88) 99 05/05/17 08:18 99 Nasal Cannula 5.00 05/05/17 08:16 Nasal Cannula 5.00 05/05/17 06:46 97.7 64 18 131/60 (83) 98 05/05/17 04:00 61 05/05/17 01:14 98.0 62 18 160/69 (99) 94 05/05/17 00:00 54 05/04/17 21:33 Nasal Cannula 5.00 50 05/04/17 21:19 97.9 90 18 143/69 (93) 97 05/04/17 20:00 61 05/04/17 16:57 97.9 72 21 180/84 (116) 97 05/04/17 16:49 65 05/04/17 12:05 96.7 82 20 128/67 (87) 97 05/04/17 11:48 63 I/O 05/04/17 05/04/17 05/04/17 05/05/17 05/05/17 05/05/17 07:00 15:00 23:00 07:00 15:00 23:00 Intake Total 340 ml 365 ml 480 ml Balance 340 ml 365 ml 480 ml Intake Oral 240 ml 240 ml 480 ml IV Total 100 ml 125 ml # Voids 1 5 1 1 # Bowel Movements 1 1 Result Diagram: 05/05/1751905/05/17519 Other Results Laboratory Tests Test 05/03/17 07:50 05/04/17 14:14 05/05/17 05:20 White Blood Count 13.6 TH/MM3 15.7 TH/MM3 9.6 TH/MM3 Red Blood Count 3.07 MIL/MM3 3.05 MIL/MM3 2.79 MIL/MM3 Hemoglobin 8.8 GM/DL 8.8 GM/DL 8.1 GM/DL Hematocrit 26.8 % 27.0 % 24.6 % Mean Corpuscular Volume 87.4 FL 88.7 FL 88.4 FL Mean Corpuscular Hemoglobin 28.8 PG 28.8 PG 28.9 PG Mean Corpuscular Hemoglobin Concent 32.9 % 32.5 % 32.7 % Red Cell Distribution Width 17.1 % 17.7 % 17.2 % Platelet Count 421 TH/MM3 416 TH/MM3 312 TH/MM3 Mean Platelet Volume 7.0 FL 7.3 FL 6.9 FL Neutrophils (%) (Auto) 94.8 % 94.8 % 93.5 % Lymphocytes (%) (Auto) 2.2 % 2.0 % 3.2 % Monocytes (%) (Auto) 2.9 % 3.1 % 3.2 % Eosinophils (%) (Auto) 0.0 % 0.0 % 0.0 % Basophils (%) (Auto) 0.1 % 0.1 % 0.1 % Neutrophils # (Auto) 12.9 TH/MM3 14.9 TH/MM3 9.0 TH/MM3 Lymphocytes # (Auto) 0.3 TH/MM3 0.3 TH/MM3 0.3 TH/MM3 Monocytes # (Auto) 0.4 TH/MM3 0.5 TH/MM3 0.3 TH/MM3 Eosinophils # (Auto) 0.0 TH/MM3 0.0 TH/MM3 0.0 TH/MM3 Basophils # (Auto) 0.0 TH/MM3 0.0 TH/MM3 0.0 TH/MM3 CBC Comment DIFF FINAL AUTO DIFF DIFF FINAL Differential Comment FINAL DIFF MANUAL Blood Urea Nitrogen 12 MG/DL 16 MG/DL 18 MG/DL Creatinine 0.42 MG/DL 0.65 MG/DL 0.51 MG/DL Random Glucose 155 MG/DL 155 MG/DL 142 MG/DL Calcium Level 9.3 MG/DL 9.3 MG/DL 9.4 MG/DL Sodium Level 141 MEQ/L 140 MEQ/L 139 MEQ/L Potassium Level 4.2 MEQ/L 4.1 MEQ/L 4.5 MEQ/L Chloride Level 106 MEQ/L 104 MEQ/L 103 MEQ/L Carbon Dioxide Level 28.6 MEQ/L 30.2 MEQ/L 30.6 MEQ/L Anion Gap 6 MEQ/L 6 MEQ/L 5 MEQ/L Estimat Glomerular Filtration Rate 149 ML/MIN 90 ML/MIN 119 ML/MIN Differential Total Cells Counted 100 Neutrophils % (Manual) 99 % Lymphocytes % 1 % Neutrophils # (Manual) 15.5 TH/MM3 Platelet Estimate HIGH Platelet Morphology Comment NORMAL Ovalocytes 1+ Total Protein 5.5 GM/DL 4.9 GM/DL Albumin 2.3 GM/DL 2.0 GM/DL Alkaline Phosphatase 80 U/L 70 U/L Aspartate Amino Transf (AST/SGOT) 22 U/L 20 U/L Alanine Aminotransferase (ALT/SGPT) 19 U/L 18 U/L Total Bilirubin 0.4 MG/DL 0.4 MG/DL Phosphorus Level 3.5 MG/DL Magnesium Level 2.6 MG/DL Free Thyroxine 2.20 NG/DL Thyroid Stimulating Hormone 3rd Gen 0.014 uIU/ML Imaging Last Impressions Chest X-Ray 05/04/17 0600 Signed Impressions: Service Date/Time: Thursday, May 04, 2017 04:36 - CONCLUSION: 1. Slight increase in hazy airspace disease in the lungs since March 01, left greater than right. Cardiomegaly. Probable small effusions. Natalio Hogan MD Upper Extremity Ultrasound 04/29/17 0000 Signed Impressions: Service Date/Time: Saturday, April 29, 2017 13:12 - CONCLUSION: 1. No evidence of deep venous thrombosis. Bandar Vo MD Lower Extremity Ultrasound 04/29/17 0000 Signed Impressions: Service Date/Time: Saturday, April 29, 2017 10:26 - CONCLUSION: No evidence of DVT. Right popliteal fossa Ruiz's cyst. Al Peña MD CT Angiography 04/25/17 0000 Signed Impressions: Service Date/Time: Tuesday, April 25, 2017 16:23 - CONCLUSION: 1. No PE is identified. 2. Abnormal diffuse and somewhat patchy groundglass attenuation bilaterally. Etiology is nonspecific. Some considerations include edema, infectious, or inflammatory processes. 3. The right lower lobe pulmonary nodules and sonu hepatis mass have decreased in size, as above. 4. Mild splenic. Ravindra eSymour MD Objective Remarks GENERAL: Alert oriented talkative and cooperative in some pain SKIN: Warm and dry. HEAD: Atraumatic. Normocephalic. EYES: Pupils equal and round. No scleral icterus. No injection or drainage. Extraocular muscles intact ENT: No nasal bleeding or discharge. Mucous membranes pink and moist. Tongue is midline NECK: Trachea midline. No JVD. Neck is supple CARDIOVASCULAR: Regular rate and rhythm. S1-S2 no S3 or S4 no heave or thrill or rub or gallop RESPIRATORY: No accessory muscle use. Clear to auscultation. Breath sounds equal bilaterally. Diminished breath sounds bilaterally GASTROINTESTINAL: Abdomen soft, non-tender, nondistended. Hepatic and splenic margins not palpable. Obese MUSCULOSKELETAL: Extremities without clubbing, cyanosis, or edema. No obvious deformities. NEUROLOGICAL: Awake and alert. No obvious cranial nerve deficits. Motor grossly within normal limits. Five out of 5 muscle strength in the arms and legs. Normal speech. PSYCHIATRIC: Appropriate mood and affect; insight and judgment normal. Medications and IVs Current Medications Morphine Sulfate (Morphine Inj) 4 mg ONCE ONCE IV PUSH Last administered on 15:19; Start 04/25/17 at 14:30; Stop 04/25/17 at 14:31; Status DC Ondansetron HCl (Zofran Inj) 4 mg ONCE ONCE IV PUSH Last administered on 15:18; Start 04/25/17 at 14:30; Stop 04/25/17 at 14:31; Status DC Sodium Chloride 250 ml @ 15 mls/hr ONCE ONCE IV Last administered on 16:45; Start 04/25/17 at 16:45; Stop 04/26/17 at 09:24; Status DC Iohexol (Omnipaque 350 Inj) 50 ml STK-MED ONCE IVCONTRAST Last administered on 04/25/17 13:17; Start 04/25/17 at 13:17; Stop 04/25/17 at 16:39; Status DC Sodium Chloride (NS Flush) 2 ml BID IV FLUSH Last administered on 05/04/17 21: 28; Start 04/25/17 at 21:00 Sodium Chloride (NS Flush) 2 ml UNSCH PRN IV FLUSH FLUSH AFTER USING IV ACCESS ; Start 04/25/17 at 19:15 Nitroglycerin (Nitrostat Sl) 0.4 mg Q5M PRN SL ANGINA; Start 04/25/17 at 19:15 Acetaminophen (Tylenol) 500 mg Q4H PRN PO HEADACHE/fever > 100.4 Last administered on 05/01/17 16:34; Start 04/25/17 at 19:15 Morphine Sulfate (Morphine Inj) 2 mg Q5M PRN IV PAIN SCALE 6 TO 10 Last administered on 05/04/17 00:25; Start 04/25/17 at 19:15; Stop 05/04/17 at 09:45; Status DC Pantoprazole Sodium (Protonix) 40 mg DAILY PO Last administered on 05/05/17 08: 06; Start 04/26/17 at 09:00 Enoxaparin Sodium (Lovenox Inj) 30 mg Q24H SQ Last administered on 05/04/17 21: 24; Start 04/25/17 at 21:00 Cefepime HCl 2000 mg/Sodium Chloride 100 ml @ 200 mls/hr Q8H IV Last administered on 04/28/17 08:18; Start 04/26/17 at 00:00; Stop 04/28/17 at 11:01 ; Status DC Citalopram Hydrobromide (CeleXA) 20 mg DAILY PO Last administered on 05/05/17 08:06; Start 04/27/17 at 09:00 Levothyroxine Sodium (Synthroid) 300 mcg DAILY@0600 PO Last administered on 05/05 05:17; Start 04/27/17 at 06:00 Potassium Chloride (KCl) 40 meq Q4H PO Last administered on 04/27/17 19:37; Start 04/27/17 at 14:00; Stop 04/27/17 at 18:01; Status DC Potassium Chloride 100 ml @ 50 mls/hr BOLUS ONCE IV Last administered on 04/27 14:49; Start 04/27/17 at 14:00; Stop 04/27/17 at 15:59; Status DC Pharmacy Profile Note 0 ml @ 0 mls/hr UNSCH OTHER ; Start 04/27/17 at 14:00; Stop 04/28/17 at 11:01; Status DC Vancomycin HCl 1750 mg/Sodium Chloride 517.5 ml @ 250 mls/hr ONCE ONCE IV ; Start 04/27/17 at 14:00; Stop 04/27/17 at 16:04; Status UNV Vancomycin HCl 2000 mg/Sodium Chloride 520 ml @ 257.5 mls/ hr Q24H IV Last administered on 04/27/17 16:47; Start 04/27/17 at 16:00; Stop 04/28/17 at 11:01 ; Status DC Miscellaneous Information SPECIFIC LAB TO BE JR... ONCE ONCE .XX ; Start 04/30 at 15:45; Stop 04/30/17 at 15:45; Status DC Doxycycline Hyclate (Vibramycin) 100 mg BID PO Last administered on 05/02/17 08 :37; Start 04/28/17 at 11:00 Magnesium Hydroxide (Milk Of Magnvickie Liq) 30 ml Q6H PRN PO CONSTIPATION Last administered on 05/05/17 08:14; Start 04/28/17 at 11:45 Bisacodyl (Dulcolax Supp) 10 mg DAILY PRN RECTAL CONSTIPATION; Start 04/28/17 at 11:45 Senna/Docusate Sodium (Daniela-Colace) 2 tab BID PRN PO CONSTIPATION Last administered on 04/29/17 09:41; Start 04/28/17 at 11:45 Albuterol/ Ipratropium (Duoneb Neb) 1 ampule QID NEB NEB Last administered on 05/03/17 15:52; Start 04/29/17 at 16:00; Stop 05/03/17 at 15:59; Status DC Albuterol/ Ipratropium (Duoneb Neb) 1 ampule Q2HR NEB PRN NEB short of breath Last administered on 05/05/17 08:18; Start 04/29/17 at 14:00 Pharmacy Profile Note 0 ml @ 0 mls/hr UNSCH OTHER ; Start 04/29/17 at 13:00; Stop 05/02/17 at 13:06; Status DC Cefepime HCl 2000 mg/Sodium Chloride 100 ml @ 200 mls/hr Q8H IV Last administered on 04/29/17 22:54; Start 04/29/17 at 14:00; Stop 04/30/17 at 06:41 ; Status DC Vancomycin HCl 1750 mg/Sodium Chloride 517.5 ml @ 250 mls/hr Q12H IV Last administered on 05/01/17 03:49; Start 04/29/17 at 15:00; Stop 05/01/17 at 09:14 ; Status DC Miscellaneous Information SPECIFIC LAB TO BE DRAWN:VANCOMYCIN TROUGH DATE TO... ONCE ONCE .XX Last administered on 05/01/17 02:45; Start 05/01/17 at 02:45; Stop 05/01/17 at 02:46; Status DC Alteplase, Recombinant (Cathflo Activase Inj) 2 mg ONCE ONCE INTRACATH Last administered on 04/30/17 04:14; Start 04/29/17 at 18:30; Stop 04/29/17 at 18:31 ; Status DC Cefepime HCl 2000 mg/Sodium Chloride 100 ml @ 200 mls/hr Q8H IV Last administered on 05/05/17 08:06; Start 04/30/17 at 08:00 Pharmacy Profile Note 0 ml @ 0 mls/hr UNSCH OTHER ; Start 04/30/17 at 08:30; Status Cancel Ondansetron HCl (Zofran Inj) 4 mg Q6HR PRN IV PUSH n/v Last administered on 05/04 10:24; Start 04/30/17 at 09:00 Diphenhydramine HCl (Benadryl) 50 mg ONCE ONCE PO Last administered on 21:44; Start 04/30/17 at 21:30; Stop 04/30/17 at 21:34; Status DC Collagenase (Santyl Oint) 1 applic DAILY TOPICAL Last administered on 05/04/17 16:33; Start 05/01/17 at 09:00 Vancomycin HCl 2000 mg/Sodium Chloride 520 ml @ 250 mls/hr Q12H IV Last administered on 05/02/17 04:58; Start 05/01/17 at 16:00; Stop 05/02/17 at 13:06; Status DC Miscellaneous Information SPECIFIC LAB TO BE DRAWN:VANCOMY... ONCE ONCE .XX ; Start 05/02/17 at 15:45; Stop 05/02/17 at 15:46; Status Cancel Methylprednisolone Sodium Succinate (SoluMEDROL INJ) 40 mg Q6HR IV PUSH Last administered on 05/05/17 05:17; Start 05/01/17 at 18:45 Heparin Sodium (Porcine) (Heparin Central Flush) 250 units UNSCH PRN IV FLUSH SEE PROTOCOL TABLE; Start 05/03/17 at 09:30 Heparin Sodium (Porcine) (Heparin Central Flush) 500 units UNSCH IV FLUSH ; Start 05/03/17 at 09:30 Alteplase, Recombinant (Cathflo Activase Inj) 2 mg ONCE ONCE INTRACATH Last administered on 05/03/17 11:55; Start 05/03/17 at 10:45; Stop 05/03/17 at 11:09; Status DC Oxycodone/ Acetaminophen (Percocet 5-325 Mg) 1 tab Q6H PRN PO PAIN 3-5 Last administered on 05/04/17 10:24; Start 05/04/17 at 09:15 Oxycodone/ Acetaminophen (Percocet 10-325 Mg) 1 tab Q6H PRN PO PAIN 6 TO 10 Last administered on 05/05/17 05:18; Start 05/04/17 at 09:15 Granisetron HCl (Kytril Inj) 1 mg ONCE ONCE IV ; Start 05/04/17 at 08:30; Stop 05/04/17 at 16:10; Status DC Dexamethasone Sodium Phosphate 20 mg/Sodium Chloride 55 ml @ 220 mls/hr ONCE ONCE IV ; Start 05/05/17 at 08:30; Stop 05/05/17 at 08:44; Status DC Doxorubicin HCl (Adriamycin Inj) 100 mg ONCE ONCE IV ; Start 05/05/17 at 09:00; Stop 05/05/17 at 09:01; Status Cancel Vincristine Sulfate 2 mg/ Sodium Chloride 52 ml @ 208 mls/hr ONCE ONCE IV ; Start 05/05/17 at 09:00; Stop 05/05/17 at 09:14; Status DC Prednisone (Deltasone) 100 mg DAILY PO Last administered on 05/05/17 08:06; Start 05/05/17 at 08:00; Stop 05/08/17 at 09:01 Cyclophosphamide 1500 mg/Sodium Chloride 500 ml @ 90 mls/hr ONCE ONCE IV ; Start 05/05/17 at 09:00; Stop 05/05/17 at 14:33 Doxorubicin HCl 50 mg/Syringe / Bag 25 ml @ 0 mls/hr ONCE ONCE IV PUSH ; Start 05/05/17 at 09:00; Stop 05/05/17 at 09:01; Status DC Doxorubicin HCl 50 mg/Syringe / Bag 25 ml @ 0 mls/hr ONCE ONCE IV PUSH ; Start 05/05/17 at 09:00; Stop 05/05/17 at 09:01; Status DC Fluconazole (Diflucan) 150 mg ONCE ONCE PO Last administered on 05/04/17t 21:50 ; Start 05/04/17 at 21:45; Stop 05/04/17 at 21:46; Status DC Clotrimazole (Gyne Lotrimin 7 1% Vag Cream) 1 appl HS PRN VAGINAL itching; Start 05/04/17 at 21:45; Stop 05/11/17 at 21:44 Urinary Catheter: No Vascular Central Line Catheter: Yes Line: Central Venous Catheter (PORT) Side: Right A/P Assessment and Plan Mrs. 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 Mrs. Solares reported waking in her normal state of health and developed substernal chest pain that radiated "down my spine" at approximately 11:00 am. An unknown period of time passed before she called EMS. She was given nitroglycerine and an aspirin and her chest pain (which was reported to be 10/10 ) decreased. Bilateral pneumonia in immunocompromised patient on chemotherapy(HCAP) Hypoxia patient on 6 L nasal cannula Recent ABG showed hypercapnia Fever improved,, appreciate ID follow up continue on cefepime and vancomycin , doxycycline for atypical coverage Culture negative Bone marrow biopsy positive reviewed by me, pulmonary consulted appreciated their inputNAVI Vanco per ID continue cefepime add Doxey, monitor CBC Neutropenic fever with possible underlying sepsis due to above, neutropenia resolved but fever persist after, now improved Monitor CBC, no Neupogen at this point per oncology Oncology following, possible giving second dose of chemotherapy while in the hospital Chest pain rule out ACS>> workup negative, low HDL 17.5, D/W patient to start statin when she improves Normocytic normochromic Anemia mostly due to recent chemotherapy -Status post Transfuse 1 unit of prbc's per Dr. Brown Diet: Healthy heart DVT prophylaxis: Lovenox 30 mg sc daily/ SCD's. CHEMO DURING THIS HOSPITALIZATION ON MAY 05 DEE PEREZ RN AND PT AND AM LABS Jett Glez DO May 05, 2017 09:56
[2017-05-05] MEDS ORDERED: GRANISETRON HCL 1 MG/ML VIAL IV ONE (10:00)
[2017-05-05] MEDS: SODIUM CHLORIDE 0.9% FLUSH 10 ML FLUSH IV FLUSH SCH ×2 (10:45→20:04)
--- NOTE | 2017-05-05 10:48 | PD.ONC.PN ---
Subjective Subjective Remarks Feels well, eager to start chemo and go home. Objective Data Date Time Temp Pulse Resp B/P (MAP) Pulse Ox O2 Delivery O2 Flow Rate FiO2 05/05/17 08:58 96.4 72 22 140/63 (88) 99 05/05/17 08:18 99 Nasal Cannula 5.00 05/05/17 08:16 Nasal Cannula 5.00 05/05/17 06:46 97.7 64 18 131/60 (83) 98 05/05/17 04:00 61 05/05/17 01:14 98.0 62 18 160/69 (99) 94 05/05/17 00:00 54 05/04/17 21:33 Nasal Cannula 5.00 50 05/04/17 21:19 97.9 90 18 143/69 (93) 97 05/04/17 20:00 61 05/04/17 16:57 97.9 72 21 180/84 (116) 97 05/04/17 16:49 65 05/04/17 12:05 96.7 82 20 128/67 (87) 97 05/04/17 11:48 63 05/05/17 05/05/17 05/05/17 07:00 15:00 23:00 Intake Total 480 ml 100 ml Balance 480 ml 100 ml Result Diagram: 05/05/1751905/05/17519 Laboratory Results Laboratory Tests Test 05/04/17 14:14 05/05/17 05:20 White Blood Count 15.7 TH/MM3 9.6 TH/MM3 Red Blood Count 3.05 MIL/MM3 2.79 MIL/MM3 Hemoglobin 8.8 GM/DL 8.1 GM/DL Hematocrit 27.0 % 24.6 % Mean Corpuscular Volume 88.7 FL 88.4 FL Mean Corpuscular Hemoglobin 28.8 PG 28.9 PG Mean Corpuscular Hemoglobin Concent 32.5 % 32.7 % Red Cell Distribution Width 17.7 % 17.2 % Platelet Count 416 TH/MM3 312 TH/MM3 Mean Platelet Volume 7.3 FL 6.9 FL Neutrophils (%) (Auto) 94.8 % 93.5 % Lymphocytes (%) (Auto) 2.0 % 3.2 % Monocytes (%) (Auto) 3.1 % 3.2 % Eosinophils (%) (Auto) 0.0 % 0.0 % Basophils (%) (Auto) 0.1 % 0.1 % Neutrophils # (Auto) 14.9 TH/MM3 9.0 TH/MM3 Lymphocytes # (Auto) 0.3 TH/MM3 0.3 TH/MM3 Monocytes # (Auto) 0.5 TH/MM3 0.3 TH/MM3 Eosinophils # (Auto) 0.0 TH/MM3 0.0 TH/MM3 Basophils # (Auto) 0.0 TH/MM3 0.0 TH/MM3 CBC Comment AUTO DIFF DIFF FINAL Differential Total Cells Counted 100 Neutrophils % (Manual) 99 % Lymphocytes % 1 % Neutrophils # (Manual) 15.5 TH/MM3 Differential Comment FINAL DIFF MANUAL Platelet Estimate HIGH Platelet Morphology Comment NORMAL Ovalocytes 1+ Blood Urea Nitrogen 16 MG/DL 18 MG/DL Creatinine 0.65 MG/DL 0.51 MG/DL Random Glucose 155 MG/DL 142 MG/DL Total Protein 5.5 GM/DL 4.9 GM/DL Albumin 2.3 GM/DL 2.0 GM/DL Calcium Level 9.3 MG/DL 9.4 MG/DL Alkaline Phosphatase 80 U/L 70 U/L Aspartate Amino Transf (AST/SGOT) 22 U/L 20 U/L Alanine Aminotransferase (ALT/SGPT) 19 U/L 18 U/L Total Bilirubin 0.4 MG/DL 0.4 MG/DL Sodium Level 140 MEQ/L 139 MEQ/L Potassium Level 4.1 MEQ/L 4.5 MEQ/L Chloride Level 104 MEQ/L 103 MEQ/L Carbon Dioxide Level 30.2 MEQ/L 30.6 MEQ/L Anion Gap 6 MEQ/L 5 MEQ/L Estimat Glomerular Filtration Rate 90 ML/MIN 119 ML/MIN Phosphorus Level 3.5 MG/DL Magnesium Level 2.6 MG/DL Free Thyroxine 2.20 NG/DL Thyroid Stimulating Hormone 3rd Gen 0.014 uIU/ML Administered Medications Medications (Trade) Dose Ordered Sig/Magalys Route PRN Reason Start Time Stop Time Status Last Admin Dose Admin Sodium Chloride (NS Flush) 2 ml BID IV FLUSH 04/25/17 21:00 05/04/17 21:28 Acetaminophen (Tylenol) 500 mg Q4H PRN PO HEADACHE/fever > 100.4 04/25/17 19:15 05/01/17 16:34 Pantoprazole Sodium (Protonix) 40 mg DAILY PO 04/26/17 09:00 05/05/17 08:06 Enoxaparin Sodium (Lovenox Inj) 30 mg Q24H SQ 04/25/17 21:00 05/04/17 21:24 Citalopram Hydrobromide (CeleXA) 20 mg DAILY PO 04/27/17 09:00 05/05/17 08:06 Doxycycline Hyclate (Vibramycin) 100 mg BID PO 04/28/17 11:00 05/02/17 08:37 Magnesium Hydroxide (Milk Of Magnvickie Liq) 30 ml Q6H PRN PO CONSTIPATION 04/28/17 11:45 05/05/17 08:14 Senna/Docusate Sodium (Daniela-Colace) 2 tab BID PRN PO CONSTIPATION 04/28/17 11:45 04/29/17 09:41 Albuterol/ Ipratropium (Duoneb Neb) 1 ampule Q2HR NEB PRN NEB short of breath 04/29/17 14:00 05/05/17 08:18 Cefepime HCl 2000 mg/Sodium Chloride 100 ml @ 200 mls/hr Q8H IV 04/30/17 08:00 05/05/17 08:06 Ondansetron HCl (Zofran Inj) 4 mg Q6HR PRN IV PUSH n/v 04/30/17 09:00 05/04/17 10:24 Collagenase (Santyl Oint) 1 applic DAILY TOPICAL 05/01/17 09:00 05/04/17 16:33 Methylprednisolone Sodium Succinate (SoluMEDROL INJ) 40 mg Q6HR IV PUSH 05/01/17 18:45 05/05/17 05:17 Oxycodone/ Acetaminophen (Percocet 5-325 Mg) 1 tab Q6H PRN PO PAIN 3-5 05/04/17 09:15 05/04/17 10:24 Oxycodone/ Acetaminophen (Percocet 10-325 Mg) 1 tab Q6H PRN PO PAIN 6 TO 10 05/04/17 09:15 05/05/17 05:18 Prednisone (Deltasone) 100 mg DAILY PO 05/05/17 08:00 05/08/17 09:01 05/05/17 08:06 Objective Remarks GENERAL: Pleasant female sitting up in bed. On 6L O2 via NC SKIN: Warm and dry. morbidly obese. HEAD: Normocephalic. EYES: No injection or drainage. NECK: Supple, trachea midline. CARDIOVASCULAR: Regular rate and rhythm RESPIRATORY: fine crackles at bases, L>R, anterior castelan clear. GASTROINTESTINAL: Abdomen soft, non-tender, nondistended. EXTREMITIES: No cyanosis NEUROLOGICAL: aox3. no obvious focal deficit. normal speech. Assessment/Plan Problem List: (1) Large B-cell lymphoma ICD Codes: C85.10 - Unspecified B-cell lymphoma, unspecified site Status: Acute Plan: 05/05/17. C2 CHOP due today. Discussed risks and benefit of chemo, BSA cap at 2.0, Echo x 2 normal. BC neg x 5 days, afebrile w/ steroids for COPD. Clinically improve with therapy. Proceed with chemo as planned. Monitor for toxicity. --Stage IV NHL, s/p R-CHOP, 8.15, was complicated by hypotension. --due for cycle #2 of CHOP chemotherapy on May 05 (2) Pneumonia ICD Codes: J18.9 - Pneumonia, unspecified organism Status: Acute Plan: 05/05/17. Tx cont per pulmonary. Will consult w/ Dr. Clifford. Plan fu scan as out pt. If infiltrate persist - bronchoscopy. -- CXR shows bilateral pulmonary infiltrates --on Cefepime, Vanco and Doxycycline. --BC no growth Assessment 71 y/o woman with Stage IV NHL, BM involvement s/p C1 CHOP, 8.15, now with fevers. h/o Atrial fibrillation Morbid obesity. Depression Hyperlipidemia Multiple sclerosis 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 Plan 1. C2 CHOP chemotherapy Today. 2. check CBC, CMP 3. continue IV abx, steroids. 4. Monitor clinically. Brenda Brown MD May 05, 2017 10:48
[2017-05-05 11:37] LABS: HEMOGLOBIN A1a 0.9 %; HEMOGLOBIN A1b 1.3 %; HEMOGLOBIN Ao 87.1 %; HEMOGLOBIN LA1C 2.2 %; HEMOGLOBIN P3 4.7 %
[2017-05-05] MEDS ORDERED: DILTIAZEM HCL 25 MG/5 ML VIAL IV ONE (13:00)
[2017-05-05] MEDS ORDERED: DILTIAZEM HCL 25 MG/5 ML VIAL IV PUSH ONE (14:30)
[2017-05-05] MEDS: DILTIAZEM HCL 30 MG TAB PO SCH ×2 (15:06→20:04)
[2017-05-05] MEDS: DILTIAZEM INJ 125 MG in SODIUM CHLORIDE 0.9% INJ 100 ML IV PRN (15:07)
[2017-05-05] MEDS ORDERED: CHLORHEXIDINE GLUCONATE 2 % 1 PACK (2 CLOTHS)(extra cloths) TOPICAL PRN (17:00)
--- NOTE | 2017-05-05 17:13 | HHI.PR ---
Subjective Remarks 71 YOWF with lymphoma, Lung Infilt, neutropenic Fever Weaned to 4LNC Had Chemo CXR lung infilt with air bronchogram Objective Vital Signs Vital Signs Date Time Temp Pulse Resp B/P (MAP) Pulse Ox O2 Delivery O2 Flow Rate FiO2 05/05/17 15:07 123 116/72 05/05/17 12:50 128 05/05/17 12:29 120 24 130/60 (83) 94 05/05/17 12:14 135 05/05/17 12:14 97.2 120 20 131/61 (84) 94 05/05/17 09:10 70 05/05/17 08:58 96.4 72 22 140/63 (88) 99 05/05/17 08:18 99 Nasal Cannula 5.00 05/05/17 08:16 Nasal Cannula 5.00 05/05/17 06:46 97.7 64 18 131/60 (83) 98 05/05/17 04:00 61 05/05/17 01:14 98.0 62 18 160/69 (99) 94 05/05/17 00:00 54 05/04/17 21:33 Nasal Cannula 5.00 50 05/04/17 21:19 97.9 90 18 143/69 (93) 97 05/04/17 20:00 61 I/O 05/04/17 05/04/17 05/04/17 05/05/17 05/05/17 05/05/17 07:00 15:00 23:00 07:00 15:00 23:00 Intake Total 340 ml 365 ml 480 ml 340 ml Balance 340 ml 365 ml 480 ml 340 ml Intake Oral 240 ml 240 ml 480 ml 240 ml IV Total 100 ml 125 ml 100 ml # Voids 1 5 1 1 4 # Bowel Movements 1 1 1 Result Diagram: 05/05/17 0520 05/05/17 0520 Objective Remarks GENERAL: Elderly female mild sob SKIN: Warm and dry. HEAD: Normocephalic. EYES: No scleral icterus. No injection or drainage. NECK: Supple, trachea midline. No JVD or lymphadenopathy. CARDIOVASCULAR: Regular rate and rhythm without murmurs, gallops, or rubs. RESPIRATORY: Breath sounds equal bilaterally. No accessory muscle use. GASTROINTESTINAL: Abdomen soft, non-tender, nondistended. MUSCULOSKELETAL: No cyanosis, or edema. BACK: Nontender without obvious deformity. No CVA tenderness. A/P Assessment and Plan Resp inuff KISHOR Pneumonia COPD Pneumonia PLAN: CPAP prn Supplement 02 IV Solumedrol Abx per Dima Aden MD May 05, 2017 17:13
--- NOTE | 2017-05-05 17:14 | HHI.IDPN ---
Subjective Subjective Remarks Ms. Solares is a 71-year-old female with past medical history significant for diagnosis of large cell lymphoma diagnosed after she had weight loss of 35 pounds associated with night sweats and abdominal pain. She was found to have intra-abdominal adenopathy and a CT-guided biopsy of the abdominal mass showed a large cell lymphoma. The patient was treated with R- CHOP chemotherapy per review of Dr. Mccormack's note. She received a combination of Cytoxan, vincristine, Adriamycin on April 14 and Rituxan on April 15. She received only one injection of Neupogen which was administered the day prior to admission. The following day she developed pain in the chest as though someone was putting a large heavy weight on her chest. She also had pain running down the bones of the back. This is what brought her to the emergency room and patient got admitted. On admission she was febrile and had severe neutropenia. Due to neutropenic fever patient was admitted. Patient was started on empiric cefepime. She reports that she has been fairly okay but her fevers persist as high as 103 Fahrenheit this morning. Patient underwent workup for sepsis and all cultures are negative so far. Patient reports that she has seen her primary care physician for a ulcer at the site of her bone marrow biopsy which continued to drain so she had put the dressing over it. Patient reports that she hasn't been on any antibiotics but has been applying Neosporin ointment as prescribed to her by her primary care physician. ID consulted for management of neutropenic fever. Overnight events reviewed with RN No rash No diarrhea RN on floor reports pt was in Afib after chemoRx today and transferred to ICU. Sitting up in bed, eating a subway sandwich and talking to . No Shortness of breath. Antibiotics Doxy Cefepime IV Vanco IV Lines Line sites with no e/o infection Past Medical History reviewed Allergies: Coded Allergies: No Known Allergies (Verified , 04/09/17) Objective . Vital Signs Date Time Temp Pulse Resp B/P (MAP) Pulse Ox O2 Delivery O2 Flow Rate FiO2 05/05/17 15:07 123 116/72 05/05/17 12:50 128 05/05/17 12:29 120 24 130/60 (83) 94 05/05/17 12:14 135 05/05/17 12:14 97.2 120 20 131/61 (84) 94 05/05/17 09:10 70 05/05/17 08:58 96.4 72 22 140/63 (88) 99 05/05/17 08:18 99 Nasal Cannula 5.00 05/05/17 08:16 Nasal Cannula 5.00 05/05/17 06:46 97.7 64 18 131/60 (83) 98 05/05/17 04:00 61 05/05/17 01:14 98.0 62 18 160/69 (99) 94 05/05/17 00:00 54 05/04/17 21:33 Nasal Cannula 5.00 50 05/04/17 21:19 97.9 90 18 143/69 (93) 97 05/04/17 20:00 61 05/05/17 05/05/17 05/06/17 15:00 23:00 07:00 Intake Total 340 ml Balance 340 ml Intake Oral 240 ml IV Total 100 ml # Voids 4 # Bowel Movements 1 . Laboratory Tests Test 05/04/17 14:14 05/05/17 05:20 White Blood Count 15.7 TH/MM3 9.6 TH/MM3 Red Blood Count 3.05 MIL/MM3 2.79 MIL/MM3 Hemoglobin 8.8 GM/DL 8.1 GM/DL Hematocrit 27.0 % 24.6 % Mean Corpuscular Volume 88.7 FL 88.4 FL Mean Corpuscular Hemoglobin 28.8 PG 28.9 PG Mean Corpuscular Hemoglobin Concent 32.5 % 32.7 % Red Cell Distribution Width 17.7 % 17.2 % Platelet Count 416 TH/MM3 312 TH/MM3 Mean Platelet Volume 7.3 FL 6.9 FL Neutrophils (%) (Auto) 94.8 % 93.5 % Lymphocytes (%) (Auto) 2.0 % 3.2 % Monocytes (%) (Auto) 3.1 % 3.2 % Eosinophils (%) (Auto) 0.0 % 0.0 % Basophils (%) (Auto) 0.1 % 0.1 % Neutrophils # (Auto) 14.9 TH/MM3 9.0 TH/MM3 Lymphocytes # (Auto) 0.3 TH/MM3 0.3 TH/MM3 Monocytes # (Auto) 0.5 TH/MM3 0.3 TH/MM3 Eosinophils # (Auto) 0.0 TH/MM3 0.0 TH/MM3 Basophils # (Auto) 0.0 TH/MM3 0.0 TH/MM3 CBC Comment AUTO DIFF DIFF FINAL Differential Total Cells Counted 100 Neutrophils % (Manual) 99 % Lymphocytes % 1 % Neutrophils # (Manual) 15.5 TH/MM3 Differential Comment FINAL DIFF MANUAL Platelet Estimate HIGH Platelet Morphology Comment NORMAL Ovalocytes 1+ Laboratory Tests Test 05/04/17 14:14 05/05/17 05:20 05/05/17 15:50 Blood Urea Nitrogen 16 MG/DL 18 MG/DL Creatinine 0.65 MG/DL 0.51 MG/DL Random Glucose 155 MG/DL 142 MG/DL Total Protein 5.5 GM/DL 4.9 GM/DL Albumin 2.3 GM/DL 2.0 GM/DL Calcium Level 9.3 MG/DL 9.4 MG/DL Alkaline Phosphatase 80 U/L 70 U/L Aspartate Amino Transf (AST/SGOT) 22 U/L 20 U/L Alanine Aminotransferase (ALT/SGPT) 19 U/L 18 U/L Total Bilirubin 0.4 MG/DL 0.4 MG/DL Sodium Level 140 MEQ/L 139 MEQ/L Potassium Level 4.1 MEQ/L 4.5 MEQ/L Chloride Level 104 MEQ/L 103 MEQ/L Carbon Dioxide Level 30.2 MEQ/L 30.6 MEQ/L Anion Gap 6 MEQ/L 5 MEQ/L Estimat Glomerular Filtration Rate 90 ML/MIN 119 ML/MIN Phosphorus Level 3.5 MG/DL Magnesium Level 2.6 MG/DL Hemoglobin A1c 4.7 % Free Thyroxine 2.20 NG/DL Thyroid Stimulating Hormone 3rd Gen 0.014 uIU/ML Total Creatine Kinase 22 U/L Troponin I 0.02 NG/ML Imaging Last Impressions Upper Extremity Ultrasound 04/29/17 0000 Signed Impressions: Service Date/Time: Saturday, April 29, 2017 13:12 - CONCLUSION: 1. No evidence of deep venous thrombosis. Bandar Vo MD Lower Extremity Ultrasound 04/29/17 0000 Signed Impressions: Service Date/Time: Saturday, April 29, 2017 10:26 - CONCLUSION: No evidence of DVT. Right popliteal fossa Ruiz's cyst. Al Peña MD Chest X-Ray 04/29/17 0000 Signed Impressions: Service Date/Time: Saturday, April 29, 2017 13:46 - CONCLUSION: Bilateral pulmonary infiltrates. Patricio Motta Jr., MD CT Angiography 04/25/17 0000 Signed Impressions: Service Date/Time: Tuesday, April 25, 2017 16:23 - CONCLUSION: 1. No PE is identified. 2. Abnormal diffuse and somewhat patchy groundglass attenuation bilaterally. Etiology is nonspecific. Some considerations include edema, infectious, or inflammatory processes. 3. The right lower lobe pulmonary nodules and sonu hepatis mass have decreased in size, as above. 4. Mild splenic. Ravindra Seymour MD Physical Exam GENERAL: Morbidly obese, well-developed patient, in no apparent distress. SKIN: No rashes, ecchymoses or lesions. Cool and dry. HEAD: Atraumatic. Normocephalic. No temporal or scalp tenderness. EYES: Pupils equal round and reactive. Extraocular motions intact. No scleral icterus. No injection or drainage. ENT: Nose without bleeding, purulent drainage or septal hematoma. Throat without erythema, tonsillar hypertrophy or exudate. Uvula midline. Airway patent. NECK: Trachea midline. Supple, nontender, no meningeal signs. CARDIOVASCULAR: RRR, No murmurs. RESPIRATORY: Decreased breath sounds bilaterally. Basilar crackles. GASTROINTESTINAL: Abdomen soft, non-tender, nondistended. MUSCULOSKELETAL: Extremities without clubbing, cyanosis, or edema. NEUROLOGICAL: Awake and alert. Grossly non focal Psych: cooperative IV line sites with no e.o infection. Assessment & Plan Remarks Neutropenic fever on presentation. Neutropenia resolved. Fevers persist. Large cell Lymphoma: s/p R-CHOP Immune compromised. Pneumonia ? HCAP. Acute COPD exacerbation. Past h/o smoking. Quit 40 yrs back. ? Neupogen allergy: rash, chest pain and fevers on presentation. Afib Recs continue Cefepime IV (re:HCAP) Continue Doxy oral (Re: atypical PNA) Follow cultures Follow clinically. d/w pt: repeat CXR if improved will consider stopping antibiotics after d/w primary team. Idalmis Cabrera MD May 05, 2017 17:14
--- NOTE | 2017-05-05 17:19 | RADRPT ---
EXAM DATE/TIME: 05/05/2017 17:05 [facility] COMPARISON: CHEST SINGLE AP, May 04, 2017, 4:36. INDICATIONS : Evaluate pneumonia MEDICAL HISTORY : Cardiovascular disease. Hypertension A-fib, MS, non-Hodgkins SURGICAL HISTORY : Appendectomy. Hysterectomy. Infusaport ENCOUNTER: Subsequent ACUITY: 1 week PAIN SCORE: 0/10 LOCATION: chest FINDINGS: There is cardiomegaly with mild interstitial edema. There is minimal bibasilar consolidative changes worse on the left with air bronchograms evident stable in the interval. The support is in good posi tion. There is no pneumothorax or pleural effusion. CONCLUSION: Stable chest bibasilar parenchymal changes and mild interstitial edema. Jett Valle MD FACR on May 05, 2017 at 17:16 Board Certified Radiologist. This report was verified electronically.
[2017-05-05] MEDS: ENOXAPARIN SODIUM 30 MG/0.3 ML SYRINGE SQ SCH (20:05)
[2017-05-06] VITALS (36 sets, daily range): BP systolic 92–146; BP diastolic 43–91; PULSE 55–131; RESP 3–45; TEMP 97.4–98.3; O2SAT 88–98
[2017-05-06] MEDS: methylPREDNISolone SOD SUCC 40 MG/1 ML VIAL IV PUSH SCH ×2 (01:03→04:34)
[2017-05-06] MEDS: CEFEPIME INJ 2,000 MG in SODIUM CHLORIDE 0.9% INJ 100 ML IV SCH ×2 (01:03→08:31)
[2017-05-06] MEDS: CHLORHEXIDINE GLUCONATE 2 % 1 PACK (2 CLOTHS)(taper/protocol) TOPICAL SCH ×2 (01:04→20:01)
[2017-05-06] MEDS: DILTIAZEM INJ 125 MG in SODIUM CHLORIDE 0.9% INJ 100 ML IV PRN (01:47)
[2017-05-06] MEDS: LEVOTHYROXINE SODIUM 125 MCG TAB PO SCH (04:34)
[2017-05-06 05:53] LABS: HEMATOCRIT 25.8 % (35.0-46.0); HEMO FLAGS DIFF FINAL; LYMPH % 1.6 % (9.0-44.0); LYMPHOCYTE # 0.2 TH/MM3 (1.0-4.8); MEAN CELL VOLUME 88.6 FL (80.0-100.0); MEAN CORPUSCULAR HEMOGLOBIN 29.8 PG (27.0-34.0); MEAN CORPUSCULAR HGB CONC 33.7 % (32.0-36.0); MONO % 3.2 % (0.0-8.0); NEUT % 95.2 % (16.0-70.0); PLATELET COUNT 316 TH/MM3 (150-450); RED BLOOD COUNT 2.92 MIL/MM3 (4.00-5.30); RED CELL DISTRIBUTION WIDTH 17.3 % (11.6-17.2); WHITE BLOOD COUNT 11.6 TH/MM3 (4.0-11.0)
[2017-05-06 06:21] LABS: ANION GAP 4 MEQ/L (5-15); AST (GOT) 22 U/L (15-37); BICARBONATE 30.8 MEQ/L (21.0-32.0); BLOOD UREA NITROGEN 17 MG/DL (7-18); CHLORIDE 104 MEQ/L (98-107); GLOMERULAR FILTRATION RATE 138 ML/MIN (>89); MAGNESIUM 2.8 MG/DL (1.5-2.5); POTASSIUM 4.5 MEQ/L (3.5-5.1); SODIUM (NA) 139 MEQ/L (136-145)
[2017-05-06 06:31] LABS: ALKALINE PHOSPHATASE 70 U/L (45-117); ALT (GPT) 23 U/L (10-53); TOTAL BILIRUBIN ADULT 0.5 MG/DL (0.2-1.0)
[2017-05-06 06:32] LABS: CREATINE KINASE 15 U/L (26-192)
[2017-05-06] MEDS: DOXYCYCLINE HYCLATE 100 MG CAP PO SCH ×2 (08:28→08:40)
[2017-05-06] MEDS: CITALOPRAM HYDROBROMIDE 20 MG TAB PO SCH (08:28)
[2017-05-06] MEDS: PANTOPRAZOLE SOD 40 MG DELAYED RELEASE TAB PO SCH (08:28)
[2017-05-06] MEDS: LISINOPRIL 20 MG TAB PO SCH (08:30)
[2017-05-06] MEDS: SODIUM CHLORIDE 0.9% FLUSH 10 ML FLUSH IV FLUSH SCH ×2 (08:30→20:00)
[2017-05-06] MEDS: DILTIAZEM HCL 30 MG TAB PO SCH ×5 (08:30→20:00)
[2017-05-06] MEDS: predniSONE 50 MG TAB PO SCH (08:30)
[2017-05-06] MEDS: COLLAGENASE OINT 30 GM TUBE TOPICAL SCH (09:00)
--- NOTE | 2017-05-06 09:01 | HHI.PR ---
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 labs PT and OT 05-05 FOR [facility] CHEMO TODAY NO CURRENT COMPLAINTS NO PAIN NO SOB NO NAUSEA OR VOMITING AT THIS TIME DW PATIENT AND RN AND 05-06 patient went into atrial fibrillation yesterday. Was transferred to the ICU and placed on a Cardizem drip We'll try to wean off her Cardizem drip increase Cardizem to 30 mg by mouth 4 times a day Did not finish her chemotherapy yesterday A.m. labs Wean off drip Increase ambulation Discussed with RN patient Objective Vitals Vital Signs Date Time Temp Pulse Resp B/P (MAP) Pulse Ox O2 Delivery O2 Flow Rate FiO2 05/06/17 06:00 101 05/06/17 04:10 120 13 96 05/06/17 04:01 97.6 110 11 135/59 (84) 95 05/06/17 04:00 118 05/06/17 03:10 117 18 97 05/06/17 03:01 115 5 115/53 (73) 93 05/06/17 02:10 108 12 92 05/06/17 02:01 107 8 109/57 (74) 95 05/06/17 02:00 111 05/06/17 01:47 125 120/68 05/06/17 01:10 114 3 97 05/06/17 01:00 122 12 120/68 (85) 94 05/06/17 00:10 110 12 93 05/06/17 00:00 98.0 118 11 117/59 (78) 91 05/06/17 00:00 118 05/05/17 23:10 113 14 95 05/05/17 23:00 123 6 129/81 (97) 97 05/05/17 22:10 133 17 96 05/05/17 22:01 130 12 119/68 (85) 90 05/05/17 22:00 131 05/05/17 21:10 133 17 95 05/05/17 21:05 129 29 156/89 (111) 95 05/05/17 21:00 127 28 93 05/05/17 20:03 126 25 143/65 (91) 94 05/05/17 20:00 98.2 121 23 88 05/05/17 20:00 121 05/05/17 19:01 116 17 137/90 (106) 90 05/05/17 19:00 128 18 89 05/05/17 19:00 93 Nasal Cannula 4.00 05/05/17 18:00 133 05/05/17 16:00 98.8 127 22 109/67 (81) 93 05/05/17 16:00 127 05/05/17 15:07 123 116/72 05/05/17 14:00 132 05/05/17 12:50 128 05/05/17 12:29 120 24 130/60 (83) 94 05/05/17 12:14 135 05/05/17 12:14 97.2 120 20 131/61 (84) 94 05/05/17 09:10 70 05/05/17 08:58 96.4 72 22 140/63 (88) 99 I/O 05/05/17 05/05/17 05/05/17 05/06/17 05/06/17 05/06/17 06:59 14:59 22:59 06:59 14:59 22:59 Intake Total 480 ml 340 ml 318 ml Balance 480 ml 340 ml 318 ml Intake Oral 480 ml 240 ml IV Total 100 ml 318 ml # Voids 1 4 3 # Bowel Movements 1 1 2 Result Diagram: 05/06/17 0415 05/06/17 0415 Other Results Laboratory Tests Test 05/04/17 14:14 05/05/17 05:20 05/05/17 14:10 05/05/17 15:50 White Blood Count 15.7 TH/MM3 9.6 TH/MM3 Red Blood Count 3.05 MIL/MM3 2.79 MIL/MM3 Hemoglobin 8.8 GM/DL 8.1 GM/DL Hematocrit 27.0 % 24.6 % Mean Corpuscular Volume 88.7 FL 88.4 FL Mean Corpuscular Hemoglobin 28.8 PG 28.9 PG Mean Corpuscular Hemoglobin Concent 32.5 % 32.7 % Red Cell Distribution Width 17.7 % 17.2 % Platelet Count 416 TH/MM3 312 TH/MM3 Mean Platelet Volume 7.3 FL 6.9 FL Neutrophils (%) (Auto) 94.8 % 93.5 % Lymphocytes (%) (Auto) 2.0 % 3.2 % Monocytes (%) (Auto) 3.1 % 3.2 % Eosinophils (%) (Auto) 0.0 % 0.0 % Basophils (%) (Auto) 0.1 % 0.1 % Neutrophils # (Auto) 14.9 TH/MM3 9.0 TH/MM3 Lymphocytes # (Auto) 0.3 TH/MM3 0.3 TH/MM3 Monocytes # (Auto) 0.5 TH/MM3 0.3 TH/MM3 Eosinophils # (Auto) 0.0 TH/MM3 0.0 TH/MM3 Basophils # (Auto) 0.0 TH/MM3 0.0 TH/MM3 CBC Comment AUTO DIFF DIFF FINAL Differential Total Cells Counted 100 Neutrophils % (Manual) 99 % Lymphocytes % 1 % Neutrophils # (Manual) 15.5 TH/MM3 Differential Comment FINAL DIFF MANUAL Platelet Estimate HIGH Platelet Morphology Comment NORMAL Ovalocytes 1+ Blood Urea Nitrogen 16 MG/DL 18 MG/DL Creatinine 0.65 MG/DL 0.51 MG/DL Random Glucose 155 MG/DL 142 MG/DL Total Protein 5.5 GM/DL 4.9 GM/DL Albumin 2.3 GM/DL 2.0 GM/DL Calcium Level 9.3 MG/DL 9.4 MG/DL Alkaline Phosphatase 80 U/L 70 U/L Aspartate Amino Transf (AST/SGOT) 22 U/L 20 U/L Alanine Aminotransferase (ALT/SGPT) 19 U/L 18 U/L Total Bilirubin 0.4 MG/DL 0.4 MG/DL Sodium Level 140 MEQ/L 139 MEQ/L Potassium Level 4.1 MEQ/L 4.5 MEQ/L Chloride Level 104 MEQ/L 103 MEQ/L Carbon Dioxide Level 30.2 MEQ/L 30.6 MEQ/L Anion Gap 6 MEQ/L 5 MEQ/L Estimat Glomerular Filtration Rate 90 ML/MIN 119 ML/MIN Phosphorus Level 3.5 MG/DL Magnesium Level 2.6 MG/DL Hemoglobin A1c 4.7 % Free Thyroxine 2.20 NG/DL Thyroid Stimulating Hormone 3rd Gen 0.014 uIU/ML Nasal Screen MRSA (PCR) MRSA NOT DETECTED Total Creatine Kinase 22 U/L Troponin I 0.02 NG/ML Test 05/05/17 20:20 05/06/17 04:15 Total Creatine Kinase 22 U/L 15 U/L Troponin I 0.02 NG/ML 0.02 NG/ML White Blood Count 11.6 TH/MM3 Red Blood Count 2.92 MIL/MM3 Hemoglobin 8.7 GM/DL Hematocrit 25.8 % Mean Corpuscular Volume 88.6 FL Mean Corpuscular Hemoglobin 29.8 PG Mean Corpuscular Hemoglobin Concent 33.7 % Red Cell Distribution Width 17.3 % Platelet Count 316 TH/MM3 Mean Platelet Volume 7.9 FL Neutrophils (%) (Auto) 95.2 % Lymphocytes (%) (Auto) 1.6 % Monocytes (%) (Auto) 3.2 % Eosinophils (%) (Auto) 0.0 % Basophils (%) (Auto) 0.0 % Neutrophils # (Auto) 11.0 TH/MM3 Lymphocytes # (Auto) 0.2 TH/MM3 Monocytes # (Auto) 0.4 TH/MM3 Eosinophils # (Auto) 0.0 TH/MM3 Basophils # (Auto) 0.0 TH/MM3 CBC Comment DIFF FINAL Differential Comment Blood Urea Nitrogen 17 MG/DL Creatinine 0.45 MG/DL Random Glucose 133 MG/DL Total Protein 5.1 GM/DL Albumin 2.2 GM/DL Calcium Level 8.8 MG/DL Phosphorus Level 3.5 MG/DL Magnesium Level 2.8 MG/DL Alkaline Phosphatase 70 U/L Aspartate Amino Transf (AST/SGOT) 22 U/L Alanine Aminotransferase (ALT/SGPT) 23 U/L Total Bilirubin 0.5 MG/DL Sodium Level 139 MEQ/L Potassium Level 4.5 MEQ/L Chloride Level 104 MEQ/L Carbon Dioxide Level 30.8 MEQ/L Anion Gap 4 MEQ/L Estimat Glomerular Filtration Rate 138 ML/MIN Imaging Last Impressions Chest X-Ray 05/05/17 0000 Signed Impressions: Service Date/Time: Friday, May 05, 2017 17:05 - CONCLUSION: Stable chest bibasilar parenchymal changes and mild interstitial edema. Jett Valle MD FACR Upper Extremity Ultrasound 04/29/17 0000 Signed Impressions: Service Date/Time: Saturday, April 29, 2017 13:12 - CONCLUSION: 1. No evidence of deep venous thrombosis. Bandar Vo MD Lower Extremity Ultrasound 04/29/17 0000 Signed Impressions: Service Date/Time: Saturday, April 29, 2017 10:26 - CONCLUSION: No evidence of DVT. Right popliteal fossa Ruiz's cyst. Al Peña MD CT Angiography 04/25/17 0000 Signed Impressions: Service Date/Time: Tuesday, April 25, 2017 16:23 - CONCLUSION: 1. No PE is identified. 2. Abnormal diffuse and somewhat patchy groundglass attenuation bilaterally. Etiology is nonspecific. Some considerations include edema, infectious, or inflammatory processes. 3. The right lower lobe pulmonary nodules and sonu hepatis mass have decreased in size, as above. 4. Mild splenic. Ravindra Seymour MD Objective Remarks GENERAL: Alert oriented talkative and cooperative in some pain SKIN: Warm and dry. HEAD: Atraumatic. Normocephalic. EYES: Pupils equal and round. No scleral icterus. No injection or drainage. Extraocular muscles intact ENT: No nasal bleeding or discharge. Mucous membranes pink and moist. Tongue is midline NECK: Trachea midline. No JVD. Neck is supple CARDIOVASCULAR: Regular rate and rhythm. S1-S2 no S3 or S4 no heave or thrill or rub or gallop RESPIRATORY: No accessory muscle use. Clear to auscultation. Breath sounds equal bilaterally. Diminished breath sounds bilaterally GASTROINTESTINAL: Abdomen soft, non-tender, nondistended. Hepatic and splenic margins not palpable. Obese MUSCULOSKELETAL: Extremities without clubbing, cyanosis, or edema. No obvious deformities. NEUROLOGICAL: Awake and alert. No obvious cranial nerve deficits. Motor grossly within normal limits. Five out of 5 muscle strength in the arms and legs. Normal speech. PSYCHIATRIC: Appropriate mood and affect; insight and judgment normal. Medications and IVs Current Medications Morphine Sulfate (Morphine Inj) 4 mg ONCE ONCE IV PUSH Last administered on 15:19; Start 04/25/17 at 14:30; Stop 04/25/17 at 14:31; Status DC Ondansetron HCl (Zofran Inj) 4 mg ONCE ONCE IV PUSH Last administered on 15:18; Start 04/25/17 at 14:30; Stop 04/25/17 at 14:31; Status DC Sodium Chloride 250 ml @ 15 mls/hr ONCE ONCE IV Last administered on 16:45; Start 04/25/17 at 16:45; Stop 04/26/17 at 09:24; Status DC Iohexol (Omnipaque 350 Inj) 50 ml STK-MED ONCE IVCONTRAST Last administered on 04/25/17 13:17; Start 04/25/17 at 13:17; Stop 04/25/17 at 16:39; Status DC Sodium Chloride (NS Flush) 2 ml BID IV FLUSH Last administered on 05/06/17 08: 30; Start 04/25/17 at 21:00 Sodium Chloride (NS Flush) 2 ml UNSCH PRN IV FLUSH FLUSH AFTER USING IV ACCESS ; Start 04/25/17 at 19:15 Nitroglycerin (Nitrostat Sl) 0.4 mg Q5M PRN SL ANGINA; Start 04/25/17 at 19:15 Acetaminophen (Tylenol) 500 mg Q4H PRN PO HEADACHE/fever > 100.4 Last administered on 05/01/17 16:34; Start 04/25/17 at 19:15 Morphine Sulfate (Morphine Inj) 2 mg Q5M PRN IV PAIN SCALE 6 TO 10 Last administered on 05/04/17 00:25; Start 04/25/17 at 19:15; Stop 05/04/17 at 09:45; Status DC Pantoprazole Sodium (Protonix) 40 mg DAILY PO Last administered on 05/06/17 08: 28; Start 04/26/17 at 09:00 Enoxaparin Sodium (Lovenox Inj) 30 mg Q24H SQ Last administered on 05/05/17 20: 05; Start 04/25/17 at 21:00 Cefepime HCl 2000 mg/Sodium Chloride 100 ml @ 200 mls/hr Q8H IV Last administered on 04/28/17 08:18; Start 04/26/17 at 00:00; Stop 04/28/17 at 11:01 ; Status DC Citalopram Hydrobromide (CeleXA) 20 mg DAILY PO Last administered on 05/06/17 08:28; Start 04/27/17 at 09:00 Levothyroxine Sodium (Synthroid) 300 mcg DAILY@0600 PO Last administered on 05/05 05:17; Start 04/27/17 at 06:00; Stop 05/05/17 at 09:57; Status DC Potassium Chloride (KCl) 40 meq Q4H PO Last administered on 04/27/17 19:37; Start 04/27/17 at 14:00; Stop 04/27/17 at 18:01; Status DC Potassium Chloride 100 ml @ 50 mls/hr BOLUS ONCE IV Last administered on 04/27 14:49; Start 04/27/17 at 14:00; Stop 04/27/17 at 15:59; Status DC Pharmacy Profile Note 0 ml @ 0 mls/hr UNSCH OTHER ; Start 04/27/17 at 14:00; Stop 04/28/17 at 11:01; Status DC Vancomycin HCl 1750 mg/Sodium Chloride 517.5 ml @ 250 mls/hr ONCE ONCE IV ; Start 04/27/17 at 14:00; Stop 04/27/17 at 16:04; Status UNV Vancomycin HCl 2000 mg/Sodium Chloride 520 ml @ 257.5 mls/ hr Q24H IV Last administered on 04/27/17 16:47; Start 04/27/17 at 16:00; Stop 04/28/17 at 11:01 ; Status DC Miscellaneous Information SPECIFIC LAB TO BE JR... ONCE ONCE .XX ; Start 04/30 at 15:45; Stop 04/30/17 at 15:45; Status DC Doxycycline Hyclate (Vibramycin) 100 mg BID PO Last administered on 05/02/17 08 :37; Start 04/28/17 at 11:00 Magnesium Hydroxide (Milk Of Magnesia Liq) 30 ml Q6H PRN PO CONSTIPATION Last administered on 05/05/17 08:14; Start 04/28/17 at 11:45 Bisacodyl (Dulcolax Supp) 10 mg DAILY PRN RECTAL CONSTIPATION; Start 04/28/17 at 11:45 Senna/Docusate Sodium (Daniela-Colace) 2 tab BID PRN PO CONSTIPATION Last administered on 04/29/17 09:41; Start 04/28/17 at 11:45 Albuterol/ Ipratropium (Duoneb Neb) 1 ampule QID NEB NEB Last administered on 05/03/17 15:52; Start 04/29/17 at 16:00; Stop 05/03/17 at 15:59; Status DC Albuterol/ Ipratropium (Duoneb Neb) 1 ampule Q2HR NEB PRN NEB short of breath Last administered on 05/05/17 08:18; Start 04/29/17 at 14:00 Pharmacy Profile Note 0 ml @ 0 mls/hr UNSCH OTHER ; Start 04/29/17 at 13:00; Stop 05/02/17 at 13:06; Status DC Cefepime HCl 2000 mg/Sodium Chloride 100 ml @ 200 mls/hr Q8H IV Last administered on 04/29/17 22:54; Start 04/29/17 at 14:00; Stop 04/30/17 at 06:41 ; Status DC Vancomycin HCl 1750 mg/Sodium Chloride 517.5 ml @ 250 mls/hr Q12H IV Last administered on 05/01/17 03:49; Start 04/29/17 at 15:00; Stop 05/01/17 at 09:14 ; Status DC Miscellaneous Information SPECIFIC LAB TO BE DRAWN:VANCOMYCIN TROUGH DATE TO... ONCE ONCE .XX Last administered on 05/01/17 02:45; Start 05/01/17 at 02:45; Stop 05/01/17 at 02:46; Status DC Alteplase, Recombinant (Cathflo Activase Inj) 2 mg ONCE ONCE INTRACATH Last administered on 04/30/17 04:14; Start 04/29/17 at 18:30; Stop 04/29/17 at 18:31 ; Status DC Cefepime HCl 2000 mg/Sodium Chloride 100 ml @ 200 mls/hr Q8H IV Last administered on 05/06/17 08:31; Start 04/30/17 at 08:00 Pharmacy Profile Note 0 ml @ 0 mls/hr UNSCH OTHER ; Start 04/30/17 at 08:30; Status Cancel Ondansetron HCl (Zofran Inj) 4 mg Q6HR PRN IV PUSH n/v Last administered on 05/04 10:24; Start 04/30/17 at 09:00 Diphenhydramine HCl (Benadryl) 50 mg ONCE ONCE PO Last administered on 21:44; Start 04/30/17 at 21:30; Stop 04/30/17 at 21:34; Status DC Collagenase (Santyl Oint) 1 applic DAILY TOPICAL Last administered on 05/04/17 16:33; Start 05/01/17 at 09:00 Vancomycin HCl 2000 mg/Sodium Chloride 520 ml @ 250 mls/hr Q12H IV Last administered on 05/02/17 04:58; Start 05/01/17 at 16:00; Stop 05/02/17 at 13:06; Status DC Miscellaneous Information SPECIFIC LAB TO BE DRAWN:VANCOMY... ONCE ONCE .XX ; Start 05/02/17 at 15:45; Stop 05/02/17 at 15:46; Status Cancel Methylprednisolone Sodium Succinate (SoluMEDROL INJ) 40 mg Q6HR IV PUSH Last administered on 05/06/17 04:34; Start 05/01/17 at 18:45 Heparin Sodium (Porcine) (Heparin Central Flush) 250 units UNSCH PRN IV FLUSH SEE PROTOCOL TABLE; Start 05/03/17 at 09:30 Heparin Sodium (Porcine) (Heparin Central Flush) 500 units UNSCH IV FLUSH ; Start 05/03/17 at 09:30 Alteplase, Recombinant (Cathflo Activase Inj) 2 mg ONCE ONCE INTRACATH Last administered on 05/03/17 11:55; Start 05/03/17 at 10:45; Stop 05/03/17 at 11:09; Status DC Oxycodone/ Acetaminophen (Percocet 5-325 Mg) 1 tab Q6H PRN PO PAIN 3-5 Last administered on 05/04/17 10:24; Start 05/04/17 at 09:15 Oxycodone/ Acetaminophen (Percocet 10-325 Mg) 1 tab Q6H PRN PO PAIN 6 TO 10 Last administered on 05/05/17 17:27; Start 05/04/17 at 09:15 Granisetron HCl (Kytril Inj) 1 mg ONCE ONCE IV Last administered on 05/05/17 09:56; Start 05/04/17 at 08:30; Stop 05/04/17 at 16:10; Status DC Dexamethasone Sodium Phosphate 20 mg/Sodium Chloride 55 ml @ 220 mls/hr ONCE ONCE IV Last administered on 05/05/17 09:45; Start 05/05/17 at 08:30; Stop at 08:44; Status DC Doxorubicin HCl (Adriamycin Inj) 100 mg ONCE ONCE IV ; Start 05/05/17 at 09:00; Stop 05/05/17 at 09:01; Status Cancel Vincristine Sulfate 2 mg/ Sodium Chloride 52 ml @ 208 mls/hr ONCE ONCE IV Last administered on 05/05/17 11:16; Start 05/05/17 at 09:00; Stop 05/05/17 at 09: 14; Status DC Prednisone (Deltasone) 100 mg DAILY PO Last administered on 05/06/17 08:30; Start 05/05/17 at 08:00; Stop 05/08/17 at 09:01 Cyclophosphamide 1500 mg/Sodium Chloride 500 ml @ 90 mls/hr ONCE ONCE IV ; Start 05/05/17 at 09:00; Stop 05/05/17 at 14:33; Status DC Doxorubicin HCl 50 mg/Syringe / Bag 25 ml @ 0 mls/hr ONCE ONCE IV PUSH Last administered on 05/05/17 10:44; Start 05/05/17 at 09:00; Stop 05/05/17 at 09:01; Status DC Doxorubicin HCl 50 mg/Syringe / Bag 25 ml @ 0 mls/hr ONCE ONCE IV PUSH Last administered on 05/05/17 10:43; Start 05/05/17 at 09:00; Stop 05/05/17 at 09:01; Status DC Fluconazole (Diflucan) 150 mg ONCE ONCE PO Last administered on 05/04/17 21:50 ; Start 05/04/17 at 21:45; Stop 05/04/17 at 21:46; Status DC Clotrimazole (Gyne Lotrimin 7 1% Vag Cream) 1 appl HS PRN VAGINAL itching; Start 05/04/17 at 21:45; Stop 05/11/17 at 21:44 Granisetron HCl (Kytril Inj) 1 mg ONCE ONCE IV Last administered on 05/05/17 10:47; Start 05/05/17 at 10:00; Stop 05/05/17 at 10:01; Status DC Levothyroxine Sodium (Synthroid) 250 mcg DAILY@0600 PO Last administered on 05/06 04:34; Start 05/06/17 at 06:00 Diltiazem HCl (Cardizem Inj) 10 mg ONCE ONCE IV Last administered on 05/05/17 13:16; Start 05/05/17 at 13:00; Stop 05/05/17 at 13:07; Status DC Diltiazem HCl (Cardizem) 30 mg BID PO Last administered on 05/06/17 08:30; Start 05/05/17 at 14:00 Lisinopril (Prinivil) 40 mg DAILY PO Last administered on 05/06/17 08:30; Start 05/06/17 at 09:00 Diltiazem HCl (Cardizem Inj) 20 mg ONCE ONCE IV PUSH Last administered on 14:30; Start 05/05/17 at 14:30; Stop 05/05/17 at 14:35; Status DC Diltiazem HCl 125 mg/Sodium Chloride 125 ml @ 5 mls/hr TITRATE PRN IV Tachycardia Last administered on 05/06/17 01:47; Start 05/05/17 at 15:00 Miscellaneous Information Patient in critical care unit? Ass... [id number] .XX ; Start 05/05/17 at 17:00 Chlorhexidine Gluconate (Chlorhexidine 2% Cloth) 3 pack DAILY@04 TOPICAL Last administered on 05/06/17 01:04; Start 05/06/17 at 04:00; Stop 05/10/17 at 04:01 Chlorhexidine Gluconate (Chlorhexidine 2% Cloth) 3 pack UNSCH PRN TOPICAL HYGIENIC CARE; Start 05/05/17 at 17:00; Stop 05/10/17 at 16:57 Urinary Catheter: No Vascular Central Line Catheter: Yes Assessment to: Continue Line: Central Venous Catheter (PORT) Side: Right A/P Problem List: (1) Large B-cell lymphoma ICD Code: C85.10 - Unspecified B-cell lymphoma, unspecified site Status: Acute (2) Chest pain in adult ICD Code: R07.9 - Chest pain, unspecified Status: Acute (3) Atrial fibrillation ICD Code: I48.91 - Unspecified atrial fibrillation Status: Acute (4) Anemia ICD Code: D64.9 - Anemia, unspecified Status: Acute Assessment and Plan Mrs. 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 Mrs. Solares reported waking in her normal state of health and developed substernal chest pain that radiated "down my spine" at approximately 11:00 am. An unknown period of time passed before she called EMS. She was given nitroglycerine and an aspirin and her chest pain (which was reported to be 10/10 ) decreased. Bilateral pneumonia in immunocompromised patient on chemotherapy(HCAP) Hypoxia patient on 6 L nasal cannula Recent ABG showed hypercapnia Fever improved,, appreciate ID follow up continue on cefepime and vancomycin , doxycycline for atypical coverage Culture negative Bone marrow biopsy positive reviewed by me, pulmonary consulted appreciated their input, DC Vanco per ID continue cefepime add Doxey, monitor CBC Neutropenic fever with possible underlying sepsis due to above, neutropenia resolved but fever persist after, now improved Monitor CBC, no Neupogen at this point per oncology Oncology following, possible giving second dose of chemotherapy while in the hospital Chest pain rule out ACS>> workup negative, low HDL 17.5, D/W patient to start statin when she improves Normocytic normochromic Anemia mostly due to recent chemotherapy -Status post Transfuse 1 unit of prbc's per Dr. Brown Went into atrial fibrillation with RVR on May 05 transferred to ICU Placed on Cardizem drip We'll Resume Oral [address], Cardizem 30MG QID TY TO WEAN OFF DRIP Diet: Healthy heart DVT prophylaxis: Lovenox 30 mg sc daily/ SCD's. CHEMO DURING THIS HOSPITALIZATION ON MAY 05 DEE PEREZ RN AND PT AND AM LABS Problem Qualifiers (1) Anemia: Qualified Codes: D64.9 - Anemia, unspecified Jett Glez DO May 06, 2017 09:01
--- NOTE | 2017-05-06 09:49 | PD.ONC.PN ---
Subjective Subjective Remarks Afebrile overnight. [place] [facility] into Afib with RVR. Remains in afib with HR in 110s-120s. Frustrated that she can't go home yet. Tired of being in the hospital. Denies pain. Objective Data Date Time Temp Pulse Resp B/P (MAP) Pulse Ox O2 Delivery O2 Flow Rate FiO2 05/06/17 06:00 101 05/06/17 04:10 120 13 96 05/06/17 04:01 97.6 110 11 135/59 (84) 95 05/06/17 04:00 118 05/06/17 03:10 117 18 97 05/06/17 03:01 115 5 115/53 (73) 93 05/06/17 02:10 108 12 92 05/06/17 02:01 107 8 109/57 (74) 95 05/06/17 02:00 111 05/06/17 01:47 125 120/68 05/06/17 01:10 114 3 97 05/06/17 01:00 122 12 120/68 (85) 94 05/06/17 00:10 110 12 93 05/06/17 00:00 98.0 118 11 117/59 (78) 91 05/06/17 00:00 118 05/05/17 23:10 113 14 95 05/05/17 23:00 123 6 129/81 (97) 97 05/05/17 22:10 133 17 96 05/05/17 22:01 130 12 119/68 (85) 90 05/05/17 22:00 131 05/05/17 21:10 133 17 95 05/05/17 21:05 129 29 156/89 (111) 95 05/05/17 21:00 127 28 93 05/05/17 20:03 126 25 143/65 (91) 94 05/05/17 20:00 98.2 121 23 88 05/05/17 20:00 121 05/05/17 19:01 116 17 137/90 (106) 90 05/05/17 19:00 128 18 89 05/05/17 19:00 93 Nasal Cannula 4.00 05/05/17 18:00 133 05/05/17 16:00 98.8 127 22 109/67 (81) 93 05/05/17 16:00 127 05/05/17 15:07 123 116/72 05/05/17 14:00 132 05/05/17 12:50 128 05/05/17 12:29 120 24 130/60 (83) 94 05/05/17 12:14 135 05/05/17 12:14 97.2 120 20 131/61 (84) 94 05/06/17 05/06/17 05/06/17 07:00 15:00 23:00 Intake Total 318 ml Balance 318 ml Result Diagram: 05/06/17 0415 05/06/17 0415 Laboratory Results Laboratory Tests Test 05/05/17 14:10 05/05/17 15:50 05/05/17 20:20 05/06/17 04:15 Nasal Screen MRSA (PCR) MRSA NOT DETECTED Total Creatine Kinase 22 U/L 22 U/L 15 U/L Troponin I 0.02 NG/ML 0.02 NG/ML 0.02 NG/ML White Blood Count 11.6 TH/MM3 Red Blood Count 2.92 MIL/MM3 Hemoglobin 8.7 GM/DL Hematocrit 25.8 % Mean Corpuscular Volume 88.6 FL Mean Corpuscular Hemoglobin 29.8 PG Mean Corpuscular Hemoglobin Concent 33.7 % Red Cell Distribution Width 17.3 % Platelet Count 316 TH/MM3 Mean Platelet Volume 7.9 FL Neutrophils (%) (Auto) 95.2 % Lymphocytes (%) (Auto) 1.6 % Monocytes (%) (Auto) 3.2 % Eosinophils (%) (Auto) 0.0 % Basophils (%) (Auto) 0.0 % Neutrophils # (Auto) 11.0 TH/MM3 Lymphocytes # (Auto) 0.2 TH/MM3 Monocytes # (Auto) 0.4 TH/MM3 Eosinophils # (Auto) 0.0 TH/MM3 Basophils # (Auto) 0.0 TH/MM3 CBC Comment DIFF FINAL Differential Comment Blood Urea Nitrogen 17 MG/DL Creatinine 0.45 MG/DL Random Glucose 133 MG/DL Total Protein 5.1 GM/DL Albumin 2.2 GM/DL Calcium Level 8.8 MG/DL Phosphorus Level 3.5 MG/DL Magnesium Level 2.8 MG/DL Alkaline Phosphatase 70 U/L Aspartate Amino Transf (AST/SGOT) 22 U/L Alanine Aminotransferase (ALT/SGPT) 23 U/L Total Bilirubin 0.5 MG/DL Sodium Level 139 MEQ/L Potassium Level 4.5 MEQ/L Chloride Level 104 MEQ/L Carbon Dioxide Level 30.8 MEQ/L Anion Gap 4 MEQ/L Estimat Glomerular Filtration Rate 138 ML/MIN Administered Medications Medications (Trade) Dose Ordered Sig/Magalys Route PRN Reason Start Time Stop Time Status Last Admin Dose Admin Sodium Chloride (NS Flush) 2 ml BID IV FLUSH 04/25/17 21:00 05/06/17 08:30 Acetaminophen (Tylenol) 500 mg Q4H PRN PO HEADACHE/fever > 100.4 04/25/17 19:15 05/01/17 16:34 Pantoprazole Sodium (Protonix) 40 mg DAILY PO 04/26/17 09:00 05/06/17 08:28 Enoxaparin Sodium (Lovenox Inj) 30 mg Q24H SQ 04/25/17 21:00 05/05/17 20:05 Citalopram Hydrobromide (CeleXA) 20 mg DAILY PO 04/27/17 09:00 05/06/17 08:28 Doxycycline Hyclate (Vibramycin) 100 mg BID PO 04/28/17 11:00 05/02/17 08:37 Magnesium Hydroxide (Milk Of Magnesia Liq) 30 ml Q6H PRN PO CONSTIPATION 04/28/17 11:45 05/05/17 08:14 Senna/Docusate Sodium (Daniela-Colace) 2 tab BID PRN PO CONSTIPATION 04/28/17 11:45 04/29/17 09:41 Albuterol/ Ipratropium (Duoneb Neb) 1 ampule Q2HR NEB PRN NEB short of breath 04/29/17 14:00 05/05/17 08:18 Cefepime HCl 2000 mg/Sodium Chloride 100 ml @ 200 mls/hr Q8H IV 04/30/17 08:00 05/06/17 08:31 Ondansetron HCl (Zofran Inj) 4 mg Q6HR PRN IV PUSH n/v 04/30/17 09:00 05/04/17 10:24 Collagenase (Santyl Oint) 1 applic DAILY TOPICAL 05/01/17 09:00 05/06/17 09:00 Methylprednisolone Sodium Succinate (SoluMEDROL INJ) 40 mg Q6HR IV PUSH 05/01/17 18:45 05/06/17 04:34 Oxycodone/ Acetaminophen (Percocet 5-325 Mg) 1 tab Q6H PRN PO PAIN 3-5 05/04/17 09:15 05/04/17 10:24 Oxycodone/ Acetaminophen (Percocet 10-325 Mg) 1 tab Q6H PRN PO PAIN 6 TO 10 05/04/17 09:15 05/05/17 17:27 Prednisone (Deltasone) 100 mg DAILY PO 05/05/17 08:00 05/08/17 09:01 05/06/17 08:30 Levothyroxine Sodium (Synthroid) 250 mcg DAILY@0600 PO 05/06/17 06:00 05/06/17 04:34 Lisinopril (Prinivil) 40 mg DAILY PO 05/06/17 09:00 05/06/17 08:30 Diltiazem HCl 125 mg/Sodium Chloride 125 ml @ 5 mls/hr TITRATE PRN IV Tachycardia 05/05/17 15:00 05/06/17 01:47 Chlorhexidine Gluconate (Chlorhexidine 2% Cloth) 3 pack DAILY@04 TOPICAL 05/06/17 04:00 05/10/17 04:01 05/06/17 01:04 Objective Remarks GENERAL: Pleasant female upright in bed in nad SKIN: Warm and dry. HEAD: Normocephalic. EYES: No injection or drainage. NECK: Supple, trachea midline. CARDIOVASCULAR: IRR, tele shows Afib w/ RVR HR~118 RESPIRATORY: anterior castelan clear. on 4L O2 via NC GASTROINTESTINAL: Abdomen soft, non-tender, nondistended. EXTREMITIES: No cyanosis NEUROLOGICAL: awake and alert, moving extremities. Assessment/Plan Problem List: (1) Large B-cell lymphoma ICD Codes: C85.10 - Unspecified B-cell lymphoma, unspecified site Status: Acute Plan: 05/06/17: transferred [place] [facility] [place]t Afib w/RVR. unable to complete all of the chemo. --Stage IV NHL, s/p R-CHOP, 8.15, was complicated by hypotension. --due for cycle #2 of CHOP chemotherapy on May 05 (2) Pneumonia ICD Codes: J18.9 - Pneumonia, unspecified organism Status: Acute Plan: --will defer to pulmonology for treatment -- CXR shows bilateral pulmonary infiltrates --on abx + steroids. --BC no growth Assessment 71 y/o woman with Stage IV NHL, BM involvement s/p C1 CHOP, 8.15, now with fevers. h/o Atrial fibrillation Morbid obesity. Depression Hyperlipidemia Multiple sclerosis 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 Plan 1. monitor CBC, CMP 2. continue Cardizem per primary/cardiology 3. IV abx per pulmonology 4. hold further chemotherapy for now. Attending Statement The exam, history, and the medical decision-making described in the above note were completed with the assistance of the mid-level provider. I reviewed and agree with the findings presented. I attest that I had a [id number] encounter with the patient on the same day, and personally performed and documented my assessment and findings in the medical record. Pt seen and examined, HR in 60-70, BP stable. No complaints. No fevers, No SOB. Tolerated chemo well, unable to administer Cytoxan due to arrythmia. Looks well and stable to transfer to , anticipate DC home. FU in clinic. Yesenia Woods May 06, 2017 09:49 Brenda Brown MD May 06, 2017 19:01
--- NOTE | 2017-05-06 10:39 | HHI.IDPN ---
Subjective Subjective Remarks Ms. Solares is a 71-year-old female with past medical history significant for diagnosis of large cell lymphoma diagnosed after she had weight loss of 35 pounds associated with night sweats and abdominal pain. She was found to have intra-abdominal adenopathy and a CT-guided biopsy of the abdominal mass showed a large cell lymphoma. The patient was treated with R- CHOP chemotherapy per review of Dr. Mccormack's note. She received a combination of Cytoxan, vincristine, Adriamycin on April 14 and Rituxan on April 15. She received only one injection of Neupogen which was administered the day prior to admission. The following day she developed pain in the chest as though someone was putting a large heavy weight on her chest. She also had pain running down the bones of the back. This is what brought her to the emergency room and patient got admitted. On admission she was febrile and had severe neutropenia. Due to neutropenic fever patient was admitted. Patient was started on empiric cefepime. She reports that she has been fairly okay but her fevers persist as high as 103 Fahrenheit this morning. Patient underwent workup for sepsis and all cultures are negative so far. Patient reports that she has seen her primary care physician for a ulcer at the site of her bone marrow biopsy which continued to drain so she had put the dressing over it. Patient reports that she hasn't been on any antibiotics but has been applying Neosporin ointment as prescribed to her by her primary care physician. ID consulted for management of neutropenic fever. Overnight events reviewed with RN No rash No diarrhea HR 120, still in afib. No Shortness of breath. No CP. RN informs me pt has been refusing Doxy oral for several days. I was informed of this only today. Antibiotics Doxy Cefepime IV Lines Line sites with no e/o infection Past Medical History reviewed Allergies: Coded Allergies: No Known Allergies (Verified , 04/09/17) Objective . Vital Signs Date Time Temp Pulse Resp B/P (MAP) Pulse Ox O2 Delivery O2 Flow Rate FiO2 05/06/17 06:00 101 05/06/17 04:10 120 13 96 05/06/17 04:01 97.6 110 11 135/59 (84) 95 05/06/17 04:00 118 05/06/17 03:10 117 18 97 05/06/17 03:01 115 5 115/53 (73) 93 05/06/17 02:10 108 12 92 05/06/17 02:01 107 8 109/57 (74) 95 05/06/17 02:00 111 05/06/17 01:47 125 120/68 05/06/17 01:10 114 3 97 05/06/17 01:00 122 12 120/68 (85) 94 05/06/17 00:10 110 12 93 05/06/17 00:00 98.0 118 11 117/59 (78) 91 05/06/17 00:00 118 05/05/17 23:10 113 14 95 05/05/17 23:00 123 6 129/81 (97) 97 05/05/17 22:10 133 17 96 05/05/17 22:01 130 12 119/68 (85) 90 05/05/17 22:00 131 05/05/17 21:10 133 17 95 05/05/17 21:05 129 29 156/89 (111) 95 05/05/17 21:00 127 28 93 05/05/17 20:03 126 25 143/65 (91) 94 05/05/17 20:00 98.2 121 23 88 05/05/17 20:00 121 05/05/17 19:01 116 17 137/90 (106) 90 05/05/17 19:00 128 18 89 05/05/17 19:00 93 Nasal Cannula 4.00 05/05/17 18:00 133 05/05/17 16:00 98.8 127 22 109/67 (81) 93 05/05/17 16:00 127 05/05/17 15:07 123 116/72 05/05/17 14:00 132 05/05/17 12:50 128 05/05/17 12:29 120 24 130/60 (83) 94 05/05/17 12:14 135 05/05/17 12:14 97.2 120 20 131/61 (84) 94 05/06/17 05/06/17 05/07/17 15:00 23:00 07:00 Intake Total 100 ml Balance 100 ml IV Total 100 ml . Laboratory Tests Test 05/04/17 14:14 05/05/17 05:20 05/06/17 04:15 White Blood Count 15.7 TH/MM3 9.6 TH/MM3 11.6 TH/MM3 Red Blood Count 3.05 MIL/MM3 2.79 MIL/MM3 2.92 MIL/MM3 Hemoglobin 8.8 GM/DL 8.1 GM/DL 8.7 GM/DL Hematocrit 27.0 % 24.6 % 25.8 % Mean Corpuscular Volume 88.7 FL 88.4 FL 88.6 FL Mean Corpuscular Hemoglobin 28.8 PG 28.9 PG 29.8 PG Mean Corpuscular Hemoglobin Concent 32.5 % 32.7 % 33.7 % Red Cell Distribution Width 17.7 % 17.2 % 17.3 % Platelet Count 416 TH/MM3 312 TH/MM3 316 TH/MM3 Mean Platelet Volume 7.3 FL 6.9 FL 7.9 FL Neutrophils (%) (Auto) 94.8 % 93.5 % 95.2 % Lymphocytes (%) (Auto) 2.0 % 3.2 % 1.6 % Monocytes (%) (Auto) 3.1 % 3.2 % 3.2 % Eosinophils (%) (Auto) 0.0 % 0.0 % 0.0 % Basophils (%) (Auto) 0.1 % 0.1 % 0.0 % Neutrophils # (Auto) 14.9 TH/MM3 9.0 TH/MM3 11.0 TH/MM3 Lymphocytes # (Auto) 0.3 TH/MM3 0.3 TH/MM3 0.2 TH/MM3 Monocytes # (Auto) 0.5 TH/MM3 0.3 TH/MM3 0.4 TH/MM3 Eosinophils # (Auto) 0.0 TH/MM3 0.0 TH/MM3 0.0 TH/MM3 Basophils # (Auto) 0.0 TH/MM3 0.0 TH/MM3 0.0 TH/MM3 CBC Comment AUTO DIFF DIFF FINAL DIFF FINAL Differential Total Cells Counted 100 Neutrophils % (Manual) 99 % Lymphocytes % 1 % Neutrophils # (Manual) 15.5 TH/MM3 Differential Comment FINAL DIFF MANUAL Platelet Estimate HIGH Platelet Morphology Comment NORMAL Ovalocytes 1+ Laboratory Tests Test 05/04/17 14:14 05/05/17 05:20 05/05/17 15:50 05/05/17 20:20 Blood Urea Nitrogen 16 MG/DL 18 MG/DL Creatinine 0.65 MG/DL 0.51 MG/DL Random Glucose 155 MG/DL 142 MG/DL Total Protein 5.5 GM/DL 4.9 GM/DL Albumin 2.3 GM/DL 2.0 GM/DL Calcium Level 9.3 MG/DL 9.4 MG/DL Alkaline Phosphatase 80 U/L 70 U/L Aspartate Amino Transf (AST/SGOT) 22 U/L 20 U/L Alanine Aminotransferase (ALT/SGPT) 19 U/L 18 U/L Total Bilirubin 0.4 MG/DL 0.4 MG/DL Sodium Level 140 MEQ/L 139 MEQ/L Potassium Level 4.1 MEQ/L 4.5 MEQ/L Chloride Level 104 MEQ/L 103 MEQ/L Carbon Dioxide Level 30.2 MEQ/L 30.6 MEQ/L Anion Gap 6 MEQ/L 5 MEQ/L Estimat Glomerular Filtration Rate 90 ML/MIN 119 ML/MIN Phosphorus Level 3.5 MG/DL Magnesium Level 2.6 MG/DL Hemoglobin A1c 4.7 % Free Thyroxine 2.20 NG/DL Thyroid Stimulating Hormone 3rd Gen 0.014 uIU/ML Total Creatine Kinase 22 U/L 22 U/L Troponin I 0.02 NG/ML 0.02 NG/ML Test 05/06/17 04:15 Blood Urea Nitrogen 17 MG/DL Creatinine 0.45 MG/DL Random Glucose 133 MG/DL Total Protein 5.1 GM/DL Albumin 2.2 GM/DL Calcium Level 8.8 MG/DL Phosphorus Level 3.5 MG/DL Magnesium Level 2.8 MG/DL Alkaline Phosphatase 70 U/L Aspartate Amino Transf (AST/SGOT) 22 U/L Alanine Aminotransferase (ALT/SGPT) 23 U/L Total Bilirubin 0.5 MG/DL Sodium Level 139 MEQ/L Potassium Level 4.5 MEQ/L Chloride Level 104 MEQ/L Carbon Dioxide Level 30.8 MEQ/L Anion Gap 4 MEQ/L Estimat Glomerular Filtration Rate 138 ML/MIN Total Creatine Kinase 15 U/L Troponin I 0.02 NG/ML Imaging Last Impressions Upper Extremity Ultrasound 04/29/17 0000 Signed Impressions: Service Date/Time: Saturday, April 29, 2017 13:12 - CONCLUSION: 1. No evidence of deep venous thrombosis. Bandar Vo MD Lower Extremity Ultrasound 04/29/17 0000 Signed Impressions: Service Date/Time: Saturday, April 29, 2017 10:26 - CONCLUSION: No evidence of DVT. Right popliteal fossa Ruiz's cyst. Al Peña MD Chest X-Ray 04/29/17 0000 Signed Impressions: Service Date/Time: Saturday, April 29, 2017 13:46 - CONCLUSION: Bilateral pulmonary infiltrates. Patricio Motta Jr., MD CT Angiography 04/25/17 0000 Signed Impressions: Service Date/Time: Tuesday, April 25, 2017 16:23 - CONCLUSION: 1. No PE is identified. 2. Abnormal diffuse and somewhat patchy groundglass attenuation bilaterally. Etiology is nonspecific. Some considerations include edema, infectious, or inflammatory processes. 3. The right lower lobe pulmonary nodules and sonu hepatis mass have decreased in size, as above. 4. Mild splenic. Ravindra Seymour MD Physical Exam GENERAL: Morbidly obese, well-developed patient, in no apparent distress. SKIN: No rashes, ecchymoses or lesions. Cool and dry. HEAD: Atraumatic. Normocephalic. No temporal or scalp tenderness. EYES: Pupils equal round and reactive. Extraocular motions intact. No scleral icterus. No injection or drainage. ENT: Nose without bleeding, purulent drainage or septal hematoma. Throat without erythema, tonsillar hypertrophy or exudate. Uvula midline. Airway patent. NECK: Trachea midline. Supple, nontender, no meningeal signs. CARDIOVASCULAR: RRR, No murmurs. RESPIRATORY: Decreased breath sounds bilaterally. Basilar crackles. GASTROINTESTINAL: Abdomen soft, non-tender, nondistended. MUSCULOSKELETAL: Extremities without clubbing, cyanosis, or edema. NEUROLOGICAL: Awake and alert. Grossly non focal Psych: cooperative IV line sites with no e.o infection. Assessment & Plan Remarks Neutropenic fever on presentation. Neutropenia resolved. Fevers persist. Large cell Lymphoma: s/p R-CHOP Immune compromised. Pneumonia ? HCAP. Acute COPD exacerbation. Past h/o smoking. Quit 40 yrs back. ? Neupogen allergy: rash, chest pain and fevers on presentation. Afib Recs DC Cefepime IV DC Doxy (pt refusing it. Start Levaquin oral (Re: atypical PNA) Follow cultures Follow clinically. Reviewed CXR and compared to days prior. Consolidation improved but some component of pulm edema noted with central fluffiness. Consider gentle diuresis as CXR with pulm edema, Wt increased and several liters fluid balance positive. d/w charge loader to call . Idalmis Cabrera MD May 06, 2017 10:39
[2017-05-06] MEDS ORDERED: POTASSIUM CHLOR 20 MEQ PREMIX 100 ML IV PRN ×2 (11:00)
[2017-05-06] MEDS ORDERED: MAGNESIUM OXIDE 400 MG TAB PO PRN (11:00)
[2017-05-06] MEDS ORDERED: POTASSIUM PHOSPHATE MONOBASIC 500 MG TAB PO/TUBE PRN (11:00)
[2017-05-06] MEDS ORDERED: POTASSIUM PHOSPHATE INJ 30 MMOL in SODIUM CHLOR 0.9% 250 ML INJ 250 ML IV PRN (11:00)
[2017-05-06] MEDS ORDERED: MAGNESIUM SULFATE INJ 2 GM in SODIUM CHLORIDE 0.9% INJ 96 ML IV PRN (11:00)
[2017-05-06] MEDS ORDERED: POTASSIUM CHLOR 40 MEQ PREMIX 100 ML IV PRN ×2 (11:00)
[2017-05-06] MEDS ORDERED: POTASSIUM CHLORIDE 25 MEQ EFFERVESCENT TAB PO PRN (11:00)
[2017-05-06] MEDS ORDERED: POTASSIUM PHOSPHATE MONOBASIC 500 MG TAB PO PRN (11:00)
[2017-05-06] MEDS ORDERED: MAGNESIUM SULFATE INJ 4 GM in SODIUM CHLORIDE 0.9% INJ 92 ML IV PRN (11:00)
[2017-05-06] MEDS ORDERED: SODIUM PHOSPHATE INJ 30 MMOL in SODIUM CHLOR 0.9% 250 ML INJ 240 ML IV PRN (11:00)
[2017-05-06] MEDS: LEVOFLOXACIN 500 MG TAB PO SCH (13:03)
[2017-05-06] MEDS: FUROSEMIDE 20 MG/2 ML VIAL IV PUSH SCH ×2 (13:06→18:11)
--- NOTE | 2017-05-06 13:57 | EKG ---
Date Performed: 05/05/2017 Time Performed: 12:36:53 PTAGE: 71 years EKG: ATRIAL FIBRILLATION WITH RAPID VENTRICULAR RESPONSE WITH ABERRANT CONDUCTION OR VENTRICULAR PREMATURE COMPLEXES NONSPECIFIC ST & T-WAVE ABNORMALITY ABNORMAL RHYTHM ECG Compared to PREVIOUS TRACING atrial fibrillation is new, clinical correlation recommended PREVIOUS T RACIN04/25/2017 21.36 DOCTOR: Roberto Yeung Interpretating Date/Time 05/06/2017 13:56:52
--- NOTE | 2017-05-06 19:18 | HHI.PR ---
Subjective Remarks 71 YOWF with lymphoma, Lung Infilt, neutropenic Fever Weaned to 4LNC CXR lung infilt with air bronchogram Breathing better Objective Vital Signs Vital Signs Date Time Temp Pulse Resp B/P (MAP) Pulse Ox O2 Delivery O2 Flow Rate FiO2 05/06/17 18:00 65 05/06/17 17:00 60 05/06/17 16:00 97.5 78 34 123/58 (79) 92 05/06/17 16:00 78 05/06/17 15:01 59 05/06/17 15:00 60 16 92/43 (59) 94 05/06/17 15:00 60 05/06/17 14:00 80 05/06/17 14:00 80 45 114/56 (75) 88 05/06/17 13:00 61 17 113/58 (76) 95 05/06/17 13:00 61 05/06/17 12:01 68 05/06/17 12:00 66 05/06/17 12:00 97.8 66 22 106/56 (73) 94 05/06/17 11:54 94 Nasal Cannula 4.00 05/06/17 11:00 61 22 93 05/06/17 11:00 61 05/06/17 10:00 115 18 125/58 (80) 93 05/06/17 10:00 115 05/06/17 09:00 131 05/06/17 09:00 131 22 127/56 (79) 89 05/06/17 08:00 97.4 108 12 146/67 (93) 98 05/06/17 08:00 108 05/06/17 07:00 102 12 141/82 (101) 97 05/06/17 07:00 102 05/06/17 07:00 97 Nasal Cannula 4.00 05/06/17 06:00 101 05/06/17 04:10 120 13 96 05/06/17 04:01 97.6 110 11 135/59 (84) 95 05/06/17 04:00 118 05/06/17 03:10 117 18 97 05/06/17 03:01 115 5 115/53 (73) 93 05/06/17 02:10 108 12 92 05/06/17 02:01 107 8 109/57 (74) 95 05/06/17 02:00 111 05/06/17 01:47 125 120/68 05/06/17 01:10 114 3 97 05/06/17 01:00 122 12 120/68 (85) 94 05/06/17 00:10 110 12 93 05/06/17 00:00 98.0 118 11 117/59 (78) 91 05/06/17 00:00 118 05/05/17 23:10 113 14 95 05/05/17 23:00 123 6 129/81 (97) 97 05/05/17 22:10 133 17 96 05/05/17 22:01 130 12 119/68 (85) 90 05/05/17 22:00 131 05/05/17 21:10 133 17 95 05/05/17 21:05 129 29 156/89 (111) 95 05/05/17 21:00 127 28 93 05/05/17 20:03 126 25 143/65 (91) 94 05/05/17 20:00 98.2 121 23 88 05/05/17 20:00 121 I/O 05/05/17 05/05/17 05/05/17 05/06/17 05/06/17 05/06/17 07:00 15:00 23:00 07:00 15:00 23:00 Intake Total 480 ml 340 ml 318 ml 100 ml 631 ml Balance 480 ml 340 ml 318 ml 100 ml 631 ml Intake Oral 480 ml 240 ml 350 ml IV Total 100 ml 318 ml 100 ml 281 ml # Voids 1 4 3 4 # Bowel Movements 1 1 2 2 Result Diagram: 05/06/17 0415 05/06/17 0415 Objective Remarks GENERAL: Elderly female mild sob SKIN: Warm and dry. HEAD: Normocephalic. EYES: No scleral icterus. No injection or drainage. NECK: Supple, trachea midline. No JVD or lymphadenopathy. CARDIOVASCULAR: Regular rate and rhythm without murmurs, gallops, or rubs. RESPIRATORY: Breath sounds equal bilaterally. No accessory muscle use. GASTROINTESTINAL: Abdomen soft, non-tender, nondistended. MUSCULOSKELETAL: No cyanosis, or edema. BACK: Nontender without obvious deformity. No CVA tenderness. A/P Assessment and Plan Resp inuff KISHOR Pneumonia COPD Pneumonia PLAN: CPAP prn Supplement 02 4LNC, keep sat >90% IV Solumedrol Abx per Dima Aden MD May 06, 2017 19:18
[2017-05-06] MEDS: ENOXAPARIN SODIUM 30 MG/0.3 ML SYRINGE SQ SCH (20:00)
[2017-05-07] VITALS (22 sets, daily range): BP systolic 94–147; BP diastolic 51–63; PULSE 53–82; RESP 8–43; TEMP 97.8–98; O2SAT 90–100
[2017-05-07] MEDS: LEVOTHYROXINE SODIUM 125 MCG TAB PO SCH (06:10)
[2017-05-07 06:21] LABS: AUTOMATED NEUTROPHIL # 10.3 TH/MM3 (1.8-7.7); BASOPHIL % 0.2 % (0.0-2.0); HEMATOCRIT 26.9 % (35.0-46.0); HEMO FLAGS DIFF FINAL; LYMPH % 1.5 % (9.0-44.0); LYMPHOCYTE # 0.2 TH/MM3 (1.0-4.8); MEAN CELL VOLUME 88.5 FL (80.0-100.0); MEAN CORPUSCULAR HEMOGLOBIN 29.2 PG (27.0-34.0); MONO % 6.4 % (0.0-8.0); NEUT % 91.9 % (16.0-70.0); PLATELET COUNT 282 TH/MM3 (150-450); RED BLOOD COUNT 3.04 MIL/MM3 (4.00-5.30); RED CELL DISTRIBUTION WIDTH 17.5 % (11.6-17.2); WHITE BLOOD COUNT 11.2 TH/MM3 (4.0-11.0)
[2017-05-07 06:45] LABS: ANION GAP 6 MEQ/L (5-15); AST (GOT) 19 U/L (15-37); BICARBONATE 30.6 MEQ/L (21.0-32.0); BLOOD UREA NITROGEN 22 MG/DL (7-18); CHLORIDE 103 MEQ/L (98-107); GLOMERULAR FILTRATION RATE 128 ML/MIN (>89); MAGNESIUM 2.7 MG/DL (1.5-2.5); POTASSIUM 4.1 MEQ/L (3.5-5.1); SODIUM (NA) 140 MEQ/L (136-145)
[2017-05-07 06:48] LABS: ALKALINE PHOSPHATASE 68 U/L (45-117); ALT (GPT) 26 U/L (10-53); TOTAL BILIRUBIN ADULT 0.5 MG/DL (0.2-1.0)
[2017-05-07] MEDS: CITALOPRAM HYDROBROMIDE 20 MG TAB PO SCH (08:30)
[2017-05-07] MEDS: FUROSEMIDE 20 MG/2 ML VIAL IV PUSH SCH (08:30)
[2017-05-07] MEDS: predniSONE 50 MG TAB PO SCH (08:30)
[2017-05-07] MEDS: PANTOPRAZOLE SOD 40 MG DELAYED RELEASE TAB PO SCH (08:31)
[2017-05-07] MEDS: LISINOPRIL 20 MG TAB PO SCH (08:31)
[2017-05-07] MEDS: DILTIAZEM HCL 30 MG TAB PO SCH ×2 (08:31→12:15)
[2017-05-07] MEDS: SODIUM CHLORIDE 0.9% FLUSH 10 ML FLUSH IV FLUSH SCH (08:32)
--- NOTE | 2017-05-07 08:59 | HHI.PR ---
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 labs PT and OT 9- FOR [facility]OP CHEMO TODAY NO CURRENT COMPLAINTS NO PAIN NO SOB NO NAUSEA OR VOMITING AT THIS TIME DW PATIENT AND RN AND 9- patient went into atrial fibrillation yesterday. Was transferred to the ICU and placed on a Cardizem drip We'll try to wean off her Cardizem drip increase Cardizem to 30 mg by mouth 4 times a day Did not finish her chemotherapy yesterday A.m. labs Wean off drip Increase ambulation Discussed with RN patient 9- HEART RATE IS BETTER CONTROLLED WILL GET A WALK TEST IF NEEDS OXYGEN WILL ASK CM TO SET UP HOPEFULLY DC TO HOME TODAY ON ORAL MEDS AND OXYGEN IF NEEDED FOLLOW UP WITH DEVERAS AND PCP AND PULM SWITCH TO PO STEROIDS Objective Vitals Vital Signs Date Time Temp Pulse Resp B/P (MAP) Pulse Ox O2 Delivery O2 Flow Rate FiO2 05/07/17 07:39 92 Nasal Cannula 4.00 05/07/17 06:14 65 19 116/54 (74) 96 05/07/17 06:00 65 05/07/17 06:00 65 20 94 05/07/17 05:01 53 14 115/57 (76) 96 05/07/17 05:00 57 15 94 05/07/17 04:01 55 8 120/60 (80) 97 05/07/17 04:00 97.8 56 12 97 05/07/17 04:00 56 05/07/17 03:01 54 13 94/51 (65) 97 05/07/17 03:00 54 17 97 05/07/17 02:00 66 28 137/63 (87) 100 05/07/17 02:00 66 05/07/17 01:00 56 12 114/58 (76) 92 05/07/17 00:00 98.0 58 12 126/60 (82) 98 05/07/17 00:00 58 05/06/17 23:20 91 HOME CPAP 6.00 05/06/17 23:01 57 14 120/59 (79) 97 05/06/17 23:00 57 14 97 05/06/17 22:00 57 05/06/17 22:00 57 18 128/61 (83) 96 05/06/17 21:00 55 12 120/58 (78) 98 05/06/17 20:00 98.3 61 18 121/72 (88) 98 05/06/17 20:00 98 Nasal Cannula 4.00 05/06/17 20:00 67 05/06/17 19:35 92 Nasal Cannula 4.00 05/06/17 19:00 67 34 116/91 (99) 96 05/06/17 18:00 65 05/06/17 17:00 60 05/06/17 16:00 97.5 78 34 123/58 (79) 92 05/06/17 16:00 78 05/06/17 15:01 59 05/06/17 15:00 60 16 92/43 (59) 94 05/06/17 15:00 60 05/06/17 14:00 80 05/06/17 14:00 80 45 114/56 (75) 88 05/06/17 13:00 61 17 113/58 (76) 95 05/06/17 13:00 61 05/06/17 12:01 68 05/06/17 12:00 66 05/06/17 12:00 97.8 66 22 106/56 (73) 94 05/06/17 11:54 94 Nasal Cannula 4.00 05/06/17 11:00 61 22 93 05/06/17 11:00 61 05/06/17 10:00 115 18 125/58 (80) 93 05/06/17 10:00 115 05/06/17 09:00 131 05/06/17 09:00 131 22 127/56 (79) 89 I/O 05/06/17 05/06/17 05/06/17 05/07/17 05/07/17 05/07/17 07:00 15:00 23:00 07:00 15:00 23:00 Intake Total 318 ml 100 ml 631 ml 240 ml Balance 318 ml 100 ml 631 ml 240 ml Intake Oral 350 ml 240 ml IV Total 318 ml 100 ml 281 ml # Voids 3 4 4 # Bowel Movements 2 2 0 Result Diagram: 05/07/17 0545 05/07/17 0545 Other Results Laboratory Tests Test 05/04/17 14:14 05/05/17 05:20 05/05/17 14:10 05/05/17 15:50 White Blood Count 15.7 TH/MM3 9.6 TH/MM3 Red Blood Count 3.05 MIL/MM3 2.79 MIL/MM3 Hemoglobin 8.8 GM/DL 8.1 GM/DL Hematocrit 27.0 % 24.6 % Mean Corpuscular Volume 88.7 FL 88.4 FL Mean Corpuscular Hemoglobin 28.8 PG 28.9 PG Mean Corpuscular Hemoglobin Concent 32.5 % 32.7 % Red Cell Distribution Width 17.7 % 17.2 % Platelet Count 416 TH/MM3 312 TH/MM3 Mean Platelet Volume 7.3 FL 6.9 FL Neutrophils (%) (Auto) 94.8 % 93.5 % Lymphocytes (%) (Auto) 2.0 % 3.2 % Monocytes (%) (Auto) 3.1 % 3.2 % Eosinophils (%) (Auto) 0.0 % 0.0 % Basophils (%) (Auto) 0.1 % 0.1 % Neutrophils # (Auto) 14.9 TH/MM3 9.0 TH/MM3 Lymphocytes # (Auto) 0.3 TH/MM3 0.3 TH/MM3 Monocytes # (Auto) 0.5 TH/MM3 0.3 TH/MM3 Eosinophils # (Auto) 0.0 TH/MM3 0.0 TH/MM3 Basophils # (Auto) 0.0 TH/MM3 0.0 TH/MM3 CBC Comment AUTO DIFF DIFF FINAL Differential Total Cells Counted 100 Neutrophils % (Manual) 99 % Lymphocytes % 1 % Neutrophils # (Manual) 15.5 TH/MM3 Differential Comment FINAL DIFF MANUAL Platelet Estimate HIGH Platelet Morphology Comment NORMAL Ovalocytes 1+ Blood Urea Nitrogen 16 MG/DL 18 MG/DL Creatinine 0.65 MG/DL 0.51 MG/DL Random Glucose 155 MG/DL 142 MG/DL Total Protein 5.5 GM/DL 4.9 GM/DL Albumin 2.3 GM/DL 2.0 GM/DL Calcium Level 9.3 MG/DL 9.4 MG/DL Alkaline Phosphatase 80 U/L 70 U/L Aspartate Amino Transf (AST/SGOT) 22 U/L 20 U/L Alanine Aminotransferase (ALT/SGPT) 19 U/L 18 U/L Total Bilirubin 0.4 MG/DL 0.4 MG/DL Sodium Level 140 MEQ/L 139 MEQ/L Potassium Level 4.1 MEQ/L 4.5 MEQ/L Chloride Level 104 MEQ/L 103 MEQ/L Carbon Dioxide Level 30.2 MEQ/L 30.6 MEQ/L Anion Gap 6 MEQ/L 5 MEQ/L Estimat Glomerular Filtration Rate 90 ML/MIN 119 ML/MIN Phosphorus Level 3.5 MG/DL Magnesium Level 2.6 MG/DL Hemoglobin A1c 4.7 % Free Thyroxine 2.20 NG/DL Thyroid Stimulating Hormone 3rd Gen 0.014 uIU/ML Nasal Screen MRSA (PCR) MRSA NOT DETECTED Total Creatine Kinase 22 U/L Troponin I 0.02 NG/ML Test 05/05/17 20:20 05/06/17 04:15 05/06/17 18:00 05/07/17 05:45 Total Creatine Kinase 22 U/L 15 U/L Troponin I 0.02 NG/ML 0.02 NG/ML White Blood Count 11.6 TH/MM3 11.2 TH/MM3 Red Blood Count 2.92 MIL/MM3 3.04 MIL/MM3 Hemoglobin 8.7 GM/DL 8.9 GM/DL Hematocrit 25.8 % 26.9 % Mean Corpuscular Volume 88.6 FL 88.5 FL Mean Corpuscular Hemoglobin 29.8 PG 29.2 PG Mean Corpuscular Hemoglobin Concent 33.7 % 33.0 % Red Cell Distribution Width 17.3 % 17.5 % Platelet Count 316 TH/MM3 282 TH/MM3 Mean Platelet Volume 7.9 FL 7.1 FL Neutrophils (%) (Auto) 95.2 % 91.9 % Lymphocytes (%) (Auto) 1.6 % 1.5 % Monocytes (%) (Auto) 3.2 % 6.4 % Eosinophils (%) (Auto) 0.0 % 0.0 % Basophils (%) (Auto) 0.0 % 0.2 % Neutrophils # (Auto) 11.0 TH/MM3 10.3 TH/MM3 Lymphocytes # (Auto) 0.2 TH/MM3 0.2 TH/MM3 Monocytes # (Auto) 0.4 TH/MM3 0.7 TH/MM3 Eosinophils # (Auto) 0.0 TH/MM3 0.0 TH/MM3 Basophils # (Auto) 0.0 TH/MM3 0.0 TH/MM3 CBC Comment DIFF FINAL DIFF FINAL Differential Comment Blood Urea Nitrogen 17 MG/DL 22 MG/DL Creatinine 0.45 MG/DL 0.48 MG/DL Random Glucose 133 MG/DL 121 MG/DL Total Protein 5.1 GM/DL 5.0 GM/DL Albumin 2.2 GM/DL 2.2 GM/DL Calcium Level 8.8 MG/DL 9.4 MG/DL Phosphorus Level 3.5 MG/DL 3.0 MG/DL 2.7 MG/DL Magnesium Level 2.8 MG/DL 2.7 MG/DL Alkaline Phosphatase 70 U/L 68 U/L Aspartate Amino Transf (AST/SGOT) 22 U/L 19 U/L Alanine Aminotransferase (ALT/SGPT) 23 U/L 26 U/L Total Bilirubin 0.5 MG/DL 0.5 MG/DL Sodium Level 139 MEQ/L 140 MEQ/L Potassium Level 4.5 MEQ/L 4.1 MEQ/L Chloride Level 104 MEQ/L 103 MEQ/L Carbon Dioxide Level 30.8 MEQ/L 30.6 MEQ/L Anion Gap 4 MEQ/L 6 MEQ/L Estimat Glomerular Filtration Rate 138 ML/MIN 128 ML/MIN Imaging Last Impressions Chest X-Ray 05/05/17 0000 Signed Impressions: Service Date/Time: Friday, May 05, 2017 17:05 - CONCLUSION: Stable chest bibasilar parenchymal changes and mild interstitial edema. Jett Valle MD FACR Upper Extremity Ultrasound 04/29/17 0000 Signed Impressions: Service Date/Time: Saturday, April 29, 2017 13:12 - CONCLUSION: 1. No evidence of deep venous thrombosis. Bandar Vo MD Lower Extremity Ultrasound 04/29/17 0000 Signed Impressions: Service Date/Time: Saturday, April 29, 2017 10:26 - CONCLUSION: No evidence of DVT. Right popliteal fossa Ruiz's cyst. Al Peña MD CT Angiography 04/25/17 0000 Signed Impressions: Service Date/Time: Tuesday, April 25, 2017 16:23 - CONCLUSION: 1. No PE is identified. 2. Abnormal diffuse and somewhat patchy groundglass attenuation bilaterally. Etiology is nonspecific. Some considerations include edema, infectious, or inflammatory processes. 3. The right lower lobe pulmonary nodules and sonu hepatis mass have decreased in size, as above. 4. Mild splenic. Ravindra Seymour MD Objective Remarks GENERAL: Alert oriented talkative and cooperative in some pain SKIN: Warm and dry. HEAD: Atraumatic. Normocephalic. EYES: Pupils equal and round. No scleral icterus. No injection or drainage. Extraocular muscles intact ENT: No nasal bleeding or discharge. Mucous membranes pink and moist. Tongue is midline NECK: Trachea midline. No JVD. Neck is supple CARDIOVASCULAR: Regular rate and rhythm. S1-S2 no S3 or S4 no heave or thrill or rub or gallop RESPIRATORY: No accessory muscle use. Clear to auscultation. Breath sounds equal bilaterally. Diminished breath sounds bilaterally GASTROINTESTINAL: Abdomen soft, non-tender, nondistended. Hepatic and splenic margins not palpable. Obese MUSCULOSKELETAL: Extremities without clubbing, cyanosis, or edema. No obvious deformities. NEUROLOGICAL: Awake and alert. No obvious cranial nerve deficits. Motor grossly within normal limits. Five out of 5 muscle strength in the arms and legs. Normal speech. PSYCHIATRIC: Appropriate mood and affect; insight and judgment normal. Medications and IVs Current Medications Morphine Sulfate (Morphine Inj) 4 mg ONCE ONCE IV PUSH Last administered on 15:19; Start 04/25/17 at 14:30; Stop 04/25/17 at 14:31; Status DC Ondansetron HCl (Zofran Inj) 4 mg ONCE ONCE IV PUSH Last administered on 15:18; Start 04/25/17 at 14:30; Stop 04/25/17 at 14:31; Status DC Sodium Chloride 250 ml @ 15 mls/hr ONCE ONCE IV Last administered on 16:45; Start 04/25/17 at 16:45; Stop 04/26/17 at 09:24; Status DC Iohexol (Omnipaque 350 Inj) 50 ml STK-MED ONCE IVCONTRAST Last administered on 04/25/17 13:17; Start 04/25/17 at 13:17; Stop 04/25/17 at 16:39; Status DC Sodium Chloride (NS Flush) 2 ml BID IV FLUSH Last administered on 05/07/17 08: 32; Start 04/25/17 at 21:00 Sodium Chloride (NS Flush) 2 ml UNSCH PRN IV FLUSH FLUSH AFTER USING IV ACCESS ; Start 04/25/17 at 19:15 Nitroglycerin (Nitrostat Sl) 0.4 mg Q5M PRN SL ANGINA; Start 04/25/17 at 19:15 Acetaminophen (Tylenol) 500 mg Q4H PRN PO HEADACHE/fever > 100.4 Last administered on 05/01/17 16:34; Start 04/25/17 at 19:15 Morphine Sulfate (Morphine Inj) 2 mg Q5M PRN IV PAIN SCALE 6 TO 10 Last administered on 05/04/17 00:25; Start 04/25/17 at 19:15; Stop 05/04/17 at 09:45; Status DC Pantoprazole Sodium (Protonix) 40 mg DAILY PO Last administered on 05/07/17 08: 31; Start 04/26/17 at 09:00 Enoxaparin Sodium (Lovenox Inj) 30 mg Q24H SQ Last administered on 05/06/17 20: 00; Start 04/25/17 at 21:00 Cefepime HCl 2000 mg/Sodium Chloride 100 ml @ 200 mls/hr Q8H IV Last administered on 04/28/17 08:18; Start 04/26/17 at 00:00; Stop 04/28/17 at 11:01 ; Status DC Citalopram Hydrobromide (CeleXA) 20 mg DAILY PO Last administered on 05/07/17 08:30; Start 04/27/17 at 09:00 Levothyroxine Sodium (Synthroid) 300 mcg DAILY@0600 PO Last administered on 05/05 05:17; Start 04/27/17 at 06:00; Stop 05/05/17 at 09:57; Status DC Potassium Chloride (KCl) 40 meq Q4H PO Last administered on 04/27/17 19:37; Start 04/27/17 at 14:00; Stop 04/27/17 at 18:01; Status DC Potassium Chloride 100 ml @ 50 mls/hr BOLUS ONCE IV Last administered on 04/27 14:49; Start 04/27/17 at 14:00; Stop 04/27/17 at 15:59; Status DC Pharmacy Profile Note 0 ml @ 0 mls/hr UNSCH OTHER ; Start 04/27/17 at 14:00; Stop 04/28/17 at 11:01; Status DC Vancomycin HCl 1750 mg/Sodium Chloride 517.5 ml @ 250 mls/hr ONCE ONCE IV ; Start 04/27/17 at 14:00; Stop 04/27/17 at 16:04; Status UNV Vancomycin HCl 2000 mg/Sodium Chloride 520 ml @ 257.5 mls/ hr Q24H IV Last administered on 04/27/17 16:47; Start 04/27/17 at 16:00; Stop 04/28/17 at 11:01 ; Status DC Miscellaneous Information SPECIFIC LAB TO BE JR... ONCE ONCE .XX ; Start 04/30 at 15:45; Stop 04/30/17 at 15:45; Status DC Doxycycline Hyclate (Vibramycin) 100 mg BID PO Last administered on 05/02/17 08 :37; Start 04/28/17 at 11:00; Stop 05/06/17 at 10:47; Status DC Magnesium Hydroxide (Milk Of Magnesia Liq) 30 ml Q6H PRN PO CONSTIPATION Last administered on 05/05/17 08:14; Start 04/28/17 at 11:45 Bisacodyl (Dulcolax Supp) 10 mg DAILY PRN RECTAL CONSTIPATION; Start 04/28/17 at 11:45 Senna/Docusate Sodium (Daniela-Colace) 2 tab BID PRN PO CONSTIPATION Last administered on 04/29/17 09:41; Start 04/28/17 at 11:45 Albuterol/ Ipratropium (Duoneb Neb) 1 ampule QID NEB NEB Last administered on 05/03/17 15:52; Start 04/29/17 at 16:00; Stop 05/03/17 at 15:59; Status DC Albuterol/ Ipratropium (Duoneb Neb) 1 ampule Q2HR NEB PRN NEB short of breath Last administered on 05/05/17 08:18; Start 04/29/17 at 14:00 Pharmacy Profile Note 0 ml @ 0 mls/hr UNSCH OTHER ; Start 04/29/17 at 13:00; Stop 05/02/17 at 13:06; Status DC Cefepime HCl 2000 mg/Sodium Chloride 100 ml @ 200 mls/hr Q8H IV Last administered on 04/29/17 22:54; Start 04/29/17 at 14:00; Stop 04/30/17 at 06:41 ; Status DC Vancomycin HCl 1750 mg/Sodium Chloride 517.5 ml @ 250 mls/hr Q12H IV Last administered on 05/01/17 03:49; Start 04/29/17 at 15:00; Stop 05/01/17 at 09:14 ; Status DC Miscellaneous Information SPECIFIC LAB TO BE DRAWN:VANCOMYCIN TROUGH DATE TO... ONCE ONCE .XX Last administered on 05/01/17 02:45; Start 05/01/17 at 02:45; Stop 05/01/17 at 02:46; Status DC Alteplase, Recombinant (Cathflo Activase Inj) 2 mg ONCE ONCE INTRACATH Last administered on 04/30/17 04:14; Start 04/29/17 at 18:30; Stop 04/29/17 at 18:31 ; Status DC Cefepime HCl 2000 mg/Sodium Chloride 100 ml @ 200 mls/hr Q8H IV Last administered on 05/06/17 08:31; Start 04/30/17 at 08:00; Stop 05/06/17 at 10:49; Status DC Pharmacy Profile Note 0 ml @ 0 mls/hr UNSCH OTHER ; Start 04/30/17 at 08:30; Status Cancel Ondansetron HCl (Zofran Inj) 4 mg Q6HR PRN IV PUSH n/v Last administered on 05/04 10:24; Start 04/30/17 at 09:00 Diphenhydramine HCl (Benadryl) 50 mg ONCE ONCE PO Last administered on 21:44; Start 04/30/17 at 21:30; Stop 04/30/17 at 21:34; Status DC Collagenase (Santyl Oint) 1 applic DAILY TOPICAL Last administered on 05/06/17 09:00; Start 05/01/17 at 09:00 Vancomycin HCl 2000 mg/Sodium Chloride 520 ml @ 250 mls/hr Q12H IV Last administered on 05/02/17 04:58; Start 05/01/17 at 16:00; Stop 05/02/17 at 13:06; Status DC Miscellaneous Information SPECIFIC LAB TO BE DRAWN:VANCOMY... ONCE ONCE .XX ; Start 05/02/17 at 15:45; Stop 05/02/17 at 15:46; Status Cancel Methylprednisolone Sodium Succinate (SoluMEDROL INJ) 40 mg Q6HR IV PUSH Last administered on 05/06/17 04:34; Start 05/01/17 at 18:45; Status Future Hold Heparin Sodium (Porcine) (Heparin Central Flush) 250 units UNSCH PRN IV FLUSH SEE PROTOCOL TABLE; Start 05/03/17 at 09:30 Heparin Sodium (Porcine) (Heparin Central Flush) 500 units UNSCH IV FLUSH ; Start 05/03/17 at 09:30 Alteplase, Recombinant (Cathflo Activase Inj) 2 mg ONCE ONCE INTRACATH Last administered on 05/03/17 11:55; Start 05/03/17 at 10:45; Stop 05/03/17 at 11:09; Status DC Oxycodone/ Acetaminophen (Percocet 5-325 Mg) 1 tab Q6H PRN PO PAIN 3-5 Last administered on 05/04/17 10:24; Start 05/04/17 at 09:15 Oxycodone/ Acetaminophen (Percocet 10-325 Mg) 1 tab Q6H PRN PO PAIN 6 TO 10 Last administered on 05/05/17 17:27; Start 05/04/17 at 09:15 Granisetron HCl (Kytril Inj) 1 mg ONCE ONCE IV Last administered on 05/05/17 09:56; Start 05/04/17 at 08:30; Stop 05/04/17 at 16:10; Status DC Dexamethasone Sodium Phosphate 20 mg/Sodium Chloride 55 ml @ 220 mls/hr ONCE ONCE IV Last administered on 05/05/17 09:45; Start 05/05/17 at 08:30; Stop at 08:44; Status DC Doxorubicin HCl (Adriamycin Inj) 100 mg ONCE ONCE IV ; Start 05/05/17 at 09:00; Stop 05/05/17 at 09:01; Status Cancel Vincristine Sulfate 2 mg/ Sodium Chloride 52 ml @ 208 mls/hr ONCE ONCE IV Last administered on 05/05/17 11:16; Start 05/05/17 at 09:00; Stop 05/05/17 at 09: 14; Status DC Prednisone (Deltasone) 100 mg DAILY PO Last administered on 05/07/17 08:30; Start 05/05/17 at 08:00; Stop 05/08/17 at 09:01 Cyclophosphamide 1500 mg/Sodium Chloride 500 ml @ 90 mls/hr ONCE ONCE IV ; Start 05/05/17 at 09:00; Stop 05/05/17 at 14:33; Status DC Doxorubicin HCl 50 mg/Syringe / Bag 25 ml @ 0 mls/hr ONCE ONCE IV PUSH Last administered on 05/05/17 10:44; Start 05/05/17 at 09:00; Stop 05/05/17 at 09:01; Status DC Doxorubicin HCl 50 mg/Syringe / Bag 25 ml @ 0 mls/hr ONCE ONCE IV PUSH Last administered on 05/05/17 10:43; Start 05/05/17 at 09:00; Stop 05/05/17 at 09:01; Status DC Fluconazole (Diflucan) 150 mg ONCE ONCE PO Last administered on 05/04/17 21:50 ; Start 05/04/17 at 21:45; Stop 05/04/17 at 21:46; Status DC Clotrimazole (Gyne Lotrimin 7 1% Vag Cream) 1 appl HS PRN VAGINAL itching; Start 05/04/17 at 21:45; Stop 05/11/17 at 21:44 Granisetron HCl (Kytril Inj) 1 mg ONCE ONCE IV Last administered on 05/05/17 10:47; Start 05/05/17 at 10:00; Stop 05/05/17 at 10:01; Status DC Levothyroxine Sodium (Synthroid) 250 mcg DAILY@0600 PO Last administered on 05/07 06:10; Start 05/06/17 at 06:00 Diltiazem HCl (Cardizem Inj) 10 mg ONCE ONCE IV Last administered on 05/05/17 13:16; Start 05/05/17 at 13:00; Stop 05/05/17 at 13:07; Status DC Diltiazem HCl (Cardizem) 30 mg BID PO Last administered on 05/06/17 08:30; Start 05/05/17 at 14:00; Stop 05/06/17 at 08:55; Status DC Lisinopril (Prinivil) 40 mg DAILY PO Last administered on 05/07/17 08:31; Start 05/06/17 at 09:00 Diltiazem HCl (Cardizem Inj) 20 mg ONCE ONCE IV PUSH Last administered on 14:30; Start 05/05/17 at 14:30; Stop 05/05/17 at 14:35; Status DC Diltiazem HCl 125 mg/Sodium Chloride 125 ml @ 5 mls/hr TITRATE PRN IV Tachycardia Last administered on 05/06/17 01:47; Start 05/05/17 at 15:00 Miscellaneous Information Patient in critical care unit? Ass... Q361D .XX ; Start 05/05/17 at 17:00 Chlorhexidine Gluconate (Chlorhexidine 2% Cloth) 3 pack DAILY@04 TOPICAL Last administered on 05/06/17 20:01; Start 05/06/17 at 04:00; Stop 05/10/17 at 04:01 Chlorhexidine Gluconate (Chlorhexidine 2% Cloth) 3 pack UNSCH PRN TOPICAL HYGIENIC CARE; Start 05/05/17 at 17:00; Stop 05/10/17 at 16:57 Diltiazem HCl (Cardizem) 30 mg QID PO Last administered on 05/07/17 08:31; Start 05/06/17 at 10:00 Levofloxacin (Levaquin) 500 mg Q24H PO Last administered on 05/06/17 13:03; Start 05/06/17 at 12:00 Furosemide (Lasix Inj) 20 mg BID@09,18 IV PUSH Last administered on 05/07/17 08 :30; Start 05/06/17 at 12:00 Potassium Chloride 100 ml @ 50 mls/hr Q2H PRN IV For Potassium 2.8 - 3.2 mEq/L ; Start 05/06/17 at 11:00 Potassium Chloride 100 ml @ 50 mls/hr Q2H PRN IV For Potassium 2.8 - 3.2 mEq/L ; Start 05/06/17 at 11:00 Potassium Bicarb/ Potassium Chloride (K-Lyte Cl Eff) 50 meq UNSCH PRN PO For Potassium 3.3 - 3.5 mEq/L; Start 05/06/17 at 11:00 Potassium Chloride 100 ml @ 25 mls/hr UNSCH PRN IV For Potassium 3.3 - 3.5 mEq /L; Start 05/06/17 at 11:00 Potassium Chloride 100 ml @ 50 mls/hr Q2H PRN IV For Potassium 3.3 - 3.5 mEq/L ; Start 05/06/17 at 11:00 Magnesium Sulfate 4 gm/Sodium Chloride 100 ml @ 50 mls/hr UNSCH PRN IV For Magnesium 0.9 - 1.1 mg/dL; Start 05/06/17 at 11:00 Magnesium Oxide (Mag-Ox) 800 mg UNSCH PRN PO For Magnesium 1.2 - 1.6 mg/dL; Start 05/06/17 at 11:00 Magnesium Sulfate 2 gm/Sodium Chloride 100 ml @ 50 mls/hr UNSCH PRN IV For Magnesium 1.2 - 1.6 mg/dL; Start 05/06/17 at 11:00 Potassium Phosphate (K-Phos) 2,000 mg Q4H PRN PO For Phosphorus < 2.5 mg/dL; Start 05/06/17 at 11:00 Sodium Phosphate 30 mmol/Sodium Chloride 250 ml @ 42 mls/hr UNSCH PRN IV For Phosphorus < 2.5 mg/dL; Start 05/06/17 at 11:00 Potassium Phosphate (K-Phos) 2,000 mg UNSCH PRN PO/TUBE SEE LABEL COMMENTS; Start 05/06/17 at 11:00 Potassium Phosphate 30 mmol/ Sodium Chloride 260 ml @ 42 mls/hr UNSCH PRN IV SEE LABEL COMMENTS; Start 05/06/17 at 11:00 Urinary Catheter: No Vascular Central Line Catheter: Yes Assessment to: Continue Line: Central Venous Catheter (PORT) Side: Right A/P Problem List: (1) Large B-cell lymphoma ICD Code: C85.10 - Unspecified B-cell lymphoma, unspecified site Status: Acute (2) Chest pain in adult ICD Code: R07.9 - Chest pain, unspecified Status: Acute (3) Atrial fibrillation ICD Code: I48.91 - Unspecified atrial fibrillation Status: Acute (4) Anemia ICD Code: D64.9 - Anemia, unspecified Status: Acute Assessment and Plan Mrs. 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 Mrs. Solares reported waking in her normal state of health and developed substernal chest pain that radiated "down my spine" at approximately 11:00 am. An unknown period of time passed before she called EMS. She was given nitroglycerine and an aspirin and her chest pain (which was reported to be 10/10 ) decreased. Bilateral pneumonia in immunocompromised patient on chemotherapy(HCAP) Hypoxia patient on 4 L nasal cannula Recent ABG showed hypercapnia Fever improved,, appreciate ID follow up continue on cefepime and vancomycin , doxycycline for atypical coverage Culture negative Bone marrow biopsy positive reviewed by me, pulmonary consulted appreciated their input, DC Vanco per ID DC cefepime add Doxey, monitor CBC- ON LEVAQUIN PO NOW Neutropenic fever with possible underlying sepsis due to above, neutropenia resolved but fever persist after, now improved Monitor CBC, no Neupogen at this point per oncology Oncology following, possible giving second dose of chemotherapy while in the hospital SP CHEMO Chest pain rule out ACS>> workup negative, low HDL 17.5, D/W patient to start statin when she improves Normocytic normochromic Anemia mostly due to recent chemotherapy -Status post Transfuse 1 unit of prbc's per Dr. Brown Went into atrial fibrillation with RVR on May 05 transferred to ICU Placed on Cardizem drip We'll Resume Oral Court, Cardizem 30MG QID TY TO WEAN OFF DRIP Diet: Healthy heart DVT prophylaxis: Lovenox 30 mg sc daily/ SCD's. CHEMO DURING THIS HOSPITALIZATION ON MAY 05 DEE PEREZ RN AND PT AND DC TO HOME IF OXYGEN SET UP Problem Qualifiers (1) Anemia: Qualified Codes: D64.9 - Anemia, unspecified Jett Glez DO May 07, 2017 08:58
[2017-05-07] MEDS ORDERED: LISI40TA PO (09:09)
[2017-05-07] MEDS ORDERED: DILT31TA PO (09:09)
[2017-05-07] MEDS ORDERED: LEVA500T20 PO (09:09)
[2017-05-07] MEDS ORDERED: PANT40TA3 PO (09:09)
[2017-05-07] MEDS ORDERED: LEVO.125 PO (09:09)
[2017-05-07] MEDS ORDERED: SM C1CRE VAGINAL (09:09)
[2017-05-07] MEDS ORDERED: IPRASOL NEB (09:09)
[2017-05-07] MEDS ORDERED: OXYC1TAB36 PO (09:09)
[2017-05-07] MEDS ORDERED: PRED10PA PO ×2 (09:09→13:30)
[2017-05-07] MEDS ORDERED: COLL30T TOPICAL (09:09)
[2017-05-07] MEDS ORDERED: NEBULIZER1 MI1 (09:15)
[2017-05-07] MEDS ORDERED: OXYGENDME NAS.CANULA (09:15)
[2017-05-07] MEDS ORDERED: NEBUKIT5 (09:15)
--- NOTE | 2017-05-07 09:20 | HHI.FF ---
Face to Face Verification Diagnosis: (1) Hypothyroidism (2) GERD (gastroesophageal reflux disease) (3) Intractable pain (4) Hypertension (5) Atrial fibrillation (6) Pneumonia (7) Large B-cell lymphoma (8) Anemia (9) Chest pain in adult (10) Right-sided chest wall pain (11) Lung nodule seen on imaging study Physical Therapy Order: Evaluate and Treat, Improve ambulation, Strength and gait training Occupational Therapy Order: Evaluate and Treat, Improve ADL, Gross motor coordination, Fine motor coordination Home Health Nursing Order: Medical education Oxygen administration education Nursing assessment with vital signs Home Health Aide Order: To Assist In: Bathing and personal care, cobbler sole and meal prep I have seen patient Robbi Solares on 05/07/17. My clinical findings support the need for the requested home health care services because: Patient has SOB Deconditioned w/ increased weakness I certify that my clinical findings support that this patient is homebound because: Hx COPD- exertion dyspnea/weakness Unsteady gait/balance Jett Glez DO May 07, 2017 09:20
[2017-05-07] MEDS ORDERED: FURO1TAB62 PO (09:21)
--- NOTE | 2017-05-07 09:25 | HHI.DS ---
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 Mrs. Solares reported waking in her normal state of health and developed substernal chest pain that radiated "down my spine" at approximately 11:00 am. An unknown period of time passed before she called EMS. She was given nitroglycerine and an aspirin and her chest pain (which was reported to be 10/10 ) decreased. She was subsequently transported to [facility] [place] for further evaluation and management of her condition. Upon interview, Mrs. Solares reported having substernal chest pain and rated it 2 /10. She reported she was short of breath upon exertion, but this has been of long standing duration. She denied nausea, vomiting, sweating, pain radiating to her neck or left shoulder/arm, or unusual weakness/fatigue. A 10 point ROS was conducted and, except as noted above was negative. TREATED BY ONCOLOGY WITH CHEMO WENT INTO AFIB ON PO CARDIZEM NOW ON PO ANTIBIOTICS NOW ON PO STEROIDS NOW CAN DC TO HOME TODAY NEEDS HOME OXYGEN 4L BY NC CBC/BMP: 05/07/17 0545 05/07/17 0545 Significant Findings Laboratory Tests Test 05/04/17 14:14 05/05/17 05:20 05/05/17 14:10 05/05/17 15:50 White Blood Count 15.7 TH/MM3 (4.0-11.0) Red Blood Count 3.05 MIL/MM3 (4.00-5.30) 2.79 MIL/MM3 (4.00-5.30) Hemoglobin 8.8 GM/DL (11.6-15.3) 8.1 GM/DL (11.6-15.3) Hematocrit 27.0 % (35.0-46.0) 24.6 % (35.0-46.0) Red Cell Distribution Width 17.7 % (11.6-17.2) Neutrophils (%) (Auto) 94.8 % (16.0-70.0) 93.5 % (16.0-70.0) Lymphocytes (%) (Auto) 2.0 % (9.0-44.0) 3.2 % (9.0-44.0) Neutrophils # (Auto) 14.9 TH/MM3 (1.8-7.7) 9.0 TH/MM3 (1.8-7.7) Lymphocytes # (Auto) 0.3 TH/MM3 (1.0-4.8) 0.3 TH/MM3 (1.0-4.8) Neutrophils % (Manual) 99 % (16-70) Lymphocytes % 1 % (9-44) Neutrophils # (Manual) 15.5 TH/MM3 (1.8-7.7) Platelet Estimate HIGH (NORMAL) Ovalocytes 1+ (NORMAL) Random Glucose 155 MG/DL (74-106) 142 MG/DL (74-106) Total Protein 5.5 GM/DL (6.4-8.2) 4.9 GM/DL (6.4-8.2) Albumin 2.3 GM/DL (3.4-5.0) 2.0 GM/DL (3.4-5.0) Mean Platelet Volume 6.9 FL (7.0-11.0) Magnesium Level 2.6 MG/DL (1.5-2.5) Free Thyroxine 2.20 NG/DL (0.76-1.46) Thyroid Stimulating Hormone 3rd Gen 0.014 uIU/ML (0.358-3.740) Total Creatine Kinase 22 U/L (26-192) Test 05/05/17 20:20 05/06/17 04:15 05/06/17 18:00 05/07/17 05:45 Total Creatine Kinase 22 U/L (26-192) 15 U/L (26-192) White Blood Count 11.6 TH/MM3 (4.0-11.0) 11.2 TH/MM3 (4.0-11.0) Red Blood Count 2.92 MIL/MM3 (4.00-5.30) 3.04 MIL/MM3 (4.00-5.30) Hemoglobin 8.7 GM/DL (11.6-15.3) 8.9 GM/DL (11.6-15.3) Hematocrit 25.8 % (35.0-46.0) 26.9 % (35.0-46.0) Red Cell Distribution Width 17.3 % (11.6-17.2) 17.5 % (11.6-17.2) Neutrophils (%) (Auto) 95.2 % (16.0-70.0) 91.9 % (16.0-70.0) Lymphocytes (%) (Auto) 1.6 % (9.0-44.0) 1.5 % (9.0-44.0) Neutrophils # (Auto) 11.0 TH/MM3 (1.8-7.7) 10.3 TH/MM3 (1.8-7.7) Lymphocytes # (Auto) 0.2 TH/MM3 (1.0-4.8) 0.2 TH/MM3 (1.0-4.8) Creatinine 0.45 MG/DL (0.50-1.00) 0.48 MG/DL (0.50-1.00) Random Glucose 133 MG/DL (74-106) 121 MG/DL (74-106) Total Protein 5.1 GM/DL (6.4-8.2) 5.0 GM/DL (6.4-8.2) Albumin 2.2 GM/DL (3.4-5.0) 2.2 GM/DL (3.4-5.0) Magnesium Level 2.8 MG/DL (1.5-2.5) 2.7 MG/DL (1.5-2.5) Anion Gap 4 MEQ/L (5-15) Blood Urea Nitrogen 22 MG/DL (7-18) Imaging Last Impressions Chest X-Ray 05/05/17 0000 Signed Impressions: Service Date/Time: Friday, May 05, 2017 17:05 - CONCLUSION: Stable chest bibasilar parenchymal changes and mild interstitial edema. Jett Valle MD FACR Upper Extremity Ultrasound 04/29/17 Signed Impressions: Service Date/Time: Saturday, April 29, 2017 13:12 - CONCLUSION: 1. No evidence of deep venous thrombosis. Bandar Vo MD Lower Extremity Ultrasound 04/29/17 Signed Impressions: Service Date/Time: Saturday, April 29, 2017 10:26 - CONCLUSION: No evidence of DVT. Right popliteal fossa Ruiz's cyst. Al Peña MD CT Angiography 04/25/17 Signed Impressions: Service Date/Time: Tuesday, April 25, 2017 16:23 - CONCLUSION: 1. No PE is identified. 2. Abnormal diffuse and somewhat patchy groundglass attenuation bilaterally. Etiology is nonspecific. Some considerations include edema, infectious, or inflammatory processes. 3. The right lower lobe pulmonary nodules and sonu hepatis mass have decreased in size, as above. 4. Mild splenic. Ravindra Seymour MD PE at Discharge GENERAL: Alert oriented talkative and cooperative in some pain SKIN: Warm and dry. HEAD: Atraumatic. Normocephalic. EYES: Pupils equal and round. No scleral icterus. No injection or drainage. Extraocular muscles intact ENT: No nasal bleeding or discharge. Mucous membranes pink and moist. Tongue is midline NECK: Trachea midline. No JVD. Neck is supple CARDIOVASCULAR: Regular rate and rhythm. S1-S2 no S3 or S4 no heave or thrill or rub or gallop RESPIRATORY: No accessory muscle use. Clear to auscultation. Breath sounds equal bilaterally. Diminished breath sounds bilaterally GASTROINTESTINAL: Abdomen soft, non-tender, nondistended. Hepatic and splenic margins not palpable. Obese MUSCULOSKELETAL: Extremities without clubbing, cyanosis, or edema. No obvious deformities. NEUROLOGICAL: Awake and alert. No obvious cranial nerve deficits. Motor grossly within normal limits. Five out of 5 muscle strength in the arms and legs. Normal speech. PSYCHIATRIC: Appropriate mood and affect; insight and judgment normal. Hospital Course Mrs. 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 Mrs. Solares reported waking in her normal state of health and developed substernal chest pain that radiated "down my spine" at approximately 11:00 am. An unknown period of time passed before she called EMS. She was given nitroglycerine and an aspirin and her chest pain (which was reported to be 10/10 ) decreased. She was subsequently transported to [facility] [place] for further evaluation and management of her condition. Upon interview, Mrs. Solares reported having substernal chest pain and rated it 2 /10. She reported she was short of breath upon exertion, but this has been of long standing duration. She denied nausea, vomiting, sweating, pain radiating to her neck or left shoulder/arm, or unusual weakness/fatigue. A 10 point ROS was conducted and, except as noted above was negative. This is a follow up on 71 years old female with history of large B-cell lymphoma on chemotherapy admitted to the hospital due to chest pain and then she was found to have a neutropenia and fever develop, later on neutropenia improved however the fever persist, ID consulted, full workup is being done found to have pneumonia, now on 6 L oxygen, she has a history of COPD, pulmonary consulted, oncologist on board as well she is planning on resuming chemotherapy while patient in the hospital 9-3 STILL TAKING IV MORPHINE NEED TO SWITCH TO PO MEDS FOR TRANSITION OF PAIN TO A HOME MEDICATION DW RN AND PT FOR CHEMO TOMORROW A.m. labs PT and OT 9-4 FOR CHOP CHEMO TODAY NO CURRENT COMPLAINTS NO PAIN NO SOB NO NAUSEA OR VOMITING AT THIS TIME DW PATIENT AND RN AND 9-5 patient went into atrial fibrillation yesterday. Was transferred to the ICU and placed on a Cardizem drip We'll try to wean off her Cardizem drip increase Cardizem to 30 mg by mouth 4 times a day Did not finish her chemotherapy yesterday A.m. labs Wean off drip Increase ambulation Discussed with RN patient 9-6 HEART RATE IS BETTER CONTROLLED WILL GET A WALK TEST IF NEEDS OXYGEN WILL ASK CM TO SET UP HOPEFULLY DC TO HOME TODAY ON ORAL MEDS AND OXYGEN IF NEEDED FOLLOW UP WITH JOSE AND PCP AND PULM SWITCH TO PO STEROIDS TREATED BY ONCOLOGY WITH CHEMO WENT INTO AFIB ON PO CARDIZEM NOW ON PO ANTIBIOTICS NOW ON PO STEROIDS NOW CAN DC TO HOME TODAY NEEDS HOME OXYGEN 4L BY NC SEEN BY PULMONARY AND ONCOLOGY AND ID Pt Condition on Discharge: Good Discharge Disposition: Disch w/ Home Health Serv Discharge Time: > 30 minutes Discharge Instructions DIET: Follow Instructions for: Heart Healthy Diet, Diabetic Diet Speech Therapy-Diet Recommends: Regular Activities you can perform: Regular-No Restrictions, Weight Bearing as Long Follow up Referrals: Oncology/Hematology - 1 Week with Brenda Brown MD PCP Follow-up - 1 Week Pulmonology - 1 Month with Dima Clifford MD New Medications: Furosemide (Lasix) 20 Mg Tab 20 MG PO DAILY for Shortness of Breath, #30 TAB 0 Refills Nebulizer (Nebulizer) 1 Mis Mis EA .ROUTE DIRECTED for Breathing Treatment, #1 0 Refills Nebulizer Kit/Tubing/Mout (Nebulizer Kit/Tubing/Mout) 1 Kit Kit KIT .ROUTE DIRECTED for Breathing Treatment, #1 0 Refills Oxygen (O2) (Oxygen (O2)) Device LITER RACH.CANULA CONTINUOUS for Prevent Hypoxemia, #4 Oxygen Concentrator Portable Gaseous 2 L/min via Nasal Canula Continuous For 99 months Prednisone (21) 10 mg tab Dose Pack (Prednisone (21) 10 mg tab Dose Pack) 10 Mg Pack 10 MG PO DIRECTED for Inflammation, #1 DSPK 0 Refills Clotrimazole Vaginal (Sm Clotrimazole Vaginal) 1 % Cre 1 APPL VAGINAL HS PRN for itching, #10 TUBE Collagenase (Santyl) 250 Unit/Gram Oin 1 APPLIC TOPICAL DAILY for Rash, #1 TUBE Diltiazem (Cardizem) 30 Mg Tab 30 MG PO QID for Regulate Heart Beat, #120 TAB Ipratropium-Albuterol Neb (Duoneb) 0.5-2.5 Mg/3 Ml Neb 1 AMPULE NEB Q4HR PRN for short of breath, #240 ML Levofloxacin (Levaquin) 500 Mg Tablet 500 MG PO Q24H for Infection, #7 TAB Levothyroxine (Synthroid) 125 Mcg Tab 250 MCG PO DAILY@0600 for Thyroid, #30 TAB Oxycodone-Acetaminophen (Oxycodone-Acetaminophen) 10-325 mg Tab 1 TAB PO Q6H PRN for PAIN 6 TO 10, #60 TAB Pantoprazole (Pantoprazole) 40 Mg Tab 40 MG PO DAILY for Heartburn Management, #30 TAB Continued Medications: Citalopram (Citalopram) 20 Mg Tab 20 MG PO DAILY for Control Depression, #30 TAB 0 Refills Lisinopril (Lisinopril) 40 Mg Tab 40 MG PO DAILY for Blood Pressure Management, #30 TAB 0 Refills (This prescription has been renewed) Discontinued Medications: Diltiazem (Diltiazem) 30 Mg Tab 30 MG PO BID for Angina, #120 TAB 0 Refills Levothyroxine (Levothyroxine) 300 Mcg Tab 300 MCG PO DAILY for Thyroid, #30 TAB 0 Refills Jett Glez DO May 07, 2017 09:25
--- NOTE | 2017-05-07 10:59 | HHI.IDPN ---
Subjective Subjective Remarks Delayed entry. Ms. Solares is a 71-year-old female with past medical history significant for diagnosis of large cell lymphoma diagnosed after she had weight loss of 35 pounds associated with night sweats and abdominal pain. She was found to have intra-abdominal adenopathy and a CT-guided biopsy of the abdominal mass showed a large cell lymphoma. The patient was treated with R- CHOP chemotherapy per review of Dr. Mccormack's note. She received a combination of Cytoxan, vincristine, Adriamycin on April 14 and Rituxan on April 15. She received only one injection of Neupogen which was administered the day prior to admission. The following day she developed pain in the chest as though someone was putting a large heavy weight on her chest. She also had pain running down the bones of the back. This is what brought her to the emergency room and patient got admitted. On admission she was febrile and had severe neutropenia. Due to neutropenic fever patient was admitted. Patient was started on empiric cefepime. She reports that she has been fairly okay but her fevers persist as high as 103 Fahrenheit this morning. Patient underwent workup for sepsis and all cultures are negative so far. Patient reports that she has seen her primary care physician for a ulcer at the site of her bone marrow biopsy which continued to drain so she had put the dressing over it. Patient reports that she hasn't been on any antibiotics but has been applying Neosporin ointment as prescribed to her by her primary care physician. ID consulted for management of neutropenic fever. Overnight events reviewed with RN No rash No diarrhea No Shortness of breath. No CP. Antibiotics Doxy Cefepime IV Lines Line sites with no e/o infection Past Medical History reviewed Allergies: Coded Allergies: No Known Allergies (Verified , 04/09/17) Objective . Vital Signs Date Time Temp Pulse Resp B/P (MAP) Pulse Ox O2 Delivery O2 Flow Rate FiO2 05/07/17 10:01 73 05/07/17 10:01 73 23 125/57 (79) 91 05/07/17 10:00 71 05/07/17 10:00 71 25 90 05/07/17 09:01 82 22 147/58 (87) 95 05/07/17 09:01 82 05/07/17 08:01 62 20 103/51 (68) 94 05/07/17 08:01 62 05/07/17 08:00 63 05/07/17 08:00 63 14 94 05/07/17 07:39 92 Nasal Cannula 4.00 05/07/17 07:00 98 Nasal Cannula 3.00 50 05/07/17 06:14 65 19 116/54 (74) 96 05/07/17 06:00 65 05/07/17 06:00 65 20 94 05/07/17 05:01 53 14 115/57 (76) 96 05/07/17 05:00 57 15 94 05/07/17 04:01 55 8 120/60 (80) 97 05/07/17 04:00 97.8 56 12 97 05/07/17 04:00 56 05/07/17 03:01 54 13 94/51 (65) 97 05/07/17 03:00 54 17 97 05/07/17 02:00 66 28 137/63 (87) 100 05/07/17 02:00 66 05/07/17 01:00 56 12 114/58 (76) 92 05/07/17 00:00 98.0 58 12 126/60 (82) 98 05/07/17 00:00 58 05/06/17 23:20 91 HOME CPAP 6.00 05/06/17 23:01 57 14 120/59 (79) 97 05/06/17 23:00 57 14 97 05/06/17 22:00 57 05/06/17 22:00 57 18 128/61 (83) 96 05/06/17 21:00 55 12 120/58 (78) 98 05/06/17 20:00 98.3 61 18 121/72 (88) 98 05/06/17 20:00 98 Nasal Cannula 4.00 05/06/17 20:00 67 05/06/17 19:35 92 Nasal Cannula 4.00 05/06/17 19:00 67 34 116/91 (99) 96 05/06/17 18:00 65 05/06/17 17:00 60 05/06/17 16:00 97.5 78 34 123/58 (79) 92 05/06/17 16:00 78 05/06/17 15:01 59 05/06/17 15:00 60 16 92/43 (59) 94 05/06/17 15:00 60 05/06/17 14:00 80 05/06/17 14:00 80 45 114/56 (75) 88 05/06/17 13:00 61 17 113/58 (76) 95 05/06/17 13:00 61 05/06/17 12:01 68 05/06/17 12:00 66 05/06/17 12:00 97.8 66 22 106/56 (73) 94 05/06/17 11:54 94 Nasal Cannula 4.00 05/06/17 11:00 61 22 93 05/06/17 11:00 61 . Laboratory Tests Test 05/06/17 04:15 05/07/17 05:45 White Blood Count 11.6 TH/MM3 11.2 TH/MM3 Red Blood Count 2.92 MIL/MM3 3.04 MIL/MM3 Hemoglobin 8.7 GM/DL 8.9 GM/DL Hematocrit 25.8 % 26.9 % Mean Corpuscular Volume 88.6 FL 88.5 FL Mean Corpuscular Hemoglobin 29.8 PG 29.2 PG Mean Corpuscular Hemoglobin Concent 33.7 % 33.0 % Red Cell Distribution Width 17.3 % 17.5 % Platelet Count 316 TH/MM3 282 TH/MM3 Mean Platelet Volume 7.9 FL 7.1 FL Neutrophils (%) (Auto) 95.2 % 91.9 % Lymphocytes (%) (Auto) 1.6 % 1.5 % Monocytes (%) (Auto) 3.2 % 6.4 % Eosinophils (%) (Auto) 0.0 % 0.0 % Basophils (%) (Auto) 0.0 % 0.2 % Neutrophils # (Auto) 11.0 TH/MM3 10.3 TH/MM3 Lymphocytes # (Auto) 0.2 TH/MM3 0.2 TH/MM3 Monocytes # (Auto) 0.4 TH/MM3 0.7 TH/MM3 Eosinophils # (Auto) 0.0 TH/MM3 0.0 TH/MM3 Basophils # (Auto) 0.0 TH/MM3 0.0 TH/MM3 CBC Comment DIFF FINAL DIFF FINAL Differential Comment Laboratory Tests Test 05/05/17 15:50 05/05/17 20:20 05/06/17 04:15 05/06/17 18:00 Total Creatine Kinase 22 U/L 22 U/L 15 U/L Troponin I 0.02 NG/ML 0.02 NG/ML 0.02 NG/ML Blood Urea Nitrogen 17 MG/DL Creatinine 0.45 MG/DL Random Glucose 133 MG/DL Total Protein 5.1 GM/DL Albumin 2.2 GM/DL Calcium Level 8.8 MG/DL Phosphorus Level 3.5 MG/DL 3.0 MG/DL Magnesium Level 2.8 MG/DL Alkaline Phosphatase 70 U/L Aspartate Amino Transf (AST/SGOT) 22 U/L Alanine Aminotransferase (ALT/SGPT) 23 U/L Total Bilirubin 0.5 MG/DL Sodium Level 139 MEQ/L Potassium Level 4.5 MEQ/L Chloride Level 104 MEQ/L Carbon Dioxide Level 30.8 MEQ/L Anion Gap 4 MEQ/L Estimat Glomerular Filtration Rate 138 ML/MIN Test 05/07/17 05:45 Blood Urea Nitrogen 22 MG/DL Creatinine 0.48 MG/DL Random Glucose 121 MG/DL Total Protein 5.0 GM/DL Albumin 2.2 GM/DL Calcium Level 9.4 MG/DL Phosphorus Level 2.7 MG/DL Magnesium Level 2.7 MG/DL Alkaline Phosphatase 68 U/L Aspartate Amino Transf (AST/SGOT) 19 U/L Alanine Aminotransferase (ALT/SGPT) 26 U/L Total Bilirubin 0.5 MG/DL Sodium Level 140 MEQ/L Potassium Level 4.1 MEQ/L Chloride Level 103 MEQ/L Carbon Dioxide Level 30.6 MEQ/L Anion Gap 6 MEQ/L Estimat Glomerular Filtration Rate 128 ML/MIN Imaging Last Impressions Upper Extremity Ultrasound 04/29/17 0000 Signed Impressions: Service Date/Time: Saturday, April 29, 2017 13:12 - CONCLUSION: 1. No evidence of deep venous thrombosis. Bandar Vo MD Lower Extremity Ultrasound 04/29/17 0000 Signed Impressions: Service Date/Time: Saturday, April 29, 2017 10:26 - CONCLUSION: No evidence of DVT. Right popliteal fossa Ruiz's cyst. Al Peña MD Chest X-Ray 04/29/17 0000 Signed Impressions: Service Date/Time: Saturday, April 29, 2017 13:46 - CONCLUSION: Bilateral pulmonary infiltrates. Patricio Motta Jr., MD CT Angiography 04/25/17 0000 Signed Impressions: Service Date/Time: Tuesday, April 25, 2017 16:23 - CONCLUSION: 1. No PE is identified. 2. Abnormal diffuse and somewhat patchy groundglass attenuation bilaterally. Etiology is nonspecific. Some considerations include edema, infectious, or inflammatory processes. 3. The right lower lobe pulmonary nodules and sonu hepatis mass have decreased in size, as above. 4. Mild splenic. Ravindra Seymour MD Physical Exam GENERAL: Morbidly obese, well-developed patient, in no apparent distress. SKIN: No rashes, ecchymoses or lesions. Cool and dry. HEAD: Atraumatic. Normocephalic. No temporal or scalp tenderness. EYES: Pupils equal round and reactive. Extraocular motions intact. No scleral icterus. No injection or drainage. ENT: Nose without bleeding, purulent drainage or septal hematoma. Throat without erythema, tonsillar hypertrophy or exudate. Uvula midline. Airway patent. NECK: Trachea midline. Supple, nontender, no meningeal signs. CARDIOVASCULAR: RRR, No murmurs. RESPIRATORY: Decreased breath sounds bilaterally at bases. GASTROINTESTINAL: Abdomen soft, non-tender, nondistended. MUSCULOSKELETAL: Extremities without clubbing, cyanosis, or edema. NEUROLOGICAL: Awake and alert. Grossly non focal Psych: cooperative IV line sites with no e.o infection. Assessment & Plan Remarks Neutropenic fever on presentation. Neutropenia resolved. Fevers persist. Large cell Lymphoma: s/p R-CHOP Immune compromised. Pneumonia ? HCAP. Acute COPD exacerbation. Past h/o smoking. Quit 40 yrs back. ? Neupogen allergy: rash, chest pain and fevers on presentation. Afib Recs Continue Levaquin oral (Re: atypical PNA) x 7 days. Vaginal antifungal cream. Will sign off please call back if any change in clinical condition or questions. Idalmis Cabrera MD May 07, 2017 10:59
[2017-05-07] MEDS: LEVOFLOXACIN 500 MG TAB PO SCH (12:15)
--- NOTE | 2017-05-07 13:23 | PD.ONC.PN ---
Subjective Subjective Remarks Afebrile overnight. Patient resting in bed in nad. Eager to go home. She has been discharged and is waiting for oxygen. Feeling much better today. Objective Data Date Time Temp Pulse Resp B/P (MAP) Pulse Ox O2 Delivery O2 Flow Rate FiO2 05/07/17 10:05 3.00 05/07/17 10:01 73 05/07/17 10:01 73 23 125/57 (79) 91 05/07/17 10:00 71 05/07/17 10:00 71 25 90 05/07/17 09:01 82 22 147/58 (87) 95 05/07/17 09:01 82 05/07/17 08:01 62 20 103/51 (68) 94 05/07/17 08:01 62 05/07/17 08:00 63 05/07/17 08:00 63 14 94 05/07/17 07:39 92 Nasal Cannula 4.00 05/07/17 07:00 98 Nasal Cannula 3.00 50 05/07/17 06:14 65 19 116/54 (74) 96 05/07/17 06:00 65 05/07/17 06:00 65 20 94 05/07/17 05:01 53 14 115/57 (76) 96 05/07/17 05:00 57 15 94 05/07/17 04:01 55 8 120/60 (80) 97 05/07/17 04:00 97.8 56 12 97 05/07/17 04:00 56 05/07/17 03:01 54 13 94/51 (65) 97 05/07/17 03:00 54 17 97 05/07/17 02:00 66 28 137/63 (87) 100 05/07/17 02:00 66 05/07/17 01:00 56 12 114/58 (76) 92 05/07/17 00:00 98.0 58 12 126/60 (82) 98 05/07/17 00:00 58 05/06/17 23:20 91 HOME CPAP 6.00 05/06/17 23:01 57 14 120/59 (79) 97 05/06/17 23:00 57 14 97 05/06/17 22:00 57 05/06/17 22:00 57 18 128/61 (83) 96 05/06/17 21:00 55 12 120/58 (78) 98 05/06/17 20:00 98.3 61 18 121/72 (88) 98 05/06/17 20:00 98 Nasal Cannula 4.00 05/06/17 20:00 67 05/06/17 19:35 92 Nasal Cannula 4.00 05/06/17 19:00 67 34 116/91 (99) 96 05/06/17 18:00 65 05/06/17 17:00 60 05/06/17 16:00 97.5 78 34 123/58 (79) 92 05/06/17 16:00 78 05/06/17 15:01 59 05/06/17 15:00 60 16 92/43 (59) 94 05/06/17 15:00 60 05/06/17 14:00 80 05/06/17 14:00 80 45 114/56 (75) 88 05/07/17 05/07/17 05/07/17 06:59 14:59 22:59 Intake Total 240 ml Balance 240 ml Result Diagram: 05/07/17 0545 05/07/17 0545 Laboratory Results Laboratory Tests Test 05/06/17 18:00 05/07/17 05:45 Phosphorus Level 3.0 MG/DL 2.7 MG/DL White Blood Count 11.2 TH/MM3 Red Blood Count 3.04 MIL/MM3 Hemoglobin 8.9 GM/DL Hematocrit 26.9 % Mean Corpuscular Volume 88.5 FL Mean Corpuscular Hemoglobin 29.2 PG Mean Corpuscular Hemoglobin Concent 33.0 % Red Cell Distribution Width 17.5 % Platelet Count 282 TH/MM3 Mean Platelet Volume 7.1 FL Neutrophils (%) (Auto) 91.9 % Lymphocytes (%) (Auto) 1.5 % Monocytes (%) (Auto) 6.4 % Eosinophils (%) (Auto) 0.0 % Basophils (%) (Auto) 0.2 % Neutrophils # (Auto) 10.3 TH/MM3 Lymphocytes # (Auto) 0.2 TH/MM3 Monocytes # (Auto) 0.7 TH/MM3 Eosinophils # (Auto) 0.0 TH/MM3 Basophils # (Auto) 0.0 TH/MM3 CBC Comment DIFF FINAL Differential Comment Blood Urea Nitrogen 22 MG/DL Creatinine 0.48 MG/DL Random Glucose 121 MG/DL Total Protein 5.0 GM/DL Albumin 2.2 GM/DL Calcium Level 9.4 MG/DL Magnesium Level 2.7 MG/DL Alkaline Phosphatase 68 U/L Aspartate Amino Transf (AST/SGOT) 19 U/L Alanine Aminotransferase (ALT/SGPT) 26 U/L Total Bilirubin 0.5 MG/DL Sodium Level 140 MEQ/L Potassium Level 4.1 MEQ/L Chloride Level 103 MEQ/L Carbon Dioxide Level 30.6 MEQ/L Anion Gap 6 MEQ/L Estimat Glomerular Filtration Rate 128 ML/MIN Administered Medications Medications (Trade) Dose Ordered Sig/Magalys Route PRN Reason Start Time Stop Time Status Last Admin Dose Admin Sodium Chloride (NS Flush) 2 ml BID IV FLUSH 04/25/17 21:00 05/07/17 08:32 Acetaminophen (Tylenol) 500 mg Q4H PRN PO HEADACHE/fever > 100.4 04/25/17 19:15 05/01/17 16:34 Pantoprazole Sodium (Protonix) 40 mg DAILY PO 04/26/17 09:00 05/07/17 08:31 Enoxaparin Sodium (Lovenox Inj) 30 mg Q24H SQ 04/25/17 21:00 05/06/17 20:00 Citalopram Hydrobromide (CeleXA) 20 mg DAILY PO 04/27/17 09:00 05/07/17 08:30 Magnesium Hydroxide (Milk Of Magnvickie Liq) 30 ml Q6H PRN PO CONSTIPATION 04/28/17 11:45 05/05/17 08:14 Senna/Docusate Sodium (Daniela-Colace) 2 tab BID PRN PO CONSTIPATION 04/28/17 11:45 04/29/17 09:41 Albuterol/ Ipratropium (Duoneb Neb) 1 ampule Q2HR NEB PRN NEB short of breath 04/29/17 14:00 05/05/17 08:18 Ondansetron HCl (Zofran Inj) 4 mg Q6HR PRN IV PUSH n/v 04/30/17 09:00 05/04/17 10:24 Collagenase (Santyl Oint) 1 applic DAILY TOPICAL 05/01/17 09:00 05/06/17 09:00 Methylprednisolone Sodium Succinate (SoluMEDROL INJ) 40 mg Q6HR IV PUSH 05/01/17 18:45 Future Hold 05/06/17 04:34 Oxycodone/ Acetaminophen (Percocet 5-325 Mg) 1 tab Q6H PRN PO PAIN 3-5 05/04/17 09:15 05/04/17 10:24 Oxycodone/ Acetaminophen (Percocet 10-325 Mg) 1 tab Q6H PRN PO PAIN 6 TO 10 05/04/17 09:15 05/05/17 17:27 Prednisone (Deltasone) 100 mg DAILY PO 05/05/17 08:00 05/08/17 09:01 05/07/17 08:30 Levothyroxine Sodium (Synthroid) 250 mcg DAILY@0600 PO 05/06/17 06:00 05/07/17 06:10 Lisinopril (Prinivil) 40 mg DAILY PO 05/06/17 09:00 05/07/17 08:31 Diltiazem HCl 125 mg/Sodium Chloride 125 ml @ 5 mls/hr TITRATE PRN IV Tachycardia 05/05/17 15:00 05/06/17 01:47 Chlorhexidine Gluconate (Chlorhexidine 2% Cloth) 3 pack DAILY@04 TOPICAL 05/06/17 04:00 05/10/17 04:01 05/06/17 20:01 Diltiazem HCl (Cardizem) 30 mg QID PO 05/06/17 10:00 05/07/17 12:15 Levofloxacin (Levaquin) 500 mg Q24H PO 05/06/17 12:00 05/07/17 12:15 Furosemide (Lasix Inj) 20 mg BID@,18 IV PUSH 05/06/17 12:00 05/07/17 08:30 Objective Remarks GENERAL: Pleasant female upright in bed in nad. SKIN: Warm and dry. HEAD: Normocephalic. EYES: No injection or drainage. NECK: Supple, trachea midline. CARDIOVASCULAR: Regular rate and rhythm RESPIRATORY: scattered rhonchi. on 3L O2 via NC GASTROINTESTINAL: Abdomen soft, non-tender, nondistended. EXTREMITIES: No cyanosis NEUROLOGICAL: awake and alert, normal speech. Assessment/Plan Problem List: (1) Large B-cell lymphoma ICD Codes: C85.10 - Unspecified B-cell lymphoma, unspecified site Status: Acute Plan: --Stage IV NHL, s/p R-CHOP, 8.15, was complicated by hypotension. --C2 of CHOP chemotherapy 05/05 (2) Pneumonia ICD Codes: J18.9 - Pneumonia, unspecified organism Status: Acute Plan: --will defer to pulmonology for treatment -- CXR shows bilateral pulmonary infiltrates --on Levaquin and prednisone --BC no growth Assessment 71 y/o woman with Stage IV NHL, BM involvement s/p C1 CHOP, 8.15, now with fevers. h/o Atrial fibrillation Morbid obesity. Depression Hyperlipidemia Multiple sclerosis 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 Plan 1. monitor CBC 2. continue Prednisone 3. once discharged, follow up in clinic in 1-2 weeks Attending Statement As discussed. Discussed with Dr. Hurley plans for out patient follow up after DC. Continue Prednisone per CHOP protocol then wean for COPD. Problem Qualifiers (1) Pneumonia: Qualified Codes: J18.9 - Pneumonia, unspecified organism Yesenia Woods May 07, 2017 13:23 Brenda Brown MD May 07, 2017 19:42
[2017-05-07] MEDS ORDERED: PRED50 PO (13:28)
== END 2017-05-07 15:15 | disposition home health service (06) | DRG 808 ==
LOC: NEPE 13:16 → NEDA 18:00 → HOCB 22:20 → OBSVTOIN 04-26 11:54 → HIMW 05-05 13:50
PROVIDERS: ADMIT Hospitalist; ATTEND Hospitalist
PROC: 30233N1 Transfusion of Nonautologous Red Blood Cells into Peripheral Vein, Percutaneous Approach (ICD-10-PCS; principal; 2017-04-25)
PROC: 3E03305 Introduction of Other Antineoplastic into Peripheral Vein, Percutaneous Approach (ICD-10-PCS; 2017-05-05)
DX: D70.9 Neutropenia, unspecified (principal); J18.9 Pneumonia, unspecified organism; A41.9 Sepsis, unspecified organism; C78.00 Secondary malignant neoplasm of unspecified lung; C79.89 Secondary malignant neoplasm of other specified sites; C83.30 Diffuse large B-cell lymphoma, unspecified site; J44.0 Chronic obstructive pulmonary disease with (acute) lower respiratory infection; E66.01 Morbid (severe) obesity due to excess calories; D64.81 Anemia due to antineoplastic chemotherapy; J44.1 Chronic obstructive pulmonary disease with (acute) exacerbation; L03.312 Cellulitis of back [any part except buttock and flank]; R50.2 Drug induced fever; R07.9 Chest pain, unspecified; G35 Multiple sclerosis; L27.1 Localized skin eruption due to drugs and medicaments taken internally; I48.91 Unspecified atrial fibrillation; M06.9 Rheumatoid arthritis, unspecified; I10 Essential (primary) hypertension; M19.90 Unspecified osteoarthritis, unspecified site; F32.9 Major depressive disorder, single episode, unspecified; L98.429 Non-pressure chronic ulcer of back with unspecified severity; E78.00 Pure hypercholesterolemia, unspecified; Z87.891 Personal history of nicotine dependence; E03.9 Hypothyroidism, unspecified; Z80.1 Family history of malignant neoplasm of trachea, bronchus and lung; Z82.49 Family history of ischemic heart disease and other diseases of the circulatory system; T45.1X5A Adverse effect of antineoplastic and immunosuppressive drugs, initial encounter; Z85.828 Personal history of other malignant neoplasm of skin; Z80.7 Family history of other malignant neoplasms of lymphoid, hematopoietic and related tissues; T45.8X5A Adverse effect of other primarily systemic and hematological agents, initial encounter; R50.81 Fever presenting with conditions classified elsewhere; G47.33 Obstructive sleep apnea (adult) (pediatric)
CPT/HCPCS: 36430; 36600; 71010; 71275; 76937; 80048; 80053; 80061; 80202; 81001; 82550; 82805; 83036; 83605; 83615; 83690; 83735; 84100; 84439; 84443; 84484; 85007; 85025; 85027; 85044; 85379; 85610; 85730; 86403; 86880; 86920; 87040; 87070; 87086; 87205; 87641; 93005; 93970; 93971; 94620; 94640; 94664; 96361; 96372; 96374; 96375; 96376; G0378; J0692; J1100; J1626; J1650; J1940; J2270; J2405; J2920; J2997; J3370; J3480; J7040; J7050; J7512; J9000; J9370; P9016; Q0163; Q9967

== ENCOUNTER → 2017-06-16 | Outpatient (CLI) | payer OTHER ==
[~2017-06-16] MED LIST changes: -ALLO300 PO; +COLL30T TOPICAL; +DILT31TA PO; -FENO54TA PO; +FURO1TAB62 PO; +IPRASOL NEB; +LEVA500T20 PO; +LEVO.125 PO; +LISI40TA PO; -MIDO5TAB PO; +NEBUKIT5; +NEBULIZER1 MI1; +OXYC1TAB36 PO; +OXYGENDME NAS.CANULA; +PANT40TA3 PO; +PRED10PA PO; +PRED50 PO; +SM C1CRE VAGINAL
[2017-06-16 10:57] LABS: BLOOD GAS BASE EXCESS -0.6 mmol/L (-2-2); BLOOD GAS CARBOXYHEMOGLOBIN 1.9 % (0-4); BLOOD GAS HCO3 23 mmol/L (22-26); BLOOD GAS O2 HGB SATURATION 95 % (90-100); BLOOD GAS OXYGEN CONTENT 17.3 Vol % (12.0-20.0); BLOOD GAS PCO2 36 mmHg (38-42); BLOOD GAS PO2 97 mmHg (61-120); BLOOD GAS TOTAL HGB 12.9 G/DL (12.0-16.0)
[2017-06-16 10:58] LABS: CRITICAL VALUE NO; DRAW SITE RT RADIAL; FIO2 21 %; NUMBER OF ARTERIAL PUNCTURES 1; OXYGEN DEVICE ROOM AIR; STAT NO; ULNAR PULSE PRESENT
--- NOTE | 2017-06-17 09:55 | RSPPFT ---
DATE OF PROCEDURE: 06/16/17 COMMENTS: Spirometry shows FVC of 2.5 at 92% of predicted, FEV1 of 2.1 at 98%, FEV1/FVC ratio is normal. Flow is normal at FEF 25, FEF 50, FEF 75 and FEF 25-75. There is no response after acutely inhaled bronchodilator treatment. Lung volumes show residual volume is normal. TLC is normal. Diffusion capacity is decreased. Flow volume loop indicates a normal pattern. Room air arterial blood gases show pH of 7.42, PCO2 of 36, PO2 of 97, BiCarb of 23 and O2 saturation of 95%. 6-minute walk test shows no de-saturation. IMPRESSION: 1. Normal spirometry. 2. No response after bronchodilator treatment. 3. Normal lung volumes. 4. Decreased diffusion capacity. 5. Blood gases show normal oxygenation on room air. 6. 6-minute walk test shows no de-saturation with ambulation.
== END ==
LOC: PHRSP 09:19
PROVIDERS: ATTEND Family Medicine
DX: R06.00 Dyspnea, unspecified (principal)
CPT/HCPCS: 36600; 82805; 94060; 94620; 94726; 94729

== ENCOUNTER 2018-03-18 07:47 | Inpatient (IN) ==
[2018-03-18] MEDS ORDERED: Cathflo Activase Inj 2 MG Vial I-CATHETER PRN (08:26)
[2018-03-18] MEDS ORDERED: Aluminum/Magnesium/Simethacone Susp 30 ML UDC PO PRN (08:26)
[2018-03-18] MEDS ORDERED: Acetaminophen 325 MG Tablet PO PRN (08:26)
--- NOTE | 2018-03-18 08:44 | P.HP ---
History of Present Illness Service: Hematology Primary Care Physician: Davonte Rodas MD Chief Complaint: Here for cycle 1 chemotherapy with ICE. History of Present Illness: Mrs. Solares is a 72-year-old woman well-known patient with history of relapse/ primary refractory large cell lymphoma, B-cell phenotype. She initially presented with abdominal pain back in March 2017. The final pathology showed a large cell lymphoma B-cell phenotype. Mesenteric mass was identified and biopsied. Bone marrow biopsy staging on 04/09/2017 was consistent with involvement by B-cell non-Hodgkin's lymphoma. She was treated initially with our rituximab and CHOP. She developed complications from her atrial fibrillation. Eventually the rituximab and CHOP chemotherapy was stopped. She was switched to bendamustine and Rituxan. She completed 6 cycles of bendamustine and Rituxan. On restaging CT PET scan residual PET positive lesion was identified in the abdomen. She was referred to Dr. Siddiqui for a colonoscopy. Biopsy of a colon lesion showed residual large cell lymphoma. Staging evaluation included CT PET scan performed on an outpatient basis. The lesion in the colon have increase in size and hypermetabolic activity. We discussed starting third line chemotherapy. In the meantime she was referred to a specialist and communications consultant at [facility]. This appointment is still pending. She received her Rituxan in the oncology clinic yesterday. She is admitted today to start her bone marrow biopsy staging and chemotherapy with ifosfamide, carboplatin, and etoposide. She feels well otherwise. She denies any abdominal pain. Cardiac arrhythmia is well controlled. She denies any headaches, no fevers, chills or night sweats. Her appetite is good. She has good performance status. She denies any urinary complaints. The rest of her review of system is negative. She is ready to proceed with her chemotherapy. - Diagnosis (1) Non-Hodgkins lymphoma in relapse Inpatient Certification: I certify that the inpatient services were ordered in accordance with Medicare regulations governing the order. This includes certification that hospital inpatient services are reasonable and necessary and in the case of services not specified as inpatient-only under 42 CFR 419.22(n), that they are appropriately provided as inpatient services in accordance to with the 2-midnight benchmark under 43 CFR 412.3(e) Estimated Total Length of Stay (Days): 3 Plans for Post Hospital Care: Home Review of Systems All other systems reviewed negative except as stated in HPI [facility] - Medical History Medical History: Medical History (Last Updated 03/18/18 @ 08:38 by Brenda Brown MD) Non-Hodgkins lymphoma in relapse Port-A-Cath in place - Substance Use History Substance History: No History of Abuse - Travel History History of Recent Travel: No Recent Travel in the [place] Within the Last 8 Weeks: No Recent Travel Out of the Country Within the Last 8 Weeks: No Medications and Allergies Active Medications: Active Medications Acetaminophen (Tylenol) 650 mg PO Q4H PRN PRN Reason: PAIN SCALE 0-3 OR TEMP> 100.5F Al Hydrox/Mg Hydrox/Simethicone (Mag-Al Plus Susp Liq) 30 ml PO Q4H PRN PRN Reason: INDIGESTION Al Hydroxide/Mg Hydroxide (Milk Of Magnesia Liq) 15 ml PO DAILY PRN PRN Reason: CONSTIPATION Alteplase, Recombinant (Cathflo Activase Inj) 2 mg I-CATHETER UNSCH PRN PRN Reason: for clotted access port Enoxaparin Sodium (Lovenox Inj) 40 mg SQ Q24H LINDSEY Ondansetron HCl 8 mg/ Dextrose 54 mls @ 200 mls/hr IV.SIG Q8H PRN PRN Reason: NAUSEA OR VOMITING Lorazepam (Ativan Inj) 0.5 mg IV.PUSH DAILY PRN PRN Reason: ANXIETY Oxycodone HCl (Roxicodone) 5 mg PO Q3H PRN PRN Reason: Pain Scale 4 to 7 Prochlorperazine Edisylate (Compazine Inj) 10 mg IV.PUSH Q4H PRN PRN Reason: NAUSEA OR VOMITING Temazepam (Restoril) 15 mg PO HS PRN PRN Reason: SLEEP Allergies Allergy/AdvReac Type Severity Reaction Status Date / Time No Known Allergies Allergy Uncoded 04/07/17 08:59 Exam Vital signs: GENERAL: Well-nourished, obese elderly woman, well-developed patient. SKIN: Warm and dry. HEAD: Normocephalic. EYES: No scleral icterus. No injection or drainage. NECK: Supple, trachea midline. No JVD or lymphadenopathy. LYMPHATIC: No adenopathy. CARDIOVASCULAR: Regular rate and rhythm without murmurs. RESPIRATORY: Breath sounds equal bilaterally. No accessory muscle use. GASTROINTESTINAL: Abdomen large soft, non-tender, nondistended. EXTREMITIES: No cyanosis, or edema. MUSCULOSKELETAL: Adequate muscle tone. NEUROLOGICAL: No obvious focal deficit. Awake, alert, and oriented x3. PSYCHIATRIC: Appropriate mood and affect; insight and judgment normal. Caprini VTE Risk Assessment Caprini VTE Risk Assessment: Moderate/High Risk (score >= 2) Caprini Risk Assessment Model: Point Value = 1 Point Value = 2 Point Value = 3 Point Value = 5 Age 41-60 Minor surgery BMI > 25 kg/m2 Swollen legs Varicose veins or History of unexplained or recurrent spontaneous Oral contraceptives or hormone replacement Sepsis (< 1 month) Serious lung disease, including pneumonia (< 1 month) Abnormal pulmonary function Acute myocardial infarction Congestive heart failure (< 1 month) History of inflammatory bowel disease Medical patient at bed rest Age 61-74 Arthroscopic surgery Major open surgery (> 45 min) Laparoscopic surgery (> 45 min) Malignancy Confined to bed (> 72 hours) Immobilizing plaster cast Central venous access Age >= 75 History of VTE Family history of VTE Factor V Leiden Prothrombin [id number] Lupus anticoagulant Anticardiolipin antibodies Elevated serum homocysteine Heparin-induced thrombocytopenia Other congenital or acquired thrombophilia Stroke (< 1 month) Elective arthroplasty Hip, pelvis, or leg fracture Acute spinal cord injury (< 1 month) Prophylaxis Regimen: Total Risk Factor Score Risk Level Prophylaxis Regimen 0-1 Low Early ambulation 2 Moderate Order ONE of the following: *Sequential Compression Device (SCD) *Heparin 5000 units SQ BID 3-4 Higher Order ONE of the following medications: *Heparin 5000 units SQ TID *Enoxaparin/Lovenox 40 mg SQ daily (WT < 150 kg, CrCl > 30 mL/min) *Enoxaparin/Lovenox 30 mg SQ daily (WT < 150 kg, CrCl > 10-29 mL/min) *Enoxaparin/Lovenox 30 mg SQ BID (WT < 150 kg, CrCl > 30 mL/min) AND/OR *Sequential Compression Device (SCD) 5 or more Highest Order ONE of the following medications: *Heparin 5000 units SQ TID (Preferred with Epidurals) *Enoxaparin/Lovenox 40 mg SQ daily (WT < 150 kg, CrCl > 30 mL/min) *Enoxaparin/Lovenox 30 mg SQ daily (WT < 150 kg, CrCl > 10-29 mL/min) *Enoxaparin/Lovenox 30 mg SQ BID (WT < 150 kg, CrCl > 30 mL/min) AND *Sequential Compression Device (SCD) Assessment and Plan - Assessment (1) Non-Hodgkins lymphoma in relapse Code(s): C85.90 - Non-Hodgkin lymphoma, unspecified, unspecified site Status: Acute Plan: Primary refractory non-Hodgkin's lymphoma. Staging CT PET scan on outpatient basis shows residual disease in the abdomen. Third line chemotherapy started with rituximab was administered on an outpatient basis. Patient is admitted for ifosfamide, etoposide, and carboplatin. This chemo regimen requires admission to the hospital for the ifosfamide continuous infusion along with mesna. Risk and benefit and toxicity associated with the chemotherapy was discussed. We will proceed with cycle 1 of ICE, chemotherapy after bone marrow biopsies done. Pulmonary biopsy is requested through interventional radiology for staging. Her bone marrow was positive previously in April 2017. - Plan 1. Bone marrow biopsy by interventional radiology 2. BSA check 3. Consent and information for chemotherapy 4. Administration of infusional chemotherapy as ordered 5. Monitor for toxicity 6. Anticipate discharge after chemo is finished. G-CSF support with Neulasta on an outpatient basis.
[2018-03-18 10:34] LABS: Baso % (Auto) 0.4 % (0.0-2.0); Eos # (Auto) 0.2 th/mm3 (0.0-0.4); Eos % (Auto) 2.8 % (0.0-4.0); Hematocrit 35.5 % (35.0-46.0); Hemoglobin 11.7 gm/dL (11.6-15.3); Lymph # (Auto) 0.3 th/mm3 (1.0-4.8); Mean Corpuscular HGB Conc 33.1 % (32.0-36.0); Mean Corpuscular Hemoglobin 29.6 pg (27.0-34.0); Mean Corpuscular Volume 89.5 fL (80.0-100.0); Mean Platelet Volume 9.2 fL (7.0-11.0); Mono # (Auto) 1.1 th/mm3 (0.0-0.9); Neut # (Auto) 6.6 th/mm3 (1.8-7.7); Neut % (Auto) 79.8 % (16.0-70.0); Platelet Count 194 th/mm3 (150-450); Red Blood Count 3.97 mil/mm3 (4.00-5.30); Red Cell Distribution Width 15.6 % (11.6-17.2); White Blood Count 8.3 th/mm3 (4.0-11.0)
[2018-03-18] MEDS ORDERED: Sod Chloride 0.9% Inj 1,000 ML IV.SIG SCH (10:45)
[2018-03-18 10:47] LABS: Albumin 3.7 g/dL (3.4-5.0); Anion Gap 10 meq/L (5-15); Aspartate Aminotransferase 15 U/L (15-37); Blood Urea Nitrogen 18 mg/dL (7-18); Calcium 9.8 mg/dL (8.5-10.1); Carbon Dioxide 23.1 meq/L (21.0-32.0); Chloride 109 meq/L (98-107); Glomerular Filtration Rate 80 mL/min (>89); Glucose,Random 123 mg/dL (74-106); Potassium 4.4 meq/L (3.5-5.1); Sodium 142 meq/L (136-145)
[2018-03-18 10:48] LABS: Alanine Aminotransferase 25 U/L (10-53); Lactate Dehydrogenase 152 U/L (84-246)
[2018-03-18 10:51] LABS: Alkaline Phosphatase 108 U/L (45-117); Total Protein 6.4 g/dL (6.4-8.2)
[2018-03-18 10:57] LABS: INR 1.1 Ratio; Prothrombin Time 10.8 sec (9.8-11.6)
[2018-03-18] MEDS ORDERED: Granisetron Inj 1 MG in Sodium Chlor 0.9% Inj 50 ML IV.SIG ONE (14:30)
[2018-03-18] MEDS ORDERED: fentaNYL Citrate Inj 100 MCG/2 ML Ampul ONE (15:26)
[2018-03-18] MEDS ORDERED: ceFAZolin 2 GM Premix Inj 2 GM/50 ML PIGGYBACK IV.SIG ONE (15:37)
--- NOTE | 2018-03-18 15:48 | P.RAD ---
Post CT Procedure Prog Note - Procedure Information Procedure Date: 03/18/18 Supervising Radiologist: Karson Rosas MD Estimated blood loss (mL): 0 Anesthesia: Conscious Sedation - Plan of Activity Patient to Unit: ROPU Patient condition: Good See PACS Report for procedural detail/treatment.
[2018-03-18 16:16] LABS: Iron Stain Bone Marrow Done
--- NOTE | 2018-03-18 16:20 | CT ---
EXAM DATE: 03/18/2018 3:53 PM EDT AGE/SEX: 72 years / Female INDICATIONS: Recurrent lymphoma. CLINICAL DATA: This is the patient's initial encounter. Patient reports that signs and symptoms have been present for 1 day and indicates a pain score of 0/10. MEDICAL/SURGICAL HISTORY: . non-hodgkins lymphoma None. COMPARISON: No prior exams available for comparison. BIOPSY SITE: Right bone marrow DEVICE(S): 11 gauge Bone marrow biopsy needle One core specimen(s) sent to the laboratory for pathologic evaluation. . . PROCEDURE: CT guided Right bone marrow biopsy Prior to the procedure informed consent was obtained. Any appropriate prior imaging studies were rev iewed. Using automated exposure control and adjustment of the mA and/or kV according to patient size , radiation dose was kept as low as reasonably achievable to obtain optimal diagnostic quality images . DICOM format image data is available electronically for review and comparison. The site was prepped in a sterile fashion. Full sterile technique was used, including cap, mask, vicente rile gloves and gown and a large sterile sheet. Hand hygiene and 2% chlorhexidine and/or betadine/al cohol prep was utilized per protocol for cutaneous antisepsis. The skin and subcutaneous tissues wer e infiltrated with local anesthetic solution. With CT guidance the previously identified target was localized. Biopsy was performed using the presc ribed needle as above. Following biopsy marrow aspiration was performed with repeat puncture. Adequa te hemostasis was obtained with compression at the puncture site. Follow-up CT scan reveals no hemorrhage. Conscious sedation was performed with the prescribed dosages and duration as above in the presence of an independent trained radiology nurse to assist in the monitoring of the patient. EKG and oximetry remained stable throughout the procedure. The patient tolerated the procedure well and there were no complications. The patient was sent to Radiology Outpatient Unit in stable condition. CONCLUSION: 1. Uncomplicated CT guided bone marrow aspirate. 2. Uncomplicated CT guided bone marrow biopsy. Electronically signed by: Karson Rosas MD 03/18/2018 4:19 PM EDT
[2018-03-18] MEDS: Etoposide Inj 200 MG in Sodium Chlor 0.9% Inj 500 ML IV.SIG SCH (19:50)
[2018-03-18] MEDS ORDERED: Temazepam 15 MG Capsule PO PRN (21:00)
[2018-03-18] MEDS: traZODone 100 MG Tablet PO SCH (22:04)
[2018-03-19 06:20] LABS: Baso % (Auto) 0.8 % (0.0-2.0); Eos # (Auto) 0.2 th/mm3 (0.0-0.4); Hematocrit 29.3 % (35.0-46.0); Hemoglobin 9.7 gm/dL (11.6-15.3); Lymph # (Auto) 0.2 th/mm3 (1.0-4.8); Mean Corpuscular HGB Conc 32.9 % (32.0-36.0); Mean Corpuscular Hemoglobin 29.7 pg (27.0-34.0); Mean Corpuscular Volume 90.1 fL (80.0-100.0); Mean Platelet Volume 9.4 fL (7.0-11.0); Mono # (Auto) 0.7 th/mm3 (0.0-0.9); Mono % (Auto) 15.2 % (0.0-8.0); Neut # (Auto) 3.6 th/mm3 (1.8-7.7); Platelet Count 136 th/mm3 (150-450); Red Blood Count 3.25 mil/mm3 (4.00-5.30); Red Cell Distribution Width 15.5 % (11.6-17.2); White Blood Count 4.8 th/mm3 (4.0-11.0)
[2018-03-19 06:31] LABS: Anion Gap 6 meq/L (5-15); Blood Urea Nitrogen 17 mg/dL (7-18); Calcium 8.8 mg/dL (8.5-10.1); Carbon Dioxide 25.1 meq/L (21.0-32.0); Chloride 111 meq/L (98-107); Glomerular Filtration Rate Greater Than 89 mL/min (>89); Glucose,Random 137 mg/dL (74-106); Potassium 4.8 meq/L (3.5-5.1); Sodium 142 meq/L (136-145)
--- NOTE | 2018-03-19 08:44 | P.PNONC ---
Subjective Interval history: Offers no complaints this morning. She had a little nausea last night which was alleviated by antibiotic therapy. Objective Vital Signs/Intake & Output: Vital Signs 03/18/18 08:47 03/18/18 12:00 03/18/18 15:50 Temperature 98.4 F 98.7 F 98.8 F Pulse Rate 81 70 68 Respiratory Rate 18 18 18 Blood Pressure 143/55 H 129/68 137/75 Pulse Oximetry 95 97 97 03/18/18 16:00 03/18/18 16:05 03/18/18 16:35 Temperature 97.9 F Pulse Rate 71 69 64 Respiratory Rate 18 18 Blood Pressure 154/60 H 135/73 123/69 Pulse Oximetry 96 97 96 03/18/18 20:00 03/19/18 00:00 03/19/18 04:00 Temperature 98 F 96.7 F L 98 F Pulse Rate 81 68 57 L Respiratory Rate 16 15 17 Blood Pressure 143/54 H 127/54 L 126/60 Pulse Oximetry 98 96 97 Intake & Output 03/18/18 03/19/18 03/19/18 18:59 06:59 18:59 Intake Total 50 / 50 806 / 806 Output Total 300 / 300 Balance 50 / 50 506 / 506 Weight 129 kg 129.1 kg Intake: IV 50 / 50 566 / 566 Vepesid Inj 200 MG In NS Inj 515 / 515 500 ML @ 510 mls/hr IV.SIG DAILY@1500 [facility] Rx#:[id number] Kytril Inj 1 MG In NS Inj 50 ML 51 / 51 @ 306 mls/hr IV.SIG ONCE ONE Rx#:[id number] Ancef 2 GM Premix Inj 2 gm In 50 / 50 50 ml @ 0 mls/hr IV.SIG .STK- MED ONE Rx#:[id number] Oral 240 / 240 Output: Urine 300 / 300 Other: # Voids 2 Date of Last Bowel Movement 03/16/18 Weight On Admission 129 kg Result Diagrams: 03/19/18 04:50 03/19/18 04:50 Laboratory Results: Laboratory Results - last 24 hr 03/18/18 03/18/18 03/18/18 10:00 10:00 10:00 WBC 8.3 RBC 3.97 L Hgb 11.7 Hct 35.5 MCV 89.5 MCH 29.6 MCHC 33.1 RDW 15.6 Plt Count 194 MPV 9.2 Neut % (Auto) 79.8 H Lymph % (Auto) 4.0 L [place] % (Auto) 13.0 H Eos % (Auto) 2.8 Baso % (Auto) 0.4 Neut # (Auto) 6.6 Lymph # (Auto) 0.3 L [place] # (Auto) 1.1 H Eos # (Auto) 0.2 Baso # (Auto) 0.0 WBC Differential . Differential Comment Auto diff final PT 10.8 INR 1.1 APTT Sodium Potassium Chloride Carbon Dioxide Anion Gap BUN Creatinine Estimated GFR Random Glucose Calcium Magnesium Total Bilirubin AST ALT Alkaline Phosphatase Lactate Dehydrogenase Cancelled Total Protein Albumin 03/18/18 03/18/18 03/19/18 10:00 10:00 04:50 WBC RBC Hgb Hct MCV MCH MCHC RDW Plt Count MPV Neut % (Auto) Lymph % (Auto) Cand[place] % (Auto) Eos % (Auto) Baso % (Auto) Neut # (Auto) Lymph # (Auto) Cand[place] # (Auto) Eos # (Auto) Baso # (Auto) WBC Differential Differential Comment PT INR APTT 74.5 H Sodium 142 142 Potassium 4.4 4.8 Chloride 109 H 111 H Carbon Dioxide 23.1 25.1 Anion Gap 10 6 BUN 18 17 Creatinine 0.72 0.62 Estimated GFR 80 L Greater than 89 Random Glucose 123 H 137 H Calcium 9.8 8.8 D Magnesium 2.0 Total Bilirubin 0.5 AST 15 ALT 25 Alkaline Phosphatase 108 Lactate Dehydrogenase 152 Total Protein 6.4 Albumin 3.7 03/19/18 04:50 WBC 4.8 RBC 3.25 L Hgb 9.7 L D Hct 29.3 L MCV 90.1 MCH 29.7 MCHC 32.9 RDW 15.5 Plt Count 136 L MPV 9.4 Neut % (Auto) 75.0 H Lymph % (Auto) 5.0 L Cand[place] % (Auto) 15.2 H Eos % (Auto) 4.0 Baso % (Auto) 0.8 Neut # (Auto) 3.6 Lymph # (Auto) 0.2 L Cand[place] # (Auto) 0.7 Eos # (Auto) 0.2 Baso # (Auto) 0.0 WBC Differential . Differential Comment Auto diff final PT INR APTT Sodium Potassium Chloride Carbon Dioxide Anion Gap BUN Creatinine Estimated GFR Random Glucose Calcium Magnesium Total Bilirubin AST ALT Alkaline Phosphatase Lactate Dehydrogenase Total Protein Albumin Imaging Studies: Impressions Bone Marrow Biopsy w/ CT 03/18/18 12:00 CONCLUSION: 1. Uncomplicated CT guided bone marrow aspirate. 2. Uncomplicated CT guided bone marrow biopsy. Medications: Active Medications Generic Name Dose Route Start Last Admin Trade Name Freq PRN Reason Stop Dose Admin Al Hydroxide/Mg Hydroxide 15 ml 03/18/18 08:26 03/18/18 21:19 Milk Of Magnesia Liq PO 15 ml DAILY PRN Administration CONSTIPATION Etoposide 200 mg/ Sodium 510 mls @ 510 mls/hr 03/18/18 15:00 03/18/18 21:45 Chloride IV.SIG 03/19/18 15:59 Infused DAILY@1500 [facility] Infusion Prochlorperazine Edisylate 10 mg 03/18/18 08:26 03/18/18 21:19 Compazine Inj IV.PUSH 10 mg Q4H PRN Administration NAUSEA OR VOMITING Trazodone HCl 100 mg 03/18/18 21:00 03/18/18 22:04 Desyrel PO 100 mg HS [facility] Administration Objective Remarks: GENERAL: Well-nourished, obese elderly woman, well-developed patient. SKIN: Warm and dry. No rash. HEAD: Normocephalic. EYES: No scleral icterus. No injection or drainage. NECK: Supple, trachea midline. No JVD or lymphadenopathy. LYMPHATIC: No adenopathy. CARDIOVASCULAR: Regular rate and rhythm without murmurs. RESPIRATORY: Breath sounds equal bilaterally. No accessory muscle use. GASTROINTESTINAL: Abdomen soft large nontender. EXTREMITIES: No cyanosis, or edema. MUSCULOSKELETAL: Adequate muscle tone. NEUROLOGICAL: No obvious focal deficit. Awake, alert, and oriented x3. PSYCHIATRIC: Appropriate mood and affect; insight and judgment normal. Assessment/Plan (1) Non-Hodgkins lymphoma in relapse Code(s): C85.90 - Non-Hodgkin lymphoma, unspecified, unspecified site Status: Acute (2) Anemia Code(s): Z95.828 - Presence of other vascular implants and grafts Status: Acute - Plan 72-year-old woman with primary refractory non-Hodgkin's lymphoma, large B cell lymphoma. She has progressed on R-CHOP and bendamustine-Rituxan. She has not achieve a remission. CT PET scan showed residual disease in the abdomen. Colonoscopic evaluation by Dr. Siddiqui confirms residual non-Hodgkin's lymphoma , large B-cell type. She is admitted for third line of chemotherapy with ifosfamide, mesna, carboplatin, and etoposide. Use or drug she has not seen before. Risk and benefit of ICD chemotherapy was discussed. We reviewed the infusional component of the regimen. She is encouraged to take p.o. And urinate frequently. We will proceed with day #2 of the chemo regimen. Noted is the mild dilutional anemia. In part this is probably chemotherapy-induced a. She is status post bone marrow biopsy for staging. We will reviewed results of his becomes available. We will proceed with chemo as planned. (2) Anemia Qualifiers: Anemia type: unspecified type Qualified Code(s): D64.9 - Anemia, unspecified
[2018-03-19] MEDS: dilTIAZem CD 120 MG Capsule PO SCH (15:22)
[2018-03-19] MEDS: Citalopram 20 MG Tablet PO SCH (15:22)
[2018-03-19] MEDS: Enoxaparin Inj 40 MG/0.4 ML Syringe SQ SCH (15:22)
[2018-03-19] MEDS ORDERED: CARBOplatin Inj 750 MG in Sodium Chlor 0.9% Inj 250 ML IV.SIG ONE (16:00)
[2018-03-19] MEDS: Sod Chloride 0.9% Inj 1,000 ML IV.SIG SCH ×3 (16:25→21:36)
[2018-03-19] MEDS ORDERED: MESNA IV.SIG ONE (16:30)
[2018-03-19] MEDS ORDERED: IFOSFAMIDE IV.SIG ONE (16:30)
[2018-03-19] MEDS ORDERED: SOD CHLORIDE 0.9% IV.SIG ONE (16:30)
[2018-03-19] MEDS: Granisetron Inj 1 MG, Dexamethasone Inj 20 MG in Sodium Chlor 0.9% Inj 50 ML IV.SIG SCH ×2 (17:39)
[2018-03-19] MEDS: Etoposide Inj 200 MG in Sodium Chlor 0.9% Inj 500 ML IV.SIG SCH (18:32)
[2018-03-19] MEDS: Lisinopril 20 MG Tablet PO SCH (21:39)
[2018-03-19] MEDS: traZODone 100 MG Tablet PO SCH (21:39)
[2018-03-20] MEDS: Sod Chloride 0.9% Inj 1,000 ML IV.SIG SCH ×6 (02:00→21:34)
[2018-03-20] MEDS: Enoxaparin Inj 40 MG/0.4 ML Syringe SQ SCH (08:56)
[2018-03-20] MEDS: Citalopram 20 MG Tablet PO SCH (08:57)
[2018-03-20] MEDS: dilTIAZem CD 120 MG Capsule PO SCH (08:57)
[2018-03-20 10:34] LABS: Baso % (Auto) 0.3 % (0.0-2.0); Hematocrit 27.7 % (35.0-46.0); Lymph # (Auto) 0.2 th/mm3 (1.0-4.8); Lymph % (Auto) 3.6 % (9.0-44.0); Mean Corpuscular HGB Conc 32.3 % (32.0-36.0); Mean Corpuscular Hemoglobin 29.2 pg (27.0-34.0); Mean Corpuscular Volume 90.3 fL (80.0-100.0); Mean Platelet Volume 9.6 fL (7.0-11.0); Mono # (Auto) 0.1 th/mm3 (0.0-0.9); Mono % (Auto) 2.1 % (0.0-8.0); Neut # (Auto) 4.4 th/mm3 (1.8-7.7); Platelet Count 127 th/mm3 (150-450); Red Blood Count 3.07 mil/mm3 (4.00-5.30); Red Cell Distribution Width 15.8 % (11.6-17.2); White Blood Count 4.7 th/mm3 (4.0-11.0)
--- NOTE | 2018-03-20 12:48 | P.PNONC ---
Subjective Interval history: Patient sitting up at the bedside. She is visiting with her . She has no complaints at this time. Objective Vital Signs/Intake & Output: Vital Signs 03/19/18 16:00 03/19/18 18:00 03/19/18 18:37 Temperature 99.4 F Pulse Rate 85 72 Respiratory Rate 18 18 18 Blood Pressure 117/45 L Pulse Oximetry 93 L 03/19/18 20:00 03/19/18 20:20 03/20/18 00:00 Temperature 99.4 F Pulse Rate 80 71 62 Respiratory Rate 16 Blood Pressure 114/45 L Pulse Oximetry 93 L 03/20/18 01:00 03/20/18 04:00 03/20/18 04:25 Temperature 97.4 F L 96.2 F L Pulse Rate 74 55 L 67 Respiratory Rate 17 16 Blood Pressure 122/56 L 109/66 Pulse Oximetry 95 94 L 03/20/18 07:00 03/20/18 07:50 03/20/18 11:00 Temperature 96.1 F L Pulse Rate 55 L 73 71 Respiratory Rate 18 Blood Pressure 108/52 L Pulse Oximetry 97 03/20/18 11:28 Temperature 96 F L Pulse Rate 77 Respiratory Rate 18 Blood Pressure 146/54 H Pulse Oximetry 98 Intake & Output 03/19/18 03/20/18 03/20/18 18:59 06:59 18:59 Intake Total 966 / 966 5340 / 5340 1000 / 1000 Output Total 1450 / 1450 3150 / 3150 Balance -484 / -484 2190 / 2190 1000 / 1000 Weight 132.5 kg Intake: IV 56 / 56 4840 / 4840 1000 / 1000 Paraplatin Inj 750 MG In NS Inj 325 / 325 250 ML @ 650 mls/hr IV.SIG ONCE ONE Rx#:[id number] Vepesid Inj 200 MG In NS Inj 515 / 515 500 ML @ 510 mls/hr IV.SIG DAILY@1500 [facility] Rx#:[id number] Kytril Inj 1 MG Decadron Inj 20 56 / 56 MG In NS Inj 50 ML @ 336 mls/ hr IV.SIG DAILY@1430 [facility] Rx#: [id number] NS Inj 1,000 ML @ 250 mls/hr IV 3000 / 3000 1000 / 1000 .SIG .Q4H [facility] Rx#:[id number] Oral 910 / 910 500 / 500 Output: Urine 1450 / 1450 3150 / 3150 Other: Date of Last Bowel Movement 03/16/18 03/17/18 Result Diagrams: 03/20/18 10:00 03/19/18 04:50 Laboratory Results: Laboratory Results - last 24 hr 03/18/18 03/20/18 15:35 10:00 WBC 4.7 RBC 3.07 L Hgb 9.0 L Hct 27.7 L MCV 90.3 MCH 29.2 MCHC 32.3 RDW 15.8 Plt Count 127 L MPV 9.6 Neut % (Auto) 94.0 H Lymph % (Auto) 3.6 L [place] % (Auto) 2.1 Eos % (Auto) 0.0 Baso % (Auto) 0.3 Neut # (Auto) 4.4 Lymph # (Auto) 0.2 L [place] # (Auto) 0.1 Eos # (Auto) 0.0 Baso # (Auto) 0.0 WBC Differential . Differential Comment Auto diff final Marrow Immunophenotype Medications: Active Medications Generic Name Dose Route Start Last Admin Trade Name Freq PRN Reason Stop Dose Admin Al Hydroxide/Mg Hydroxide 15 ml 03/18/18 08:26 03/19/18 21:46 Milk Of Magnesia Liq PO 15 ml DAILY PRN Administration CONSTIPATION Atorvastatin Calcium 10 mg 03/19/18 21:00 03/19/18 21:39 Lipitor PO 10 mg HS [facility] Administration Citalopram Hydrobromide 20 mg 03/19/18 13:00 03/20/18 08:57 Celexa PO 20 mg DAILY [facility] Administration Diltiazem HCl 120 mg 03/19/18 13:00 03/20/18 08:57 Cardizem Cd 24hr PO 120 mg DAILY [facility] Administration Granisetron HCl 1 mg/ 56 mls @ 336 mls/hr 03/19/18 14:30 03/19/18 18:00 Dexamethasone Sodium Phosphate IV.SIG 03/20/18 14:39 Infused 20 mg/ Sodium Chloride DAILY@1430 [facility] Infusion Mesna 10,000 mg/ Ifosfamide 10 1,100 mls @ 45.833 mls/hr 03/19/18 16:30 03/19 21:56 ,000 mg/ Sodium Chloride IV.SIG 03/20/18 16:29 45.83 mls/hr ONCE ONE Administration Sodium Chloride 1,000 mls @ 250 mls/hr 03/19/18 12:30 03/20/18 10:14 Ns Inj IV.SIG 250 mls/hr .Q4H [facility] Administration Lisinopril 20 mg 03/19/18 21:00 03/19/18 21:39 Prinivil PO 20 mg HS [facility] Administration Metformin HCl 500 mg 03/19/18 13:00 03/20/18 08:57 Glucophage PO 500 mg DAILY [facility] Administration Oxycodone HCl 5 mg 03/18/18 08:26 03/20/18 05:21 Roxicodone PO 5 mg Q3H PRN Administration Pain Scale 4 to 7 Prochlorperazine Edisylate 10 mg 03/18/18 08:26 03/18/18 21:19 Compazine Inj IV.PUSH 10 mg Q4H PRN Administration NAUSEA OR VOMITING Trazodone HCl 100 mg 03/18/18 21:00 03/19/18 21:39 Desyrel PO 100 mg HS [facility] Administration Objective Remarks: GENERAL: Well-nourished, well-developed female patient. In no acute distress. SKIN: Warm and dry. BM biopsy site, central lower back-clear dressing intact/ dry. No drainage or redness noted. +Bruising to the area. HEAD: Normocephalic. EYES: No scleral icterus. No injection or drainage. NECK: Supple, trachea midline. CARDIOVASCULAR: Regular rate and rhythm without murmurs. RESPIRATORY: Breath sounds equal bilaterally. No accessory muscle use. GASTROINTESTINAL: Abdomen large, soft, non-tender, nondistended. EXTREMITIES: No cyanosis, or edema. MUSCULOSKELETAL: Adequate muscle tone. NEUROLOGICAL: No obvious focal deficit. Awake, alert, and oriented x3. PSYCHIATRIC: Appropriate mood and affect; insight and judgment normal. Assessment/Plan (1) Non-Hodgkins lymphoma in relapse Code(s): C85.90 - Non-Hodgkin lymphoma, unspecified, unspecified site Status: Acute (2) Anemia Code(s): Z95.828 - Presence of other vascular implants and grafts Status: Acute - Plan 72-year-old woman with primary refractory non-Hodgkin's lymphoma, large B cell lymphoma. She has progressed on R-CHOP and bendamustine-Rituxan. She has not achieve a remission. CT PET scan showed residual disease in the abdomen. Colonoscopic evaluation by Dr. Siddiqui confirms residual non-Hodgkin's lymphoma , large B-cell type. She is admitted for third line of chemotherapy with ifosfamide, mesna, carboplatin, and etoposide. Use or drug she has not seen before. Risk and benefit of ICD chemotherapy was discussed. We reviewed the infusional component of the regimen. She is encouraged to take p.o. And urinate frequently. We will proceed with day #2 of the chemo regimen. Noted is the mild dilutional anemia. In part this is probably chemotherapy-induced a. She is status post bone marrow biopsy for staging. We will reviewed results of his becomes available. We will proceed with chemo as planned. 03/20: D3 chemo regimen. Patient tolerating well. Bone marrow biopsy on 2017, results pending. Plan: 1. We will restart Eliquis today and stop Lovenox. Continue to monitor for bleeding. 2. Continue to monitor biopsy site. At this time clear dressing clean, dry and intact. No s/s of infection. Continue to monitor. 3. We will continue to monitor H&H and treat accordingly. - Attending Statement The exam, history, and the medical decision-making described in the above note were completed with the assistance of the mid-level provider. I reviewed and agree with the findings presented. I attest that I had a [id number] encounter with the patient on the same day, and personally performed and documented my assessment and findings in the medical record. Patient seen and examined. She is tolerating her chemo well. Anticipate completion of her infusional chemotherapy component late this evening. Anticipate discharge in the morning. She will receive her Neulasta support outpatient clinic at [facility] on Friday. Noted is red speck in the urine. There is no mauricio hematuria. She describes some blood when she wipes on the tissue. No overt bleeding noted. Her hemoglobin is been stable. Continue to hold the Eliquis. She is on Lovenox for DVT prophylaxis. Anticipate resuming Eliquis in the morning. (2) Anemia Qualifiers: Anemia type: unspecified type Qualified Code(s): D64.9 - Anemia, unspecified
[2018-03-20] MEDS ORDERED: Etoposide Inj 200 MG in Sodium Chlor 0.9% Inj 500 ML IV.SIG ONE (16:30)
[2018-03-20] MEDS: Granisetron Inj 1 MG, Dexamethasone Inj 20 MG in Sodium Chlor 0.9% Inj 50 ML IV.SIG SCH ×2 (21:33)
[2018-03-20] MEDS: Lisinopril 20 MG Tablet PO SCH (21:34)
[2018-03-20] MEDS: traZODone 100 MG Tablet PO SCH (21:35)
[2018-03-21] MEDS: Sod Chloride 0.9% Inj 1,000 ML IV.SIG SCH ×3 (04:34→08:08)
[2018-03-21 05:49] LABS: Eos % (Auto) 0.1 % (0.0-4.0); Hematocrit 27.8 % (35.0-46.0); Hemoglobin 8.9 gm/dL (11.6-15.3); Lymph # (Auto) 0.2 th/mm3 (1.0-4.8); Mean Corpuscular HGB Conc 31.9 % (32.0-36.0); Mean Platelet Volume 9.6 fL (7.0-11.0); Mono # (Auto) 0.1 th/mm3 (0.0-0.9); Mono % (Auto) 2.2 % (0.0-8.0); Neut # (Auto) 4.9 th/mm3 (1.8-7.7); Neut % (Auto) 94.7 % (16.0-70.0); Platelet Count 128 th/mm3 (150-450); Red Blood Count 3.06 mil/mm3 (4.00-5.30); Red Cell Distribution Width 16.1 % (11.6-17.2); White Blood Count 5.2 th/mm3 (4.0-11.0)
[2018-03-21 06:36] LABS: Alanine Aminotransferase 24 U/L (10-53); Albumin 2.7 g/dL (3.4-5.0); Alkaline Phosphatase 87 U/L (45-117); Anion Gap 10 meq/L (5-15); Aspartate Aminotransferase 16 U/L (15-37); Blood Urea Nitrogen 14 mg/dL (7-18); Calcium 8.4 mg/dL (8.5-10.1); Carbon Dioxide 19.6 meq/L (21.0-32.0); Chloride 112 meq/L (98-107); Glomerular Filtration Rate 87 mL/min (>89); Glucose,Random 291 mg/dL (74-106); Sodium 142 meq/L (136-145); Total Protein 5.2 g/dL (6.4-8.2)
[2018-03-21] MEDS ORDERED: Metoprolol Inj 5 MG/5 ML Vial IV.PUSH PRN (07:23)
[2018-03-21 08:05] VITALS: RESP 18
[2018-03-21] MEDS: Citalopram 20 MG Tablet PO SCH (08:08)
[2018-03-21] MEDS: dilTIAZem CD 120 MG Capsule PO SCH (08:09)
[2018-03-21] MEDS ORDERED: Enoxaparin Inj 40 MG/0.4 ML Syringe SQ SCH (09:00)
[2018-03-21 09:27] LABS: Bilirubin,Urine Negative (Negative); Clarity,Urine Clear (Clear); Color,Urine Straw (Yellw/Straw); Glucose,Urine (UA) 500 or Greater mg/dL (Negative); Leukocyte Esterase,Urine Negative (Negative); Nitrite,Urine Negative (Negative); Specific Gravity,Urine 1.009 (1.002-1.035); Squamous Epithelial Cell,Urine 1 /hpf (0-5)
[2018-03-21] MEDS ORDERED: dilTIAZem CD 240 MG Capsule PO SCH (09:30)
--- NOTE | 2018-03-21 09:44 | MB ---
cc: Cain Karimi MD DATE: 03/21/2018 REASON FOR CONSULTATION: Atrial fibrillation. HISTORY OF PRESENT ILLNESS: The patient is a very pleasant 72-year-old woman, known to me, who has a history of chronic paroxysmal atrial fibrillation, on Eliquis, as well as nonobstructive coronary disease. The patient is being treated for aggressive lymphoma and had an episode of rapid atrial fibrillation while she was here. She was given her Cardizem and has since been brought down to a rate controlled atrial fibrillation. The patient is asymptomatic, hoping to be discharged home, as she was here getting a scheduled chemotherapy treatment. She denies any symptoms such as chest pain, shortness of breath, lightheadedness, and dizziness. PAST MEDICAL HISTORY: As above. CURRENT MEDICATIONS: 1. Eliquis 5 mg b.i.d. 2. Lipitor. 3. Celexa. 4. Cardizem 120 mg p.o. daily. 5. Lovenox. 6. Prinivil 20 mg at bedtime. ALLERGIES: NO KNOWN DRUG ALLERGIES. PHYSICAL EXAMINATION: VITAL SIGNS: Afebrile, pulse 80, respiratory rate 16, blood pressure 143/71, saturating 96% on room air. GENERAL: Pleasant, obese woman in no distress. NECK: No JVD. LUNGS: Clear to auscultation bilaterally. CARDIOVASCULAR: Irregularly irregular rhythm with regular rate. No significant murmurs appreciated. ABDOMEN: Benign. EXTREMITIES: No edema. LABORATORY DATA: White count 5.2, hematocrit 27.8, platelets 128. Sodium 142, potassium 4.0, chloride 112, bicarbonate 19.6, BUN 14, creatinine 0.67, glucose 291. EKG shows atrial fibrillation with nonspecific ST changes, rate of 124. Telemetry shows a rate controlled atrial fibrillation. ASSESSMENT AND PLAN: Atrial fibrillation with rapid ventricular response. The patient had brief rapid ventricular rate with her atrial fibrillation. She shows me her log on her telephone, showing she does have occasional rapid rates at home as well. I will increase her oral Cardizem to 240 mg daily. She is already on anticoagulation. From my standpoint, she could be discharged home once the oncology team is satisfied she is stable from their standpoint. She had an appointment with me next week already, which she will keep. I will sign off and be available as needed. Please call with any questions. Thank you again for the opportunity to participate in this patient's care. MD JONNA Gonzalez/DILLAN , 09:22 AM , 09:42 AM
--- NOTE | 2018-03-21 09:59 | P.PNONC ---
Subjective Interval history: Afebrile. Patient sitting upright at the bedside. She has no complaints at this time. She is concerned about her discharge being delayed due to her going into A. fib with RVR. --She was noted to have gone into A. fib with RVR during the night while receiving Etopside. Heart rate 150-170 bpm. --Patient reported blood in urine yesterday, her p.m. dose of Eliquis was held. --Reports having a large bowel movement this a.m. Objective Vital Signs/Intake & Output: Vital Signs 03/20/18 11:00 03/20/18 11:28 03/20/18 15:00 Temperature 96 F L Pulse Rate 71 77 95 H Respiratory Rate 18 Blood Pressure 146/54 H Pulse Oximetry 98 03/20/18 15:36 03/20/18 20:00 03/20/18 21:00 Temperature 98.5 F 98.3 F Pulse Rate 72 80 89 Respiratory Rate 18 17 Blood Pressure 123/50 L 136/55 L Pulse Oximetry 96 96 03/21/18 00:00 03/21/18 00:22 03/21/18 04:00 Temperature 96.3 F L Pulse Rate 60 73 70 Respiratory Rate 16 Blood Pressure 126/57 L Pulse Oximetry 94 L 03/21/18 04:30 03/21/18 04:35 03/21/18 05:00 Temperature 97.6 F Pulse Rate 110 H 112 H 134 H Respiratory Rate 16 Blood Pressure 143/71 H Pulse Oximetry 96 03/21/18 07:00 03/21/18 08:04 Temperature 98.3 F Pulse Rate 126 H 81 Respiratory Rate 18 Blood Pressure 130/63 Pulse Oximetry 96 Intake & Output 03/20/18 03/21/18 03/21/18 18:59 06:59 18:59 Intake Total 5070 / 5070 2936 / 2936 1000 / 1000 Output Total 1500 / 1500 1100 / 1100 Balance 3570 / 3570 1836 / 1836 1000 / 1000 Intake: IV 3000 / 3000 2456 / 2456 1000 / 1000 Kytril Inj 1 MG Decadron Inj 20 56 / 56 MG In NS Inj 50 ML @ 336 mls/ hr IV.SIG DAILY@1430 [facility] Rx#: [id number] NS Inj 1,000 ML @ 250 mls/hr IV 3000 / 3000 1000 / 1000 1000 / 1000 .SIG .Q4H [facility] Rx#:[id number] Oral 2069 / 2069 480 / 480 Output: Urine 1500 / 1500 1100 / 1100 Other: Date of Last Bowel Movement 03/17/18 03/17/18 03/21/18 Result Diagrams: 03/21/18 04:20 03/21/18 04:20 Laboratory Results: Laboratory Results - last 24 hr 03/20/18 03/21/18 03/21/18 10:00 04:20 04:20 WBC 4.7 5.2 RBC 3.07 L 3.06 L Hgb 9.0 L 8.9 L Hct 27.7 L 27.8 L MCV 90.3 91.0 MCH 29.2 29.0 MCHC 32.3 31.9 L RDW 15.8 16.1 Plt Count 127 L 128 L MPV 9.6 9.6 Neut % (Auto) 94.0 H 94.7 H Lymph % (Auto) 3.6 L 3.0 L [place] % (Auto) 2.1 2.2 Eos % (Auto) 0.0 0.1 Baso % (Auto) 0.3 0.0 Neut # (Auto) 4.4 4.9 Lymph # (Auto) 0.2 L 0.2 L [place] # (Auto) 0.1 0.1 Eos # (Auto) 0.0 0.0 Baso # (Auto) 0.0 0.0 WBC Differential . . Differential Comment Auto diff final Auto diff final Sodium 142 Potassium 4.0 D Chloride 112 H Carbon Dioxide 19.6 L Anion Gap 10 BUN 14 Creatinine 0.67 Estimated GFR 87 L Random Glucose 291 H D Calcium 8.4 L Total Bilirubin 0.2 AST 16 ALT 24 Alkaline Phosphatase 87 Total Protein 5.2 L D Albumin 2.7 L Urine Color Urine Clarity Urine pH Ur Specific [place] Urine Protein Urine Glucose (UA) Urine Ketones Urine Occult Blood Urine Nitrate Urine Bilirubin Urine Urobilinogen Ur Leukocyte Esterase Urine RBC Urine WBC Ur Squamous Epith Cells Micro UA Comment Urine Culture Comments 03/21/18 08:55 WBC RBC Hgb Hct MCV MCH MCHC RDW Plt Count MPV Neut % (Auto) Lymph % (Auto) [place] % (Auto) Eos % (Auto) Baso % (Auto) Neut # (Auto) Lymph # (Auto) [place] # (Auto) Eos # (Auto) Baso # (Auto) WBC Differential Differential Comment Sodium Potassium Chloride Carbon Dioxide Anion Gap BUN Creatinine Estimated GFR Random Glucose Calcium Total Bilirubin AST ALT Alkaline Phosphatase Total Protein Albumin Urine Color Straw Urine Clarity Clear Urine pH 6.0 Ur Specific [place] 1.009 Urine Protein Negative Urine Glucose (UA) 500 or greater Urine Ketones Trace H Urine Occult Blood Negative Urine Nitrate Negative Urine Bilirubin Negative Urine Urobilinogen Less than 2 Ur Leukocyte Esterase Negative Urine RBC Less than 1 Urine WBC 1 Ur Squamous Epith Cells 1 Micro UA Comment Culture not ind Urine Culture Comments Culture not ind Medications: Active Medications Generic Name Dose Route Start Last Admin Trade Name Freq PRN Reason Stop Dose Admin Al Hydroxide/Mg Hydroxide 15 ml 03/18/18 08:26 03/20/18 21:42 Milk Of Magnesia Liq PO 15 ml DAILY PRN Administration CONSTIPATION Apixaban 5 mg 03/20/18 21:00 03/20/18 21:40 Eliquis PO Not Given BID [facility] Atorvastatin Calcium 10 mg 03/19/18 21:00 03/20/18 21:35 Lipitor PO 10 mg HS [facility] Administration Bisacodyl 5 mg 03/20/18 12:30 03/21/18 08:08 Dulcolax Ec PO 5 mg DAILY [facility] Administration Citalopram Hydrobromide 20 mg 03/19/18 13:00 03/21/18 08:08 Celexa PO 20 mg DAILY [facility] Administration Enoxaparin Sodium 40 mg 03/21/18 09:00 03/21/18 08:07 Lovenox Inj SQ 40 mg DAILY [facility] Administration Sodium Chloride 1,000 mls @ 250 mls/hr 03/19/18 12:30 03/21/18 08:08 Ns Inj IV.SIG 250 mls/hr .Q4H [facility] Administration Lisinopril 20 mg 03/19/18 21:00 03/20/18 21:34 Prinivil PO 20 mg HS [facility] Administration Metformin HCl 500 mg 03/19/18 13:00 03/21/18 08:08 Glucophage PO 500 mg DAILY [facility] Administration Oxycodone HCl 5 mg 03/18/18 08:26 03/20/18 14:03 Roxicodone PO 5 mg Q3H PRN Administration Pain Scale 4 to 7 Prochlorperazine Edisylate 10 mg 03/18/18 08:26 03/18/18 21:19 Compazine Inj IV.PUSH 10 mg Q4H PRN Administration NAUSEA OR VOMITING Trazodone HCl 100 mg 03/18/18 21:00 03/20/18 21:35 Desyrel PO 100 mg HS [facility] Administration Objective Remarks: GENERAL: Well-nourished, well-developed female patient. In no acute distress. SKIN: Warm and dry. BM biopsy site, central lower back-clear dressing intact/ dry. No drainage or redness noted. +Bruising to the area. + Scab at the insertion site. HEAD: Normocephalic. EYES: No scleral icterus. No injection or drainage. NECK: Supple, trachea midline. CARDIOVASCULAR: + S1/S2. Regular rate and rhythm without murmurs. RESPIRATORY: Posterior breath sounds clear, equal bilaterally. No accessory muscle use. GASTROINTESTINAL: Abdomen large, soft, non-tender, nondistended. EXTREMITIES: No cyanosis, or edema. MUSCULOSKELETAL: Adequate muscle tone. NEUROLOGICAL: No obvious focal deficit. Awake, alert, and oriented x3. PSYCHIATRIC: Appropriate mood and affect; insight and judgment normal. Assessment/Plan - Plan 72-year-old woman with primary refractory non-Hodgkin's lymphoma, large B cell lymphoma. She has progressed on R-CHOP and bendamustine-Rituxan. She has not achieve a remission. CT PET scan showed residual disease in the abdomen. Colonoscopic evaluation by Dr. Siddiqui confirms residual non-Hodgkin's lymphoma , large B-cell type. She is admitted for third line of chemotherapy with ifosfamide, mesna, carboplatin, and etoposide. Use or drug she has not seen before. Risk and benefit of ICD chemotherapy was discussed. We reviewed the infusional component of the regimen. She is encouraged to take p.o. And urinate frequently. We will proceed with day #2 of the chemo regimen. Noted is the mild dilutional anemia. In part this is probably chemotherapy-induced a. She is status post bone marrow biopsy for staging. We will reviewed results of his becomes available. We will proceed with chemo as planned. 03/20: D3 chemo regimen. Patient tolerating well. Bone marrow biopsy on 2017, results pending. 03/21: D4 chemo regimen. Patient was noted to go into atrial fibrillation with RVR. Reported blood in urine. Plan: 1. Hematuria. Patient's p.m. dose of Eliquis was held. She is now in atrial fibrillation, so we will restart the Lovenox. We will do a urinalysis with culture and sensitivity if warranted. 2. Biopsy site with clear dressing clean, dry and intact. No s/s of infection. Continue to monitor. 3. We will continue to monitor H&H and treat accordingly. 4. 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 Patient to receive her a.m. dose of Cardizem p.o. and as needed Lopressor 5 mg IV push for heart rate greater than 130. Updated entry @ 1238: Pt's urinalysis essentially negative for RBC's. We will restart her eliquis this evening and discontinue lovenox. Pt was seen by Dr. De Guzman who recommended increasing her home dose of cardizem. We will continue to monitor her and plan for discharge tomorrow if her heart rate remains controlled. - Attending Statement The exam, history, and the medical decision-making described in the above note were completed with the assistance of the mid-level provider. I reviewed and agree with the findings presented. I attest that I had a [id number] encounter with the patient on the same day, and personally performed and documented my assessment and findings in the medical record. hx of B cell lymphoma Afib with RVR Cardiology seeing patient rate controlled now had episode of hematuria no bleeding today start eliquis ok to d/c in am if Hb stable and no bleeding o/p oncology f/u
[2018-03-21] MEDS ORDERED: dilTIAZem CD 120 MG Capsule PO ONE (10:00)
--- NOTE | 2018-03-21 14:31 | ECG ---
Date Performed: 03/21/2018 Time Performed: 07:43:36 PTAGE: 72 years EKG: Atrial fibrillation with rapid ventricular response Extensive ST-T changes are nonspecific Since previous tracing, no significant change noted Abnormal ECG PREVIOUS TRACING : 05/05/2017 12.36.53 DOCTOR: Jamil Torres Interpretating Date/Time 03/21/2018 14:29:33
[2018-03-21] MEDS: traZODone 100 MG Tablet PO SCH (20:26)
[2018-03-21] MEDS: Lisinopril 20 MG Tablet PO SCH (20:26)
[2018-03-21 23:51] VITALS: O2SAT 96
[2018-03-22 05:19] LABS: Baso % (Auto) 0.2 % (0.0-2.0); Eos # (Auto) 0.1 th/mm3 (0.0-0.4); Eos % (Auto) 1.5 % (0.0-4.0); Hemoglobin 8.8 gm/dL (11.6-15.3); Lymph # (Auto) 0.2 th/mm3 (1.0-4.8); Mean Corpuscular HGB Conc 32.5 % (32.0-36.0); Mean Corpuscular Hemoglobin 29.4 pg (27.0-34.0); Mean Corpuscular Volume 90.4 fL (80.0-100.0); Mono # (Auto) 0.1 th/mm3 (0.0-0.9); Mono % (Auto) 2.2 % (0.0-8.0); Neut # (Auto) 4.9 th/mm3 (1.8-7.7); Neut % (Auto) 92.1 % (16.0-70.0); Platelet Count 146 th/mm3 (150-450); Red Blood Count 2.99 mil/mm3 (4.00-5.30); Red Cell Distribution Width 15.7 % (11.6-17.2); White Blood Count 5.3 th/mm3 (4.0-11.0)
[2018-03-22 05:49] LABS: Alanine Aminotransferase 28 U/L (10-53); Albumin 2.8 g/dL (3.4-5.0); Alkaline Phosphatase 74 U/L (45-117); Anion Gap 6 meq/L (5-15); Aspartate Aminotransferase 19 U/L (15-37); Blood Urea Nitrogen 14 mg/dL (7-18); Calcium 8.8 mg/dL (8.5-10.1); Carbon Dioxide 25.9 meq/L (21.0-32.0); Chloride 112 meq/L (98-107); Glomerular Filtration Rate Greater Than 89 mL/min (>89); Glucose,Random 113 mg/dL (74-106); Potassium 4.2 meq/L (3.5-5.1); Sodium 144 meq/L (136-145); Total Protein 5.1 g/dL (6.4-8.2)
[2018-03-22 08:37] VITALS: BP 109/56; PULSE 68; TEMP 98.5
[2018-03-22] MEDS: Citalopram 20 MG Tablet PO SCH (08:38)
[2018-03-22] MEDS ORDERED: dilTIAZem CD 240 MG Capsule PO SCH (09:00)
--- NOTE | 2018-03-22 09:50 | P.PNONC ---
Subjective Interval history: Afebrile. Patient sitting on the bedside. In no acute distress. She states that she is ready to go home. --RN reports an 11 kg weight gain since admission. Patient denies any shortness of breath, orthopnea, dyspnea on exertion or edema. She reports that she has been urinating frequently. She has been ambulating to the bathroom without dyspnea. Questionable accuracy of weights and I&O measurements, as patient has been ambulating to the restroom. Objective Vital Signs/Intake & Output: Vital Signs 03/21/18 11:00 03/21/18 11:24 03/21/18 15:00 Temperature 98.3 F Pulse Rate 62 66 83 Respiratory Rate 18 Blood Pressure 146/60 H Pulse Oximetry 96 03/21/18 15:12 03/21/18 20:00 03/21/18 20:40 Temperature 98 F 98.5 F Pulse Rate 58 L 73 77 Respiratory Rate 18 18 Blood Pressure 122/60 127/53 L Pulse Oximetry 97 96 03/22/18 00:00 03/22/18 00:15 03/22/18 04:00 Temperature 98.2 F 97.8 F Pulse Rate 65 56 L 51 L Respiratory Rate 18 18 Blood Pressure 119/57 L 110/54 L Pulse Oximetry 96 96 03/22/18 08:33 Temperature 98.5 F Pulse Rate 68 Respiratory Rate Blood Pressure 109/56 L Pulse Oximetry 96 Intake & Output 03/21/18 03/22/18 03/22/18 18:59 06:59 18:59 Intake Total 3030 / 3030 240 / 240 Output Total 2750 / 2750 850 / 850 Balance 280 / 280 -610 / -610 Weight 140.5 kg Intake: IV 1210 / 1210 NS Inj 1,000 ML @ 250 mls/hr IV 1000 / 1000 .SIG .Q4H [facility] Rx#:[id number] Oral 1820 / 1820 240 / 240 Output: Urine 2750 / 2750 850 / 850 Other: Date of Last Bowel Movement 03/21/18 03/21/18 03/21/18 # Bowel Movements 1 Result Diagrams: 03/22/18 04:50 03/22/18 04:50 Laboratory Results: Laboratory Results - last 24 hr 03/21/18 03/22/18 03/22/18 08:55 04:50 04:50 WBC 5.3 RBC 2.99 L Hgb 8.8 L Hct 27.0 L MCV 90.4 MCH 29.4 MCHC 32.5 RDW 15.7 Plt Count 146 L MPV 9.0 Neut % (Auto) 92.1 H Lymph % (Auto) 4.0 L [place] % (Auto) 2.2 Eos % (Auto) 1.5 Baso % (Auto) 0.2 Neut # (Auto) 4.9 Lymph # (Auto) 0.2 L [place] # (Auto) 0.1 Eos # (Auto) 0.1 Baso # (Auto) 0.0 WBC Differential . Differential Comment Auto diff final Sodium 144 Potassium 4.2 Chloride 112 H Carbon Dioxide 25.9 Anion Gap 6 BUN 14 Creatinine 0.59 Estimated GFR Greater than 89 Random Glucose 113 H D Calcium 8.8 Total Bilirubin 0.6 AST 19 ALT 28 Alkaline Phosphatase 74 Total Protein 5.1 L Albumin 2.8 L Urine Color Straw Urine Clarity Clear Urine pH 6.0 Ur Specific [place] 1.009 Urine Protein Negative Urine Glucose (UA) 500 or greater Urine Ketones Trace H Urine Occult Blood Negative Urine Nitrate Negative Urine Bilirubin Negative Urine Urobilinogen Less than 2 Ur Leukocyte Esterase Negative Urine RBC Less than 1 Urine WBC 1 Ur Squamous Epith Cells 1 Micro UA Comment Culture not ind Urine Culture Comments Culture not ind Medications: Active Medications Generic Name Dose Route Start Last Admin Trade Name Freq PRN Reason Stop Dose Admin Al Hydroxide/Mg Hydroxide 15 ml 03/18/18 08:26 03/21/18 20:26 Milk Of Magnesia Liq PO 15 ml DAILY PRN Administration CONSTIPATION Apixaban 5 mg 03/20/18 21:00 03/22/18 08:38 Eliquis PO 5 mg BID [facility] Administration Atorvastatin Calcium 10 mg 03/19/18 21:00 03/21/18 20:26 Lipitor PO 10 mg HS [facility] Administration Bisacodyl 5 mg 03/20/18 12:30 03/22/18 08:38 Dulcolax Ec PO 5 mg DAILY [facility] Administration Citalopram Hydrobromide 20 mg 03/19/18 13:00 03/22/18 08:38 Celexa PO 20 mg DAILY [facility] Administration Diltiazem HCl 240 mg 03/22/18 09:00 03/22/18 08:38 Cardizem Cd 24hr PO 240 mg DAILY [facility] Administration Lisinopril 20 mg 03/19/18 21:00 03/21/18 20:26 Prinivil PO 20 mg HS [facility] Administration Metformin HCl 500 mg 03/19/18 13:00 03/22/18 08:38 Glucophage PO 500 mg DAILY [facility] Administration Oxycodone HCl 5 mg 03/18/18 08:26 03/21/18 23:31 Roxicodone PO 5 mg Q3H PRN Administration Pain Scale 4 to 7 Prochlorperazine Edisylate 10 mg 03/18/18 08:26 03/18/18 21:19 Compazine Inj IV.PUSH 10 mg Q4H PRN Administration NAUSEA OR VOMITING Trazodone HCl 100 mg 03/18/18 21:00 03/21/18 20:26 Desyrel PO 100 mg HS [facility] Administration Objective Remarks: GENERAL: Well-nourished, well-developed female patient. In no acute distress. SKIN: Warm and dry. BM biopsy site, central lower [id number]-[id number] in place with scant amount of blood. No drainage or redness noted to the site. +Bruising to the area, with no change from previous. HEAD: Normocephalic. EYES: No scleral icterus. No injection or drainage. NECK: Supple, trachea midline. No JVD. CARDIOVASCULAR: + S1/S2. Regular rate and rhythm without murmurs. RESPIRATORY: Posterior breath sounds clear, equal bilaterally. No accessory muscle use. GASTROINTESTINAL: Abdomen large, soft, non-tender, nondistended. EXTREMITIES: No cyanosis, or edema. MUSCULOSKELETAL: Adequate muscle tone. NEUROLOGICAL: No obvious focal deficit. Awake, alert, and oriented x3. PSYCHIATRIC: Appropriate mood and affect; insight and judgment normal. Assessment/Plan (1) Non-Hodgkins lymphoma in relapse Code(s): C85.90 - Non-Hodgkin lymphoma, unspecified, unspecified site Status: Acute (2) Anemia Code(s): Z95.828 - Presence of other vascular implants and grafts Status: Acute - Plan 72-year-old woman with primary refractory non-Hodgkin's lymphoma, large B cell lymphoma. She has progressed on R-CHOP and bendamustine-Rituxan. She has not achieve a remission. CT PET scan showed residual disease in the abdomen. Colonoscopic evaluation by Dr. Siddiqui confirms residual non-Hodgkin's lymphoma , large B-cell type. She is admitted for third line of chemotherapy with ifosfamide, mesna, carboplatin, and etoposide. Use or drug she has not seen before. Risk and benefit of ICD chemotherapy was discussed. We reviewed the infusional component of the regimen. She is encouraged to take p.o. And urinate frequently. We will proceed with day #2 of the chemo regimen. Noted is the mild dilutional anemia. In part this is probably chemotherapy-induced a. She is status post bone marrow biopsy for staging. We will reviewed results of his becomes available. We will proceed with chemo as planned. 03/20: D3 chemo regimen. Patient tolerating well. Bone marrow biopsy on 2017, results pending. 03/21: D4 chemo regimen. Patient was noted to go into atrial fibrillation with RVR. Reported blood in urine. 03/22: D5 patient monitored overnight D/T A. fib with RVR yesterday. Heart rate now controlled. Plan: 1. Hematuria, resolved. Urinalysis was negative for occult blood and essentially negative for RBC. Patient denies for any further episode. She has resumed her Eliquis for atrial fibrillation. She will continue to monitor for bleeding and notify physician. 2. Biopsy site with Band-Aid in place. Band-Aid has scant amount of blood on it. No s/s of infection. Continue to monitor. Upon discharge I recommended that the patient have the nurse in our outpatient office check her biopsy site when she is therefore lab draw, as she has a history of infection at a previous site. 3. Weight gain. 11 kg weight gain, which is questionable as there are no signs of fluid overload. Subjectively no shortness of breath, dyspnea on exertion, orthopnea or swelling. On examination there is no edema, lungs are clear and no JVD. Questionable for possible error with admission weight and the patient has been ambulating to the restroom herself, therefore the I&O is possibly not a reliable source. I recommended to the patient that she discuss this with Dr. De Guzman at her appointment tomorrow. She reports a history of being on diuretics, however she states that her PCP DC'd them months ago, she believes related to hypokalemia. 4. Atrial fibrillation. Continue Eliquis. Patient was seen by cardiology and she reports that she has a scheduled appointment with Dr. De Guzman tomorrow. 5. Patient cleared for discharge from an oncology standpoint. She will have her Neulasta injection in our office in the a.m., patient is aware. She will also be scheduled for lab draw on Friday. She has a already scheduled appointment with her oncologist, pending the results of labs on Friday this may be adjusted accordingly. (2) Anemia Qualifiers: Anemia type: unspecified type Qualified Code(s): D64.9 - Anemia, unspecified
--- NOTE | 2018-03-22 10:25 | P.DS ---
<Haylee Gomez - Last Filed: 03/22/18 10:26> Date of admission: 03/18/18 07:47 Primary care physician: Davonte Rodas MD Brief History from admission: Mrs. Solares is a 72-year-old woman well-known patient with history of relapse/ primary refractory large cell lymphoma, B-cell phenotype. She initially presented with abdominal pain back in March 2017. The final pathology showed a large cell lymphoma B-cell phenotype. Mesenteric mass was identified and biopsied. Bone marrow biopsy staging on 04/09/2017 was consistent with involvement by B-cell non-Hodgkin's lymphoma. She was treated initially with our rituximab and CHOP. She developed complications from her atrial fibrillation. Eventually the rituximab and CHOP chemotherapy was stopped. She was switched to bendamustine and Rituxan. She completed 6 cycles of bendamustine and Rituxan. On restaging CT PET scan residual PET positive lesion was identified in the abdomen. She was referred to Dr. Siddiqui for a colonoscopy. Biopsy of a colon lesion showed residual large cell lymphoma. Staging evaluation included CT PET scan performed on an outpatient basis. The lesion in the colon have increase in size and hypermetabolic activity. We discussed starting third line chemotherapy. In the meantime she was referred to a specialist and webmethods consultant at [facility]. This appointment is still pending. She received her Rituxan in the oncology clinic yesterday. She is admitted today to start her bone marrow biopsy staging and chemotherapy with ifosfamide, carboplatin, and etoposide. She feels well otherwise. She denies any abdominal pain. Cardiac arrhythmia is well controlled. She denies any headaches, no fevers, chills or night sweats. Her appetite is good. She has good performance status. She denies any urinary complaints. The rest of her review of system is negative. She is ready to proceed with her chemotherapy. DS: Diagnosis - Discharge Diagnosis (1) Non-Hodgkins lymphoma in relapse Status: Acute (2) Anemia Status: Acute DS: Summary Hospital Course: Mrs. Solares is a 72-year-old woman well-known patient with history of relapse/ primary refractory large cell lymphoma, B-cell phenotype. She was admitted to start her bone marrow biopsy staging and chemotherapy with ifosfamide, carboplatin, and etoposide. During the course of her chemotherapy, the patient went into atrial fibrillation with RVR. She does have a history of atrial fibrillation and is under the care of Dr. De Guzman. Cardiology was consulted and recommended an increase in her Cardizem to 240 mg daily. The patient was able to complete her chemotherapy. The patient was monitored overnight and her rates appear controlled. The patient had a reported 11 kg weight gain, however she shows no signs of fluid overload subjectively or objectively, questionable whether this was an actual weight gain. She has been restarted on her Eliquis and she has a follow-up appointment with Dr. De Guzman tomorrow. She is stable for discharge today. She will follow-up in our clinic tomorrow for her Neulasta injection and Friday for a lab draw. She has an appointment with Dr. Hoff, and pending her lab results on Friday this will be adjusted accordingly. Patient to call the doctor for fevers greater than 100.5 or bleeding. - Time Spent with Patient Total time spent providing and/or coordinating discharge services: - Quality: VTE Deep Vein Thrombosis/Pulmonary Embolism Present on Admission: No Exam Vital signs: Vital Signs 03/21/18 11:00 03/21/18 11:24 03/21/18 15:00 Temperature 98.3 F Pulse Rate 62 66 83 Respiratory Rate 18 Blood Pressure 146/60 H Pulse Oximetry 96 03/21/18 15:12 03/21/18 20:00 03/21/18 20:40 Temperature 98 F 98.5 F Pulse Rate 58 L 73 77 Respiratory Rate 18 18 Blood Pressure 122/60 127/53 L Pulse Oximetry 97 96 03/22/18 00:00 03/22/18 00:15 03/22/18 04:00 Temperature 98.2 F 97.8 F Pulse Rate 65 56 L 51 L Respiratory Rate 18 18 Blood Pressure 119/57 L 110/54 L Pulse Oximetry 96 96 03/22/18 07:00 03/22/18 08:33 Temperature 98.5 F Pulse Rate 51 L 68 Respiratory Rate Blood Pressure 109/56 L Pulse Oximetry 96 Intake & Output 03/21/18 03/22/18 03/22/18 18:59 06:59 18:59 Intake Total 3030 / 3030 240 / 240 Output Total 2750 / 2750 850 / 850 Balance 280 / 280 -610 / -610 Weight 140.5 kg 138.5 kg Intake: IV 1210 / 1210 NS Inj 1,000 ML @ 250 mls/hr IV 1000 / 1000 .SIG .Q4H LINDSEY Rx#:[id number] Oral 1820 / 1820 240 / 240 Output: Urine 2750 / 2750 850 / 850 Other: Date of Last Bowel Movement 03/21/18 03/21/18 03/21/18 # Bowel Movements 1 Narrative: GENERAL: Well-nourished, well-developed female patient. In no acute distress. SKIN: Warm and dry. BM biopsy site, central lower back-clear dressing intact/ dry. No drainage or redness noted. +Bruising to the area. + Scab at the insertion site. HEAD: Normocephalic. EYES: No scleral icterus. No injection or drainage. NECK: Supple, trachea midline. CARDIOVASCULAR: + S1/S2. Regular rate and rhythm. RESPIRATORY: Posterior breath sounds clear, equal bilaterally. No accessory muscle use. GASTROINTESTINAL: Abdomen large, soft, non-tender, nondistended. EXTREMITIES: No cyanosis, or edema. MUSCULOSKELETAL: Adequate muscle tone. NEUROLOGICAL: No obvious focal deficit. Awake, alert, and oriented x3. PSYCHIATRIC: Appropriate mood and affect; insight and judgment normal. Results Labs on day of discharge: Labs from last 24 hours 03/22/18 03/22/18 04:50 04:50 WBC 5.3 RBC 2.99 L Hgb 8.8 L Hct 27.0 L MCV 90.4 MCH 29.4 MCHC 32.5 RDW 15.7 Plt Count 146 L MPV 9.0 Neut % (Auto) 92.1 H Lymph % (Auto) 4.0 L [place] % (Auto) 2.2 Eos % (Auto) 1.5 Baso % (Auto) 0.2 Neut # (Auto) 4.9 Lymph # (Auto) 0.2 L [place] # (Auto) 0.1 Eos # (Auto) 0.1 Baso # (Auto) 0.0 WBC Differential . Differential Comment Auto diff final Sodium 144 Potassium 4.2 Chloride 112 H Carbon Dioxide 25.9 Anion Gap 6 BUN 14 Creatinine 0.59 Estimated GFR Greater than 89 Random Glucose 113 H D Calcium 8.8 Total Bilirubin 0.6 AST 19 ALT 28 Alkaline Phosphatase 74 Total Protein 5.1 L Albumin 2.8 L - Impressions ITS Impressions Bone Marrow Biopsy w/ CT 03/18/18 12:00 CONCLUSION: 1. Uncomplicated CT guided bone marrow aspirate. 2. Uncomplicated CT guided bone marrow biopsy. <Brenda Brown - Last Filed: 03/26/18 11:44> Date of admission: 03/18/18 07:47 Primary care physician: Davonte Rodas MD Attending physician on discharge: Brenda Brown Anticipated date of discharge: 03/21/18 DS: Diagnosis - Discharge Diagnosis (1) Non-Hodgkins lymphoma in relapse Status: Acute (2) Anemia Status: Acute DS: Summary - Time Spent with Patient Total time spent providing and/or coordinating discharge services: Exam - Constitutional no acute distress Results Procedures completed during hospitalization: Chemotherapy - Impressions ITS Impressions Bone Marrow Biopsy w/ CT 03/18/18 12:00 CONCLUSION: 1. Uncomplicated CT guided bone marrow aspirate. 2. Uncomplicated CT guided bone marrow biopsy. Discharge Plan - Discharge Order Discharge Orders: Discharge Order (Routine); Ordered 03/21/18 Ordered By: Brenda Brown - Discharge Details Anticipated Discharge Date: 03/21/18 Discharge Comment: Follow up JULITA on Friday 03/23 for Tim. - Physicians Team Primary Care Provider: Davonte Rodas Attending Provider: Brenda Brown Other Providers: Leena Stern ; Cain Karimi MD - Rxs /Orders / Referrals /Forms Prescriptions: New apixaban [Eliquis] 5 mg Tablet 5 mg PO BID RF: 0 diltiazem HCl 240 mg Capsule,Extended Release 24hr 240 mg PO DAILY RF: 0 Continue atorvastatin 10 mg Tablet 10 mg PO HS citalopram 20 mg Tablet 20 mg PO DAILY lisinopril 20 mg Tablet 20 mg PO HS metformin 500 mg Tablet Extended Release 24 Hr 500 mg PO DAILY trazodone 100 mg Tablet 100 mg PO HS Discontinued apixaban [Eliquis] 5 mg Tablet 5 mg PO BID diltiazem HCl 120 mg Tablet Extended Release 24 Hr 120 mg PO DAILY Referrals: Davonte Rodas MD [Primary Care Provider] - See Instructions - Discharge Instructions Patient Printed Instructions: Apixaban (By mouth), Neutropenia (DC) Additional Instructions: Call if fever, temperature >100.5. - Post Discharge Care Plan Care Plan Goals: Follow-up in clinic 03/23 for Neulasta. Follow-up in clinic for lab draw on . Keep scheduled appointment with Dr. Brown. Keep scheduled apt with Dr. De Guzman.
== END 2018-03-22 10:54 | disposition home or self-care (01) ==
LOC: HCIN 07:47
PROVIDERS: ADMIT Internal Medicine Hematology & Oncology; ATTEND Internal Medicine Hematology & Oncology

== ENCOUNTER 2018-04-08 07:37 | Inpatient (IN) ==
[2018-04-08 13:48] LABS: Baso % (Auto) 0.9 % (0.0-2.0); Eos % (Auto) 0.4 % (0.0-4.0); Hematocrit 27.6 % (35.0-46.0); Lymph # (Auto) 0.3 th/mm3 (1.0-4.8); Lymph % (Auto) 5.8 % (9.0-44.0); Mean Corpuscular HGB Conc 32.7 % (32.0-36.0); Mean Corpuscular Hemoglobin 29.9 pg (27.0-34.0); Mean Corpuscular Volume 91.5 fL (80.0-100.0); Mean Platelet Volume 8.7 fL (7.0-11.0); Mono # (Auto) 0.4 th/mm3 (0.0-0.9); Mono % (Auto) 8.9 % (0.0-8.0); Neut # (Auto) 4.1 th/mm3 (1.8-7.7); Platelet Count 242 th/mm3 (150-450); Red Blood Count 3.02 mil/mm3 (4.00-5.30); Red Cell Distribution Width 16.9 % (11.6-17.2); White Blood Count 4.9 th/mm3 (4.0-11.0)
[2018-04-08 14:14] LABS: Alanine Aminotransferase 27 U/L (10-53); Albumin 3.5 g/dL (3.4-5.0); Anion Gap 5 meq/L (5-15); Aspartate Aminotransferase 23 U/L (15-37); Blood Urea Nitrogen 8 mg/dL (7-18); Carbon Dioxide 28.7 meq/L (21.0-32.0); Chloride 111 meq/L (98-107); Glomerular Filtration Rate Greater Than 89 mL/min (>89); Glucose,Random 87 mg/dL (74-106); Magnesium 2.2 mg/dL (1.5-2.5); Potassium 4.1 meq/L (3.5-5.1); Sodium 145 meq/L (136-145)
[2018-04-08 14:17] LABS: Alkaline Phosphatase 98 U/L (45-117); Phosphorus 3.2 mg/dL (2.5-4.9); Total Protein 6.1 g/dL (6.4-8.2)
[2018-04-08] MEDS ORDERED: Granisetron Inj 1 MG in Sodium Chlor 0.9% Inj 50 ML IV.SIG ONE (14:30)
[2018-04-08] MEDS ORDERED: Etoposide Inj 200 MG in Sodium Chlor 0.9% Inj 500 ML IV.SIG ONE (15:00)
--- NOTE | 2018-04-08 18:20 | MB ---
cc: Brenda Brown MD DATE: 04/08/2018 ADMISSION DIAGNOSES: 1. Primary refractory large B-cell lymphoma. 2. Chemotherapy-induced anemia. 3. Obesity. 4. Atrial fibrillation. CHIEF COMPLAINT: Here for chemotherapy cycle 2 with ICE. HISTORY OF PRESENT ILLNESS: Ms. Solares is a 72-year-old woman with relapsed refractory B cell large cell lymphoma. She was initially diagnosed in March 2017. She received Rituxan-CHOP chemotherapy. She had complications and toxicity related to it. Ultimately, she finished 6 cycles of bendamustine and Rituxan. On restaging CT/PET scan, there is residual PET positive lesion near the colon. Dr. Siddiqui performed a colon biopsy that showed residual large cell lymphoma. She was started on salvage chemotherapy with Rituxan, ifosfamide, carboplatin and etoposide. This is an inpatient regimen. She was admitted for cycle #1 of chemo on 03/18/2018. She is here for cycle #2. Her course is complicated by cardiac arrhythmia, which is well controlled. She is on anticoagulant therapy. She lost her hair after her first cycle of chemo. She denies any nausea or vomiting at present. She reports subjective fevers, but did not come in for treatment. The fevers resolved on their own. She denies any urinary complaints. She is here for cycle 2 of ICE chemotherapy. The Rituxan was administered yesterday in clinic. PAST MEDICAL HISTORY: B-cell non-Hodgkin's lymphoma, depression, obesity, atrial fibrillation, cardiovascular disease, and history of MS. PAST SURGICAL HISTORY: Appendectomy, breast biopsy, hysterectomy, tonsillectomy, and colonoscopy with biopsy. ALLERGIES: NO KNOWN DRUG ALLERGIES. FAMILY HISTORY: One brother is . The patient's mother is alive. SOCIAL HISTORY: She is and lives with her . Her just had surgery for skin cancer. She has a [id number] smoking history. She denies any alcohol or illicit drug use at present. CURRENT MEDICATION: 1. Apixaban. 2. Diltiazem. 3. Atorvastatin. 4. Citalopram. 5. Lisinopril. 6. Metformin. 7. Trazodone. PHYSICAL EXAMINATION: VITAL SIGNS: Temperature 98.2, heart rate 58, respiratory rate 18, blood pressure 141/73, saturation 95%. GENERAL: Ms. Solares is a well-developed, well-nourished, obese woman, in no apparent distress. HEENT: Pupils are round, reactive to light and accommodation. Oropharynx is clear. No mucositis. She has alopecia. NECK: Supple with no adenopathy. LUNGS: Clear. CARDIOVASCULAR: Reveals a normal rate and rhythm. ABDOMEN: Large but benign. EXTREMITIES: No edema. Good pulses. NEUROLOGIC: Nonfocal. LABORATORY DATA: Labs from 04/08/2018 shows a white blood cell count of 4.9, hemoglobin 9.0, platelet count 242. Chemistry with BUN and creatinine that is normal. Her glucose is 87. ASSESSMENT AND PLAN: Ms. Solares is a 72-year-old woman with multiple medical problems. She is admitted for cycle #2 of salvage chemotherapy. She is starting cycle 2 of ICE. She received her Rituxan yesterday. We discussed the risks and benefits of chemotherapy. We will monitor her anemia. I anticipate her discharge on Friday, at the completion of chemotherapy. Her GCSF/Neulasta support will be scheduled for Friday. She has a pending appointment with specialists of lymphoma at [facility], Dr. Pete Gomez. He will determine if she has a response to treatment with restaging which will be coordinated as an outpatient. Her blood pressure will be monitored. Heart rate monitored. Her questions were answered to her satisfaction. MD UZAIR Wayne/DILLAN , 05:57 PM , 06:09 PM PIO
[2018-04-08] MEDS ORDERED: Cathflo Activase Inj 2 MG Vial I-CATHETER PRN (19:15)
[2018-04-08] MEDS ORDERED: Aluminum/Magnesium/Simethacone Susp 30 ML UDC PO PRN (19:15)
[2018-04-08] MEDS: traZODone 100 MG Tablet PO PRN (20:29)
[2018-04-08 20:40] LABS: Bilirubin,Urine Negative (Negative); Clarity,Urine Clear (Clear); Color,Urine Straw (Yellw/Straw); Glucose,Urine (UA) Negative (Negative); Leukocyte Esterase,Urine Negative (Negative); Nitrite,Urine Negative (Negative); Specific Gravity,Urine 1.009 (1.002-1.035); Squamous Epithelial Cell,Urine 2 /hpf (0-5)
[2018-04-08] MEDS ORDERED: Methylene Blue Inj 100 MG/10 ML Vial IV.PUSH PRN (22:00)
[2018-04-09 06:09] LABS: Baso % (Auto) 0.7 % (0.0-2.0); Eos % (Auto) 0.3 % (0.0-4.0); Hematocrit 24.4 % (35.0-46.0); Hemoglobin 8.2 gm/dL (11.6-15.3); Lymph # (Auto) 0.2 th/mm3 (1.0-4.8); Lymph % (Auto) 4.5 % (9.0-44.0); Mean Corpuscular HGB Conc 33.6 % (32.0-36.0); Mean Corpuscular Hemoglobin 30.5 pg (27.0-34.0); Mean Corpuscular Volume 90.7 fL (80.0-100.0); Mean Platelet Volume 8.6 fL (7.0-11.0); Mono # (Auto) 0.3 th/mm3 (0.0-0.9); Mono % (Auto) 9.1 % (0.0-8.0); Neut % (Auto) 85.4 % (16.0-70.0); Platelet Count 207 th/mm3 (150-450); Red Blood Count 2.69 mil/mm3 (4.00-5.30); Red Cell Distribution Width 16.6 % (11.6-17.2); White Blood Count 3.5 th/mm3 (4.0-11.0)
[2018-04-09 06:37] LABS: Anion Gap 8 meq/L (5-15); Blood Urea Nitrogen 10 mg/dL (7-18); Calcium 8.9 mg/dL (8.5-10.1); Carbon Dioxide 25.9 meq/L (21.0-32.0); Chloride 110 meq/L (98-107); Glomerular Filtration Rate Greater Than 89 mL/min (>89); Potassium 4.3 meq/L (3.5-5.1); Sodium 144 meq/L (136-145)
[2018-04-09] MEDS: Lisinopril 20 MG Tablet PO SCH (10:25)
[2018-04-09] MEDS: Citalopram 20 MG Tablet PO SCH (10:25)
[2018-04-09] MEDS: dilTIAZem CD 240 MG Capsule PO SCH (12:28)
[2018-04-09] MEDS ORDERED: Granisetron Inj 1 MG, Dexamethasone Inj 20 MG in Sodium Chlor 0.9% Inj 50 ML IV.SIG ONE ×6 (12:30→15:00)
[2018-04-09] MEDS: Sod Chloride 0.9% Inj 1,000 ML IV.SIG SCH ×3 (12:30→22:46)
[2018-04-09] MEDS ORDERED: Etoposide Inj 200 MG in Sodium Chlor 0.9% Inj 500 ML IV.SIG ONE (13:00)
[2018-04-09] MEDS ORDERED: CARBOplatin Inj 750 MG in Sodium Chlor 0.9% Inj 250 ML IV.SIG ONE (14:00)
[2018-04-09] MEDS ORDERED: MESNA IV.SIG ONE (15:00)
[2018-04-09] MEDS ORDERED: SOD CHLORIDE 0.9% IV.SIG ONE (15:00)
[2018-04-09] MEDS ORDERED: IFOSFAMIDE IV.SIG ONE (15:00)
--- NOTE | 2018-04-09 15:04 | P.PNONC ---
Subjective Interval history: Afebrile. Patient reports that she feels tired today. She states she did sleep well last night. She has a questionable herpetic lesion on her left buttocks. She states that she gets it approximately once a year. She reports that it is only painful if she presses on it. Denies itching. Objective Vital Signs/Intake & Output: Vital Signs 04/08/18 16:00 04/08/18 19:57 04/08/18 20:00 Temperature 98.4 F 98.5 F Pulse Rate 66 59 L 58 L Respiratory Rate 19 20 Blood Pressure 126/59 L 121/64 Pulse Oximetry 95 95 04/08/18 23:17 04/09/18 00:00 04/09/18 04:05 Temperature 98 F Pulse Rate 57 L 62 51 L Respiratory Rate 20 Blood Pressure 122/62 Pulse Oximetry 97 04/09/18 05:00 04/09/18 08:00 04/09/18 12:00 Temperature 98.3 F 98.4 F 98.6 F Pulse Rate 62 67 Respiratory Rate 18 18 18 Blood Pressure 139/56 L 157/76 H 135/60 Pulse Oximetry 95 95 95 Intake & Output 04/08/18 04/09/18 04/09/18 18:59 06:59 18:59 Intake Total 51 / 51 510 / 510 Output Total 2300 / 2300 Balance 51 / 51 -1790 / -1790 Weight 128.4 kg 130.1 kg Intake: IV 51 / 51 510 / 510 Vepesid Inj 200 MG In NS Inj 510 / 510 500 ML @ 510 mls/hr IV.SIG ONCE ONE Rx#:[id number] Kytril Inj 1 MG In NS Inj 50 ML 51 / 51 @ 306 mls/hr IV.SIG ONCE ONE Rx#:[id number] Output: Urine 2300 / 2300 Other: Date of Last Bowel Movement 04/08/18 04/07/18 Weight On Admission 128.4 kg Result Diagrams: 04/09/18 05:30 04/09/18 05:30 Laboratory Results: Laboratory Results - last 24 hr 04/08/18 04/08/18 04/09/18 15:10 15:10 05:30 WBC 3.5 L RBC 2.69 L Hgb 8.2 L Hct 24.4 L MCV 90.7 MCH 30.5 MCHC 33.6 RDW 16.6 Plt Count 207 MPV 8.6 Neut % (Auto) 85.4 H Lymph % (Auto) 4.5 L [place] % (Auto) 9.1 H Eos % (Auto) 0.3 Baso % (Auto) 0.7 Neut # (Auto) 3.0 Lymph # (Auto) 0.2 L [place] # (Auto) 0.3 Eos # (Auto) 0.0 Baso # (Auto) 0.0 WBC Differential . Differential Comment Auto diff final Sodium Potassium Chloride Carbon Dioxide Anion Gap BUN Creatinine Estimated GFR Fasting Glucose Calcium Urine Color Straw Urine Clarity Clear Urine pH 6.0 Ur Specific [place] 1.009 Urine Protein Negative Urine Glucose (UA) Negative Urine Ketones Negative Urine Occult Blood Negative Cancelled Urine Nitrate Negative Urine Bilirubin Negative Urine Urobilinogen Less than 2 Ur Leukocyte Esterase Negative Urine RBC Less than 1 Urine WBC 1 Ur Squamous Epith Cells 2 04/09/18 05:30 WBC RBC Hgb Hct MCV MCH MCHC RDW Plt Count MPV Neut % (Auto) Lymph % (Auto) [place] % (Auto) Eos % (Auto) Baso % (Auto) Neut # (Auto) Lymph # (Auto) [place] # (Auto) Eos # (Auto) Baso # (Auto) WBC Differential Differential Comment Sodium 144 Potassium 4.3 Chloride 110 H Carbon Dioxide 25.9 Anion Gap 8 BUN 10 Creatinine 0.62 Estimated GFR Greater than 89 Fasting Glucose 124 H Calcium 8.9 Urine Color Urine Clarity Urine pH Ur Specific [place] Urine Protein Urine Glucose (UA) Urine Ketones Urine Occult Blood Urine Nitrate Urine Bilirubin Urine Urobilinogen Ur Leukocyte Esterase Urine RBC Urine WBC Ur Squamous Epith Cells Medications: Active Medications Generic Name Dose Route Start Last Admin Trade Name Freq PRN Reason Stop Dose Admin Apixaban 2.5 mg 04/08/18 21:00 04/09/18 10:24 Eliquis PO 2.5 mg BID LINDSEY Administration Atorvastatin Calcium 10 mg 04/09/18 09:00 04/09/18 10:25 Lipitor PO 10 mg DAILY LINDSEY Administration Citalopram Hydrobromide 10 mg 04/09/18 09:00 04/09/18 10:25 Celexa PO 10 mg DAILY LINDSEY Administration Diltiazem HCl 240 mg 04/09/18 09:00 04/09/18 12:28 Cardizem Cd 24hr PO 240 mg DAILY LINDSEY Administration Sodium Chloride 1,000 mls @ 250 mls/hr 04/09/18 11:00 04/09/18 12:30 Ns Inj IV.SIG 250 mls/hr .Q4H LINDSEY Administration Lisinopril 20 mg 04/09/18 09:00 04/09/18 10:25 Prinivil PO 20 mg DAILY LINDSEY Administration Metformin HCl 500 mg 04/09/18 09:00 04/09/18 10:25 Glucophage PO 500 mg DAILY LINDSEY Administration Trazodone HCl 100 mg 04/08/18 21:00 04/08/18 20:29 Desyrel PO 100 mg HS PRN Administration SLEEP Objective Remarks: GENERAL: Well-nourished, well-developed elderly female patient. Lying in bed, in no acute distress. SKIN: Warm and dry. HEAD: Normocephalic. EYES: No scleral icterus. No injection or drainage. MOUTH: [place] moist mucous membranes. Upper denture in place. No thrush or lesions noted. NECK: Supple, trachea midline. CARDIOVASCULAR: Regular rate and rhythm without murmurs. RESPIRATORY: Breath sounds clear, equal bilaterally. No accessory muscle use. GASTROINTESTINAL: Abdomen soft, non-tender, nondistended. EXTREMITIES: No cyanosis, or edema. MUSCULOSKELETAL: Adequate muscle tone. NEUROLOGICAL: No obvious focal deficit. Awake, alert, and oriented x3. PSYCHIATRIC: Appropriate mood and affect; insight and judgment normal. Assessment/Plan - Plan Ms. Solares is a pleasant 72-year-old female patient, who was admitted for cycle #2 salvage chemotherapy for lymphoma. She received Rituxan on 04/07/2018. And was admitted yesterday for cycle 2 of ICE. She has an anticipated discharge Friday. And she will need G-CSF support scheduled for Friday. Plan: 1. Lymphoma. Currently undergoing chemotherapy, cycle 2 of ice. Patient tolerating well. 2. Herpetic lesion. We will start acyclovir. 3. If patient remains stable and tolerates her chemotherapy well, we will plan for discharge on 04/10/2018 and will schedule her for G-CSF support on Friday. 4. Continue to monitor labs. - Attending Statement The exam, history, and the medical decision-making described in the above note were completed with the assistance of the mid-level provider. I reviewed and agree with the findings presented. I attest that I had a [id number] encounter with the patient on the same day, and personally performed and documented my assessment and findings in the medical record. Patient seen and examined. She complains of being tired today. She noted a rash on her left gluteal lateral to where she had her bone marrow biopsy. It itches at present. She has had shingles before. We discussed the differential to look like a herpes zoster/shingles eruption. She reports allergies to acyclovir. We discussed using valacyclovir. She is tolerating the tube of her chemotherapy so far. She is receiving IV fluid hydration. She is urinating well. She is familiar with the protocol. She plans to get her Neulasta injection on Friday. I anticipate that her treatment will be complete by tomorrow hopefully before noon. Her questions were answered to her satisfaction.
[2018-04-09] MEDS: valACYclovir 500 MG Tab PO SCH ×2 (15:47→22:46)
[2018-04-09] MEDS: traZODone 100 MG Tablet PO PRN (22:47)
[2018-04-10] MEDS: Sod Chloride 0.9% Inj 1,000 ML IV.SIG SCH ×4 (03:05→16:41)
[2018-04-10 05:32] LABS: Hematocrit 24.9 % (35.0-46.0); Hemoglobin 8.4 gm/dL (11.6-15.3); Lymph # (Auto) 0.1 th/mm3 (1.0-4.8); Lymph % (Auto) 2.1 % (9.0-44.0); Mean Corpuscular HGB Conc 33.8 % (32.0-36.0); Mean Corpuscular Hemoglobin 30.5 pg (27.0-34.0); Mean Corpuscular Volume 90.1 fL (80.0-100.0); Mean Platelet Volume 8.7 fL (7.0-11.0); Mono # (Auto) 0.1 th/mm3 (0.0-0.9); Mono % (Auto) 1.4 % (0.0-8.0); Neut # (Auto) 4.5 th/mm3 (1.8-7.7); Neut % (Auto) 96.5 % (16.0-70.0); Platelet Count 232 th/mm3 (150-450); Red Blood Count 2.77 mil/mm3 (4.00-5.30); Red Cell Distribution Width 16.6 % (11.6-17.2); White Blood Count 4.7 th/mm3 (4.0-11.0)
[2018-04-10] MEDS: valACYclovir 500 MG Tab PO SCH ×2 (05:48→13:47)
[2018-04-10 06:11] LABS: Anion Gap 8 meq/L (5-15); Blood Urea Nitrogen 11 mg/dL (7-18); Calcium 8.6 mg/dL (8.5-10.1); Carbon Dioxide 24.7 meq/L (21.0-32.0); Chloride 110 meq/L (98-107); Glomerular Filtration Rate Greater Than 89 mL/min (>89); Potassium 4.2 meq/L (3.5-5.1); Sodium 143 meq/L (136-145)
[2018-04-10] MEDS: Citalopram 20 MG Tablet PO SCH (09:35)
[2018-04-10] MEDS: Lisinopril 20 MG Tablet PO SCH (09:36)
[2018-04-10] MEDS: dilTIAZem CD 240 MG Capsule PO SCH (09:36)
--- NOTE | 2018-04-10 10:39 | P.PNONC ---
Subjective Interval history: Afebrile. Tolerating chemotherapy well. She denies any N/V/D, chest pain or shortness of breath. She reports chronic constipation in which she has been drinking prune juice for. She is awaiting bowel movement. We are planning for discharge after chemotherapy today. She has been set up to receive Neulasta at the infusion center tomorrow, She is aware of the plan. Objective Vital Signs/Intake & Output: Vital Signs 04/09/18 12:00 04/09/18 16:00 04/09/18 22:39 Temperature 98.6 F 98.8 F 98.0 F Pulse Rate 69 71 Respiratory Rate 18 18 18 Blood Pressure 135/60 93/54 L 123/79 Pulse Oximetry 95 94 L 94 L 04/10/18 00:00 04/10/18 00:57 04/10/18 04:00 Temperature 97.8 F Pulse Rate 59 L 84 54 L Respiratory Rate 16 Blood Pressure 122/52 L Pulse Oximetry 96 04/10/18 04:35 Temperature 97.4 F L Pulse Rate 72 Respiratory Rate 16 Blood Pressure 123/65 Pulse Oximetry 94 L Intake & Output 04/09/18 04/10/18 04/10/18 18:59 06:59 18:59 Intake Total 2470 / 2470 3001 / 3001 1000 / 1000 Output Total 2200 / 2200 2200 / 2200 Balance 270 / 270 801 / 801 1000 / 1000 Weight 131 kg Intake: IV 1510 / 1510 2281 / 2281 1000 / 1000 Paraplatin Inj 750 MG In NS Inj 325 / 325 250 ML @ 650 mls/hr IV.SIG ONCE ONE Rx#:[id number] Vepesid Inj 200 MG In NS Inj 510 / 510 500 ML @ 510 mls/hr IV.SIG ONCE ONE Rx#:[id number] Kytril Inj 1 MG Decadron Inj 20 56 / 56 MG In NS Inj 50 ML @ 336 mls/ hr IV.SIG ONCE ONE Rx#:[id number] NS Inj 1,000 ML @ 250 mls/hr IV 1000 / 1000 1900 / 1900 1000 / 1000 .SIG .Q4H LINDSEY Rx#:[id number] Oral 960 / 960 720 / 720 Output: Urine 2200 / 2200 2200 / 2200 Other: Date of Last Bowel Movement 04/07/18 Result Diagrams: 04/10/18 04:40 04/10/18 04:40 Laboratory Results: Laboratory Results - last 24 hr 04/09/18 04/10/18 04/10/18 19:00 04:40 04:40 WBC 4.7 RBC 2.77 L Hgb 8.4 L Hct 24.9 L MCV 90.1 MCH 30.5 MCHC 33.8 RDW 16.6 Plt Count 232 MPV 8.7 Neut % (Auto) 96.5 H Lymph % (Auto) 2.1 L [place] % (Auto) 1.4 Eos % (Auto) 0.0 Baso % (Auto) 0.0 Neut # (Auto) 4.5 Lymph # (Auto) 0.1 L [place] # (Auto) 0.1 Eos # (Auto) 0.0 Baso # (Auto) 0.0 WBC Differential . Differential Comment Auto diff final Sodium 143 Potassium 4.2 Chloride 110 H Carbon Dioxide 24.7 Anion Gap 8 BUN 11 Creatinine 0.65 Estimated GFR Greater than 89 Fasting Glucose 177 H Calcium 8.6 Urine Occult Blood Negative Medications: Active Medications Generic Name Dose Route Start Last Admin Trade Name Freq PRN Reason Stop Dose Admin Apixaban 2.5 mg 04/08/18 21:00 04/10/18 09:35 Eliquis PO 2.5 mg BID LINDSEY Administration Atorvastatin Calcium 10 mg 04/09/18 09:00 04/10/18 09:36 Lipitor PO 10 mg DAILY LINDSEY Administration Citalopram Hydrobromide 10 mg 04/09/18 09:00 04/10/18 09:35 Celexa PO 10 mg DAILY LINDSEY Administration Diltiazem HCl 240 mg 04/09/18 09:00 04/10/18 09:36 Cardizem Cd 24hr PO 240 mg DAILY LINDSEY Administration [place] 10,000 mg/ Ifosfamide 10 1,100 mls @ 45.833 mls/hr 04/09/18 15:00 04/09 18:05 ,000 mg/ Sodium Chloride IV.SIG 04/10/18 14:59 45.83 mls/hr ONCE ONE Administration Sodium Chloride 1,000 mls @ 250 mls/hr 04/09/18 11:00 04/10/18 09:40 Ns Inj IV.SIG 150 mls/hr .Q4H LINDSEY Administration Lisinopril 20 mg 04/09/18 09:00 08/10/18 09:36 Prinivil PO 20 mg DAILY LINDSEY Administration Metformin HCl 500 mg 04/09/18 09:00 04/10/18 09:36 Glucophage PO 500 mg DAILY LINDSEY Administration Trazodone HCl 100 mg 04/08/18 21:00 04/09/18 22:47 Desyrel PO 100 mg HS PRN Administration SLEEP Valacyclovir HCl 1,000 mg 04/09/18 14:00 04/10/18 05:48 Valtrex PO 1,000 mg Q8HR LINDSEY Administration Objective Remarks: GENERAL: Well-nourished, well-developed elderly female patient. Lying in bed, in no acute distress. SKIN: Warm and dry. Dry herpetic lesion to left lateral gluteal area. HEAD: Normocephalic. EYES: No scleral icterus. No injection or drainage. MOUTH: [place] moist mucous membranes. Upper denture in place. No thrush or lesions noted. NECK: Supple, trachea midline. CARDIOVASCULAR: Regular rate and rhythm without murmurs. RESPIRATORY: Breath sounds clear, equal bilaterally. No accessory muscle use. GASTROINTESTINAL: Abdomen soft, non-tender, nondistended. EXTREMITIES: No cyanosis, or edema. MUSCULOSKELETAL: Adequate muscle tone. NEUROLOGICAL: No obvious focal deficit. Awake, alert, and oriented x3. PSYCHIATRIC: Appropriate mood and affect; insight and judgment normal. Assessment/Plan - Plan Ms. Solares is a pleasant 72-year-old female patient, who was admitted for cycle #2 salvage chemotherapy for lymphoma. She received Rituxan on 04/07/2018. And was admitted yesterday for cycle 2 of ICE. She has an anticipated discharge Friday. And she will need G-CSF support scheduled for Friday. Plan: 1. Lymphoma. Currently undergoing chemotherapy, cycle 2 of ice. Patient tolerating well. 2. Herpetic lesion, improving. Started valacyclovir yesterday. She will continue valacyclovir for 6 more days. Prescription will be given. 3. We will plan to discharge the patient today after chemotherapy. She has been set up to receive her Neulasta injection tomorrow at the infusion center. 4. She will follow-up in the outpatient clinic with Dr. Antunez as scheduled. Patient also has an appointment at [facility] on Friday. - Attending Statement The exam, history, and the medical decision-making described in the above note were completed with the assistance of the mid-level provider. I reviewed and agree with the findings presented. I attest that I had a [id number] encounter with the patient on the same day, and personally performed and documented my assessment and findings in the medical record. Patient seen and examined. She is eager to go home today. [facility]. She has an appointment with Dr. Pete Gomez on Friday. CT PET scan will be coordinated as an outpatient in the next 2 weeks. She will follow-up in hematology clinic in 2 weeks time. She is advised to call for any fevers. Noted chemotherapy-induced anemia no transfusion needed. Anticipate discharge later this evening after completion of chemotherapy.
[2018-04-10 12:39] VITALS: TEMP 98.4
[2018-04-10] MEDS ORDERED: Granisetron Inj 1 MG in Sodium Chlor 0.9% Inj 50 ML IV.SIG ONE (14:30)
[2018-04-10] MEDS ORDERED: Etoposide Inj 200 MG in Sodium Chlor 0.9% Inj 500 ML IV.SIG ONE (15:00)
--- NOTE | 2018-04-10 15:30 | P.DS ---
Date of admission: 04/08/18 07:37 Primary care physician: Davonte Rodas MD Anticipated date of discharge: 04/10/18 Brief History from admission: Ms. Solares is a pleasant 72-year-old female patient, who was admitted for cycle #2 salvage chemotherapy for lymphoma. She received Rituxan on 04/07/2018. And was admitted for cycle 2 chemotherapy with ICE. She has an anticipated discharge Friday. And she will need G-CSF support scheduled for Friday. During the course of this hospitalization the patient is tolerating her chemotherapy well. She has had no signs or symptoms of toxicity. She was noted to have a possible herpetic lesion on her left lateral gluteus, she was started on Valtrex and this will continue for 6 days after discharge. The lesion has responded well. The patient will go to the infusion center on Friday for her Neulasta injection. She is aware of this. She has a pending appointment at [facility] in [facility] on Friday. She will maintain her scheduled follow-up with Dr. Brown upon discharge. DS: Diagnosis - Discharge Diagnosis (1) Non-Hodgkins lymphoma in relapse Status: Acute DS: Medications - Discharge Medications Prescriptions: valacyclovir [Valtrex] 1,000 mg PO Q8HR 6 Days #36 tab DS: Summary Hospital Course: Ms. Solares is a pleasant 72-year-old female patient, who was admitted for cycle #2 salvage chemotherapy for lymphoma. She received Rituxan on 04/07/2018. And was admitted for cycle 2 chemotherapy with ICE. She has an anticipated discharge Friday. And she will need G-CSF support scheduled for Friday. During the course of this hospitalization the patient is tolerating her chemotherapy well. She has had no signs or symptoms of toxicity. She was noted to have a possible herpetic lesion on her left lateral gluteus, she was started on Valtrex and this will continue for 6 days after discharge. The lesion has responded well. The patient will go to the infusion center on Friday for her Neulasta injection. She is aware of this. She has a pending appointment at [facility] in [facility] on Friday. She will maintain her scheduled follow-up with Dr. Brown upon discharge. - Time Spent with Patient Total time spent providing and/or coordinating discharge services: Greater than 30 minutes - Quality: VTE Deep Vein Thrombosis/Pulmonary Embolism Present on Admission: Yes Exam Vital signs: Vital Signs 04/09/18 16:00 04/09/18 22:39 04/10/18 00:00 Temperature 98.8 F 98.0 F Pulse Rate 69 71 59 L Respiratory Rate 18 18 Blood Pressure 93/54 L 123/79 Pulse Oximetry 94 L 94 L 04/10/18 00:57 04/10/18 04:00 04/10/18 04:35 Temperature 97.8 F 97.4 F L Pulse Rate 84 54 L 72 Respiratory Rate 16 16 Blood Pressure 122/52 L 123/65 Pulse Oximetry 96 94 L 04/10/18 12:00 Temperature 98.4 F Pulse Rate 74 Respiratory Rate 20 Blood Pressure 136/56 L Pulse Oximetry 96 Intake & Output 04/09/18 04/10/18 04/10/18 18:59 06:59 18:59 Intake Total 2470 / 2470 3001 / 3001 1000 / 1000 Output Total 2200 / 2200 2200 / 2200 Balance 270 / 270 801 / 801 1000 / 1000 Weight 131 kg Intake: IV 1510 / 1510 2281 / 2281 1000 / 1000 Paraplatin Inj 750 MG In NS Inj 325 / 325 250 ML @ 650 mls/hr IV.SIG ONCE ONE Rx#:[id number] Vepesid Inj 200 MG In NS Inj 510 / 510 500 ML @ 510 mls/hr IV.SIG ONCE ONE Rx#:[id number] Kytril Inj 1 MG Decadron Inj 20 56 / 56 MG In NS Inj 50 ML @ 336 mls/ hr IV.SIG ONCE ONE Rx#:[id number] NS Inj 1,000 ML @ 250 mls/hr IV 1000 / 1000 1900 / 1900 1000 / 1000 .SIG .Q4H LINDSEY Rx#:[id number] Oral 960 / 960 720 / 720 Output: Urine 2200 / 2200 2200 / 2200 Other: Date of Last Bowel Movement 04/07/18 Narrative: See progress note dated 04/10/2018. Results Procedures completed during hospitalization: Chemotherapy, cycle 2 ICE. Labs on day of discharge: Labs from last 24 hours 04/10/18 04/10/18 04/09/18 04:40 04:40 19:00 WBC 4.7 RBC 2.77 L Hgb 8.4 L Hct 24.9 L MCV 90.1 MCH 30.5 MCHC 33.8 RDW 16.6 Plt Count 232 MPV 8.7 Neut % (Auto) 96.5 H Lymph % (Auto) 2.1 L [place] % (Auto) 1.4 Eos % (Auto) 0.0 Baso % (Auto) 0.0 Neut # (Auto) 4.5 Lymph # (Auto) 0.1 L [place] # (Auto) 0.1 Eos # (Auto) 0.0 Baso # (Auto) 0.0 WBC Differential . Differential Comment Auto diff final Sodium 143 Potassium 4.2 Chloride 110 H Carbon Dioxide 24.7 Anion Gap 8 BUN 11 Creatinine 0.65 Estimated GFR Greater than 89 Fasting Glucose 177 H Calcium 8.6 Urine Occult Blood Negative Discharge Plan - Discharge Disposition Patient Disposition: 01 Discharge Home - Discharge Condition Condition: Stable - Discharge Order Discharge Orders: Discharge Order (Routine); Ordered 04/10/18 Ordered By: Haylee Gomez - Discharge Details Anticipated Discharge Date: 04/10/18 Discharge Comment: Discharge after chemotherapy. - Physicians Team Primary Care Provider: Davonte Rodas Attending Provider: Brenda Brown Other Providers: Leena Stern - Rxs /Orders / Referrals /Forms Prescriptions: New valacyclovir [Valtrex] 500 mg Tablet 1,000 mg PO Q8HR 6 Days Qty: 36 RF: 0 Continue apixaban [Eliquis] 5 mg Tablet 5 mg PO BID RF: 0 atorvastatin 10 mg Tablet 10 mg PO HS citalopram 20 mg Tablet 20 mg PO DAILY diltiazem HCl 240 mg Capsule,Extended Release 24hr 240 mg PO DAILY RF: 0 lisinopril 20 mg Tablet 20 mg PO HS metformin 500 mg Tablet Extended Release 24 Hr 500 mg PO DAILY trazodone 100 mg Tablet 100 mg PO HS Referrals: Brenda Brown MD [Physician] - See Instructions (Patient to go to [facility] Friday04/11/18 between 7:30-9:30, for Neulasta injection. [place] [address], [address] ) Davonte Rodas MD [Primary Care Provider] - See Instructions - Discharge Instructions Additional Instructions: Please go to [facility] Friday04/11/18 between 7:30-9:30, for Neulasta injection. The center is located in [place] [address], [address]. Their hours on Friday are 7:30-9 :30.
[2018-04-10 19:37] VITALS: BP 103/42; PULSE 63; RESP 16; O2SAT 95
[2018-04-10] MEDS ORDERED: Heparin Central Flush 100 UNIT/ML 5 ML Vial IV.FLUSH PRN ×2 (20:26)
== END 2018-04-10 20:47 | disposition home or self-care (01) ==
LOC: HCIN 07:37
PROVIDERS: ADMIT Internal Medicine Hematology & Oncology; ATTEND Internal Medicine Hematology & Oncology

== ENCOUNTER 2018-05-01 07:39 | Inpatient (IN) ==
[2018-05-01] MEDS ORDERED: Morphine Sulfate Inj 2 MG/ML Vial IV.PUSH PRN (08:56)
[2018-05-01] MEDS ORDERED: Aluminum/Magnesium/Simethacone Susp 30 ML UDC PO PRN (08:56)
[2018-05-01] MEDS ORDERED: LORazepam 0.5 MG Tablet PO PRN (08:56)
[2018-05-01] MEDS ORDERED: Cathflo Activase Inj 2 MG Vial I-CATHETER PRN ×2 (08:56→10:25)
--- NOTE | 2018-05-01 09:24 | MH ---
cc: Brenda Brown MD DATE OF ADMISSION: 05/01/2018 ADMISSION DIAGNOSES: 1. Refractory lymphoma. 2. Thrombocytopenia. 3. Anemia. 4. Atrial fibrillation. 5. Obesity. CHIEF COMPLAINT: Here for cycle 3 of ICE. HISTORY OF PRESENT ILLNESS: Ms. 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 She was initially diagnosed in March 2017. She has received rituximab CHOP, bendamustine, and Rituxan with persistence of disease in the colon. She was started on salvage chemotherapy with Rituxan, ifosfamide, carboplatin, and etoposide. She was seen at [facility]. She is being referred to bone marrow transplant. Clinically, she appears to be responding. She is tolerating her chemo well. She received her Rituxan cycle #3 at a clinic yesterday on 04/30/2018. She is admitted today for cycle 3 of ICE chemotherapy. She offers no complaints. She denies any chest pain or awareness of her atrial fibrillation. She denies any headaches. No fevers, chills or night sweats. She feels better after recent blood transfusion for hemoglobin less than 8. She denies any overt bleeding. The rest of her review of system is negative. PAST MEDICAL HISTORY: B-cell non-Hodgkin's lymphoma, depression, atrial fibrillation, obesity, cardiovascular disease, history of MS. PAST SURGICAL HISTORY: Appendectomy, breast biopsy, hysterectomy, colonoscopy with biopsy, tonsillectomy, port placement. FAMILY HISTORY: Brother is . No significant family history of cancer. Mother is still alive. SOCIAL HISTORY: She is , lives with her . She has a 10-[id number]-[id number] smoking history. She denies any alcohol or illicit drug use. ALLERGIES: NO KNOWN DRUG ALLERGIES. MEDICATIONS FROM HOME: Metoprolol, lisinopril, Eliquis, carvedilol, trazodone. VITAL SIGNS: VITAL SIGNS: Temperature 98.5, heart rate 51, respiratory rate 18, blood pressure 158/59, saturation 97%. GENERAL: Ms. Solares is an obese, pale-appearing woman, in no acute distress. HEENT: Pupils are round, reactive to light and accommodation. Conjunctivae are pink. Sclerae are nonicteric. Oropharynx is clear. No lesions. NECK: Supple with no adenopathy. No axillary adenopathy. LUNGS: Clear to auscultation. CARDIOVASCULAR: Reveals mild bradycardia, rate controlled, atrial fibrillation rhythm. ABDOMEN: Large, but benign. EXTREMITIES: Lower extremity, there is no edema. Good pulses. NEUROLOGIC: Nonfocal. LABORATORY DATA: Labs from 04/30/2018, WBC 5.2, hemoglobin 8.5, platelet count 148. ASSESSMENT AND PLAN: Ms. Solares is a 72-year-old woman with multiple medical problems. She is here for cycle #3 of salvage chemotherapy with ICE. Chemotherapy as planned. Chemotherapy regimen and admission papers were submitted yesterday. 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 Neulasta support is scheduled for Friday depending on the timing of her chemotherapy completion. Otherwise, her dose of Neulasta could be administered on Friday. We will monitor her anemia. Transfusions for any symptoms or hemoglobin less than 8. She is advised to follow up and keep her appointment at [facility] bone marrow transplant consultation. She will need staging evaluation, which we will coordinate outpatient basis. Her rhythm will be monitored. She is advised to wear the telemetry monitoring. She denies any overt symptoms. She has followup with cardiology next week. MD UZAIR Wayne/ernst , 08:55 AM , 09:04 AM
[2018-05-01] MEDS ORDERED: Loperamide 2 MG Capsule PO PRN (10:25)
[2018-05-01] MEDS ORDERED: Acetaminophen 325 MG Tablet PO PRN (10:25)
[2018-05-01] MEDS ORDERED: Methylene Blue Inj 10 MG/ML Vial IV.PUSH PRN (10:58)
[2018-05-01] MEDS ORDERED: Granisetron 1 MG/ML Vial IV.PUSH ONE (11:30)
[2018-05-01] MEDS ORDERED: Etoposide Inj 200 MG in Sodium Chlor 0.9% Inj 500 ML IV.SIG ONE (12:00)
[2018-05-01] MEDS: Lisinopril 20 MG Tablet PO SCH (20:46)
[2018-05-01] MEDS: traZODone 100 MG Tablet PO SCH (20:46)
[2018-05-01] MEDS ORDERED: Temazepam 15 MG Capsule PO PRN (21:00)
[2018-05-02] MEDS: Citalopram 20 MG Tablet PO SCH (08:00)
[2018-05-02] MEDS: dilTIAZem CD 240 MG Capsule PO SCH (08:00)
[2018-05-02 08:39] LABS: Baso % (Auto) 0.8 % (0.0-2.0); Eos % (Auto) 0.6 % (0.0-4.0); Hematocrit 26.6 % (35.0-46.0); Hemoglobin 8.7 gm/dL (11.6-15.3); Lymph # (Auto) 0.1 th/mm3 (1.0-4.8); Lymph % (Auto) 3.7 % (9.0-44.0); Mean Corpuscular HGB Conc 32.7 % (32.0-36.0); Mean Corpuscular Hemoglobin 30.2 pg (27.0-34.0); Mean Corpuscular Volume 92.3 fL (80.0-100.0); Mono # (Auto) 0.5 th/mm3 (0.0-0.9); Mono % (Auto) 12.7 % (0.0-8.0); Neut # (Auto) 3.3 th/mm3 (1.8-7.7); Neut % (Auto) 82.2 % (16.0-70.0); Platelet Count 146 th/mm3 (150-450); Red Blood Count 2.88 mil/mm3 (4.00-5.30); Red Cell Distribution Width 23.5 % (11.6-17.2)
[2018-05-02] MEDS ORDERED: Sod Chloride 0.9% Inj 1,000 ML IV.SIG ONE (09:00)
[2018-05-02 09:04] LABS: Albumin 3.3 g/dL (3.4-5.0); Anion Gap 9 meq/L (5-15); Aspartate Aminotransferase 16 U/L (15-37); Calcium 8.6 mg/dL (8.5-10.1); Carbon Dioxide 28.9 meq/L (21.0-32.0); Chloride 110 meq/L (98-107); Glomerular Filtration Rate Greater Than 89 mL/min (>89); Glucose,Random 112 mg/dL (74-106); Potassium 4.2 meq/L (3.5-5.1); Sodium 148 meq/L (136-145)
[2018-05-02 09:11] LABS: Alanine Aminotransferase 22 U/L (10-53); Alkaline Phosphatase 86 U/L (45-117); Blood Urea Nitrogen 10 mg/dL (7-18)
--- NOTE | 2018-05-02 09:15 | P.PNONC ---
Subjective Interval history: Afebrile Patient resting in bed in no obvious distress States "I am trying to talk myself into sitting up for breakfast" Denies shortness of breath or pain Tolerating chemotherapy well yesterday No other acute complaints Objective Vital Signs/Intake & Output: Vital Signs 05/01/18 12:00 05/01/18 16:00 05/01/18 20:42 Temperature 98.5 F 98.7 F Pulse Rate 62 55 L 60 Respiratory Rate 20 20 20 Blood Pressure 120/42 L 137/64 124/54 L Pulse Oximetry 99 98 93 L 05/02/18 00:37 05/02/18 04:00 05/02/18 04:52 Temperature 98.3 F 98.9 F Pulse Rate 62 48 L Respiratory Rate 18 16 16 Blood Pressure 108/50 L 111/53 L Pulse Oximetry 92 L 92 L 05/02/18 07:00 05/02/18 07:54 Temperature 98 F Pulse Rate 45 L 65 Respiratory Rate 18 Blood Pressure 151/65 H Pulse Oximetry 97 Intake & Output 05/01/18 05/02/18 05/02/18 18:59 06:59 18:59 Intake Total 1230 / 1230 240 / 240 Output Total 1100 / 1100 1200 / 1200 Balance 130 / 130 -960 / -960 Weight 288 lb 12.889 oz Intake: IV 510 / 510 Vepesid Inj 200 MG In NS Inj 510 / 510 500 ML @ 510 mls/hr IV.SIG ONCE ONE Rx#:[id number] Oral 720 / 720 240 / 240 Output: Urine 1100 / 1100 1200 / 1200 Other: Date of Last Bowel Movement 05/01/18 05/01/18 05/01/18 # Bowel Movements 1 Weight On Admission 288 lb 12.889 oz Result Diagrams: 05/02/18 08:00 05/02/18 08:00 Laboratory Results: Laboratory Results - last 24 hr 05/02/18 05/02/18 08:00 08:00 WBC 4.0 RBC 2.88 L Hgb 8.7 L Hct 26.6 L MCV 92.3 MCH 30.2 MCHC 32.7 RDW 23.5 H Plt Count 146 L MPV 9.0 Neut % (Auto) 82.2 H Lymph % (Auto) 3.7 L [place] % (Auto) 12.7 H Eos % (Auto) 0.6 Baso % (Auto) 0.8 Neut # (Auto) 3.3 Lymph # (Auto) 0.1 L [place] # (Auto) 0.5 Eos # (Auto) 0.0 Baso # (Auto) 0.0 WBC Differential . Differential Comment Auto diff final Sodium 148 H Potassium 4.2 Chloride 110 H Carbon Dioxide 28.9 Anion Gap 9 Creatinine 0.64 Estimated GFR Greater than 89 Random Glucose 112 H Calcium 8.6 AST 16 Albumin 3.3 L Medications: Active Medications Generic Name Dose Route Start Last Admin Trade Name Freq PRN Reason Stop Dose Admin Al Hydroxide/Mg Hydroxide 30 ml 05/01/18 09:30 05/02/18 08:00 Milk Of Magnesia Liq PO 30 ml DAILY LINDSEY Administration Apixaban 5 mg 05/01/18 21:00 05/02/18 08:01 Eliquis PO 5 mg BID LINDSEY Administration Atorvastatin Calcium 10 mg 05/01/18 21:00 05/01/18 20:46 Lipitor PO 10 mg HS LINDSEY Administration Citalopram Hydrobromide 20 mg 05/02/18 09:00 05/02/18 08:00 Celexa PO 20 mg DAILY LINDSEY Administration Diltiazem HCl 240 mg 05/02/18 09:00 05/02/18 08:00 Cardizem Cd 24hr PO 240 mg DAILY LINDSEY Administration Lisinopril 20 mg 05/01/18 21:00 05/01/18 20:46 Prinivil PO 20 mg HS LINDSEY Administration Metformin HCl 500 mg 05/02/18 09:00 05/02/18 08:00 Glucophage PO 500 mg DAILY LINDSEY Administration Metoprolol Succinate 50 mg 05/02/18 09:00 05/02/18 08:04 Toprol Xl PO 50 mg DAILY LINDSEY Administration Trazodone HCl 100 mg 05/01/18 21:00 05/01/18 20:46 Desyrel PO 100 mg HS LINDSEY Administration Objective Remarks: GENERAL: Obese older female resting in bed in no obvious distress SKIN: Warm and dry. HEAD: Normocephalic. EYES: No scleral icterus. No injection or drainage. NECK: Supple, trachea midline. No JVD or lymphadenopathy. CARDIOVASCULAR: Regular rate and rhythm without murmurs. RESPIRATORY: Clear anteriorly. Breathing unlabored at rest. GASTROINTESTINAL: Abdomen obese but soft. Nontender to palpation. EXTREMITIES: No cyanosis, or edema. MUSCULOSKELETAL: Adequate muscle tone. NEUROLOGICAL: No obvious focal deficit. Awake, alert, and oriented x3. 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 She was originally diagnosed in March 2017 and received R CHOP, bendamustine and Rituxan with persistence of disease in the colon. She is currently on salvage chemotherapy with Rituxan, ifosfamide, carboplatin and etoposide. She is being evaluated for possible bone marrow transplant at [facility]. She is admitted for cycle #3 of ICE chemotherapy. Patient will need Neulasta in clinic 24 hours after completion of her chemotherapy. 1. Patient tolerating chemotherapy well. Continue with day #2 ICE today. Her appetite is somewhat poor and I have requested Ensure to be added to her tray. 2. Labs are reviewed. We do not anticipate counts to decrease until late next week. She will receive Neulasta in clinic likely on Friday as our clinic is closed on Friday. 3. Continue supportive care. - Attending Statement The exam, history, and the medical decision-making described in the above note were completed with the assistance of the mid-level provider. I reviewed and agree with the findings presented. I attest that I had a [id number] encounter with the patient on the same day, and personally performed and documented my assessment and findings in the medical record. Tolerating chemo well. Appetite is decreased. She does not feel like eating. No significant nausea. She feels some relief with the Lorazepam. We discussed addition of boost as a supplement. Chemotherapy will continue as planned. We will continue to monitor her progress. She denies any chest pain or palpitations or arrhythmia.
[2018-05-02] MEDS ORDERED: Granisetron Inj 1 MG, Dexamethasone Inj 20 MG in Sodium Chlor 0.9% Inj 50 ML IV.SIG ONE ×2 (10:30)
[2018-05-02] MEDS ORDERED: Etoposide Inj 200 MG in Sodium Chlor 0.9% Inj 500 ML IV.SIG ONE (11:00)
[2018-05-02] MEDS ORDERED: CARBOplatin Inj 750 MG in Sodium Chlor 0.9% Inj 250 ML IV.SIG ONE (12:00)
[2018-05-02] MEDS: MESNA IV.SIG SCH (18:35)
[2018-05-02] MEDS: SOD CHLORIDE 0.9% IV.SIG SCH (18:35)
[2018-05-02] MEDS: IFOSFAMIDE IV.SIG SCH (18:35)
[2018-05-02] MEDS: Lisinopril 20 MG Tablet PO SCH (20:35)
[2018-05-02] MEDS: traZODone 100 MG Tablet PO SCH (20:35)
[2018-05-03 04:49] LABS: Baso % (Auto) 0.2 % (0.0-2.0); Hematocrit 27.1 % (35.0-46.0); Hemoglobin 8.8 gm/dL (11.6-15.3); Lymph # (Auto) 0.1 th/mm3 (1.0-4.8); Lymph % (Auto) 1.7 % (9.0-44.0); Mean Corpuscular HGB Conc 32.4 % (32.0-36.0); Mean Corpuscular Hemoglobin 30.4 pg (27.0-34.0); Mean Corpuscular Volume 93.7 fL (80.0-100.0); Mono # (Auto) 0.1 th/mm3 (0.0-0.9); Mono % (Auto) 1.9 % (0.0-8.0); Neut # (Auto) 4.5 th/mm3 (1.8-7.7); Neut % (Auto) 96.2 % (16.0-70.0); Platelet Count 163 th/mm3 (150-450); Red Blood Count 2.89 mil/mm3 (4.00-5.30); Red Cell Distribution Width 23.5 % (11.6-17.2); White Blood Count 4.7 th/mm3 (4.0-11.0)
[2018-05-03 05:12] LABS: Calcium 8.7 mg/dL (8.5-10.1); Carbon Dioxide 25.3 meq/L (21.0-32.0); Potassium 4.3 meq/L (3.5-5.1)
[2018-05-03 09:36] VITALS: RESP 18
[2018-05-03] MEDS: Citalopram 20 MG Tablet PO SCH (09:38)
[2018-05-03] MEDS: dilTIAZem CD 240 MG Capsule PO SCH (09:39)
--- NOTE | 2018-05-03 10:05 | P.PNONC ---
Subjective Interval history: Afebrile Patient sitting up in bed Anxious to go home No acute complaints Objective Vital Signs/Intake & Output: Vital Signs 05/02/18 11:00 05/02/18 11:26 05/02/18 15:00 Temperature 98.5 F Pulse Rate 59 L 54 L 67 Respiratory Rate 18 Blood Pressure 112/48 L Pulse Oximetry 92 L 05/02/18 15:26 05/02/18 20:00 05/02/18 20:02 Temperature 98.6 F 98.5 F Pulse Rate 57 L 72 61 Respiratory Rate 18 18 Blood Pressure 140/63 139/60 Pulse Oximetry 92 L 93 L 05/03/18 00:00 05/03/18 04:05 05/03/18 07:00 Temperature 97.5 F L 98.1 F Pulse Rate 72 60 61 Respiratory Rate 16 16 Blood Pressure 140/59 L 148/64 H Pulse Oximetry 97 94 L 05/03/18 09:34 Temperature 98.3 F Pulse Rate 77 Respiratory Rate 18 Blood Pressure 168/72 H Pulse Oximetry 97 Intake & Output 05/02/18 05/03/18 05/03/18 18:59 06:59 18:59 Intake Total 3091 / 3091 Output Total 700 / 700 1000 / 1000 Balance 2391 / 2391 -1000 / -1000 Weight 287 lb 7.724 oz 291 lb 7.218 oz Intake: IV 1891 / 1891 Paraplatin Inj 750 MG In NS Inj 325 / 325 250 ML @ 650 mls/hr IV.SIG ONCE ONE Rx#:[id number] Vepesid Inj 200 MG In NS Inj 510 / 510 500 ML @ 510 mls/hr IV.SIG ONCE ONE Rx#:[id number] Kytril Inj 1 MG Decadron Inj 20 56 / 56 MG In NS Inj 50 ML @ 336 mls/ hr IV.SIG ONCE ONE Rx#:[id number] NS Inj 1,000 ML @ 250 mls/hr IV 1000 / 1000 .SIG .Q4H ONE Rx#:[id number] Oral 1200 / 1200 Output: Urine 700 / 700 1000 / 1000 Other: Date of Last Bowel Movement 05/02/18 05/02/18 05/09/18 # Bowel Movements 1 Result Diagrams: 05/03/18 04:00 05/03/18 04:00 Laboratory Results: Laboratory Results - last 24 hr 05/03/18 05/03/18 04:00 04:00 WBC 4.7 RBC 2.89 L Hgb 8.8 L Hct 27.1 L MCV 93.7 MCH 30.4 MCHC 32.4 RDW 23.5 H Plt Count 163 MPV 9.0 Neut % (Auto) 96.2 H Lymph % (Auto) 1.7 L [place] % (Auto) 1.9 Eos % (Auto) 0.0 Baso % (Auto) 0.2 Neut # (Auto) 4.5 Lymph # (Auto) 0.1 L [place] # (Auto) 0.1 Eos # (Auto) 0.0 Baso # (Auto) 0.0 WBC Differential . Differential Comment Auto diff final Sodium 146 H Potassium 4.3 Chloride 111 H Carbon Dioxide 25.3 Anion Gap 10 BUN 15 Creatinine 0.82 Estimated GFR 69 L Random Glucose 244 H D Calcium 8.7 Medications: Active Medications Generic Name Dose Route Start Last Admin Trade Name Freq PRN Reason Stop Dose Admin Al Hydroxide/Mg Hydroxide 30 ml 05/01/18 09:30 05/03/18 09:38 Milk Of [place] Liq PO 30 ml DAILY LINDSEY Administration Apixaban 5 mg 05/01/18 21:00 05/03/18 09:38 Eliquis PO 5 mg BID LINDSEY Administration Atorvastatin Calcium 10 mg 05/01/18 21:00 05/02/18 20:35 Lipitor PO 10 mg HS LINDSEY Administration Citalopram Hydrobromide 20 mg 05/02/18 09:00 05/03/18 09:38 Celexa PO 20 mg DAILY LINDSEY Administration Diltiazem HCl 240 mg 05/02/18 09:00 05/03/18 09:39 Cardizem Cd 24hr PO 240 mg DAILY LINDSEY Administration [place] 10,000 mg/ Ifosfamide 10 1,100 mls @ 45.833 mls/hr 05/02/18 13:00 05/02 18:35 ,000 mg/ Sodium Chloride IV.SIG 05/04/18 12:59 45.83 mls/hr Q24H LINDSEY Administration Lisinopril 20 mg 05/01/18 21:00 05/02/18 20:35 Prinivil PO 20 mg HS LINDSEY Administration Lorazepam 0.5 mg 05/01/18 08:56 05/02/18 13:23 Ativan PO 0.5 mg Q6H PRN Administration ANXIETY Metformin HCl 500 mg 05/02/18 09:00 05/03/18 09:38 Glucophage PO 500 mg DAILY LINDSEY Administration Metoprolol Succinate 50 mg 05/02/18 09:00 05/03/18 09:38 Toprol Xl PO 50 mg DAILY LINDSEY Administration Trazodone HCl 100 mg 05/01/18 21:00 05/02/18 20:35 Desyrel PO 100 mg HS LINDSEY Administration Objective Remarks: GENERAL: Obese older female sitting up on side of bed writing out birthday cards SKIN: Warm and dry. HEAD: Normocephalic. EYES: No scleral icterus. No injection or drainage. NECK: Supple, trachea midline. No JVD or lymphadenopathy. CARDIOVASCULAR: Regular rate and rhythm without murmurs. RESPIRATORY: Clear anteriorly. Breathing unlabored at rest. GASTROINTESTINAL: Abdomen obese but soft. Nontender to palpation. EXTREMITIES: No cyanosis, or edema. MUSCULOSKELETAL: Adequate muscle tone. NEUROLOGICAL: No obvious focal deficit. Awake, alert, and oriented x3. 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 She was originally diagnosed in March 2017 and received R CHOP, bendamustine and Rituxan with persistence of disease in the colon. She is currently on salvage chemotherapy with Rituxan, ifosfamide, carboplatin and etoposide. She is being evaluated for possible bone marrow transplant at [facility]. She is admitted for cycle #3 of ICE chemotherapy. Patient will need Neulasta in clinic 24 hours after completion of her chemotherapy. 1. Patient tolerating chemotherapy well. Continue with day #3 ICE today. Urine output will need to be monitored. Discussed with the patient that if her urine output decreases after the end of chemotherapy she will need to call the clinic. 2. Labs are reviewed. We do not anticipate counts to decrease until late next week. She will receive Neulasta in clinic likely on Friday as our clinic is closed on Friday. 3. Continue supportive care. - Attending Statement The exam, history, and the medical decision-making described in the above note were completed with the assistance of the mid-level provider. I reviewed and agree with the findings presented. I attest that I had a [id number] encounter with the patient on the same day, and personally performed and documented my assessment and findings in the medical record. Eager to go home today. She feels well. She denies any urinary symptoms. Noted a delay in her chemo therapy. She does not have a right LS she is picked up by her before 10 PM. We discussed arrangement in the hydration post 24 infusional chemotherapy. Additional IV fluid is administered to increase urinary output. Patient was advised to drink at home to continue to decrease the bladder toxicity of ifosfamide. We will coordinate Tim support as an outpatient on Friday at [facility]. We will coordinate CT PET scan restaging prior to her appointment at [facility] on May 13.
[2018-05-03] MEDS: Sod Chloride 0.9% Inj 1,000 ML IV.SIG SCH ×2 (10:42→22:12)
[2018-05-03] MEDS ORDERED: Granisetron 1 MG/ML Vial IV.PUSH ONE (11:30)
[2018-05-03] MEDS ORDERED: Etoposide Inj 200 MG in Sodium Chlor 0.9% Inj 500 ML IV.SIG ONE (13:00)
[2018-05-03 15:12] VITALS: O2SAT 96
[2018-05-03] MEDS ORDERED: Heparin Central Flush 100 UNIT/ML 5 ML Vial IV.FLUSH ONE (16:00)
--- NOTE | 2018-05-03 16:19 | P.DS ---
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 She was started on salvage chemotherapy with Rituxan, ifosfamide, carboplatin and etoposide. She is being evaluated for transplant at [facility]. She has recently received Rituxan cycle #3 in the clinic on 04/30/18 and has come into the hospital for completion of the rest of cycle 3 chemotherapy. DS: Diagnosis - Discharge Diagnosis (1) Lymphoma malignant, large cell Status: Acute DS: Summary Hospital Course: Patient was admitted for chemotherapy, cycle #3 after receiving outpatient Rituxan in the clinic on 04/30. She received chemotherapy on Friday and finished late in the evening on Friday. She tolerated this well with no incidents. The patient will be discharged and will need to return to the clinic on Friday for Neulasta injection. - Time Spent with Patient Total time spent providing and/or coordinating discharge services: Less than 30 minutes - Quality: VTE Deep Vein Thrombosis/Pulmonary Embolism Present on Admission: No Exam Vital signs: Vital Signs 05/02/18 20:00 05/02/18 20:02 05/03/18 00:00 Temperature 98.5 F 97.5 F L Pulse Rate 72 61 72 Respiratory Rate 18 16 Blood Pressure 139/60 140/59 L Pulse Oximetry 93 L 97 05/03/18 04:05 05/03/18 07:00 05/03/18 09:34 Temperature 98.1 F 98.3 F Pulse Rate 60 61 77 Respiratory Rate 16 18 Blood Pressure 148/64 H 168/72 H Pulse Oximetry 94 L 97 05/03/18 11:00 05/03/18 11:09 05/03/18 15:00 Temperature 98.6 F Pulse Rate 76 71 65 Respiratory Rate 18 Blood Pressure 131/59 L Pulse Oximetry 97 05/03/18 15:08 Temperature 98.5 F Pulse Rate 66 Respiratory Rate 18 Blood Pressure 138/51 L Pulse Oximetry 96 Intake & Output 05/02/18 05/03/18 05/03/18 18:59 06:59 18:59 Intake Total 3091 / 3091 Output Total 700 / 700 1000 / 1000 Balance 2391 / 2391 -1000 / -1000 Weight 287 lb 7.724 oz 291 lb 7.218 oz Intake: IV 189 / 1891 Paraplatin Inj 750 MG In NS Inj 325 / 325 250 ML @ 650 mls/hr IV.SIG ONCE ONE Rx#:[id number] Vepesid Inj 200 MG In NS Inj 510 / 510 500 ML @ 510 mls/hr IV.SIG ONCE ONE Rx#:[id number] Kytril Inj 1 MG Decadron Inj 20 56 / 56 MG In NS Inj 50 ML @ 336 mls/ hr IV.SIG ONCE ONE Rx#:[id number] NS Inj 1,000 ML @ 250 mls/hr IV 1000 / 1000 .SIG .Q4H ONE Rx#:[id number] Oral 1200 / 1200 Output: Urine 700 / 700 1000 / 1000 Other: Date of Last Bowel Movement 05/02/18 05/02/18 05/09/18 # Bowel Movements 1 Narrative: See physical exam in progress note dated the day of discharge Results Procedures completed during hospitalization: No procedures completed inpatient except for the safe delivery of chemotherapy Labs on day of discharge: Labs from last 24 hours 05/03/18 05/03/18 04:00 04:00 WBC 4.7 RBC 2.89 L Hgb 8.8 L Hct 27.1 L MCV 93.7 MCH 30.4 MCHC 32.4 RDW 23.5 H Plt Count 163 MPV 9.0 Neut % (Auto) 96.2 H Lymph % (Auto) 1.7 L [place] % (Auto) 1.9 Eos % (Auto) 0.0 Baso % (Auto) 0.2 Neut # (Auto) 4.5 Lymph # (Auto) 0.1 L [place] # (Auto) 0.1 Eos # (Auto) 0.0 Baso # (Auto) 0.0 WBC Differential . Differential Comment Auto diff final Sodium 146 H Potassium 4.3 Chloride 111 H Carbon Dioxide 25.3 Anion Gap 10 BUN 15 Creatinine 0.82 Estimated GFR 69 L Random Glucose 244 H D Calcium 8.7 Discharge Plan - Discharge Disposition Patient Disposition: 01 Discharge Home - Discharge Condition Condition: Good - Discharge Order Discharge Orders: Discharge Order (Routine); Ordered 05/03/18 Ordered By: Liset Jara - Discharge Details Anticipated Discharge Date: 05/03/18 Discharge Comment: Discharge around 9pm this evening. - Physicians Team Primary Care Provider: Davonte Rodas Attending Provider: Brenda Brown Other Providers: Leena Stern - Rxs /Orders / Referrals /Forms Prescriptions: New temazepam 15 mg Capsule 15 mg PO HS PRN (Reason: Sleep) RF: 0 Continue apixaban [Eliquis] 5 mg Tablet 5 mg PO BID RF: 0 atorvastatin 10 mg Tablet 10 mg PO HS citalopram 20 mg Tablet 20 mg PO DAILY diltiazem HCl 240 mg Capsule,Extended Release 24hr 240 mg PO DAILY RF: 0 lisinopril 20 mg Tablet 20 mg PO HS metformin 500 mg Tablet Extended Release 24 Hr 500 mg PO DAILY metoprolol succinate 50 mg tablet extended release 24 hr 50 mg PO DAILY Qty: 30 RF: 0 trazodone 100 mg Tablet 100 mg PO HS Referrals: Davonte Rodas MD [Primary Care Provider] - See Instructions - Discharge Instructions Patient Printed Instructions: Temazepam (By mouth) Additional Instructions: Your Health Problems: Goals to Promote Your Health: * To prevent worsening of your condition * To maintain your health at the optimal level Directions to Meet Your Goals: * Take your medications as prescribed * Follow your dietary instruction * Follow activity as directed * Keep your appointments as scheduled * Take your immunizations and boosters as scheduled * If your symptoms worsen call your PCP * If no PCP go to Urgent Care or Emergency Room Smoking is dangerous to your health. Avoid second hand smoke. You may reach the 24-hour crisis hotline for domestic abuse at . - Post Discharge Care Plan Care Plan Goals: Your Health Problems: Goals to Promote Your Health: * To prevent worsening of your condition * To maintain your health at the optimal level Directions to Meet Your Goals: * Take your medications as prescribed * Follow your dietary instruction * Follow activity as directed * Keep your appointments as scheduled * Take your immunizations and boosters as scheduled * If your symptoms worsen call your PCP * If no PCP go to Urgent Care or Emergency Room Smoking is dangerous to your health. Avoid second hand smoke. You may reach the 24-hour crisis hotline for domestic abuse at .
[2018-05-03] MEDS: IFOSFAMIDE IV.SIG SCH (19:02)
[2018-05-03] MEDS: SOD CHLORIDE 0.9% IV.SIG SCH (19:02)
[2018-05-03] MEDS: MESNA IV.SIG SCH (19:02)
[2018-05-03 19:45] VITALS: BP 161/70; PULSE 81; TEMP 98
[2018-05-03] MEDS: traZODone 100 MG Tablet PO SCH (21:57)
[2018-05-03] MEDS: Lisinopril 20 MG Tablet PO SCH (22:11)
== END 2018-05-03 22:30 | disposition home or self-care (01) ==
LOC: HCIN 07:39
PROVIDERS: ADMIT Internal Medicine Hematology & Oncology; ATTEND Internal Medicine Hematology & Oncology

== ENCOUNTER 2018-06-02 08:11 | Inpatient (IN) ==
[2018-06-02 10:54] LABS: Baso % (Auto) 0.6 % (0.0-2.0); Eos % (Auto) 1.1 % (0.0-4.0); Hematocrit 28.7 % (35.0-46.0); Hemoglobin 9.3 gm/dL (11.6-15.3); Lymph # (Auto) 0.2 th/mm3 (1.0-4.8); Lymph % (Auto) 5.2 % (9.0-44.0); Mean Corpuscular HGB Conc 32.5 % (32.0-36.0); Mean Corpuscular Hemoglobin 32.3 pg (27.0-34.0); Mean Corpuscular Volume 99.5 fL (80.0-100.0); Mean Platelet Volume 8.8 fL (7.0-11.0); Mono # (Auto) 0.6 th/mm3 (0.0-0.9); Mono % (Auto) 13.1 % (0.0-8.0); Neut # (Auto) 3.6 th/mm3 (1.8-7.7); Platelet Count 121 th/mm3 (150-450); Red Blood Count 2.88 mil/mm3 (4.00-5.30); Red Cell Distribution Width 25.2 % (11.6-17.2); White Blood Count 4.4 th/mm3 (4.0-11.0)
[2018-06-02 11:08] LABS: Alanine Aminotransferase 32 U/L (10-53); Albumin 3.6 g/dL (3.4-5.0); Anion Gap 7 meq/L (5-15); Aspartate Aminotransferase 26 U/L (15-37); Blood Urea Nitrogen 12 mg/dL (7-18); Calcium 8.8 mg/dL (8.5-10.1); Carbon Dioxide 28.9 meq/L (21.0-32.0); Chloride 109 meq/L (98-107); Glomerular Filtration Rate 88 mL/min (>89); Glucose,Random 117 mg/dL (74-106); Magnesium 2.2 mg/dL (1.5-2.5); Phosphorus 3.4 mg/dL (2.5-4.9); Potassium 4.2 meq/L (3.5-5.1); Sodium 145 meq/L (136-145)
[2018-06-02 11:11] LABS: Alkaline Phosphatase 86 U/L (45-117)
[2018-06-02 11:22] LABS: Ovalocytes 1+; Tear Drop Cells 1+
[2018-06-02] MEDS ORDERED: Granisetron 1 MG/ML Vial IV.PUSH ONE ×2 (13:30→15:30)
[2018-06-02] MEDS: Etoposide Inj 200 MG in Sodium Chlor 0.9% Inj 500 ML IV.SIG SCH (14:00)
[2018-06-02] MEDS ORDERED: Acetaminophen 325 MG Tablet PO PRN ×2 (15:16→19:17)
[2018-06-02 15:57] LABS: Bilirubin,Urine Negative (Negative); Clarity,Urine Clear (Clear); Color,Urine Yellow (Yellw/Straw); Glucose,Urine (UA) Negative (Negative); Leukocyte Esterase,Urine Negative (Negative); Nitrite,Urine Negative (Negative); Specific Gravity,Urine 1.013 (1.002-1.035); Squamous Epithelial Cell,Urine 1 /hpf (0-5)
[2018-06-02] MEDS ORDERED: Cathflo Activase Inj 2 MG Vial I-CATHETER PRN (19:17)
[2018-06-02] MEDS ORDERED: LORazepam 0.5 MG Tablet PO PRN (19:17)
[2018-06-02] MEDS: traZODone 100 MG Tablet PO SCH (20:11)
[2018-06-02] MEDS: Lisinopril 20 MG Tablet PO SCH (20:11)
--- NOTE | 2018-06-02 20:34 | MH ---
cc: Brenda Brown MD DATE OF ADMISSION: 06/02/2018 ADMISSION DIAGNOSES: 1. Refractory large B-cell lymphoma. 2. Thrombocytopenia. 3. Chemotherapy-induced anemia. 4. Chronic atrial fibrillation. 5. Obesity. CHIEF COMPLAINT: Here for chemo. HISTORY OF PRESENT ILLNESS: Ms. Solares is a 73-year-old woman with a history of relapsed primary refractory B-cell large cell lymphoma. She is status post Rituxan CHOP, bendamustine and Rituxan with persistence of disease in the colon. She is currently receiving salvage chemotherapy with Rituxan, ifosfamide, carboplatin and etoposide. This is cycle #4 of Rituxan ICE chemotherapy. She is pending a bone marrow transplant evaluation in early July at [facility] for an autologous stem cell transplant. As she is pending a bone marrow biopsy there. Her last CT PET scan showed resolution of her disease in the abdomen. She is feeling well. She is here today for her next cycle of chemotherapy. She tolerated her cycle 4 Rituxan in clinic yesterday well. She is admitted to start her day 1 of ICE chemotherapy. She denies any fevers, chills or night sweats. She is a bit miffed about [facility] stating that she was old for a transplant. We discussed that they are considering the risks and benefits and comorbidities associated with autologous stem cell transplant. The rest of her review of systems is negative. PAST MEDICAL HISTORY: Large cell B-cell non-Hodgkin lymphoma, atrial fibrillation, obesity, chemotherapy-induced anemia, cardiovascular disease, history of MS, depression, thrombocytopenia. PAST SURGICAL HISTORY: Appendectomy, breast biopsy, hysterectomy, colonoscopy with biopsy, tonsillectomy, port placement, bone marrow biopsy. FAMILY HISTORY: Brother is . No significant family history of cancer. SOCIAL HISTORY: She is and lives with her . She has a [id number] smoking history. She denies any alcohol or illicit drug use. ALLERGIES: NO KNOWN DRUG ALLERGIES. MEDICATIONS: 1. Tylenol. 2. Eliquis. 3. Lipitor. 4. Celexa. 5. B12. 6. Cardizem. 7. Prinivil. 8. Glucophage. 9. Toprol. 10. Desyrel. 11. Valtrex. PHYSICAL EXAMINATION: VITAL SIGNS: Temperature 99.2, heart rate 56, respiratory rate 16, blood pressure 119/51, saturation 94%. GENERAL: Ms. Solares is a well-developed, well-nourished, obese, jovial woman in no acute distress. She has generalized pallor. Her pupils are round and reactive to light and accommodation. Oropharynx is clear. NECK: Supple. LUNGS: Clear to auscultation. CARDIOVASCULAR: Reveals a rate-controlled bradycardic rhythm. ABDOMEN: Large and benign. EXTREMITIES: No edema. Good pulses. NEUROLOGIC: Nonfocal. LABORATORY DATA: Significant for pancytopenia with a white blood cell count of 4.4, hemoglobin 9.3, platelet count 121. She is lymphopenic. Chemistry is significant for a glucose of 117. Total protein is decreased at 6.0, but albumin is normal. BUN and creatinine are normal. ASSESSMENT AND PLAN: Ms. Solares is a 73-year-old woman with primary refractory large B-cell non-Hodgkin lymphoma. She is admitted for cycle #4 of salvage chemotherapy with ICE. Rituxan was administered yesterday. We discussed the risks and benefits of ICE chemotherapy for salvage. This would be her last chemotherapy prior to the bone marrow transplant evaluation and hopefully a bone marrow transplant for consolidation. The risks and benefits of her chemotherapy were discussed. Neulasta support will be offered after completion of her chemotherapy. No specific therapy is required for the chemotherapy-induced anemia or thrombocytopenia. We will proceed with chemotherapy as planned with standard dosing using a BSA of 2. Toxicity from the chemotherapy will be monitored. Telemetry monitoring continues because of her atrial fibrillation and chronic bradycardia. She denies any symptoms from the thrombocytopenia. Her questions regarding transplant versus CAR T-cells were discussed. Questions were answered. I will see her back in followup after her discharge after the completion of the above chemotherapy. MD UZAIR Wayne/dwayne , 07:17 PM , 07:28 PM
[2018-06-02] MEDS ORDERED: Temazepam 15 MG Capsule PO PRN (21:00)
--- NOTE | 2018-06-03 10:11 | P.PNONC ---
Subjective Interval history: Patient resting comfortably in bed. Requests milk of mag. Tolerated chemotherapy well. No complaints at this time. Objective Vital Signs/Intake & Output: Vital Signs 06/02/18 12:00 06/02/18 15:35 06/02/18 15:53 Temperature 98.7 F 99.2 F Pulse Rate 54 L 50 L 56 L Respiratory Rate 16 16 Blood Pressure 107/66 119/51 L Pulse Oximetry 95 94 L 06/02/18 20:08 06/03/18 00:11 06/03/18 00:34 Temperature 99.1 F 98.1 F Pulse Rate 62 61 51 L Respiratory Rate 18 18 Blood Pressure 137/68 96/43 L Pulse Oximetry 94 L 95 06/03/18 04:03 06/03/18 04:43 06/03/18 07:49 Temperature 97.8 F Pulse Rate 48 L 49 L 46 L Respiratory Rate 20 Blood Pressure 104/52 L Pulse Oximetry 95 06/03/18 08:00 Temperature 97.2 F L Pulse Rate 60 Respiratory Rate 18 Blood Pressure Pulse Oximetry 98 Intake & Output 06/02/18 06/03/18 06/03/18 18:59 06:59 18:59 Intake Total 1031 / 1031 Output Total 650 / 650 1900 / 1900 Balance 381 / 381 -1900 / -1900 Weight 129.3 kg 130.3 kg Intake: IV 510 / 510 Vepesid Inj 200 MG In NS Inj 510 / 510 500 ML @ 510 mls/hr IV.SIG Q24H [facility] Rx#:[id number] Oral 521 / 521 Output: Urine 650 / 650 1900 / 1900 Other: Weight On Admission 129.3 kg Result Diagrams: 06/02/18 10:03 06/02/18 10:03 Laboratory Results: Laboratory Results - last 24 hr 06/02/18 06/02/18 06/02/18 10:03 10:03 15:37 WBC 4.4 RBC 2.88 L Hgb 9.3 L Hct 28.7 L MCV 99.5 MCH 32.3 MCHC 32.5 RDW 25.2 H Plt Count 121 L MPV 8.8 Prelim Diff (Auto) Slide review pending Neut % (Auto) 80.0 H Lymph % (Auto) 5.2 L [place] % (Auto) 13.1 H Eos % (Auto) 1.1 Baso % (Auto) 0.6 Neut # (Auto) 3.6 Lymph # (Auto) 0.2 L [place] # (Auto) 0.6 Eos # (Auto) 0.0 Baso # (Auto) 0.0 WBC Differential . Diff Scan Auto diff confirmed Differential Comment . Tear Drop Cells 1+ H Ovalocytes 1+ H Sodium 145 Potassium 4.2 Chloride 109 H Carbon Dioxide 28.9 Anion Gap 7 BUN 12 Creatinine 0.66 Estimated GFR 88 L Random Glucose 117 H Calcium 8.8 Phosphorus 3.4 Magnesium 2.2 Total Bilirubin 0.4 AST 26 ALT 32 Alkaline Phosphatase 86 Total Protein 6.0 L Albumin 3.6 Urine Color Yellow Urine Clarity Clear Urine pH 6.0 Ur Specific [place] 1.013 Urine Protein Negative Urine Glucose (UA) Negative Urine Ketones Negative Urine Occult Blood Negative Urine Nitrate Negative Urine Bilirubin Negative Urine Urobilinogen 2.0 H Ur Leukocyte Esterase Negative Urine RBC Less than 1 Urine WBC 2 Ur Squamous Epith Cells 1 Ur Microscopic Review Not Reportable Medications: Active Medications Generic Name Dose Route Start Last Admin Trade Name Freq PRN Reason Stop Dose Admin Apixaban 5 mg 06/02/18 21:00 06/02/18 20:11 Eliquis PO 5 mg BID LINDSEY Administration Atorvastatin Calcium 10 mg 06/02/18 21:00 06/02/18 20:11 Lipitor PO 10 mg HS LINDSEY Administration Etoposide 200 mg/ Sodium 510 mls @ 510 mls/hr 06/02/18 14:00 06/02/18 15:37 Chloride IV.SIG 06/03/18 14:59 Infused Q24H LINDSEY Infusion Lisinopril 20 mg 06/02/18 21:00 06/02/18 20:11 Prinivil PO 20 mg HS LINDSEY Administration Trazodone HCl 100 mg 06/02/18 21:00 06/02/18 20:11 Desyrel PO 100 mg HS LINDSEY Administration Objective Remarks: GENERAL: Well-nourished, well-developed female patient, in no acute distress. SKIN: Warm and dry. HEAD: Normocephalic. EYES: No scleral icterus. No injection or drainage. NECK: Supple, trachea midline. CARDIOVASCULAR: Regular rate and rhythm without murmurs. RESPIRATORY: Breath sounds equal bilaterally. Nonlabored at rest. GASTROINTESTINAL: Abdomen soft, non-tender, nondistended. EXTREMITIES: No cyanosis, or edema. MUSCULOSKELETAL: Adequate muscle tone. NEUROLOGICAL: No obvious focal deficit. Awake, alert, and oriented x3. PSYCHIATRIC: Appropriate mood and affect; insight and judgment normal. Assessment/Plan - Plan Ms. Solares is a pleasant 73-year-old female who was admitted for cycle #4 of salvage chemotherapy with ICE. She received Rituxan on 06/01/2018. She has primary refractory large B cell non-Hodgkin lymphoma. Plan: 1. Large B cell non-Hodgkin lymphoma. Admitted for cycle #4 of salvage chemotherapy with ICE. Tolerating well. 2. Chronic constipation, requests milk of mag. This is been ordered for her. 3. Continue supportive care. - Attending Statement The exam, history, and the medical decision-making described in the above note were completed with the assistance of the mid-level provider. I reviewed and agree with the findings presented. I attest that I had a [id number] encounter with the patient on the same day, and personally performed and documented my assessment and findings in the medical record. Patient seen and examined. Her IV fluid hydration has been initiated. She is urinating well. The commode was brought close to the bedside. She is about to have her lunch. She offers no complaints. We discussed continuing with the chemotherapy for day 2. The infusion will start today. No evidence of cystitis. Will monitor closely for heart failure. Her total volume per hour is reduced to 150 cc/h. We will slow down her diuresis if develops trouble with the volume.
[2018-06-03] MEDS: Citalopram 20 MG Tablet PO SCH (10:22)
[2018-06-03] MEDS: dilTIAZem CD 180 MG Capsule PO SCH (10:22)
[2018-06-03] MEDS ORDERED: Sodium Chlor 0.9% Inj 250 ML IV.SIG ONE (12:00)
[2018-06-03] MEDS ORDERED: Sod Chloride 0.9% Inj 1,000 ML IV.SIG ONE (12:00)
[2018-06-03] MEDS ORDERED: Granisetron Inj 1 MG, Dexamethasone Inj 20 MG in Sodium Chlor 0.9% Inj 50 ML IV.SIG ONE ×2 (13:30)
[2018-06-03] MEDS: Etoposide Inj 200 MG in Sodium Chlor 0.9% Inj 500 ML IV.SIG SCH (14:46)
[2018-06-03] MEDS ORDERED: CARBOplatin Inj 750 MG in Sodium Chlor 0.9% Inj 250 ML IV.SIG ONE (15:00)
[2018-06-03] MEDS ORDERED: IFOSFAMIDE IV.SIG ONE (15:30)
[2018-06-03] MEDS ORDERED: MESNA IV.SIG ONE (15:30)
[2018-06-03] MEDS ORDERED: SOD CHLORIDE 0.9% IV.SIG ONE (15:30)
[2018-06-03] MEDS: valACYclovir 500 MG Tab PO SCH (18:22)
[2018-06-03] MEDS: Lisinopril 20 MG Tablet PO SCH (21:09)
[2018-06-03] MEDS: Sod Chloride 0.9% Inj 1,000 ML IV.SIG SCH (21:10)
[2018-06-03] MEDS: traZODone 100 MG Tablet PO SCH (21:10)
[2018-06-04 06:09] LABS: Baso % (Auto) 0.1 % (0.0-2.0); Hematocrit 28.5 % (35.0-46.0); Hemoglobin 9.2 gm/dL (11.6-15.3); Lymph # (Auto) 0.1 th/mm3 (1.0-4.8); Mean Corpuscular HGB Conc 32.3 % (32.0-36.0); Mean Corpuscular Hemoglobin 32.5 pg (27.0-34.0); Mean Corpuscular Volume 100.8 fL (80.0-100.0); Mean Platelet Volume 9.1 fL (7.0-11.0); Mono # (Auto) 0.1 th/mm3 (0.0-0.9); Mono % (Auto) 2.2 % (0.0-8.0); Neut # (Auto) 5.6 th/mm3 (1.8-7.7); Neut % (Auto) 95.7 % (16.0-70.0); Platelet Count 113 th/mm3 (150-450); Red Blood Count 2.83 mil/mm3 (4.00-5.30); Red Cell Distribution Width 24.2 % (11.6-17.2); White Blood Count 5.9 th/mm3 (4.0-11.0)
[2018-06-04 06:42] LABS: Alanine Aminotransferase 42 U/L (10-53); Albumin 3.2 g/dL (3.4-5.0); Alkaline Phosphatase 82 U/L (45-117); Anion Gap 9 meq/L (5-15); Aspartate Aminotransferase 33 U/L (15-37); Blood Urea Nitrogen 13 mg/dL (7-18); Calcium 8.7 mg/dL (8.5-10.1); Carbon Dioxide 23.1 meq/L (21.0-32.0); Chloride 110 meq/L (98-107); Glomerular Filtration Rate 75 mL/min (>89); Glucose,Random 220 mg/dL (74-106); Potassium 4.5 meq/L (3.5-5.1); Sodium 142 meq/L (136-145); Total Protein 5.9 g/dL (6.4-8.2)
[2018-06-04] MEDS: dilTIAZem CD 180 MG Capsule PO SCH (09:16)
[2018-06-04] MEDS: Citalopram 20 MG Tablet PO SCH (09:18)
[2018-06-04] MEDS: Sod Chloride 0.9% Inj 1,000 ML IV.SIG SCH ×4 (09:19→21:52)
[2018-06-04 13:11] VITALS: RESP 18
--- NOTE | 2018-06-04 13:13 | P.PNONC ---
Subjective Interval history: Patient resting comfortably in bed, family is at the bedside. She has no complaints at this time. She is eager to go home this evening after completing chemotherapy. She is tolerating it well. She is aware she will need Neulasta tomorrow. Objective Vital Signs/Intake & Output: Vital Signs 06/03/18 16:00 06/03/18 20:00 06/04/18 00:00 Temperature 98.8 F 98.3 F 98.3 F Pulse Rate 58 L 63 55 L Respiratory Rate 18 16 16 Blood Pressure 126/62 129/56 L 109/47 L Pulse Oximetry 94 L 96 97 06/04/18 04:00 06/04/18 08:00 Temperature 97.6 F 98.2 F Pulse Rate 69 59 L Respiratory Rate 16 Blood Pressure 119/57 L 132/54 L Pulse Oximetry 97 95 Intake & Output 06/03/18 06/04/18 06/04/18 18:59 06:59 18:59 Intake Total 2971 / 2971 1200 / 1200 Output Total 2400 / 2400 2350 / 2350 Balance 571 / 571 -1150 / -1150 Weight 133.9 kg Intake: IV 1891 / 1891 1000 / 1000 Paraplatin Inj 750 MG In NS Inj 325 / 325 250 ML @ 650 mls/hr IV.SIG ONCE ONE Rx#:[id number] Vepesid Inj 200 MG In NS Inj 510 / 510 500 ML @ 510 mls/hr IV.SIG Q24H [facility] Rx#:[id number] Kytril Inj 1 MG Decadron Inj 20 56 / 56 MG In NS Inj 50 ML @ 336 mls/ hr IV.SIG ONCE ONE Rx#:[id number] NS Inj 1,000 ML @ 104 mls/hr IV 1000 / 1000 1000 / 1000 .SIG .Q9H37M [facility] Rx#:[id number] Oral 1080 / 1080 200 / 200 Output: Urine 2400 / 2400 2350 / 2350 Other: Date of Last Bowel Movement 06/01/18 06/04/18 # Bowel Movements 1 Result Diagrams: 06/04/18 05:00 06/04/18 05:00 Laboratory Results: Laboratory Results - last 24 hr 06/03/18 06/04/18 06/04/18 15:00 05:00 05:00 WBC 5.9 RBC 2.83 L Hgb 9.2 L Hct 28.5 L MCV 100.8 H MCH 32.5 MCHC 32.3 RDW 24.2 H Plt Count 113 L MPV 9.1 Neut % (Auto) 95.7 H Lymph % (Auto) 2.0 L [place] % (Auto) 2.2 Eos % (Auto) 0.0 Baso % (Auto) 0.1 Neut # (Auto) 5.6 Lymph # (Auto) 0.1 L [place] # (Auto) 0.1 Eos # (Auto) 0.0 Baso # (Auto) 0.0 WBC Differential . Differential Comment Auto diff final Sodium 142 Potassium 4.5 Chloride 110 H Carbon Dioxide 23.1 Anion Gap 9 BUN 13 Creatinine 0.76 Estimated GFR 75 L Random Glucose 220 H D Calcium 8.7 Total Bilirubin 0.4 AST 33 ALT 42 Alkaline Phosphatase 82 Total Protein 5.9 L Albumin 3.2 L Urine Occult Blood Negative Medications: Active Medications Generic Name Dose Route Start Last Admin Trade Name Freq PRN Reason Stop Dose Admin Al Hydroxide/Mg Hydroxide 30 ml 06/03/18 10:15 06/04/18 09:16 Milk Of Magnvickie Liq PO 30 ml DAILY LINDSEY Administration Apixaban 5 mg 06/02/18 21:00 06/04/18 09:17 Eliquis PO 5 mg BID L[facility]Y Administration Atorvastatin Calcium 10 mg 06/02/18 21:00 06/03/18 21:09 Lipitor PO 10 mg HS L[facility] Administration Citalopram Hydrobromide 20 mg 06/03/18 09:00 06/04/18 09:18 Celexa PO 20 mg DAILY L[facility] Administration Cyanocobalamin 1,000 mcg 06/03/18 09:00 06/04/18 09:17 Vitamin B12 PO 1,000 mcg DAILY L[facility] Administration Diltiazem HCl 360 mg 06/03/18 09:00 06/04/18 09:16 Cardizem Cd 24hr PO 360 mg DAILY L[facility]SEY Administration Ifosfamide 10,000 mg/ [place] 10 1,100 mls @ 45.833 mls/hr 06/03/18 15:30 06/03 17:31 ,000 mg/ Sodium Chloride IV.SIG 06/04/18 15:29 45.83 mls/hr ONCE ONE Administration Sodium Chloride 1,000 mls @ 104 mls/hr 06/03/18 16:00 06/04/18 09:19 Ns Inj IV.SIG 06/04/18 17:00 104 mls/hr .Q9H37M [facility] Administration Lisinopril 20 mg 06/02/18 21:00 06/03/18 21:09 Prinivil PO 20 mg HS L[facility]Y Administration Metformin HCl 500 mg 06/03/18 09:00 06/04/18 09:18 Glucophage PO 500 mg DAILY LINDSEY Administration Metoprolol Succinate 100 mg 06/03/18 09:00 06/04/18 09:18 Toprol Xl PO 100 mg DAILY LINDSE[facility] Administration Oxycodone HCl 10 mg 06/02/18 19:17 06/04/18 04:58 Roxicodone PO 10 mg Q3H PRN Administration Pain Scale 8 to 10 Trazodone HCl 100 mg 06/02/18 21:00 06/03/18 21:10 Desyrel PO 100 mg HS LINDSEY Administration Valacyclovir HCl 1,000 mg 06/03/18 09:00 06/03/18 18:22 Valtrex PO Not Given DAILY L[facility]Y Objective Remarks: GENERAL: Well-nourished, well-developed female patient, in no acute distress. SKIN: Warm and dry. HEAD: Normocephalic. EYES: No scleral icterus. No injection or drainage. NECK: Supple, trachea midline. CARDIOVASCULAR: Regular rate and rhythm without murmurs. RESPIRATORY: Breath sounds equal bilaterally. Nonlabored at rest. GASTROINTESTINAL: Abdomen soft, non-tender, nondistended. EXTREMITIES: No cyanosis, or edema. MUSCULOSKELETAL: Adequate muscle tone. NEUROLOGICAL: No obvious focal deficit. Awake, alert, and oriented x3. PSYCHIATRIC: Appropriate mood and affect; insight and judgment normal. Assessment/Plan - Plan Ms. Solares is a pleasant 73-year-old female who was admitted for cycle #4 of salvage chemotherapy with ICE. She received Rituxan on 06/01/2018. She has primary refractory large B cell non-Hodgkin lymphoma. Plan: 1. Large B cell non-Hodgkin lymphoma. Admitted for cycle #4 of salvage chemotherapy with ICE. Tolerating well. 2. Patient tolerating chemotherapy well. She may be discharged this evening once chemotherapy has completed. She is aware she will need to report to the clinic tomorrow for Neulasta. Charge nurse Kimber notified. - Attending Statement The exam, history, and the medical decision-making described in the above note were completed with the assistance of the mid-level provider. I reviewed and agree with the findings presented. I attest that I had a [id number] encounter with the patient on the same day, and personally performed and documented my assessment and findings in the medical record. Tolerating chemotherapy well, no cystitis, tolerating hydration. Atrial fibrillation rate controlled. Eager to go home tonight. Anticipate chemo and post chemo hydration to finish ~ 9PM. Rx for pain given. [employer] database checked. Tim coordinated for Sat at infusion center. I'll see her in FU at PO clinic as scheduled.
[2018-06-04] MEDS ORDERED: Granisetron 1 MG/ML Vial IV.PUSH ONE ×2 (15:30→16:30)
[2018-06-04] MEDS ORDERED: Etoposide Inj 200 MG in Sodium Chlor 0.9% Inj 500 ML IV.SIG ONE (16:00)
[2018-06-04] MEDS: valACYclovir 500 MG Tab PO SCH (19:06)
[2018-06-04 19:52] VITALS: O2SAT 95
--- NOTE | 2018-06-04 21:35 | P.DS ---
Date of admission: 06/02/18 08:11 Primary care physician: Davonte Rodas MD Brief History from admission: Ms. Solares is a 73-year-old woman with a history of relapsed primary refractory B-cell large cell lymphoma. She is status post Rituxan CHOP, bendamustine and Rituxan with persistence of disease in the colon. She is currently receiving salvage chemotherapy with Rituxan, ifosfamide, carboplatin and etoposide. This is cycle #4 of Rituxan ICE chemotherapy. She tolerated chemotherapy well. No signs of toxicity. She will follow up in infusion center on Friday for neulasta. DS: Diagnosis - Discharge Diagnosis (1) Non-Hodgkins lymphoma in relapse Status: Acute DS: Medications - Discharge Medications Prescriptions: oxycodone 10 mg PO Q3-4H PRN #30 tab PRN Reason: Pain DS: Summary Hospital Course: Ms. Solares is a 73-year-old woman with a history of relapsed primary refractory B-cell large cell lymphoma. She is status post Rituxan CHOP, bendamustine and Rituxan with persistence of disease in the colon. She is currently receiving salvage chemotherapy with Rituxan, ifosfamide, carboplatin and etoposide. This is cycle #4 of Rituxan ICE chemotherapy. She tolerated chemotherapy well. No signs of toxicity. She will follow up in infusion center on Friday for neulasta. - Time Spent with Patient Total time spent providing and/or coordinating discharge services: Greater than 30 minutes - Quality: VTE Deep Vein Thrombosis/Pulmonary Embolism Present on Admission: No Exam Vital signs: Vital Signs 06/04/18 00:00 06/04/18 04:00 06/04/18 08:00 Temperature 98.3 F 97.6 F 98.2 F Pulse Rate 55 L 69 59 L Respiratory Rate 16 16 Blood Pressure 109/47 L 119/57 L 132/54 L Pulse Oximetry 97 97 95 06/04/18 12:00 06/04/18 19:51 Temperature 98.4 F 97.8 F Pulse Rate 70 73 Respiratory Rate 18 18 Blood Pressure 146/63 H 140/62 Pulse Oximetry 98 95 Intake & Output 06/04/18 06/04/18 06/05/18 06:59 18:59 06:59 Intake Total 1200 / 1200 1790 / 1790 Output Total 2350 / 2350 1100 / 1100 400 / 400 Balance -1150 / -1150 690 / 690 -400 / -400 Weight 133.9 kg Intake: IV 1000 / 1000 950 / 950 NS Inj 1,000 ML @ 104 mls/hr IV 1000 / 1000 950 / 950 .SIG .Q9H37M [facility] Rx#:[id number] Oral 200 / 200 840 / 840 Output: Urine 2350 / 2350 1100 / 1100 400 / 400 Other: Date of Last Bowel Movement 06/01/18 06/04/18 # Bowel Movements 1 Narrative: See progress note dated 06/04/2018 Results Procedures completed during hospitalization: No procedures Labs on day of discharge: Labs from last 24 hours 06/04/18 06/04/18 06/04/18 13:15 05:00 05:00 WBC 5.9 RBC 2.83 L Hgb 9.2 L Hct 28.5 L MCV 100.8 H MCH 32.5 MCHC 32.3 RDW 24.2 H Plt Count 113 L MPV 9.1 Neut % (Auto) 95.7 H Lymph % (Auto) 2.0 L [place] % (Auto) 2.2 Eos % (Auto) 0.0 Baso % (Auto) 0.1 Neut # (Auto) 5.6 Lymph # (Auto) 0.1 L [place] # (Auto) 0.1 Eos # (Auto) 0.0 Baso # (Auto) 0.0 WBC Differential . Differential Comment Auto diff final Sodium 142 Potassium 4.5 Chloride 110 H Carbon Dioxide 23.1 Anion Gap 9 BUN 13 Creatinine 0.76 Estimated GFR 75 L Random Glucose 220 H D Calcium 8.7 Total Bilirubin 0.4 AST 33 ALT 42 Alkaline Phosphatase 82 Total Protein 5.9 L Albumin 3.2 L Urine Occult Blood Negative Discharge Plan - Discharge Disposition Patient Disposition: 01 Discharge Home - Discharge Condition Condition: Good - Discharge Order Discharge Orders: Discharge Order (Routine); Ordered 06/04/18 Ordered By: Haylee Gomez - Discharge Details Anticipated Discharge Date: 06/04/18 Discharge Comment: After completion of chemo - Physicians Team Primary Care Provider: Davonte Rodas Attending Provider: Brenda rBown Other Providers: Leena Stern - Rxs /Orders / Referrals /Forms Prescriptions: New oxycodone 10 mg Tablet 10 mg PO Q3-4H PRN (Reason: Pain) Qty: 30 RF: 0 Continue apixaban [Eliquis] 5 mg Tablet 5 mg PO BID RF: 0 atorvastatin 10 mg Tablet 10 mg PO HS citalopram 20 mg Tablet 20 mg PO DAILY cyanocobalamin (vitamin B-12) [Vitamin B-12] 1,000 mcg Tablet 1,000 mcg PO DAILY digoxin [Lanoxin] 125 mcg Tablet 125 mcg/day PO DAILY diltiazem HCl [Cardizem CD] 360 mg Capsule,Extended Release 24hr 360 mg PO DAILY lisinopril 20 mg Tablet 20 mg PO HS metformin 500 mg Tablet Extended Release 24 Hr 500 mg PO DAILY metoprolol succinate 100 mg Tablet Extended Release 24 Hr 100 mg PO DAILY trazodone 100 mg Tablet 100 mg PO HS valacyclovir [Valtrex] 1 gram Tablet 1,000 mg PO DIRECTED PRN (Reason: shingles) Referrals: Davonte Rodas MD [Primary Care Provider] - See Instructions - Discharge Instructions Patient Printed Instructions: Ifosfamide (By injection), Mes[place] (By injection), Pegfilgrastim (By injection), Non-Hodgkin Lymphoma (DC), Preventing Infections ( GEN), How To Wash Your Hands (DC) Additional Instructions: Follow up Friday in am for Neulasta shot
[2018-06-04] MEDS: Lisinopril 20 MG Tablet PO SCH (21:44)
[2018-06-04] MEDS: traZODone 100 MG Tablet PO SCH (21:49)
[2018-06-05] MEDS: Sod Chloride 0.9% Inj 1,000 ML IV.SIG SCH (00:02)
[2018-06-05 00:46] VITALS: BP 141/64; PULSE 65; TEMP 98.2
== END 2018-06-05 00:25 | disposition home or self-care (01) ==
LOC: HCIN 08:11
PROVIDERS: ADMIT Internal Medicine Hematology & Oncology; ATTEND Internal Medicine Hematology & Oncology